=== PATIENT | female | born 1995 | race Caucasian/White ===

== ENCOUNTER → 2024-08-09 | Outpatient (CLI) | payer OTHER, SELFPAY ==
[2024-08-09 08:54] LABS: Absolute Lymphocyte Count 2.65 X10^3/uL (0.83-4.51); Basophil# 0.06 X10^3/uL; Basophil% 0.8 % (0-1); Eosinophil# 0.18 X10^3/uL; Eosinophils% 2.4 % (0-5); Hematocrit 43.4 % (37-47); Hemoglobin 13.9 g/dL (12.0-15.0); Lymphocyte # 2.65 X10^3/ul (0.83-4.51); Lymphocyte % 35.8 % (19-41); Mean Corpuscular Hgb 29.4 pg (27.0-32.0); Mean Corpuscular Volume 91.9 fL (81-99); Mean Platelet Vol. 9.9 fl (6.2-12.0); Monocyte# 0.47 X10^3/uL; Monocyte% 6.3 % (0-10); NRBC Flagged by Analyzer 0 % (0-5); Neutrophil # 4.01 X10^3/uL (2.7-7.7); Neutrophil % 54.2 % (47-70); Platelet Count 259 K/mm3 (150-450); RBC Distribution Width CV 13.4 % (11.6-14.6); RBC Distribution Width SD 45.4 fl (35.1-43.9); Red Blood Count 4.72 M/mm3 (4.2-5.4); White Blood Count 7.4 K/mm3 (4.4-11.0)
[2024-08-09 09:20] LABS: hCG Titer Quant., Serum 4 mIU/mL (1-3)
== END | disposition home or self-care (01) ==
PROVIDERS: PCP Nurse Practitioner Family; Referring Provider Obstetrics & Gynecology; Visit Provider Obstetrics & Gynecology
DX: O20.0 Threatened abortion (principal); Z3A.00 Weeks of gestation of pregnancy not specified
CPT/HCPCS: 36415; 84702; 85025; 86900; 86901

== ENCOUNTER → 2024-09-06 | Outpatient (CLI) | payer OTHER, SELFPAY ==
[2024-09-06 13:44] LABS: hCG Titer Quant., Serum 148 mIU/mL (<9 non-preg)
== END | disposition home or self-care (01) ==
PROVIDERS: Obstetrics & Gynecology; PCP Nurse Practitioner Family; Referring Provider Obstetrics & Gynecology; Visit Provider Obstetrics & Gynecology
DX: N91.2 Amenorrhea, unspecified (principal)
CPT/HCPCS: 36415; 84702

== ENCOUNTER → 2024-09-08 | Outpatient (CLI) | payer OTHER, SELFPAY ==
[2024-09-08 13:19] LABS: hCG Titer Quant., Serum 375 mIU/mL (<9 non-preg)
== END | disposition home or self-care (01) ==
LOC: LAB 12:01
PROVIDERS: PCP Nurse Practitioner Family; Referring Provider Obstetrics & Gynecology; Visit Provider Obstetrics & Gynecology
DX: N91.2 Amenorrhea, unspecified (principal)
CPT/HCPCS: 36415; 84702

== ENCOUNTER → 2024-10-11 | Outpatient (CLI) | payer OTHER, SELFPAY ==
[2024-10-14 21:07] LABS: Chlamydia By Nucleic Acid AMP Negative (Negative); Gonococcus By Nucleic Acid AMP Negative (Negative)
== END | disposition home or self-care (01) ==
LOC: LABSPEC 11:45
PROVIDERS: PCP Nurse Practitioner Family; Referring Provider Obstetrics & Gynecology; Visit Provider Obstetrics & Gynecology
DX: O09.91 Supervision of high risk pregnancy, unspecified, first trimester (principal); Z3A.00 Weeks of gestation of pregnancy not specified
CPT/HCPCS: 87086; 87491; 87591

== ENCOUNTER → 2024-10-17 | Outpatient (CLI) | payer OTHER, SELFPAY ==
[2024-10-17 09:16] LABS: Absolute Lymphocyte Count 2.41 X10^3/uL (0.83-4.51); Absolute Neutrophil Count 5.3 X10^3/uL (2.0-7.7); Basophil# 0.04 X10^3/uL; Basophil% 0.5 % (0-1); Eosinophil# 0.17 X10^3/uL; Eosinophils% 2.1 % (0-5); Hematocrit 39.1 % (37-47); Hemoglobin 13.3 g/dL (12.0-15.0); Lymphocyte # 2.41 X10^3/ul (0.83-4.51); Lymphocyte % 29.3 % (19-41); Mean Corpuscular Hgb 30.6 pg (27.0-32.0); Mean Corpuscular Volume 89.9 fL (81-99); Monocyte# 0.29 X10^3/uL; Monocyte% 3.5 % (0-10); NRBC Flagged by Analyzer 0 % (0-5); Neutrophil # 5.26 X10^3/uL (2.7-7.7); Platelet Count 254 K/mm3 (150-450); RBC Distribution Width CV 12.2 % (11.6-14.6); Red Blood Count 4.35 M/mm3 (4.2-5.4); White Blood Count 8.2 K/mm3 (4.4-11.0)
[2024-10-17 10:08] LABS: HIV Nonreactive (Nonreactive); Hepatitis B Surface Antigen Nonreactive (Nonreactive); Hepatitis C Antibody Nonreactive (Nonreactive); Rubella IgG REAC (Nonreactive); Syphilis Antibodies Nonreactive (Nonreactive)
== END | disposition home or self-care (01) ==
PROVIDERS: PCP Nurse Practitioner Family; Referring Provider Obstetrics & Gynecology; Visit Provider Obstetrics & Gynecology
DX: O09.91 Supervision of high risk pregnancy, unspecified, first trimester (principal); Z3A.00 Weeks of gestation of pregnancy not specified
CPT/HCPCS: 36415; 85025; 86703; 86762; 86780; 86803; 86850; 86900; 86901; 87340

== ENCOUNTER → 2025-02-19 | Outpatient (CLI) | payer OTHER, SELFPAY ==
[2025-02-19 12:20] LABS: Hematocrit 38.4 % (37-47); Hemoglobin 12.8 g/dL (12.0-15.0); Immature Granulocytes Count 0.140 X10^3/uL (0.0-0.0); Mean Corp Hgb Conc 33.3 g/dL (32-36); Mean Corpuscular Volume 91.6 fL (81-99); Mean Platelet Vol. 10.3 fl (6.2-12.0); NRBC Flagged by Analyzer 0 % (0-5); Platelet Count 245 K/mm3 (150-450); RBC Distribution Width CV 13.2 % (11.6-14.6); RBC Distribution Width SD 43.8 fl (35.1-43.9); Red Blood Count 4.19 M/mm3 (4.2-5.4); White Blood Count 8.8 K/mm3 (4.4-11.0)
[2025-02-19 13:57] LABS: Glucose Challenge Gest 1H 50g 96 mg/dL (70-140); HIV Nonreactive (Nonreactive); Syphilis Antibodies Nonreactive (Nonreactive)
== END | disposition home or self-care (01) ==
PROVIDERS: Advanced Practice Midwife; PCP Nurse Practitioner Family; Visit Provider Obstetrics & Gynecology
DX: O09.92 Supervision of high risk pregnancy, unspecified, second trimester (principal); Z3A.00 Weeks of gestation of pregnancy not specified; Z13.1 Encounter for screening for diabetes mellitus
CPT/HCPCS: 36415; 82950; 85025; 86703; 86780

== ENCOUNTER → 2025-03-03 | Outpatient (CLI) | payer OTHER, SELFPAY ==
[2025-03-03 12:22] LABS: Hematocrit 36.3 % (37-47); Hemoglobin 12.1 g/dL (12.0-15.0); Immature Granulocytes Count 0.200 X10^3/uL (0.0-0.0); Mean Corp Hgb Conc 33.3 g/dL (32-36); Mean Corpuscular Volume 90.1 fL (81-99); Mean Platelet Vol. 10.1 fl (6.2-12.0); NRBC Flagged by Analyzer 0 % (0-5); Platelet Count 239 K/mm3 (150-450); RBC Distribution Width CV 13.0 % (11.6-14.6); RBC Distribution Width SD 42.6 fl (35.1-43.9); Red Blood Count 4.03 M/mm3 (4.2-5.4); White Blood Count 8.9 K/mm3 (4.4-11.0)
[2025-03-03 13:06] LABS: AST(SGOT) 23 U/L (<=31); Alanine Aminotransfer ALT/SGPT 28 U/L (<=34); Albumin, Serum 3.7 g/dL (3.5-5.0); Alkaline Phosphatase 80 U/L (35-104); Anion Gap 13 (5-15); BUN 6 mg/dL (4-19); BUN/Creat Ratio 9.9 RATIO (10-20); Calcium,Total 9.3 mg/dL (7.6-11.0); Carbon Dioxide 18.1 mmol/L (21.0-32.0); Chloride 106 mmol/L (98-108); Globulin 2.8 g/dL (2.2-4.2); Glucose 95 mg/dL (70-99); Potassium 3.8 mmol/L (3.3-5.1)
== END | disposition home or self-care (01) ==
PROVIDERS: PCP Nurse Practitioner Family; Referring Provider Obstetrics & Gynecology; Visit Provider Obstetrics & Gynecology
DX: R10.11 Right upper quadrant pain (principal)
CPT/HCPCS: 36415; 80053; 85025

== ENCOUNTER → 2025-04-16 | Outpatient (CLI) | payer OTHER, SELFPAY ==
[2025-04-16 12:20] LABS: Hematocrit 39.4 % (37-47); Hemoglobin 13.1 g/dL (12.0-15.0); Immature Granulocytes Count 0.170 X10^3/uL (0.0-0.0); Mean Corp Hgb Conc 33.2 g/dL (32-36); Mean Corpuscular Volume 87.9 fL (81-99); Mean Platelet Vol. 10.5 fl (6.2-12.0); NRBC Flagged by Analyzer 0 % (0-5); Platelet Count 222 K/mm3 (150-450); RBC Distribution Width CV 13.5 % (11.6-14.6); RBC Distribution Width SD 43.1 fl (35.1-43.9); Red Blood Count 4.48 M/mm3 (4.2-5.4); White Blood Count 8.5 K/mm3 (4.4-11.0)
[2025-04-16 13:01] LABS: AST(SGOT) 20 U/L (<=31); Alanine Aminotransfer ALT/SGPT 14 U/L (<=34); Albumin, Serum 3.8 g/dL (3.5-5.0); Alkaline Phosphatase 128 U/L (35-104); Anion Gap 12 (5-15); BUN 6 mg/dL (4-19); BUN/Creat Ratio 10.4 RATIO (10-20); Calcium,Total 9.0 mg/dL (7.6-11.0); Carbon Dioxide 20.3 mmol/L (21.0-32.0); Chloride 104 mmol/L (98-108); Globulin 2.8 g/dL (2.2-4.2); Glucose 93 mg/dL (70-99); Potassium 4.0 mmol/L (3.3-5.1)
== END | disposition home or self-care (01) ==
PROVIDERS: PCP Nurse Practitioner Family; Visit Provider Nurse Practitioner Women's Health
DX: O99.713 Diseases of the skin and subcutaneous tissue complicating pregnancy, third trimester (principal); L29.9 Pruritus, unspecified; Z3A.00 Weeks of gestation of pregnancy not specified
CPT/HCPCS: 36415; 80053; 85025

== ENCOUNTER → 2025-04-24 | Outpatient (CLI) | payer OTHER, SELFPAY ==
[2025-04-24 12:29] LABS: Hematocrit 39.7 % (37-47); Hemoglobin 13.1 g/dL (12.0-15.0); Immature Granulocytes Count 0.150 X10^3/uL (0.0-0.0); Mean Corp Hgb Conc 33.0 g/dL (32-36); Mean Corpuscular Volume 87.6 fL (81-99); Mean Platelet Vol. 10.5 fl (6.2-12.0); NRBC Flagged by Analyzer 0 % (0-5); Platelet Count 248 K/mm3 (150-450); RBC Distribution Width CV 13.4 % (11.6-14.6); RBC Distribution Width SD 42.8 fl (35.1-43.9); Red Blood Count 4.53 M/mm3 (4.2-5.4); White Blood Count 8.6 K/mm3 (4.4-11.0)
[2025-04-24 12:55] LABS: AST(SGOT) 19 U/L (<=31); Alanine Aminotransfer ALT/SGPT 13 U/L (<=34); Albumin, Serum 3.8 g/dL (3.5-5.0); Alkaline Phosphatase 144 U/L (35-104); Anion Gap 11 (5-15); BUN 9 mg/dL (4-19); BUN/Creat Ratio 13.3 RATIO (10-20); Calcium,Total 9.3 mg/dL (7.6-11.0); Carbon Dioxide 20.9 mmol/L (21.0-32.0); Chloride 105 mmol/L (98-108); Globulin 3.1 g/dL (2.2-4.2); Glucose 93 mg/dL (70-99); Potassium 3.7 mmol/L (3.3-5.1)
== END | disposition home or self-care (01) ==
PROVIDERS: PCP Nurse Practitioner Family; Referring Provider Nurse Practitioner Women's Health; Visit Provider Nurse Practitioner Women's Health
DX: K59.09 Other constipation (principal)
CPT/HCPCS: 36415; 76819; 80053; 85025; 87081

== ENCOUNTER 2025-05-07 06:32 | Inpatient (IN) | payer OTHER, SELFPAY ==
[2025-05-07] VITALS (42 sets, daily range): BP systolic 101–150; BP diastolic 54–76; PULSE 55–96; RESP 14–16; TEMP 36.1–36.8; O2SAT 79–100; BMI 28.6
--- OUTSIDE RECORDS SUMMARY | 2025-05-07 05:39 | XMS RPT_ITS | CCD ---
Author Organization [facility] Clini[facility]ga Care Team Providers Care Mortgage Loan Closer Name Role Phone Unavailable Primary Care Provider UnavailBECKY Ferguson Attending Unavailable Aiken FREIGHT DELIVERY DRIVER-C, Norm Primary Care Provider Dr. Rhea Ayon DO Attending Provider Dr. Rhea Ayon DO Referring Provider Dr. Gloria Richard MD Referring Provider Echo Matias CNM Attending Provider [phone] Kamille Albarran MD Attending Provider Dr. Kamille Albarran MD Referring Provider Attila FREIGHT DELIVERY DRIVER-CNorm Referring Provider [phone] Tess Cunha Attending Provider FARA FUNK Attending Unavailable KAMILLE ALBARRAN Referring Unavailshelly HARDIN, [facility] [place] Primary Care Unavailable Aiken FREIGHT DELIVERY DRIVER-C, Norm Primary Care Provider Dr. Rhea Ayon DO Attending Provider Dr. Rhea Ayon DO Referring Provider Aiken FREIGHT DELIVERY DRIVER-C, Norm Primary Care Provider Aiken FREIGHT DELIVERY DRIVER-C, Norm Referring Provider [phone] Dr. Kamille Albarran MD Attending Provider Dr. Kamille Albarran MD Referring Provider [phone] Syed FREIGHT DELIVERY DRIVER-CTess Attending Provider Dr. Rhea Ayon DO Attending Provider Becky Caballero CNM Attending Provider Aiken FREIGHT DELIVERY DRIVER-C, Norm Primary Care Provider Aiken FREIGHT DELIVERY DRIVER-C, Norm Referring Provider Ricardo BE, Dr. Simental Attending Provider Dr. Kamille Albarran MD Referring Provider [phone] Aiken FREIGHT DELIVERY DRIVER-C, Norm Primary Care Provider Aiken FREIGHT DELIVERY DRIVER-C, Norm Referring Provider Ricardo BE, Dr. Simental Attending Provider Aiken FREIGHT DELIVERY DRIVER-C, Norm Primary Care Physician Butternut FREIGHT DELIVERY DRIVER-C, Tess Attending Physician [phone] Dr. Rhea Ayon DO Attending Physician Becky Caballero CNM Attending Physician [phone] Dr. Kamille Albarran MD Attending Physician Aiken FREIGHT DELIVERY DRIVER-C, Norm Primary Care Physician Aiken FREIGHT DELIVERY DRIVER-C, Norm Referring Provider Butternut FREIGHT DELIVERY DRIVER-C, Tess Attending Physician [phone] Aiken FREIGHT DELIVERY DRIVER-C, Norm Primary Care Physician Aiken FREIGHT DELIVERY DRIVER-C, Norm Referring Provider Dr. Rhea Ayon DO Attending Physician Becky Caballero CNM Attending Physician Syed FREIGHT DELIVERY DRIVER-C, Tess Attending Physician [phone] Dr. Kamille Albarran MD Attending Physician Dr. Kamille Albarran MD Referring Provider Butternut FREIGHT DELIVERY DRIVER-C, Tess Referring Provider Aiken, Norm Primary Care Unavailable Aiken, Norm Referring Unavailable Rhea Ayon Attending Unavailabl e Aiken, Norm Referring Unavailable ButternutTess Attending Unavailable Aiken, Norm Primary Care Unavailable Akien, Norm Referring Unavailable Aiken, Norm Primary Care Unavailable Kamille Albarran Attending Unavailable Aiken, Norm Primary Care Unavailable Aiken, Norm Referring Unavailable Marcanthony, Kamille Attending Unavailable Aiken, Norm Primary Care Unavailable Marcanthony, Kamille Attending Unavailable Aiken, Norm Primary Care Unavailable Marcanthony, Kamille Attending Unavailable Marcanthony, Kamille Referring Unavailable Aiken, Norm Primary Care Unavailable Marcanthony, Kamille Referring Unavailable Marcanthony, Kamille Attending Unavailable Aiken, Norm Primary Care Unavailable Syed, Tess Attending Unavailable Syed, Tess Referring Unavailable Aiken, Norm Primary Care Unavailable Syed, Tess Attending Unavailable Aiken, Norm Primary Care Unavailable Marcanthony, Kamille Attending Unavailable Marcanthony, Kamille Referring Unavailable Syed, Tess Attending Unavailable Aiken, Norm Primary Care Unavailable Aiken, Norm Referring Unavailable Vande Velde, Rhea Attending Unavailabl e Aiken, Norm Primary Care Unavailable Aiken, Norm Referring Unavailable Aiken, Norm Referring Unavailable Aiken, Norm Primary Care Unavailable Becky Caballero Attending Unavailable Aiken, Norm Primary Care Unavailable Aiken, Norm Referring Unavailable Becky Caballero Attending Unavailable Aiken, Norm Primary Care Unavailable Aiken, Norm Referring Unavailable Vande Velde, Rhea Attending Unavailabl e Aiken, Norm Primary Care Unavailable Aiken, Norm Referring Unavailable Syed, Tess Attending Unavailable Aiken, Norm Primary Care Unavailable Marcanthony, Kamille Attending Unavailable Aiken, Norm Referring Unavailable Echo Matias Attending Unavailable Aiken, Norm Primary Care Unavailable RichardGloria Referring Unavailable Aiken, Norm Primary Care Unavailable Aiken, Norm Referring Unavailable Marcanthony, Kamille Attending Unavailable Aiken, Norm Primary Care Unavailable Becky Caballero Attending Unavailable Aiken, Norm Referring Unavailable Aiken, Norm Primary Care Unavailable Vande Velde, Rhea Referring Unavailabl e Vande Velde, Rhea Attending Unavailabl e Vande Velde, Rhea Referring Unavailabl e Vande Velde, Rhea Attending Unavailabl e Aiken, Norm Primary Care Unavailable Aiken, Norm Primary Care Unavailable Marcanthony, Kamille Referring Unavailable Marcanthony, Kamille Attending Unavailable Syed, Tess Attending Unavailable Aiken, Norm Primary Care Unavailable Aiken, Norm Referring Unavailable Medications Current Medications Medication Drug Class(es) Dates Sig (Normalized) Sig (Original) L.Acid-B.Animalis,Bi fidum-Fos (Probiotic Complex) 25 billion cell -100 mg capsule (12 sources) Start: 09-24-2024 L.Acid-B.Animalis,B ifidum-Fos (Probiotic Complex) 25 billion cell -100 mg capsule Active NMA PO September 23, 2024 11:00pm Complies with drug therapy Start: 09-24-2024 Start: 09-24-2024 L.Acid-B.Anima lis,Bifidum-Fos (Probiotic Complex) 25 billion cell -100 mg capsule Active NMA PO September 24, 2024 12:00am Complies with drug therapy Start: 09-24-2024 L.Acid-B.Anima lis,Bifidum-Fos (Probiotic Complex) 25 billion cell -100 mg capsule Active NMA PO September 24, 2024 12:00am Multivit 15-Gyrm-Fgszcu 1-Dh a (Pnv-Dha) 27 mg iron-1 mg -300 mg capsule (12 sources) Start: 09-24-2024 Multivit 47-Ir on-Folate 1-Dha (Pnv-Dha) 27 mg iron-1 mg -300 mg capsule Active NMA PO September 23, 2024 11:00pm Complies with drug therapy Start: 09-24-2024 Start: 09-24-2024 Multivit 47-Ir on-Folate 1-Dha (Pnv-Dha) 27 mg iron-1 mg -300 mg capsule Active NMA PO September 24, 2024 12:00am Complies with drug therapy Start: 09-24-2024 Multivit 47-Ir on-Folate 1-Dha (Pnv-Dha) 27 mg iron-1 mg -300 mg capsule Active NMA PO September 24, 2024 12:00am [place] (Nk) (2 sources) Start: 08-23-2024 [place] (Nk) A ctive August 23, 2024 1:00am Completed/Discontinued Medications Medication Drug Class(es) Dates Sig (Normalized) Sig (Original) acetaminophen 325 mg / HYDROcodone bitartrate 5 mg oral tablet (14 sources) Opioid Agonist Start: 05-03-2013 End: 05-09-2013 Hydrocodone-Acetami nophen 1 TABLET tablet Discontinued 1 - 2 {tbl} PO EVERY 4 HOURS NEEDED as needed for Pain 20 0 May 03, 2013 2:51pm May 09, 2013 12:57pm naproxen 500 mg oral tablet (14 sources) Nonsteroidal Anti-inflammatory Drug Start: 05-09-2013 End: 08-23-2024 take 1 tablet by mouth twice daily as needed for pain Naproxen 500 MG tablet Discontinued 500 mg PO TWICE DAILY NEEDED as needed for Pain May 09, 2013 12:00am August 23, 2024 2:35pm spironolactone 25 mg oral tablet (14 sources) Aldosterone Antagonist Start: 05-03-2013 End: 08-23-2024 take 1 tablet by mouth once daily Spironolactone 25 MG tablet Discontinued 25 mg PO DAILY May 03, 2013 12:00am August 23, 2024 2:35pm Problems Active Problems Problem Classification Problem Date Documented Da te Episodic/Chronic Abdominal pain (15 sources) Right upper quadrant pain; Translations: [Right upper quadrant pain] Onset: 05-01-2025 03-03-2025 Episodic Comment on above: labs ordered labs ordered-nl. Res olved Immunizations and screening for infectious disease (2 sources) Patient encounter status; Translations: [Encounter for screening for human papillomavirus (HPV)] 06-11-2024 Episodic Menstrual disorders (13 sources) Amenorrhea; Translations: [Amenorrhea, unspecified] Onset: 09-30-2024 09-24-2024 Chronic Comment on above: Urine test Other complications of (20 sources) High risk ; Translations: [Supervision of high risk , unspecified, unspecified trimester] 09-24-2024 Episodic Comment on above: G2PO, SREEDHAR 05/15/25, Melvin PRR G2PO, SREEDHAR , girl Melvin PRR G2PO, SREEDHAR , girl Renee Melvin Other complications of (6 sources) Pruritus of ; Translations: [Diseases of the skin and subcutaneous tissue complicating , third trimester] 04-21-2025 Episodic Comment on above: CMP nl, bile acids u pper normal limits. Rpt 1 week is sx persist. BPP CMP nl, bile acids u pper normal limits. Rpt 1 week is sx persist. BPP normal. 2nd bile acids pending. Other complications of (1 source) Supervision of high risk , unspecified, second trimester; Translations: [Supervision of high risk , unspecified, second trimester] Onset: 05-01-2025 Episodic Other complications of (1 source) Diseases of the skin and subcutaneous tissue complicating , third trimester; Translations: [Diseases of the skin and subcutaneous tissue complicating , third trimester] Onset: 05-02-2025 Episodic Other female genital disorders (1 source) Vaginal odor; Translations: [Other specified noninflammatory disorders of vagina] 06-11-2024 Episodic Other gastrointestinal disorders (1 source) Other constipation; Translations: [Other constipation] Onset: 04-28-2025 Episodic Other inflammatory condition of skin (1 source) Pruritus, unspecified; Translations: [Pruritus, unspecified] Onset: 05-01-2025 Episodic Other screening for suspected conditions (not mental disorders or infectious disease) (1 source) Cancer cervix screening status; Translations: [Encounter for screening for malignant neoplasm of cervix] 06-11-2024 Episodic Residual codes; unclassified (20 sources) H/O: miscarriage; Translations: [Personal history of other complications of , childbirth and the puerperium] 09-24-2024 Episodic Residual codes; unclassified (1 source) 38 weeks gestation of ; Translations: [38 weeks gestation of ] Onset: 05-01-2025 Episodic Residual codes; unclassified (1 source) Personal history of other complications of , childbirth and the puerperium; Translations: [Personal history of other complications of , childbirth and the puerperium] Onset: 05-01-2025 Episodic Residual codes; unclassified (1 source) 37 weeks gestation of ; Translations: [37 weeks gestation of ] Onset: 04-24-2025 Episodic Residual codes; unclassified (1 source) 32 weeks gestation of ; Translations: [32 weeks gestation of ] Onset: 03-21-2025 Episodic Residual codes; unclassified (1 source) 29 weeks gestation of ; Translations: [29 weeks gestation of ] Onset: 03-03-2025 Episodic Past or Other Problems Problem Classification Problem Date Documented Da te Episodic/Chronic Hemorrhage during ; abruptio placenta; placenta previa (15 sources) Threatened miscarriage; Translations: [Threatened ] Onset: 09-30-2024 08-08-2024 Episodic Other complications of (1 source) Supervision of high risk , unspecified, first trimester; Translations: [Supervision of high risk , unspecified, first trimester] Onset: 11-11-2024 Episodic Other and delivery including normal (20 sources) ; Translations: [Encounter for supervision of normal , unspecified, unspecified trimester] Onset: 11-11-2024 10-11-2024 Episodic Comment on above: discussed NIPT & Car rier testing- planned low risk, gender fem evaristo declined carrier. low risk, gender fem evaristo declined carrier and AFP low risk, gender fem evaristo declined carrier and AFP, nml anatomy GBS neg, low risk, g venessa female declined carrier and AFP, nml anatomy Residual codes; unclassified (1 source) 21 weeks gestation of ; Translations: [21 weeks gestation of ] Onset: 01-02-2025 Episodic Residual codes; unclassified (1 source) 13 weeks gestation of ; Translations: [13 weeks gestation of ] Onset: 11-11-2024 Episodic Spontaneous (20 sources) Complete miscarriage; Translations: [Complete or unspecified spontaneous without complication] Onset: 09-13-2024 08-23-2024 Episodic Comment on above: fertility optimizati on reviewed. goal to ttc again in 3 months. on vitamin. Results Test Name Value Interpretation Reference Range Facility Laboratory - Chemistry and C hemistry - challengeOrdered By: Rhea Pak on 05-01-2025 Glucose Ql (U) Negative [facility] - UrinalysisOrder ed By: Rhea Pak on 05-01-2025 Protein Ql (U) Negative [facility] Office Visit Reporton 05-01-2025 [facility] Office Visit Report [facility] [address], [address] [place] [address] OFFICE VISIT Date of Service: 05/01/25 MR#: [id number] Acct: [id number] Name: SERA SANTIAGO Rep #: [id number] : 1995 Provider: Dr. Rhea Tiwari DO Age/Sex: 29/F Location: [facility] [place] Status: Signed Intake Vital Signs 03/21/25 09:17 04/16/25 08:51 04/24/25 10:18 05/01/25 09:41 Height 5 ft 5 in 5 ft 5 in 5 ft 5 in 5 ft 5 in Weight: 172 lb 6 oz BMI 28.6 BP 132/80 H Intake Visit Reasons: 38 wk ob Chief Complaint: 38wk OB Hand Turner Required: No Is patient in pain?: No Allergies No Known Allergies Allergy (Verified 05/01/25 09:39) Medications ???Medication ???Instructions ???Recorded ???Confirmed ???Type L.acidophilus-B.ani malis-B.bifidum cap PO 09/24/24 05/01/25 History 25 billion cell-FOS 100 mg capsule (Probiotic Complex) multivitamin no.47-iron fum 27 cap PO 09/24/24 05/01/25 History mg-folate no.1 1 mg-dha 300 mg capsule (PNV-DHA) Last Menstrual Period: 08/08/24 : No Have you fallen in the past year?: No PFSH PFSH Medical History Complete miscarriage Family History Mother Hypertension, Onset Age: 45 Grandfather No problems noted. Father MTHFR gene mutation Sister MTHFR gene mutation Social History adopted: No household members: spouse housing: house number of children: 0 current occupational status: employed current occupation: [employer] in [place] current occupational exposures/hazards: No pets and animals: Yes pets and animals: dog(s) history of recent travel: Yes ([place]) out of state: Yes out of country: No sexually active: Yes Smoking Status: Never smoker alcohol intake: current alcohol intake frequency: holidays/special occasions only details: Not while substance use type: does not use well-balanced diet: daily or most days caffeine: No eating out: 4 or more times/week during the past year weight has: remained stable what type of physical activity do you participate in: aerobics frequency: 3-4 times per week duration: 45-60 minutes/day dana/jewish: Jewish seatbelt use: always do you feel safe at home: Yes 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 Date Name GA/Weeks Outcome Route Bth Weight Infant Gen Labor Lgth Anesthesia Del Ed Provider FOB 08/08/24 4 spontaneous HPI 38 wk ob Details: ALBINO SANTIAGO is a 29 year old who presents for routine OB visit. OB Visit SREEDHAR Calculator Estimated Delivery Date Method Current WG Current Estimate 05/15/25 LMP (Certain) 38w 0d Other Estimates 05/16/25 Ultrasound #1 37w 6d Expected Delivery Route/Plan Labor Preferences- CB/BF classes: yes labor support person: Melvin labor intervention preferences: [] pain management options preferred: epidural cut cord/dad catch: yes : yes PP control planned: discussed discussed possible routes of delivery and associated risks: [] special requests: [] Specific Issue/Plans Covid status: [] Flu vaccine:declined Tdap vaccine: dec Rhogam: NA LARC form signed: yes movement and labor precautions reviewed. Problem list reviewed and updated with the most current plan of care details and appropriate orders placed. Relevant counseling for the gestational age provided. Continue routine care and follow up unless otherwise noted in visit notes/problem list details Initial Weight: Not Recorded Date -???-???-???-???-?? ?-???-???-???-???-? ??-???-???- EGA Weight BP Urine Prot -???-???-???-???-?? ?-???-???-???-???-? ??-???-???- Glucose FHR FuHt Pres Dilation -???-???-???-???-?? ?-???-???-???-???-? ??-???-???- Effaced St Visit Note 10/11/24 -???-???-???-???-?? ?-???-???-???-???-? ??-???-???- 9w 1d 153 lb 8 oz 135/68 -???-???-???-???-?? ?-???-???-???-???-? ??-???-???- 180 -???-???-???-???-?? ?-???-???-???-???-? ??-???-???- SM- CRL 2.24 cm cons with lMP 11/08/24 -???-???-???-???-?? ?-???-???-???-???-? ??-???-???- 13w 1d 151 lb 6 oz 125/73 Negative -???-???-???-???-?? ?-???-???-???-???-? ??-???-???- Negative 160 -???-???-???-???-?? ?-???-???-???-???-? ??-???-???- SM- no vb cr amping 12/02/24 -???-???-???-???-?? ?-???-???-???-???-? ??-???-???- 16w 4d 155 lb 119/71 Negative -???-???-???-???-?? ?-???-???-???-???-? ??-???-???- Negative 158 -???-???-???-???-? (more content not included)... Normal [facility] [id number] 04-27-2025 [facility] Misc. COMMENT Normal . [facility] Comment on above: Order Comment: Comme nts: Bile [id number] bile acids Result Comment: Test Ordered: [id number] Bile Acids, Fractionated LCMS Ursodeoxycholic Acids <0.10 umol/L ES Reference Range: . Reference Range: All Ages: <1.9 Cholic Acids 0.20 umol/L ES Reference Range: . Reference Range: All Ages: <2.2 Chenodeoxycholic Acids 0.60 umol/L ES Reference Range: . Reference Range: All Ages: <5.8 Deoxycholic Acids 0.10 umol/L ES Reference Range: . Reference Range: All Ages: <3.3 Total Bile Acids 0.90 umol/L ES Reference Range: . This test was developed and its performance characteristics determined by [facility]. It has not been cleared or approved by the Food and Drug Administration. Reference Range: All Ages: <9.2 Performed at: [facility] [address] [place] [id number] Motor Vehicle Clerk: Rebecca Snider MD, Phone: [phone] Performed at: [facility] [id number] Motor Vehicle Clerk: Andrew Kline PhD, Phone: [phone] Performed By: #### L 100.0100, L500.4050 #### [facility] [address] [place], [place], [id number] Rule out Beta Strep (Grp. B) on 04-26-2025 DARBY Group B Beta Streptococcus is not isolated. Normal [facility] Comment on above: Performed By: #### M 100.3400 #### [facility] [address] [place], [place], [id number] Screening beta-hemolytic Str eptococcus cultureOrdered By: Kamille Albarran on 04-25-2025 Beta-hemolytic Streptococcus culture Group B Beta Streptococcus is not isolated. [facility] Absolute lymphocyte countOrd ered By: Tess Lynch on 04-24-2025 Lymphocytes Auto (Unsp spec) [#/Vol] 2.15 10*3/uL 0.83-4.51 [facility] Absolute neutrophil countOrd ered By: Tess Lynch on 04-24-2025 Neutrophils (Bld) [#/Vol] 5.7 10*3/uL 2.0-7.7 [facility] Anion gap in Serum or Plasma Ordered By: Tess Lynch on 04-24-2025 Anion gap [Moles/Vol] 11 mmol/L - [facility] Automated lymphocyte count a s percentage of total leukocytesOrdered By: Tess Lynch on 04-24-2025 Lymphocytes/100 WBC Auto (Unsp spec) 25.0 % [facility] BUN/creatinine ratioOrdered By: Tess Lynch on 04-24-2025 Urea nitrogen/Creatinine [Mass ratio] 13.3 mg/mg - [facility] Basophil percentageOrdered B y: Tess Lynch on 04-24-2025 Basophils/100 WBC (Bld) 0.7 % 0-1 [facility] Bilirubin, totalOrdered By: Tessramu Lynch on 04-24-2025 Bilirubin [Mass/Vol] 0.22 mg/dL 0.00-1.30 [facility] CBC W/Diff, Automatedon 03-28 Absolute Lymph 2.15 X10 3/uL Normal 0.83-4.51 [facility] Comment on above: Performed By: #### M 100.3400 #### [facility] [address] [place], [address] Absolute Neut 5.7 X10 3/uL Normal 2.0-7.7 [facility] Comment on above: Performed By: #### M 100.3400 #### [facility] [address] [place], [address] Basophils/100 WBC (Bld) 0.7 % Normal 0-1 [facility] Comment on above: Performed By: #### M 100.3400 #### [facility] [address] [place], [address] Eosinophils/100 WBC (Bld) 0.8 % Normal 0-5 [facility] Comment on above: Performed By: #### M 100.3400 #### [facility] [address] [place], [address] Erythrocyte distribution width (RBC) [Ratio] 13.4 % Normal 11.6-14.6 [facility] Comment on above: Performed By: #### M 100.3400 #### [facility] [address] [place], [address] Hematocrit (Bld) [Volume fraction] 39.7 % Normal 37-47 [facility] Comment on above: Performed By: #### M 100.3400 #### [facility] [address] [place], [address] Hemoglobin (Bld) [Mass/Vol] 13.1 g/dL Normal 12.0-15.0 [facility] Comment on above: Performed By: #### M 100.3400 #### [facility] [address] [place], [address] IG% 1.700 High 0.0-0.9 [facility] Comment on above: Result Comment: IG% - Immature Granulocytes (promyelocytes, myelocytes and metamyelocytes) > 1% indicates that a LEFT SHIFT is Present. Performed By: #### M 100.3400 #### [facility] [address] [place], [address] Lymphocytes/100 WBC (Bld) 25.0 % Normal 19-41 [facility] Comment on above: Performed By: #### M 100.3400 #### [facility] [address] [place], [address] MCH (RBC) [Entitic mass] 28.9 pg Normal 27.0-32.0 [facility] Comment on above: Performed By: #### M 100.3400 #### [facility] [address] [place], [address] MCHC (RBC) [Mass/Vol] 33.0 g/dL Normal 32-36 [facility] Comment on above: Performed By: #### M 100.3400 #### [facility] [address] [place], [address] MCV (RBC) [Entitic vol] 87.6 fL Normal 81-99 [facility] Comment on above: Performed By: #### M 100.3400 #### [facility] [address] [place], [address] Monocytes/100 WBC (Bld) 5.2 % Normal 0-10 [facility] Comment on above: Performed By: #### M 100.3400 #### [facility] [address] [place], [address] Neutrophils/100 WBC (Bld) 66.6 % Normal 47-70 [facility] Comment on above: Performed By: #### M 100.3400 #### [facility] [address] [place], [address] Nucleated RBC (Bld) [#/Vol] 0 10*3/uL Normal 0-5 [facility] Comment on above: Performed By: #### M 100.3400 #### [facility] [address] [place], [address] Platelet mean volume (Bld) [Entitic vol] 10.5 fL Normal 6.2-12.0 [facility] Comment on above: Performed By: #### M 100.3400 #### [facility] [address] [place], [address] Platelets (Bld) [#/Vol] 248 10*3/uL Normal 150-450 [facility] Comment on above: Performed By: #### M 100.3400 #### [facility] [address] [place], [address] RBC (Bld) [#/Vol] 4.53 10*6/uL Normal 4.2-5.4 [facility] Comment on above: Performed By: #### M 100.3400 #### [facility] [address] [place], [address] RDW SD 42.8 fl Normal 35.1-43.9 [facility] Comment on above: Performed By: #### M 100.3400 #### [facility] [address] [place], [address] WBC (Bld) [#/Vol] 8.6 10*3/uL Normal 4.4-11.0 [facility] Comment on above: Performed By: #### M 100.3400 #### [facility] [address] [place], [address] Carbon dioxide, total [Moles /volume] in Central venous bloodOrdered By: Tess Lynch on 04-24-2025 CO2 [Moles/Vol] 20.9 mmol/L Low 21.0-32.0 [facility] Chloride assayOrdered By: Walter Lynch on 04-24-2025 Chloride [Moles/Vol] 105 mmol/L 98-108 [facility] Comprehensive Metabolic Prof ilon 04-24-2025 Albumin [Mass/Vol] 3.8 g/dL Normal 3.5-5.0 [facility] Comment on above: Order Comment: Bile acids Performed By: #### L 100.0100, L500.4050 #### [facility] [address] [place], [address] Albumin/Globulin [Mass ratio] 1.2 {ratio} Normal 0.9-2.4 [facility] Comment on above: Order Comment: Bile acids Performed By: #### L 100.0100, L500.4050 #### [facility] [address] [place], [address] ALK PHOS 144 U/L High 35-104 [facility] Comment on above: Order Comment: Bile acids Performed By: #### L 100.0100, L500.4050 #### [facility] [address] [place], [address] ALT [Catalytic activity/Vol] 13 U/L Normal <=34 [facility] Comment on above: Order Comment: Bile acids Performed By: #### L 100.0100, L500.4050 #### [facility] [address] [place], [address] AST [Catalytic activity/Vol] 19 U/L Normal <=31 [facility] Comment on above: Order Comment: Bile acids Performed By: #### L 100.0100, L500.4050 #### [facility] [address] [place], [address] Bilirubin [Mass/Vol] 0.22 mg/dL Normal 0.00-1.30 [facility] Comment on above: Order Comment: Bile acids Performed By: #### L 100.0100, L500.4050 #### [facility] [address] [place], [address] BUN/CRE 13.3 RATIO Normal 10-20 [facility] Comment on above: Order Comment: Bile acids Performed By: #### L 100.0100, L500.4050 #### [facility] [address] [place], [address] Calcium [Mass/Vol] 9.3 mg/dL Normal 7.6-11.0 [facility] Comment on above: Order Comment: Bile acids Performed By: #### L 100.0100, L500.4050 #### [facility] [address] [place], [address] Chloride [Moles/Vol] 105 mmol/L Normal 98-108 [facility] Comment on above: Order Comment: Bile acids Performed By: #### L 100.0100, L500.4050 #### [facility] [address] [place], [address] CO2 [Moles/Vol] 20.9 mmol/L Low 21.0-32.0 [facility] Comment on above: Order Comment: Bile acids Performed By: #### L 100.0100, L500.4050 #### [facility] [address] [place], [address] Creatinine [Mass/Vol] 0.69 mg/dL Low 0.70-1.20 [facility] Comment on above: Order Comment: Bile acids Performed By: #### L 100.0100, L500.4050 #### [facility] [address] [place], [address] GAP 11 Normal 5-15 [facility] Comment on above: Order Comment: Bile acids Performed By: #### L 100.0100, L500.4050 #### [facility] [address] [place], [address] GFR/1.73 sq M.predicted among non-blacks MDRD (S/P/Bld) [Vol rate/Area] 120 mL/min/{1.73_m2} Normal >60 [facility] Comment on above: Order Comment: Bile acids Result Comment: mL/m in/1.73m2 CKD-EPI Creatinine Equation (2020) Performed By: #### L 100.0100, L500.4050 #### [facility] [address] [place], [address] Globulin (S) [Mass/Vol] 3.1 g/dL Normal 2.2-4.2 [facility] Comment on above: Order Comment: Bile acids Performed By: #### L 100.0100, L500.4050 #### [facility] [address] [place], [address] Glucose [Mass/Vol] 93 mg/dL Normal 70-99 [facility] Comment on above: Order Comment: Bile acids Performed By: #### L 100.0100, L500.4050 #### [facility] [address] [place], [address] Potassium [Moles/Vol] 3.7 mmol/L Normal 3.3-5.1 [facility] Comment on above: Order Comment: Bile acids Performed By: #### L 100.0100, L500.4050 #### [facility] [address] [place], [address] Sodium [Moles/Vol] 137 mmol/L Normal 133-145 [facility] Comment on above: Order Comment: Bile acids Performed By: #### L 100.0100, L500.4050 #### [facility] [address] [place], [address] T PROT 6.9 g/dL Normal 5.9-8.4 [facility] Comment on above: Order Comment: Bile acids Performed By: #### L 100.0100, L500.4050 #### [facility] [address] [place], [address] Urea nitrogen [Mass/Vol] 9 mg/dL Normal 4-19 [facility] Comment on above: Order Comment: Bile acids Performed By: #### L 100.0100, L500.4050 #### [facility] [address] [place], [address] Eosinophil percentageOrdered By: Tess Lynch on 04-24-2025 Eosinophils/100 WBC (Bld) 0.8 % 0-5 [facility] Erythrocyte distribution wid th ratioOrdered By: Tess Lynch on 04-24-2025 Erythrocyte distribution width (RBC) [Ratio] 13.4 % 11.6-14.6 [facility] Erythrocyte distribution wid th standard deviationOrdered By: Tess Lynch on 04-24-2025 Erythrocyte distribution width (RBC) [Ratio] 42.8 fl 35.1-43.9 [facility] Glomerular filtration rate ( GFR) estimation/1.73 sq m using serum, plasma, or whole bOrdered By: Tess Lynch on 04-24-2025 GFR/1.73 sq M.predicted among non-blacks MDRD (S/P/Bld) [Vol rate/Area] 120 mL/min/{1.73_m2} >60 [facility] Comment on above: mL/min/1.73m2 CKD-EP I Creatinine Equation (2020) Hematocrit Auto (Bld) [Volum e fraction]Ordered By: Tess Lynch on 04-24-2025 Hematocrit (Bld) [Volume fraction] 39.7 % 37-47 [facility] Hemoglobin measurementOrdere d By: Tess Lynch on 04-24-2025 Hemoglobin (Bld) [Mass/Vol] 13.1 g/dL 12.0-15.0 [facility] Immature granulocytes/100 WB C Auto (Bld)Ordered By: Tess Lynch on 04-24-2025 Immature granulocytes/100 WBC (Bld) 1.700 % High 0.0-0.9 [facility] Comment on above: IG% - Immature Granu locytes (promyelocytes, myelocytes and metamyelocytes) > 1% indicates that a LEFT SHIFT is Present. Laboratory - Chemistry and C hemistry - challengeOrdered By: Tess Lynch on 04-24-2025 AST [Catalytic activity/Vol] 19 U/L <32 [facility] MCV (mean corpuscular volume ) determinationOrdered By: Tess Lynch on 04-24-2025 MCV (RBC) [Entitic vol] 87.6 fL 81-99 [facility] Mean corpuscular hemoglobin (MCH) determinationOrdered By: Tess Lynch on 04-24-2025 MCH (RBC) [Entitic mass] 28.9 pg 27.0-32.0 [facility] Mean corpuscular hemoglobin concentration (MCHC) determinationOrdered By: Tess Lynch on 04-24-2025 MCHC (RBC) [Mass/Vol] 33.0 g/dL 32-36 [facility] Mean platelet volume determi nationOrdered By: Tess Lynch on 04-24-2025 Platelet mean volume (Bld) [Entitic vol] 10.5 fL 6.2-12.0 [facility] Monocyte percentageOrdered B y: Tess Lynch on 04-24-2025 Monocytes/100 WBC (Bld) 5.2 % 0-10 [facility] Neutrophil percentageOrdered By: Tess Lynch on 04-24-2025 Neutrophils/100 WBC (Bld) 66.6 % 47-70 [facility] Nucleated red blood cell per centageOrdered By: Tess Lynch on 04-24-2025 Nucleated RBC/100 WBC (Bld) [Ratio] 0 % 0-5 [facility] OB Biophysical Prof W/O NSTo n 04-24-2025 OB Biophysical Prof W/O NST [facility] Imaging Services [address] [place] [address] OB Biophysical Prof W/O NST MR#: [id number] Acct: [id number] Name: SERA SANTIAGO Rep #: [id number] : 1995 F 29 From: Moo velasquez MD PCP: MOOSE Ridley Status: REG CLI Study: OB Biophysical Prof W/O NST Date of Exam: 03/28 Exam# [id number] Ordering Dr: Tess Lynch NP [employer] -Seth PROCEDURE: OB BIOPHYSICAL PROF W/O NST 04/24/2025 REASON FOR EXAM: PRURITUS TECHNIQUE: Procedure Code: USBIOWO Modality: US Procedure: OB BIOPHYSICAL PROF W/O NST COMPARISON: None FINDINGS Number: 1 Position: Vertex Placental Position: Left lateral and not low-lying Placental Abnormalities: No evidence of previa. ESTIMATED GESTATIONAL AGE: Baseline: 37 weeks and 0 days By Ultrasound: ESTIMATED DATE OF DELIVERY: Baseline: BIOPHYSICAL ASSESSMENT: Amniotic Fluid Volume: 5.9 cm 3.1 cm Amniotic Fluid Index: 18.6 cm (8-24 cm normal range) Cardiac Motion: 141 beats per minute (average) Trunk and Limb Motion: Present. MATERNAL ANATOMY: Adnexa: Neither maternal ovary is successfully identified. Nuchal cord is noted. Biophysical profile: Breathing movements: 2 Gross body movements: 2 tone: 2 Amniotic fluid volume: 2 Total score: 8/8 US/OB Biophysical Prof W/O NST IMPRESSION: Normal biophysical profile score. Nuchal cord is seen. Reading Location: [id number] CC: MOOSE Aiken; VIVIENNEC Tess Lynch Supervisor [employer]: Signed Normal [facility] Office Visit Reporton 04-24-2025 [facility] Office Visit Report [facility] [address], [address] [place] [address] OFFICE VISIT Date of Service: 04/24/25 MR#: [id number] Acct: [id number] Name: SERA SANTIAGO Rep #: [id number] : 1995 Provider: Dr. Kamille gamez MD Age/Sex: 29/F Location: [facility] [place] [facility] Status: Signed Intake Vital Signs 03/21/25 09:17 04/16/25 08:51 04/24/25 10:18 Height 5 ft 5 in 5 ft 5 in 5 ft 5 in Weight: 173 lb BMI 28.8 BP 133/77 H Intake Visit Reasons: 37 wk ob- rpt labs per Hand Turner Required: No Is patient in pain?: No Allergies No Known Allergies Allergy (Verified 04/24/25 10:19) Medications ???Medication ???Instructions ???Recorded ???Confirmed ???Type L.acidophilus-B.ani malis-B.bifidum cap PO 09/24/24 04/24/25 History 25 billion cell-FOS 100 mg capsule (Probiotic Complex) multivitamin no.47-iron fum 27 cap PO 09/24/24 04/24/25 History mg-folate no.1 1 mg-dha 300 mg capsule (PNV-DHA) Last Menstrual Period: 08/08/24 Zika: Zika virus screening: Negative : No PFSH PFSH Medical History Complete miscarriage Family History Mother Hypertension, Onset Age: 45 Grandfather No problems noted. Father MTHFR gene mutation Sister MTHFR gene mutation Social History adopted: No household members: spouse housing: house number of children: 0 current occupational status: employed current occupation: [employer] in [place] current occupational exposures/hazards: No pets and animals: Yes pets and animals: dog(s) history of recent travel: Yes ([place]) out of state: Yes out of country: No sexually active: Yes Smoking Status: Never smoker alcohol intake: current alcohol intake frequency: holidays/special occasions only details: Not while substance use type: does not use well-balanced diet: daily or most days caffeine: No eating out: 4 or more times/week during the past year weight has: remained stable what type of physical activity do you participate in: aerobics frequency: 3-4 times per week duration: 45-60 minutes/day dana/jewish: Jewish seatbelt use: always do you feel safe at home: Yes 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 Date Name GA/Weeks Outcome Route Bth Weight Gen Labor Lgth Anesthesia Del Locatn Provider FOB 08/08/24 4 spontaneous HPI 37 wk ob- rpt labs per Details: ALBINO SANTIAGO is a 29 year old who presents for routine OB visit. OB Visit [facility]RE[facility] Calculator Estimated Delivery Date Method Current WG Current Estimate 05/15/25 LMP (Certain) 37w 0d Other Estimates 05/16/25 Ultrasound #1 36w 6d Expected Delivery Route/Plan Labor Preferences- CB/BF classes: yes labor support person: Melvin labor intervention preferences: [] pain management options preferred: epidural cut cord/dad catch: yes : yes PP control planned: discussed discussed possible routes of delivery and associated risks: [] special requests: [] Specific Issue/Plans Covid status: [] Flu vaccine:declined Tdap vaccine: dec Rhogam: NA LARC form signed: yes movement and labor precautions reviewed. Problem list reviewed and updated with the most current plan of care details and appropriate orders placed. Relevant counseling for the gestational age provided. Continue routine care and follow up unless otherwise noted in visit notes/problem list details Initial Weight: Not Recorded Date -???-???-???-???-?? ?-???-???-???-???-? ??-???-???- EGA Weight BP Urine Prot -???-???-???-???-?? ?-???-???-???-???-? ??-???-???- Glucose FHR FuHt Pres Dilation -???-???-???-???-?? ?-???-???-???-???-? ??-???-???- Effaced St Visit Note 10/11/24 -???-???-???-???-?? ?-???-???-???-???-? ??-???-???- 9w 1d 153 lb 8 oz 135/68 -???-???-???-???-?? ?-???-???-???-???-? ??-???-???- 180 -???-???-???-???-?? ?-???-???-???-???-? ??-???-???- SM- CRL 2.24 cm cons with lMP 11/08/24 -???-???-???-???-?? ?-???-???-???-???-? ??-???-???- 13w 1d 151 lb 6 oz 125/73 Negative -???-???-???-???-?? ?-???-???-???-???-? ??-???-???- Negative 160 -???-???-???-???-?? ?-???-???-???-???-? ??-???-???- SM- no vb cr amping 12/02/24 -???-???-???-???-?? ?-???-???-???-???-? ??-???-???- 16w 4d 155 lb 119/71 Negative -???-???-???-???-?? ?-???-???-???-???-? ??-???-???- Negative 158 -???-???-???-???-?? ?-???-???-???-???- (more content not included)... Normal [facility] Platelet countOrdered By: Walter kiana Syed on 04-24-2025 Platelets (Bld) [#/Vol] 248 10*3/uL 150-450 [facility] Potassium measurement (mass/ volume)Ordered By: Tess Lynch on 04-24-2025 Potassium (Unsp spec) [Mass/Vol] 3.7 mmol/L 3.3-5.1 [facility] RBC Auto (Bld) [#/Vol]Ordere d By: Tess Lynch on 04-24-2025 RBC (Bld) [#/Vol] 4.53 10*6/uL 4.2-5.4 [facility] Serum creatinine measurement (mass/volume)Ordered By: Tess Lynch on 04-24-2025 Creatinine [Mass/Vol] 0.69 mg/dL Low 0.70-1.20 [facility] Serum globulin measurementOr dered By: Tess Lynch on 04-24-2025 Globulin (S) [Mass/Vol] 3.1 g/dL 2.2-4.2 [facility] Serum glucose measurement (m ass/volume)Ordered By: Tess Lynch on 04-24-2025 Glucose [Mass/Vol] 93 mg/dL 70-99 [facility] Serum or plasma alanine tanner otransferase (ALT) measurementOrdered By: Tess Lynch on 04-24-2025 ALT [Catalytic activity/Vol] 13 U/L <35 [facility] Serum or plasma albumin skyla urement (mass/volume)Ordered By: Tess Lynch on 04-24-2025 Albumin [Mass/Vol] 3.8 g/dL 3.5-5.0 [facility] Serum or plasma albumin/glob ulin mass ratioOrdered By: Tess yLnch on 04-24-2025 Albumin/Globulin [Mass ratio] 1.2 {ratio} 0.9-2.4 [facility] Serum or plasma alkaline francis sphatase measurementOrdered By: Tess Lynch on 04-24-2025 ALP [Catalytic activity/Vol] 144 U/L High 35-104 [facility] Serum or plasma calcium skyla urement (mass/volume)Ordered By: Tess Lynch on 04-24-2025 Calcium [Mass/Vol] 9.3 mg/dL 7.6-11.0 [facility] Serum or plasma urea nitroge n measurement (mass/volume)Ordered By: Tess Lynch on 04-24-2025 Urea nitrogen [Mass/Vol] 9 mg/dL 4-19 [facility] Sodium levelOrdered By: Marta Lynch on 04-24-2025 Sodium [Moles/Vol] 137 mmol/L 133-145 [facility] Total proteinOrdered By: Christina Lynch on 04-24-2025 Protein [Mass/Vol] 6.9 g/dL 5.9-8.4 [facility] White blood cell (WBC) count Ordered By: Tess Lynch on 04-24-2025 WBC (Bld) [#/Vol] 8.6 10*3/uL 4.4-11.0 [facility] [id number] 04-20-2025 [facility] Misc. COMMENT Normal . [facility] Comment on above: Order Comment: [id number] bile acids Result Comment: Test Ordered: [id number] Bile Acids, Fractionated LCMS Ursodeoxycholic Acids 0.10 umol/L ES Reference Range: . Reference Range: All Ages: <1.9 Cholic Acids 1.1 umol/L ES Reference Range: . Reference Range: All Ages: <2.2 Chenodeoxycholic Acids 1.9 umol/L ES Reference Range: . Reference Range: All Ages: <5.8 Deoxycholic Acids <0.10 umol/L ES Reference Range: . Reference Range: All Ages: <3.3 Total Bile Acids 3.1 umol/L ES Reference Range: . This test was developed and its performance characteristics determined by [facility]. It has not been cleared or approved by the Food and Drug Administration. Reference Range: All Ages: <9.2 Performed at: [facility] [address] [place] [id number] Motor Vehicle Clerk: Rebecca Snider MD, Phone: [phone] Performed at: - [facility] [place] [address] [place], [place] [id number] Motor Vehicle Clerk: Andrew Kline PhD, Phone: [phone] Performed By: #### M 100.3400 #### [facility] [address] [place], [place], [id number] Absolute lymphocyte countOrd ered By: Tess Lynch on 04-16-2025 Lymphocytes Auto (Unsp spec) [#/Vol] 2.37 10*3/uL 0.83-4.51 [facility] Absolute neutrophil countOrd ered By: Tess Lynch on 04-16-2025 Neutrophils (Bld) [#/Vol] 5.4 10*3/uL 2.0-7.7 [facility] Anion gap in Serum or Plasma Ordered By: Tess Lynch on 04-16-2025 Anion gap [Moles/Vol] 12 mmol/L 5-15 [facility] Automated lymphocyte count a s percentage of total leukocytesOrdered By: Tess Lynch on 04-16-2025 Lymphocytes/100 WBC Auto (Unsp spec) 27.8 % - [facility] BUN/creatinine ratioOrdered By: Tess Lynch on 04-16-2025 Urea nitrogen/Creatinine [Mass ratio] 10.4 mg/mg 10- [facility] Basophil percentageOrdered B y: Tess Lynch on 04-16-2025 Basophils/100 WBC (Bld) 0.6 % 0-1 [facility] Bilirubin, totalOrdered By: Tess Lynch on 04-16-2025 Bilirubin [Mass/Vol] 0.23 mg/dL 0.00-1.30 [facility] CBC W/Diff, Automatedon 03-27 Absolute Lymph 2.37 X10 3/uL Normal 0.83-4.51 [facility] Comment on above: Performed By: #### M 100.3400 #### [facility] [address] [place], [address] Absolute Neut 5.4 X10 3/uL Normal 2.0-7.7 [facility] Comment on above: Performed By: #### M 100.3400 #### [facility] [address] [place], [address] Basophils/100 WBC (Bld) 0.6 % Normal 0-1 [facility] Comment on above: Performed By: #### M 100.3400 #### [facility] [address] [place], [address] Eosinophils/100 WBC (Bld) 1.5 % Normal 0-5 [facility] Comment on above: Performed By: #### M 100.3400 #### [facility] [address] [place], [address] Erythrocyte distribution width (RBC) [Ratio] 13.5 % Normal 11.6-14.6 [facility] Comment on above: Performed By: #### M 100.3400 #### [facility] [address] [place], [address] Hematocrit (Bld) [Volume fraction] 39.4 % Normal 37-47 [facility] Comment on above: Performed By: #### M 100.3400 #### [facility] [address] [place], [address] Hemoglobin (Bld) [Mass/Vol] 13.1 g/dL Normal 12.0-15.0 [facility] Comment on above: Performed By: #### M 100.3400 #### [facility] [address] [place], [address] IG% 2.000 High 0.0-0.9 [facility] Comment on above: Result Comment: IG% - Immature Granulocytes (promyelocytes, myelocytes and metamyelocytes) > 1% indicates that a LEFT SHIFT is Present. Performed By: #### M 100.3400 #### [facility] [address] [place], [address] Lymphocytes/100 WBC (Bld) 27.8 % Normal 19-41 [facility] Comment on above: Performed By: #### M 100.3400 #### [facility] [address] [place], [address] MCH (RBC) [Entitic mass] 29.2 pg Normal 27.0-32.0 [facility] Comment on above: Performed By: #### M 100.3400 #### [facility] [address] [place], [address] MCHC (RBC) [Mass/Vol] 33.2 g/dL Normal 32-36 [facility] Comment on above: Performed By: #### M 100.3400 #### [facility] [address] [place], [address] MCV (RBC) [Entitic vol] 87.9 fL Normal 81-99 [facility] Comment on above: Performed By: #### M 100.3400 #### [facility] [address] [place], [address] Monocytes/100 WBC (Bld) 5.2 % Normal 0-10 [facility] Comment on above: Performed By: #### M 100.3400 #### [facility] [address] [place], [address] Neutrophils/100 WBC (Bld) 62.9 % Normal 47-70 [facility] Comment on above: Performed By: #### M 100.3400 #### [facility] [address] [place], [address] Nucleated RBC (Bld) [#/Vol] 0 10*3/uL Normal 0-5 [facility] Comment on above: Performed By: #### M 100.3400 #### [facility] [address] [place], [address] Platelet mean volume (Bld) [Entitic vol] 10.5 fL Normal 6.2-12.0 [facility] Comment on above: Performed By: #### M 100.3400 #### [facility] [address] [place], [address] Platelets (Bld) [#/Vol] 222 10*3/uL Normal 150-450 [facility] Comment on above: Performed By: #### M 100.3400 #### [facility] [address] [place], [address] RBC (Bld) [#/Vol] 4.48 10*6/uL Normal 4.2-5.4 [facility] Comment on above: Performed By: #### M 100.3400 #### [facility] [address] [place], [address] RDW SD 43.1 fl Normal 35.1-43.9 [facility] Comment on above: Performed By: #### M 100.3400 #### [facility] [address] [place], [address] WBC (Bld) [#/Vol] 8.5 10*3/uL Normal 4.4-11.0 [facility] Comment on above: Performed By: #### M 100.3400 #### [facility] [address] [place], [address] Carbon dioxide, total [Moles /volume] in Central venous bloodOrdered By: Tess Lynch on 04-16-2025 CO2 [Moles/Vol] 20.3 mmol/L Low 21.0-32.0 [facility] Chloride assayOrdered By: Walter Lynch on 04-16-2025 Chloride [Moles/Vol] 104 mmol/L 98-108 [facility] Comprehensive Metabolic Prof ilon 04-16-2025 Albumin [Mass/Vol] 3.8 g/dL Normal 3.5-5.0 [facility] Comment on above: Performed By: #### M 100.3400 #### [facility] [address] [place], [address] Albumin/Globulin [Mass ratio] 1.3 {ratio} Normal 0.9-2.4 [facility] Comment on above: Performed By: #### M 100.3400 #### [facility] [address] [place], [address] ALK PHOS 128 U/L High 35-104 [facility] Comment on above: Performed By: #### M 100.3400 #### [facility] [address] [place], [address] ALT [Catalytic activity/Vol] 14 U/L Normal <=34 [facility] Comment on above: Performed By: #### M 100.3400 #### [facility] [address] [place], [address] AST [Catalytic activity/Vol] 20 U/L Normal <=31 [facility] Comment on above: Performed By: #### M 100.3400 #### [facility] [address] [place], [address] Bilirubin [Mass/Vol] 0.23 mg/dL Normal 0.00-1.30 [facility] Comment on above: Performed By: #### M 100.3400 #### [facility] [address] [place], [address] BUN/CRE 10.4 RATIO Normal 10-20 [facility] Comment on above: Performed By: #### M 100.3400 #### [facility] [address] [place], [address] Calcium [Mass/Vol] 9.0 mg/dL Normal 7.6-11.0 [facility] Comment on above: Performed By: #### M 100.3400 #### [facility] [address] [place], [address] Chloride [Moles/Vol] 104 mmol/L Normal 98-108 [facility] Comment on above: Performed By: #### M 100.3400 #### [facility] [address] [place], [address] CO2 [Moles/Vol] 20.3 mmol/L Low 21.0-32.0 [facility] Comment on above: Performed By: #### M 100.3400 #### [facility] [address] [place], [address] Creatinine [Mass/Vol] 0.61 mg/dL Low 0.70-1.20 [facility] Comment on above: Performed By: #### M 100.3400 #### [facility] [address] [place], [address] GAP 12 Normal 5-15 [facility] Comment on above: Performed By: #### M 100.3400 #### [facility] [address] [place], [address] GFR/1.73 sq M.predicted among non-blacks MDRD (S/P/Bld) [Vol rate/Area] 124 mL/min/{1.73_m2} Normal >60 [facility] Comment on above: Result Comment: mL/m in/1.73m2 CKD-EPI Creatinine Equation (2020) Performed By: #### M 100.3400 #### [facility] [address] [place], [address] Globulin (S) [Mass/Vol] 2.8 g/dL Normal 2.2-4.2 [facility] Comment on above: Performed By: #### M 100.3400 #### [facility] [address] [place], [address] Glucose [Mass/Vol] 93 mg/dL Normal 70-99 [facility] Comment on above: Performed By: #### M 100.3400 #### [facility] [address] [place], [address] Potassium [Moles/Vol] 4.0 mmol/L Normal 3.3-5.1 [facility] Comment on above: Performed By: #### M 100.3400 #### [facility] [address] [place], [address] Sodium [Moles/Vol] 137 mmol/L Normal 133-145 [facility] Comment on above: Performed By: #### M 100.3400 #### [facility] [address] [place], [address] T PROT 6.6 g/dL Normal 5.9-8.4 [facility] Comment on above: Performed By: #### M 100.3400 #### [facility] [address] [place], [address] Urea nitrogen [Mass/Vol] 6 mg/dL Normal 4-19 [facility] Comment on above: Performed By: #### M 100.3400 #### [facility] [address] [place], [address] Eosinophil percentageOrdered By: Tess Lynch on 04-16-2025 Eosinophils/100 WBC (Bld) 1.5 % 0-5 [facility] Erythrocyte distribution wid th ratioOrdered By: Tess Lynch on 04-16-2025 Erythrocyte distribution width (RBC) [Ratio] 13.5 % 11.6-14.6 [facility] Erythrocyte distribution wid th standard deviationOrdered By: Tess Lynch on 04-16-2025 Erythrocyte distribution width (RBC) [Ratio] 43.1 fl 35.1-43.9 [facility] Glomerular filtration rate ( GFR) estimation/1.73 sq m using serum, plasma, or whole bOrdered By: Tess Lynch on 04-16-2025 GFR/1.73 sq M.predicted among non-blacks MDRD (S/P/Bld) [Vol rate/Area] 124 mL/min/{1.73_m2} >60 [facility] Comment on above: mL/min/1.73m2 CKD-EP I Creatinine Equation (2020) Hematocrit Auto (Bld) [Volum e fraction]Ordered By: Tess Lynch on 04-16-2025 Hematocrit (Bld) [Volume fraction] 39.4 % 37-47 [facility] Hemoglobin measurementOrdere d By: Tess Lynch on 04-16-2025 Hemoglobin (Bld) [Mass/Vol] 13.1 g/dL 12.0-15.0 [facility] Immature granulocytes/100 WB C Auto (Bld)Ordered By: Tess Lynch on 04-16-2025 Immature granulocytes/100 WBC (Bld) 2.000 % High 0.0-0.9 [facility] Comment on above: IG% - Immature Granu locytes (promyelocytes, myelocytes and metamyelocytes) > 1% indicates that a LEFT SHIFT is Present. Laboratory - Chemistry and C hemistry - challengeOrdered By: Tess Lynch on 04-16-2025 AST [Catalytic activity/Vol] 20 U/L <32 [facility] Glucose Ql (U) Negative [facility] - UrinalysisOrder ed By: Tess Lynch on 04-16-2025 Protein Ql (U) Negative [facility] MCV (mean corpuscular volume ) determinationOrdered By: Tess Lynch on 04-16-2025 MCV (RBC) [Entitic vol] 87.9 fL 81-99 [facility] Mean corpuscular hemoglobin (MCH) determinationOrdered By: Tess Lynch on 04-16-2025 MCH (RBC) [Entitic mass] 29.2 pg 27.0-32.0 [facility] Mean corpuscular hemoglobin concentration (MCHC) determinationOrdered By: Tess Lynch on 04-16-2025 MCHC (RBC) [Mass/Vol] 33.2 g/dL 32-36 [facility] Mean platelet volume determi nationOrdered By: Tess Lynch on 04-16-2025 Platelet mean volume (Bld) [Entitic vol] 10.5 fL 6.2-12.0 [facility] Monocyte percentageOrdered B y: Tess Lynch on 04-16-2025 Monocytes/100 WBC (Bld) 5.2 % 0-10 [facility] Neutrophil percentageOrdered By: Tess Lynch on 04-16-2025 Neutrophils/100 WBC (Bld) 62.9 % 47-70 [facility] Nucleated red blood cell per centageOrdered By: Tess Lynch on 04-16-2025 Nucleated RBC/100 WBC (Bld) [Ratio] 0 % 0-5 [facility] Visit Reporton 04-16-2025 [facility] Visit Report [facility] [address], [address] [place] [address] OFFICE VISIT Date of Service: 04/16/25 MR#: [id number] Acct: [id number] Name: SERA SANTIAGO Rep #: [id number] : 1995 Provider: MOOSE [place] Age/Sex: 29/F Location: [facility] [place] Status: Signed Intake Vital Signs 02/19/25 08:28 04/03/25 15:18 04/16/25 08:51 Height 5 ft 5 in 5 ft 5 in 5 ft 5 in Weight: 171 lb 4 oz BMI 28.5 BP 110/74 Intake Visit Reasons: 35w 6d ob Hand Turner Required: No Is patient in pain?: No Allergies No Known Allergies Allergy (Verified 04/16/25 08:54) Medications ???Medication ???Instructions ???Recorded ???Confirmed ???Type L.acidophilus-B.ani malis-B.bifidum cap PO 09/24/24 04/16/25 History 25 billion cell-FOS 100 mg capsule (Probiotic Complex) multivitamin no.47-iron fum 27 cap PO 09/24/24 04/16/25 History mg-folate no.1 1 mg-dha 300 mg capsule (PNV-DHA) Last Menstrual Period: 08/08/24 Zika: Zika virus screening: Negative : No PFSH PFSH Medical History Complete miscarriage Family History Mother Hypertension, Onset Age: 45 Grandfather No problems noted. Father MTHFR gene mutation Sister MTHFR gene mutation Social History adopted: No household members: spouse housing: house number of children: 0 current occupational status: employed current occupation: [employer] in [place] current occupational exposures/hazards: No pets and animals: Yes pets and animals: dog(s) history of recent travel: [place] ([place]) out of state: Yes out of country: No sexually active: Yes Smoking Status: Never smoker alcohol intake: current alcohol intake frequency: holidays/special occasions only details: Not while substance use type: does not use well-balanced diet: daily or most days caffeine: No eating out: 4 or more times/week during the past year weight has: remained stable what type of physical activity do you participate in: aerobics frequency: 3-4 times per week duration: 45-60 minutes/day dana/jewish: Jewish seatbelt use: always do you feel safe at home: Yes additional social history: Melvin- . OBI Fonseca History 2 Elective abortions Hx Para 0 Spontaneous abortions 1 Hx # Term Pregnancies Ectopic pregnancies Hx # Pregnancies Multiple births # of living children 0 Past Pregnancies Del. Date Name GA/Weeks Outcome Route Bth [facility] 4 spontaneous HPI 35w 6d ob Details: ALBINO SANTIAGO is a 29 year old who presents for routine OB visit. OB Visit SREEDH[facility] Calculator Estimated Delivery Date Method Current WG Current Estimate 05/15/25 LMP (Certain) 35w 6d Other Estimates 05/16/25 Ultrasound #1 35w 5d Expected Delivery Route/Plan Labor Preferences- CB/BF classes: yes labor support person: Melvin labor intervention preferences: [] pain management options preferred: epidural cut cord/dad catch: yes : yes PP control planned: discussed discussed possible routes of delivery and associated risks: [] special requests: [] Specific Issue/Plans Covid status: [] Flu vaccine: [] Tdap vaccine: considering Rhogam: NA LARC form signed: yes movement and labor precautions reviewed. Problem list reviewed and updated with the most current plan of care details and appropriate orders placed. Relevant counseling for the gestational age provided. Continue routine care and follow up unless otherwise noted in visit notes/problem list details Initial Weight: Not Recorded Date -???-???-???-???-?? ?-???-???-???-???-? ??-???-???- EGA Weight BP Urine Prot -???-???-???-???-?? ?-???-???-???-???-? ??-???-???- Glucose FHR FuHt Pres Dilation -???-???-???-???-?? ?-???-???-???-???-? ??-???-???- Effaced St Visit Note 10/11/24 -???-???-???-???-?? ?-???-???-???-???-? ??-???-???- 9w 1d 153 lb 8 oz 135/68 -???-???-???-???-?? ?-???-???-???-???-? ??-???-???- 180 -???-???-???-???-?? ?-???-???-???-???-? ??-???-???- SM- CRL 2.24 cm cons with lMP 11/08/24 -???-???-???-???-?? ?-???-???-???-???-? ??-???-???- 13w 1d 151 lb 6 oz 125/73 Negative -???-???-???-???-?? ?-???-???-???-???-? ??-???-???- Negative 160 -???-???-???-???-?? ?-???-???-???-???-? ??-???-???- SM- no vb cr amping 12/02/24 -???-???-???-???-?? ?-???-???-???-???-? ??-???-???- 16w 4d 155 lb 119/71 Negative -???-???-???-???-?? ?-???-???-???-???-? ??-???-???- Negative 158 -???-???-???-???-?? ?-???-???-???-???-? ??-???-???- MH-No VB. So (more content not included)... Normal [facility] Platelet countOrdered By: Walter Lynch on 04-16-2025 Platelets (Bld) [#/Vol] 222 10*3/uL 150-450 [facility] Potassium measurement (mass/ volume)Ordered By: Tess Lynch on 04-16-2025 Potassium (Unsp spec) [Mass/Vol] 4.0 mmol/L 3.3-5.1 [facility] RBC Auto (Bld) [#/Vol]Ordere d By: Tess Lynch on 04-16-2025 RBC (Bld) [#/Vol] 4.48 10*6/uL 4.2-5.4 [facility] Serum creatinine measurement (mass/volume)Ordered By: Tess Lynch on 04-16-2025 Creatinine [Mass/Vol] 0.61 mg/dL Low 0.70-1.20 [facility] Serum globulin measurementOr dered By: Tess Lynch on 04-16-2025 Globulin (S) [Mass/Vol] 2.8 g/dL 2.2-4.2 [facility] Serum glucose measurement (m ass/volume)Ordered By: Tess Lynch on 04-16-2025 Glucose [Mass/Vol] 93 mg/dL 70-99 [facility] Serum or plasma alanine tanner otransferase (ALT) measurementOrdered By: Tess Lynch on 04-16-2025 ALT [Catalytic activity/Vol] 14 U/L <35 [facility] Serum or plasma albumin skyla urement (mass/volume)Ordered By: Tess Lynch on 04-16-2025 Albumin [Mass/Vol] 3.8 g/dL 3.5-5.0 [facility] Serum or plasma albumin/glob ulin mass ratioOrdered By: Tess Lynch on 04-16-2025 Albumin/Globulin [Mass ratio] 1.3 {ratio} 0.9-2.4 [facility] Serum or plasma alkaline francis sphatase measurementOrdered By: Tess Lynch on 04-16-2025 ALP [Catalytic activity/Vol] 128 U/L High 35-104 [facility] Serum or plasma calcium skyla urement (mass/volume)Ordered By: Tess Lynch on 04-16-2025 Calcium [Mass/Vol] 9.0 mg/dL 7.6-11.0 [facility] Serum or plasma urea nitroge n measurement (mass/volume)Ordered By: Tess Lynch on 04-16-2025 Urea nitrogen [Mass/Vol] 6 mg/dL 4-19 [facility] Sodium levelOrdered By: Marta Lynch on 04-16-2025 Sodium [Moles/Vol] 137 mmol/L 133-145 [facility] Total proteinOrdered By: Christina Lynch on 04-16-2025 Protein [Mass/Vol] 6.6 g/dL 5.9-8.4 [facility] White blood cell (WBC) count Ordered By: Tess Lynch on 04-16-2025 WBC (Bld) [#/Vol] 8.5 10*3/uL 4.4-11.0 [facility] - Chemistry and C hemistry - challengeOrdered By: Rhea Pak on 04-03-2025 Glucose Ql (U) Negative [facility] - UrinalysisOrder ed By: Rhea Pak on 04-03-2025 Protein Ql (U) Negative [facility] Visit Reporton 04-03-2025 [facility] Visit Report [facility] [address], [address] [place] [address] OFFICE VISIT Date of Service: 04/03/25 MR#: [id number] Acct: [id number] Name: SERA SANTIAGO Rep #: [id number] : 1995 Provider: Dr. Rhea Tiwari DO Age/Sex: 29/F Location: [facility] [place] Status: Signed Intake Vital Signs 02/19/25 08:28 03/21/25 09:17 04/03/25 15:16 04/03/25 15:18 Height 5 ft 5 in 5 ft 5 in 5 ft 5 in 5 ft 5 in Weight: 168 lb 9 oz BMI 28.0 BP 116/69 Intake Visit Reasons: 34wk ob Hand Turner Required: No Is patient in pain?: No Allergies No Known Allergies Allergy (Verified 04/03/25 15:16) Medications ???Medication ???Instructions ???Recorded ???Confirmed ???Type L.acidophilus-B.ani malis-B.bifidum cap PO 09/24/24 04/03/25 History 25 billion cell-FOS 100 mg capsule (Probiotic Complex) multivitamin no.47-iron fum 27 cap PO 09/24/24 04/03/25 History mg-folate no.1 1 mg-dha 300 mg capsule (PNV-DHA) Last Menstrual Period: 08/08/24 Zika: Zika virus screening: Negative : No PFSH PFSH Medical History Complete miscarriage Family History Mother Hypertension, Onset Age: 45 Grandfather No problems noted. Father MTHFR gene mutation Sister MTHFR gene mutation Social History adopted: No household members: spouse housing: house number of children: 0 current occupational status: employed current occupation: [employer] current occupational exposures/hazards: No pets and animals: Yes pets and animals: dog(s) history of recent travel: Yes ([place]) out of state: Yes out of country: No sexually active: Yes Smoking Status: Never smoker alcohol intake: current alcohol intake frequency: holidays/special occasions only details: Not while substance use type: does not use well-balanced diet: daily or most days caffeine: No eating out: 4 or more times/week during the past year weight has: remained stable what type of physical activity do you participate in: aerobics frequency: 3-4 times per week duration: 45-60 minutes/day dana/jewish: Jewish seatbelt use: always do you feel safe at home: Yes 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 Date Name GA/Weeks Outcome Route Bth Weight Infant Gen Labor Lgth Anesthesia Del [facility] Provider FOB 08/08/24 4 spontaneous HPI 34wk ob Details: ALBINO SANTIAGO is a 29 year old who presents for routine OB visit. OB Visit [facility]RE[facility] Calculator Estimated Delivery Date Method Current WG Current Estimate 05/15/25 LMP (Certain) 34w 0d Other Estimates 05/16/25 Ultrasound #1 33w 6d Expected Delivery Route/Plan Labor Preferences- CB/BF classes: yes labor support person: Melvin labor intervention preferences: [] pain management options preferred: epidural cut cord/dad catch: yes : yes PP control planned: discussed discussed possible routes of delivery and associated risks: [] special requests: [] Specific Issue/Plans Covid status: [] Flu vaccine: [] Tdap vaccine: considering Rhogam: NA LARC form signed: yes movement and labor precautions reviewed. Problem list reviewed and updated with the most current plan of care details and appropriate orders placed. Relevant counseling for the gestational age provided. Continue routine care and follow up unless otherwise noted in visit notes/problem list details Initial Weight: Not Recorded Date -???-???-???-???-?? ?-???-???-???-???-? ??-???-???- EGA Weight BP Urine Prot -???-???-???-???-?? ?-???-???-???-???-? ??-???-???- Glucose FHR FuHt Pres Dilation -???-???-???-???-?? ?-???-???-???-???-? ??-???-???- Effaced St Visit Note 10/11/24 -???-???-???-???-?? ?-???-???-???-???-? ??-???-???- 9w 1d 153 lb 8 oz 135/68 -???-???-???-???-?? ?-???-???-???-???-? ??-???-???- 180 -???-???-???-???-?? ?-???-???-???-???-? ??-???-???- SM- CRL 2.24 cm cons with lMP 11/08/24 -???-???-???-???-?? ?-???-???-???-???-? ??-???-???- 13w 1d 151 lb 6 oz 125/73 Negative -???-???-???-???-?? ?-???-???-???-???-? ??-???-???- Negative 160 -???-???-???-???-?? ?-???-???-???-???-? ??-???-???- SM- no vb cr amping 12/02/24 -???-???-???-???-?? ?-???-???-???-???-? ??-???-???- 16w 4d 155 lb 119/71 Negative -???-???-???-???-?? ?-???-???-???-???-? ??-???-???- Negative 158 -???-???-???-???-?? ?-???-???-???-???-? (more content not included)... Normal [facility] - Chemistry and C hemistry - challengeOrdered By: Becky Caballero on 03-21-2025 Glucose Ql (U) Negative [facility] - UrinalysisOrder ed By: Becky Caballero on 03-21-2025 Protein Ql (U) Negative [facility] Visit Reporton 03-21-2025 [facility] Visit Report [facility] [address], [address] [place] [address] OFFICE VISIT Date of Service: 03/21/25 MR#: [id number] Acct: [id number] Name: SERA SANTIAGO Rep #: [id number] : 1995 Provider: FABIO Anderson ams Age/Sex: 29/F Location: [facility] [place] Status: Signed Intake Vital Signs 02/19/25 08:28 03/03/25 08:57 03/21/25 09:17 Height 5 ft 5 in 5 ft 5 in 5 ft 5 in Weight: 167 lb 8 oz BMI 27.8 BP 121/73 H Intake Visit Reasons: 32wk ob Chief Complaint: 32wk OB Hand Turner Required: No Is patient in pain?: No Allergies No Known Allergies Allergy (Verified 03/21/25 09:15) Medications ???Medication ???Instructions ???Recorded ???Confirmed ???Type L.acidophilus-B.ani malis-B.bifidum cap PO 09/24/24 03/21/25 History 25 billion cell-FOS 100 mg capsule (Probiotic Complex) multivitamin no.47-iron fum 27 cap PO 09/24/24 03/21/25 History mg-folate no.1 1 mg-dha 300 mg capsule (PNV-DHA) Last Menstrual Period: 08/08/24 : No Have you fallen in the past year?: No PFSH PFSH Medical History Complete miscarriage Family History Mother Hypertension, Onset Age: 45 Grandfather No problems noted. Father MTHFR gene mutation Sister MTHFR gene mutation Social History adopted: No household members: spouse housing: house number of children: 0 current occupational status: employed current occupation: [employer] in [place] current occupational exposures/hazards: No pets and animals: Yes pets and animals: dog(s) history of recent travel: Yes ([place]) out of state: Yes out of country: No sexually active: Yes Smoking Status: Never smoker alcohol intake: current alcohol intake frequency: holidays/special occasions only details: Not while substance use type: does not use well-balanced diet: daily or most days caffeine: No eating out: 4 or more times/week during the past year weight has: remained stable what type of physical activity do you participate in: aerobics frequency: 3-4 times per week duration: 45-60 minutes/day dana/jewish: Jewish seatbelt use: always do you feel safe at home: Yes additional social history: Melvin- . OBI Fonseca History 2 Elective abortions Hx Para 0 Spontaneous abortions 1 Hx # Term Pregnancies Ectopic pregnancies Hx # Pregnancies Multiple births # of living children 0 Past Pregnancies Del. Date Name GA/Weeks Outcome Route Bth Weight Gen Labor Lgth Anesthesia Del Locatn Provider FOB 08/08/24 4 spontaneous HPI 32wk ob Details: ALBINO SANTIAGO is a 29 year old who presents for routine OB visit. OB Visit SREEDH[facility] Calculator Estimated Delivery Date Method Current WG Current Estimate 05/15/25 LMP (Certain) 32w 1d Other Estimates 05/16/25 Ultrasound #1 32w 0d Expected Delivery Route/Plan Labor Preferences- CB/BF classes: yes labor support person: Melvin labor intervention preferences: [] pain management options preferred: epidural cut cord/dad catch: yes : yes PP control planned: discussed discussed possible routes of delivery and associated risks: [] special requests: [] Specific Issue/Plans Covid status: [] Flu vaccine: [] Tdap vaccine: considering Rhogam: NA LARC form signed: yes movement and labor precautions reviewed. Problem list reviewed and updated with the most current plan of care details and appropriate orders placed. Relevant counseling for the gestational age provided. Continue routine care and follow up unless otherwise noted in visit notes/problem list details Initial Weight: Not Recorded Date -???-???-???-???-?? ?-???-???-???-???-? ??-???-???- EGA Weight BP Urine Prot -???-???-???-???-?? ?-???-???-???-???-? ??-???-???- Glucose FHR FuHt Pres Dilation -???-???-???-???-?? ?-???-???-???-???-? ??-???-???- Effaced St Visit Note 10/11/24 -???-???-???-???-?? ?-???-???-???-???-? ??-???-???- 9w 1d 153 lb 8 oz 135/68 -???-???-???-???-?? ?-???-???-???-???-? ??-???-???- 180 -???-???-???-???-?? ?-???-???-???-???-? ??-???-???- SM- CRL 2.24 cm cons with lMP 11/08/24 -???-???-???-???-?? ?-???-???-???-???-? ??-???-???- 13w 1d 151 lb 6 oz 125/73 Negative -???-???-???-???-?? ?-???-???-???-???-? ??-???-???- Negative 160 -???-???-???-???-?? ?-???-???-???-???-? ??-???-???- SM- no vb cr amping 12/02/24 -???-???-???-???-?? ?-???-???-???-???-? ??-???-???- 16w 4d 155 lb 119/71 Negative -???-???-???-???-?? ?-???-???-???-???-? ??-???-???- Negative 158 -???-???-???-???-?? ?-???-???-???-???-? ??-???-???- MH-No VB (more content not included)... Normal [facility] Absolute lymphocyte countOrd ered By: Kamille Albarran on 03-03-2025 Lymphocytes Auto (Unsp spec) [#/Vol] 2.24 10*3/uL 0.83-4.51 [facility] Absolute neutrophil countOrd ered By: Kamille Albarran on 03-03-2025 Neutrophils (Bld) [#/Vol] 5.9 10*3/uL 2.0-7.7 [facility] Anion gap in Serum or Plasma Ordered By: Kamille Albarran on 03-03-2025 Anion gap [Moles/Vol] 13 mmol/L 5-15 [facility] Automated lymphocyte count a s percentage of total leukocytesOrdered By: Kamille Albarran on 03-03-2025 Lymphocytes/100 WBC Auto (Unsp spec) 25.3 % 19-41 [facility] BUN/creatinine ratioOrdered By: Kamille Albarran on 03-03-2025 Urea nitrogen/Creatinine [Mass ratio] 9.9 mg/mg Low 10-20 [facility] Basophil percentageOrdered B y: Kamille Albarran on 03-03-2025 Basophils/100 WBC (Bld) 0.9 % 0-1 [facility] Bilirubin, totalOrdered By: Kamille Albarran on 03-03-2025 Bilirubin [Mass/Vol] 0.17 mg/dL 0.00-1.30 [facility] CBC W/Diff, Automatedon Absolute Lymph 2.24 X10 3/uL Normal 0.83-4.51 [facility] Comment on above: Performed By: #### L 100.0100, L500.4050 #### [facility] [address] [place], [address] Absolute Neut 5.9 X10 3/uL Normal 2.0-7.7 [facility] Comment on above: Performed By: #### L 100.0100, L500.4050 #### [facility] [address] [place], [address] Basophils/100 WBC (Bld) 0.9 % Normal 0-1 [facility] Comment on above: Performed By: #### L 100.0100, L500.4050 #### [facility] [address] [place], [address] Eosinophils/100 WBC (Bld) 1.6 % Normal 0-5 [facility] Comment on above: Performed By: #### L 100.0100, L500.4050 #### [facility] [address] [place], [address] Erythrocyte distribution width (RBC) [Ratio] 13.0 % Normal 11.6-14.6 [facility] Comment on above: Performed By: #### L 100.0100, L500.4050 #### [facility] [address] [place], [address] Hematocrit (Bld) [Volume fraction] 36.3 % Low 37-47 [facility] Comment on above: Performed By: #### L 100.0100, [id number] #### [facility] [address] [place], [address] Hemoglobin (Bld) [Mass/Vol] 12.1 g/dL Normal 12.0-15.0 [facility] Comment on above: Performed By: #### L 100.0100, L500.4050 #### [facility] [address] [place], [address] IG% 2.300 High 0.0-0.9 [facility] Comment on above: Result Comment: IG% - Immature Granulocytes (promyelocytes, myelocytes and metamyelocytes) > 1% indicates that a LEFT SHIFT is Present. Performed By: #### L 100.0100, L500.4050 #### [facility] [address] [place], [address] Lymphocytes/100 WBC (Bld) 25.3 % Normal 19-41 [facility] Comment on above: Performed By: #### L 100.0100, [id number] #### [facility] [address] [place], [address] MCH (RBC) [Entitic mass] 30.0 pg Normal 27.0-32.0 [facility] Comment on above: Performed By: #### L 100.0100, [id number] #### [facility] [address] [place], [address] MCHC (RBC) [Mass/Vol] 33.3 g/dL Normal 32-36 [facility] Comment on above: Performed By: #### L 100.0100, [id number] #### [facility] [address] [place], [address] MCV (RBC) [Entitic vol] 90.1 fL Normal 81-99 [facility] Comment on above: Performed By: #### L 100.0100, [id number] #### [facility] [address] [place], [address] Monocytes/100 WBC (Bld) 3.7 % Normal 0-10 [facility] Comment on above: Performed By: #### L 100.0100, [id number] #### [facility] [address] [place], [address] Neutrophils/100 WBC (Bld) 66.2 % Normal 47-70 [facility] Comment on above: Performed By: #### L 100.0100, [id number] #### [facility] [address] [place], [address] Nucleated RBC (Bld) [#/Vol] 0 10*3/uL Normal 0-5 [facility] Comment on above: Performed By: #### L 100.0100, L500.4050 #### [facility] [address] [place], [address] Platelet mean volume (Bld) [Entitic vol] 10.1 fL Normal 6.2-12.0 [facility] Comment on above: Performed By: #### L 100.0100, L500.4050 #### [facility] [address] [place], [address] Platelets (Bld) [#/Vol] 239 10*3/uL Normal 150-450 [facility] Comment on above: Performed By: #### L 100.0100, L500.4050 #### [facility] [address] [place], [address] RBC (Bld) [#/Vol] 4.03 10*6/uL Low 4.2-5.4 [facility] Comment on above: Performed By: #### L 100.0100, L500.4050 #### [facility] [address] [place], [address] RDW SD 42.6 fl Normal 35.1-43.9 [facility] Comment on above: Performed By: #### L 100.0100, L500.4050 #### [facility] [address] [place], [address] WBC (Bld) [#/Vol] 8.9 10*3/uL Normal 4.4-11.0 [facility] Comment on above: Performed By: #### L 100.0100, L500.4050 #### [facility] [address] [place], [address] Carbon dioxide, total [Moles /volume] in Central venous bloodOrdered By: Kamille Albarran on 03-03-2025 CO2 [Moles/Vol] 18.1 mmol/L Low 21.0-32.0 [facility] Chloride assayOrdered By: Radha Albarran on 03-03-2025 Chloride [Moles/Vol] 106 mmol/L 98-108 [facility] Comprehensive Metabolic Prof ilon 03-03-2025 Albumin [Mass/Vol] 3.7 g/dL Normal 3.5-5.0 [facility] Comment on above: Performed By: #### L 100.0100, L500.4050 #### [facility] [address] [place], [address] Albumin/Globulin [Mass ratio] 1.3 {ratio} Normal 0.9-2.4 [facility] Comment on above: Performed By: #### L 100.0100, L500.4050 #### [facility] [address] [place], [address] ALK PHOS 80 U/L Normal 35-104 [facility] Comment on above: Performed By: #### L 100.0100, L500.4050 #### [facility] [address] [place], [address] ALT [Catalytic activity/Vol] 28 U/L Normal <=34 [facility] Comment on above: Performed By: #### L 100.0100, L500.4050 #### [facility] [address] [place], [address] AST [Catalytic activity/Vol] 23 U/L Normal <=31 [facility] Comment on above: Performed By: #### L 100.0100, L500.4050 #### [facility] [address] [place], [address] Bilirubin [Mass/Vol] 0.17 mg/dL Normal 0.00-1.30 [facility] Comment on above: Performed By: #### L 100.0100, L500.4050 #### [facility] [address] [place], [address] BUN/CRE 9.9 RATIO Low 10-20 [facility] Comment on above: Performed By: #### L 100.0100, L500.4050 #### [facility] [address] [place], [address] Calcium [Mass/Vol] 9.3 mg/dL Normal 7.6-11.0 [facility] Comment on above: Performed By: #### L 100.0100, L500.4050 #### [facility] [address] [place], [address] Chloride [Moles/Vol] 106 mmol/L Normal 98-108 [facility] Comment on above: Performed By: #### L 100.0100, L500.4050 #### [facility] [address] [place], [address] CO2 [Moles/Vol] 18.1 mmol/L Low 21.0-32.0 [facility] Comment on above: Performed By: #### L 100.0100, L500.4050 #### [facility] [address] [place], [address] Creatinine [Mass/Vol] 0.64 mg/dL Low 0.70-1.20 [facility] Comment on above: Performed By: #### L 100.0100, L500.4050 #### [facility] [address] [place], [address] GAP 13 Normal 5-15 [facility] Comment on above: Performed By: #### L 100.0100, L500.4050 #### [facility] [address] [place], [address] GFR/1.73 sq M.predicted among non-blacks MDRD (S/P/Bld) [Vol rate/Area] 123 mL/min/{1.73_m2} Normal >60 [facility] Comment on above: Result Comment: mL/m in/1.73m2 CKD-EPI Creatinine Equation (2020) Performed By: #### L 100.0100, L500.4050 #### [facility] [address] [place], [address] Globulin (S) [Mass/Vol] 2.8 g/dL Normal 2.2-4.2 [facility] Comment on above: Performed By: #### L 100.0100, L500.4050 #### [facility] [address] [place], [address] Glucose [Mass/Vol] 95 mg/dL Normal 70-99 [facility] Comment on above: Performed By: #### L 100.0100, L500.4050 #### [facility] [address] [place], [address] Potassium [Moles/Vol] 3.8 mmol/L Normal 3.3-5.1 [facility] Comment on above: Performed By: #### L 100.0100, L500.4050 #### [facility] [address] [place], [address] Sodium [Moles/Vol] 137 mmol/L Normal 133-145 [facility] Comment on above: Performed By: #### L 100.0100, L500.4050 #### [facility] [address] [place], [address] T PROT 6.5 g/dL Normal 5.9-8.4 [facility] Comment on above: Performed By: #### L 100.0100, L500.4050 #### [facility] [address] [place], [address] Urea nitrogen [Mass/Vol] 6 mg/dL Normal 4-19 [facility] Comment on above: Performed By: #### L 100.0100, L500.4050 #### [facility] [address] [place], [address] Eosinophil percentageOrdered By: Kamille Albarran on 03-03-2025 Eosinophils/100 WBC (Bld) 1.6 % 0-5 [facility] Erythrocyte distribution wid th ratioOrdered By: Kamille Albarran on 03-03-2025 Erythrocyte distribution width (RBC) [Ratio] 13.0 % 11.6-14.6 [facility] Erythrocyte distribution wid th standard deviationOrdered By: Kamille Albarran on 03-03-2025 Erythrocyte distribution width (RBC) [Ratio] 42.6 fl 35.1-43.9 [facility] Glomerular filtration rate ( GFR) estimation/1.73 sq m using serum, plasma, or whole bOrdered By: Kamille Albarran on 03-03-2025 GFR/1.73 sq M.predicted among non-blacks MDRD (S/P/Bld) [Vol rate/Area] 123 mL/min/{1.73_m2} >60 [facility] Comment on above: mL/min/1.73m2 CKD-EP I Creatinine Equation (2020) Hematocrit Auto (Bld) [Volum e fraction]Ordered By: Kamille Albarran on 03-03-2025 Hematocrit (Bld) [Volume fraction] 36.3 % Low 37-47 [facility] Hemoglobin measurementOrdere d By: Kamille Albarran on 03-03-2025 Hemoglobin (Bld) [Mass/Vol] 12.1 g/dL 12.0-15.0 [facility] Immature granulocytes/100 WB C Auto (Bld)Ordered By: Kamille Albarran on 03-03-2025 Immature granulocytes/100 WBC (Bld) 2.300 % High 0.0-0.9 [facility] Comment on above: IG% - Immature Granu locytes (promyelocytes, myelocytes and metamyelocytes) > 1% indicates that a LEFT SHIFT is Present. Laboratory - Chemistry and C hemistry - challengeOrdered By: Kamille Albarran on 03-03-2025 AST [Catalytic activity/Vol] 23 U/L <32 [facility] Glucose Ql (U) Negative [facility] - UrinalysisOrder ed By: Kamille Albarran on 03-03-2025 Protein Ql (U) Negative [facility] MCV (mean corpuscular volume ) determinationOrdered By: Kamille Albarran on 03-03-2025 MCV (RBC) [Entitic vol] 90.1 fL 81-99 [facility] Mean corpuscular hemoglobin (MCH) determinationOrdered By: Kamille Albarran on 03-03-2025 MCH (RBC) [Entitic mass] 30.0 pg 27.0-32.0 [facility] Mean corpuscular hemoglobin concentration (MCHC) determinationOrdered By: Kamille Albarran on 03-03-2025 MCHC (RBC) [Mass/Vol] 33.3 g/dL 32-36 [facility] Mean platelet volume determi nationOrdered By: Kamille Albarran on 03-03-2025 Platelet mean volume (Bld) [Entitic vol] 10.1 fL 6.2-12.0 [facility] Monocyte percentageOrdered B y: Kamille Albarran on 03-03-2025 Monocytes/100 WBC (Bld) 3.7 % 0-10 [facility] Neutrophil percentageOrdered By: Kamille Albarran on 03-03-2025 Neutrophils/100 WBC (Bld) 66.2 % 47-70 [facility] Nucleated red blood cell per centageOrdered By: Kamille Albarran on 03-03-2025 Nucleated RBC/100 WBC (Bld) [Ratio] 0 % 0-5 [facility] Visit Reporton 03-03-2025 [facility] Visit Report [facility] [address], [address] [place] [address] OFFICE VISIT Date of Service: 03/03/25 MR#: [id number] Acct: [id number] Name: SERA SANTIAGO Rep #: [id number] : 1995 Provider: Dr. Kamille gamez MD Age/Sex: 29/F Location: [facility] [place] Status: Signed Intake Vital Signs 01/02/25 10:41 02/19/25 08:28 03/03/25 08:57 03/03/25 09:15 Height 5 ft 5 in 5 ft 5 in 5 ft 5 in Weight: 168 lb BMI 27.9 BP 122/61 H Intake Visit Reasons: 30 wk ob Hand Turner Required: No Is patient in pain?: No Feel stressed/tense/nerv ous/anxious/difficu lty sleeping: not at all Allergies No Known Allergies Allergy (Verified 03/03/25 08:55) Medications ???Medication ???Instructions ???Recorded ???Confirmed ???Type L.acidophilus-B.ani malis-B.bifidum cap PO 09/24/24 03/03/25 History 25 billion cell-FOS 100 mg capsule (Probiotic Complex) multivitamin no.47-iron fum 27 cap PO 09/24/24 03/03/25 History mg-folate no.1 1 mg-dha 300 mg capsule (PNV-DHA) Last Menstrual Period: 08/08/24 Zika: Zika virus screening: Negative : No PFSH PFSH Medical History Complete miscarriage Family History Mother Hypertension, Onset Age: 45 Grandfather No problems noted. Father MTHFR gene mutation Sister MTHFR gene mutation Social History adopted: No household members: spouse housing: house number of children: 0 current occupational status: employed current occupation: [employer] in [place] current occupational exposures/hazards: No pets and animals: Yes pets and animals: dog(s) history of recent travel: Yes ([place]) out of state: Yes out of country: No sexually active: Yes Smoking Status: Never smoker alcohol intake: current alcohol intake frequency: holidays/special occasions only details: Not while substance use type: does not use well-balanced diet: daily or most days caffeine: No eating out: 4 or more times/week during the past year weight has: remained stable what type of physical activity do you participate in: aerobics frequency: 3-4 times per week duration: 45-60 minutes/day dana/jewish: Jewish seatbelt use: always do you feel safe at home: Yes 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 Date Name GA/Weeks Outcome Route Bth Weight Gen Labor Lgth Anesthesia Del Locatn Provider FOB 08/08/24 4 spontaneous HPI 30 wk ob Details: ALBINO SANTIAGO is a 29 year old who presents for routine OB visit. OB Visit [facility] Calculator Estimated Delivery Date Method Current WG Current Estimate 05/15/25 LMP (Certain) 29w 4d Other Estimates 05/16/25 Ultrasound #1 29w 3d Expected Delivery Route/Plan Labor Preferences- CB/BF classes: yes labor support person: Melvin labor intervention preferences: [] pain management options preferred: epidural cut cord/dad catch: yes : yes PP control planned: discussed discussed possible routes of delivery and associated risks: [] special requests: [] Specific Issue/Plans Covid status: [] Flu vaccine: [] Tdap vaccine: considering Rhogam: NA LARC form signed: yes movement and labor precautions reviewed. Problem list reviewed and updated with the most current plan of care details and appropriate orders placed. Relevant counseling for the gestational age provided. Continue routine care and follow up unless otherwise noted in visit notes/problem list details Initial Weight: Not Recorded Date -???-???-???-???-?? ?-???-???-???-???-? ??-???-???- EGA Weight BP Urine Prot -???-???-???-???-?? ?-???-???-???-???-? ??-???-???- Glucose FHR FuHt Pres Dilation -???-???-???-???-?? ?-???-???-???-???-? ??-???-???- Effaced St Visit Note 10/11/24 -???-???-???-???-?? ?-???-???-???-???-? ??-???-???- 9w 1d 153 lb 8 oz 135/68 -???-???-???-???-?? ?-???-???-???-???-? ??-???-???- 180 -???-???-???-???-?? ?-???-???-???-???-? ??-???-???- SM- CRL 2.24 cm cons with lMP 11/08/24 -???-???-???-???-?? ?-???-???-???-???-? ??-???-???- 13w 1d 151 lb 6 oz 125/73 Negative -???-???-???-???-?? ?-???-???-???-???-? ??-???-???- Negative 160 -???-???-???-???-?? ?-???-???-???-???-? ??-???-???- SM- no vb cr amping 12/02/24 -???-???-???-???-?? ?-???-???-???-???-? ??-???-???- 16w 4d 155 lb 119/71 Negative -???-???-???-???-?? ?-???-???-???-???-? ??-???-???- Ne (more content not included)... Normal [facility] Platelet countOrdered By: Radha Albarran on 03-03-2025 Platelets (Bld) [#/Vol] 239 10*3/uL 150-450 [facility] Potassium measurement (mass/ volume)Ordered By: Kamille Albarran on 03-03-2025 Potassium (Unsp spec) [Mass/Vol] 3.8 mmol/L 3.3-5.1 [facility] RBC Auto (Bld) [#/Vol]Ordere d By: Kamille Albarran on 03-03-2025 RBC (Bld) [#/Vol] 4.03 10*6/uL Low 4.2-5.4 [facility] Serum creatinine measurement (mass/volume)Ordered By: Kamille Albarran on 03-03-2025 Creatinine [Mass/Vol] 0.64 mg/dL Low 0.70-1.20 [facility] Serum globulin measurementOr dered By: Kamille Albarran on 03-03-2025 Globulin (S) [Mass/Vol] 2.8 g/dL 2.2-4.2 [facility] Serum glucose measurement (m ass/volume)Ordered By: Kamille Albarran on 03-03-2025 Glucose [Mass/Vol] 95 mg/dL 70-99 [facility] Serum or plasma alanine tanner otransferase (ALT) measurementOrdered By: Kamille Albarran on 03-03-2025 ALT [Catalytic activity/Vol] 28 U/L <35 [facility] Serum or plasma albumin skyla urement (mass/volume)Ordered By: Kamille Albarran on 03-03-2025 Albumin [Mass/Vol] 3.7 g/dL 3.5-5.0 [facility] Serum or plasma albumin/glob ulin mass ratioOrdered By: Kamille Albarran on 03-03-2025 Albumin/Globulin [Mass ratio] 1.3 {ratio} 0.9-2.4 [facility] Serum or plasma alkaline francis sphatase measurementOrdered By: Kamille Albarran on 03-03-2025 ALP [Catalytic activity/Vol] 80 U/L 35-104 [facility] Serum or plasma calcium skyla urement (mass/volume)Ordered By: Kamille Albarran on 03-03-2025 Calcium [Mass/Vol] 9.3 mg/dL 7.6-11.0 [facility] Serum or plasma urea nitroge n measurement (mass/volume)Ordered By: Kamille Albarran on 03-03-2025 Urea nitrogen [Mass/Vol] 6 mg/dL 4-19 [facility] Sodium levelOrdered By: Jay Albarran on 03-03-2025 Sodium [Moles/Vol] 137 mmol/L 133-145 [facility] Total proteinOrdered By: Kush Albarran on 03-03-2025 Protein [Mass/Vol] 6.5 g/dL 5.9-8.4 [facility] White blood cell (WBC) count Ordered By: Kamille Albarran on 03-03-2025 WBC (Bld) [#/Vol] 8.9 10*3/uL 4.4-11.0 [facility] Absolute lymphocyte countOrd ered By: Becky Caballero on 02-19-2025 Lymphocytes Auto (Unsp spec) [#/Vol] 2.31 10*3/uL 0.83-4.51 [facility] Absolute neutrophil countOrd ered By: Becky Caballero on 02-19-2025 Neutrophils (Bld) [#/Vol] 5.8 10*3/uL 2.0-7.7 [facility] Automated lymphocyte count a s percentage of total leukocytesOrdered By: Becky Caballero on 02-19-2025 Lymphocytes/100 WBC Auto (Unsp spec) 26.2 % 19-41 [facility] Basophil percentageOrdered B y: Becky Caballero on 02-19-2025 Basophils/100 WBC (Bld) 0.5 % 0-1 [facility] CBC W/Diff, Automatedon 01-25 Absolute Lymph 2.31 X10 3/uL Normal 0.83-4.51 [facility] Comment on above: Performed By: #### L 501.0250, L100.0100, L3890.6006, L509.8002 #### [facility] [address] [place], [address] Absolute Neut 5.8 X10 3/uL Normal 2.0-7.7 [facility] Comment on above: Performed By: #### L 501.0250, L100.0100, L3890.6006, L509.8002 #### [facility] [address] [place], [address] Basophils/100 WBC (Bld) 0.5 % Normal 0-1 [facility] Comment on above: Performed By: #### L 501.0250, L100.0100, L3890.6006, L509.8002 #### [facility] [address] [place], [address] Eosinophils/100 WBC (Bld) 1.5 % Normal 0-5 [facility] Comment on above: Performed By: #### L 501.0250, L100.0100, L3890.6006, L509.8002 #### [facility] [address] [place], [address] Erythrocyte distribution width (RBC) [Ratio] 13.2 % Normal 11.6-14.6 [facility] Comment on above: Performed By: #### L 501.0250, L100.0100, L3890.6006, L509.8002 #### [facility] [address] [place], [address] Hematocrit (Bld) [Volume fraction] 38.4 % Normal 37-47 [facility] Comment on above: Performed By: #### L 501.0250, L100.0100, L3890.6006, L509.8002 #### [facility] [address] [place], [address] Hemoglobin (Bld) [Mass/Vol] 12.8 g/dL Normal 12.0-15.0 [facility] Comment on above: Performed By: #### L 501.0250, L100.0100, L3890.6006, L509.8002 #### [facility] [address] [place], [address] IG% 1.600 High 0.0-0.9 [facility] Comment on above: Result Comment: IG% - Immature Granulocytes (promyelocytes, myelocytes and metamyelocytes) > 1% indicates that a LEFT SHIFT is Present. Performed By: #### L 501.0250, L100.0100, L3890.6006, L509.8002 #### [facility] [address] [place], [address] Lymphocytes/100 WBC (Bld) 26.2 % Normal 19-41 [facility] Comment on above: Performed By: #### L 501.0250, L100.0100, L3890.6006, L509.8002 #### [facility] [address] [place], [address] MCH (RBC) [Entitic mass] 30.5 pg Normal 27.0-32.0 [facility] Comment on above: Performed By: #### L 501.0250, L100.0100, L3890.6006, L509.8002 #### [facility] [address] [place], [address] MCHC (RBC) [Mass/Vol] 33.3 g/dL Normal 32-36 [facility] Comment on above: Performed By: #### L 501.0250, L100.0100, L3890.6006, L509.8002 #### [facility] [address] [place], [address] MCV (RBC) [Entitic vol] 91.6 fL Normal 81-99 [facility] Comment on above: Performed By: #### L 501.0250, L100.0100, L3890.6006, L509.8002 #### [facility] [address] [place], [address] Monocytes/100 WBC (Bld) 4.8 % Normal 0-10 [facility] Comment on above: Performed By: #### L 501.0250, L100.0100, L3890.6006, L509.8002 #### [facility] [address] [place], [address] Neutrophils/100 WBC (Bld) 65.4 % Normal 47-70 [facility] Comment on above: Performed By: #### L 501.0250, L100.0100, L3890.6006, L509.8002 #### [facility] [address] [place], [address] Nucleated RBC (Bld) [#/Vol] 0 10*3/uL Normal 0-5 [facility] Comment on above: Performed By: #### L 501.0250, L100.0100, L3890.6006, L509.8002 #### [facility] [address] [place], [address] Platelet mean volume (Bld) [Entitic vol] 10.3 fL Normal 6.2-12.0 [facility] Comment on above: Performed By: #### L 501.0250, L100.0100, L3890.6006, L509.8002 #### [facility] [address] [place], [address] Platelets (Bld) [#/Vol] 245 10*3/uL Normal 150-450 [facility] Comment on above: Performed By: #### L 501.0250, L100.0100, L3890.6006, L509.8002 #### [facility] [address] [place], [address] RBC (Bld) [#/Vol] 4.19 10*6/uL Low 4.2-5.4 [facility] Comment on above: Performed By: #### L 501.0250, L100.0100, L3890.6006, L509.8002 #### [facility] [address] [place], [address] RDW SD 43.8 fl Normal 35.1-43.9 [facility] Comment on above: Performed By: #### L 501.0250, L100.0100, L3890.6006, L509.8002 #### [facility] [address] [place], [address] WBC (Bld) [#/Vol] 8.8 10*3/uL Normal 4.4-11.0 [facility] Comment on above: Performed By: #### L 501.0250, L100.0100, L3890.6006, L509.8002 #### [facility] [address] [place], [address] Eosinophil percentageOrdered By: Becky Caballero on 02-19-2025 Eosinophils/100 WBC (Bld) 1.5 % 0-5 [facility] Erythrocyte distribution wid th ratioOrdered By: Becky Caballero on 02-19-2025 Erythrocyte distribution width (RBC) [Ratio] 13.2 % 11.6-14.6 [facility] Erythrocyte distribution wid th standard deviationOrdered By: Becky Caballero on 02-19-2025 Erythrocyte distribution width (RBC) [Ratio] 43.8 fl 35.1-43.9 [facility] Glucose Challenge Gest 1H 50 coty 02-19-2025 GLU GEST 50g 1H 96 mg/dL Normal 70-140 [facility] Comment on above: Performed By: #### L 501.0250, L100.0100, L3890.6006, L509.8002 #### [facility] [address] [place], [place], [address] Glucose measurement at 2 vane rs post-dose gestational glucose tolerance testOrdered By: Becky Caballero on 02-19-2025 Glucose [Mass/Vol] 96 mg/dL 70-140 [facility] HIVon 02-19-2025 HIV Non-Reactive Normal Nonreactive [facility] Comment on above: Result Comment: Non- Reactive Reactive Repeatedly reactive samples must be confirmed according to CDC recommended confirmatory algorithms. The subresults for either HIVAG or AHIV can be used as an aid in the selection of the confirmation algorithm for reactive samples. Send out specimens with Reactive results to [facility] for confirmation. Order the HIV antibody detection and differentiation: [id number] Performed By: #### L 501.0250, L100.0100, L3890.6006, L509.8002 #### [facility] [address] [place], [place], [id number] Hematocrit Auto (Bld) [Volum e fraction]Ordered By: Becky Caballero on 02-19-2025 Hematocrit (Bld) [Volume fraction] 38.4 % 37-47 [facility] Hemoglobin measurementOrdere d By: Becky Caballero on 02-19-2025 Hemoglobin (Bld) [Mass/Vol] 12.8 g/dL 12.0-15.0 [facility] Immature granulocytes/100 WB C Auto (Bld)Ordered By: Becky Caballero on 02-19-2025 Immature granulocytes/100 WBC (Bld) 1.600 % High 0.0-0.9 [facility] Comment on above: IG% - Immature Granu locytes (promyelocytes, myelocytes and metamyelocytes) > 1% indicates that a LEFT SHIFT is Present. Laboratory - Chemistry and C hemistry - challengeOrdered By: Tess Lynch on 02-19-2025 Glucose Ql (U) Negative [facility] - UrinalysisOrder ed By: Tess Lynch on 02-19-2025 Protein Ql (U) Negative [facility] MCV (mean corpuscular volume ) determinationOrdered By: Becky Caballero on 02-19-2025 MCV (RBC) [Entitic vol] 91.6 fL 81-99 [facility] Mean corpuscular hemoglobin (MCH) determinationOrdered By: Becky Caballero on 02-19-2025 MCH (RBC) [Entitic mass] 30.5 pg 27.0-32.0 [facility] Mean corpuscular hemoglobin concentration (MCHC) determinationOrdered By: Becky Caballero on 02-19-2025 MCHC (RBC) [Mass/Vol] 33.3 g/dL 32-36 [facility] Mean platelet volume determi nationOrdered By: Becky Caballero on 02-19-2025 Platelet mean volume (Bld) [Entitic vol] 10.3 fL 6.2-12.0 [facility] Monocyte percentageOrdered B y: Becky Caballero on 02-19-2025 Monocytes/100 WBC (Bld) 4.8 % 0-10 [facility] Neutrophil percentageOrdered By: Becky Caballero on 02-19-2025 Neutrophils/100 WBC (Bld) 65.4 % 47-70 [facility] No Panel InformationOrdered By: Becky Caballero on 02-19-2025 HIV (1&2) Antibody Non-Reactive Nonreactive [facility] Comment on above: Non-ReactiveReactive Repeatedly reactive samples must be confirmed according to CDC recommended confirmatory algorithms. The subresults for either HIVAG or AHIV can be used as an aid in the selection of the confirmation algorithm for reactive samples.Send out specimens with Reactive results to [facility] for confirmation.Order the HIV antibody detection and differentiation: #[id number] Nucleated red blood cell per centageOrdered By: Becky Caballero on 02-19-2025 Nucleated RBC/100 WBC (Bld) [Ratio] 0 % 0-5 [facility] Office Visit Reporton 02-19-2025 [facility] Office Visit Report [facility]'[address], [address] [place] [address] OFFICE VISIT Date of Service: 02/19/25 MR#: [id number] Acct: [id number] Name: JACKRAMAKRISHNAAlicia Michael BYNUMGERMAN Rep #: [id number] : 1995 Provider: MOOSE moreno Age/Sex: 29/F Location: [facility] [place] Status: Signed Intake Vital Signs 12/02/24 12:59 01/29/25 10:24 02/19/25 08:28 Height 5 ft 5 in 5 ft 5 in 5 ft 5 in Weight: 162 lb 168 lb BMI 26.9 27.9 BP 110/67 130/72 H Intake Visit Reasons: 28wk ob/glucose Chief Complaint: 28 Week OB/Glucose Hand Turner Required: No Is patient in pain?: No Allergies No Known Allergies Allergy (Verified 02/19/25 08:29) Medications ???Medication ???Instructions ???Recorded ???Confirmed ???Type L.acidophilus-B.ani malis-B.bifidum cap PO 09/24/24 02/19/25 History 25 billion cell-FOS 100 mg capsule (Probiotic Complex) multivitamin no.47-iron fum 27 cap PO 09/24/24 02/19/25 History mg-folate no.1 1 mg-dha 300 mg capsule (PNV-DHA) Last Menstrual Period: 08/08/24 Zika: Zika virus screening: Negative : Yes PFSH PFSH Medical History Complete miscarriage Family History Mother Hypertension, Onset Age: 45 Grandfather No problems noted. Father MTHFR gene mutation Sister MTHFR gene mutation Social History adopted: No household members: spouse housing: house number of children: 0 current occupational status: employed current occupation: [employer] in [place] current occupational exposures/hazards: No pets and animals: Yes pets and animals: dog(s) history of recent travel: [place] ([place]) out of state: Yes out of country: No sexually active: Yes Smoking Status: Never smoker alcohol intake: current alcohol intake frequency: holidays/special occasions only details: Not while substance use type: does not use well-balanced diet: daily or most days caffeine: No eating out: 4 or more times/week during the past year weight has: remained stable what type of physical activity do you participate in: aerobics frequency: 3-4 times per week duration: 45-60 minutes/day dana/jewish: Jewish seatbelt use: always do you feel safe at home: Yes additional social history: Melvin- . [employer] History 2 Elective abortions Hx Para 0 Spontaneous abortions 1 Hx # Term Pregnancies Ectopic pregnancies Hx # Pregnancies Multiple births # of living children 0 Past Pregnancies Del. Date Name GA/Weeks Outcome Route Bth Weight Infant Gen Labor Lgth Anesthesia Del [place] Provider FOB 08/08/24 4 spontaneous HPI 28wk ob/glucose Details: ALBINO SANTIAGO is a 29 year old who presents for routine OB visit. OB Visit SREEDHAR Calculator Estimated Delivery Date Method Current WG Current Estimate 05/15/25 LMP (Certain) 27w 6d Other Estimates 05/16/25 Ultrasound #1 27w 5d Expected Delivery Route/Plan Labor Preferences- CB/BF classes: yes labor support person: Melvin labor intervention preferences: [] pain management options preferred: epidural cut cord/dad catch: yes : yes PP control planned: discussed discussed possible routes of delivery and associated risks: [] special requests: [] Specific Issue/Plans Covid status: [] Flu vaccine: [] Tdap vaccine: [] Rhogam: NA LARC form signed: yes Problem list reviewed and updated with the most current plan of care details and appropriate orders placed. Relevant counseling for the gestational age provided. Continue routine care and follow up unless otherwise noted in visit notes/problem list details Initial Weight: Not Recorded Date -???-???-???-???-?? ?-???-???-???-???-? ??-???-???- EGA Weight BP Urine Prot -???-???-???-???-?? ?-???-???-???-???-? ??-???-???- Glucose FHR FuHt Pres Dilation -???-???-???-???-?? ?-???-???-???-???-? ??-???-???- Effaced St Visit Note 10/11/24 -???-???-???-???-?? ?-???-???-???-???-? ??-???-???- 9w 1d 153 lb 8 oz 135/68 -???-???-???-???-?? ?-???-???-???-???-? ??-???-???- 180 -???-???-???-???-?? ?-???-???-???-???-? ??-???-???- SM- CRL 2.24 cm cons with lMP 11/08/24 -???-???-???-???-?? ?-???-???-???-???-? ??-???-???- 13w 1d 151 lb 6 oz 125/73 Negative -???-???-???-???-?? ?-???-???-???-???-? ??-???-???- Negative 160 -???-???-???-???-?? ?-???-???-???-???-? ??-???-???- SM- no vb cr amping 12/02/24 -???-???-???-???-?? ?-???-???-???-???-? ??-???-???- 16w 4d 155 lb 119/71 Negative -???-???-???-???-?? ?-???-???-???-???-? ??-???-???- Negative 158 -???-???-???-???-?? ?-???-???-???-???-? ??-???-???- MH-No (more content not included)... Normal [facility] Platelet countOrdered By: Jamey Caballero on 02-19-2025 Platelets (Bld) [#/Vol] 245 10*3/uL 150-450 [facility] RBC Auto (Bld) [#/Vol]Ordere d By: Becky Caballero on 02-19-2025 RBC (Bld) [#/Vol] 4.19 10*6/uL Low 4.2-5.4 [facility] Syphilis Antibodieson 2024 Syphilis Abs Non-Reactive Normal Nonreactive [facility] Comment on above: Performed By: #### L 501.0250, L100.0100, L3890.6006, L509.8002 #### [facility] [address] [place], [place], [id number] White blood cell (WBC) count Ordered By: Becky Caballero on 02-19-2025 WBC (Bld) [#/Vol] 8.8 10*3/uL 4.4-11.0 [facility] - Chemistry and C hemistry - challengeOrdered By: Becky Caballero on 01-29-2025 Glucose Ql (U) Negative [facility] - UrinalysisOrder ed By: Becky Caballero on 01-29-2025 Protein Ql (U) Negative [facility] Office Visit Reporton 01-29-2025 [facility] Office Visit Report [facility]'[address], [address] [place] [address] OFFICE VISIT Date of Service: 01/29/25 MR#: [id number] Acct: [id number] Name: SERA SANTIAGO Rep #: [id number] : 1995 Provider: FABIO [facility] Age/Sex: 29/F Location: [facility] [place] Status: Signed Intake Vital Signs 12/02/24 12:59 01/02/25 10:41 01/29/25 10:24 Height 5 ft 5 in 5 ft 5 in 5 ft 5 in Weight: 162 lb BMI 26.9 BP 110/67 Intake Visit Reasons: 25wk ob Hand Turner Required: No Is patient in pain?: No Allergies No Known Allergies Allergy (Verified 01/29/25 10:22) Medications ???Medication ???Instructions ???Recorded ???Confirmed ???Type L.acidophilus-B.ani may-B.bifidum cap PO 09/24/24 01/29/25 History 25 billion cell-FOS 100 mg capsule (Probiotic Complex) multivitamin no.47-iron fum 27 cap PO 09/24/24 01/29/25 History mg-folate no.1 1 mg-dha 300 mg capsule (PNV-DHA) Last Menstrual Period: 08/08/24 Zika: Zika virus screening: Negative : No PFSH PFSH Medical History Complete miscarriage Family History Mother Hypertension, Onset Age: 45 Grandfather No problems noted. Father MTHFR gene mutation Sister MTHFR gene mutation Social History adopted: No household members: spouse housing: house number of children: 0 current occupational status: employed current occupation: [employer] in [place] current occupational exposures/hazards: No pets and animals: Yes pets and animals: dog(s) history of recent travel: [place] ([place]) out of state: Yes out of country: No sexually active: Yes Smoking Status: Never smoker alcohol intake: current alcohol intake frequency: holidays/special occasions only details: Not while substance use type: does not use well-balanced diet: daily or most days caffeine: No eating out: 4 or more times/week during the past year weight has: remained stable what type of physical activity do you participate in: aerobics frequency: 3-4 times per week duration: 45-60 minutes/day dana/jewish: Jewish seatbelt use: always do you feel safe at home: Yes additional social history: Melvin- Husband. [employer] History 2 Elective abortions Hx Para 0 Spontaneous abortions 1 Hx # Term Pregnancies Ectopic pregnancies Hx # Pregnancies Multiple births # of living children 0 Past Pregnancies Del. Date Name GA/Weeks Outcome Route Bth Weight Infant Gen Labor Lgth Anesthesia Del Locatn Provider FOB 08/08/24 4 spontaneous HPI 25wk ob Details: ALBINO SANTIAGO is a 29 year old who presents for routine OB visit. OB Visit SREEDHAR Calculator Estimated Delivery Date Method Current WG Current Estimate 05/15/25 LMP (Certain) 24w 6d Other Estimates 05/16/25 Ultrasound #1 24w 5d Expected Delivery Route/Plan Labor Preferences- CB/BF classes: [] labor support person: [] labor intervention preferences: [] pain management options preferred: [] cut cord/dad catch: [] : [] PP control planned: [] discussed possible routes of delivery and associated risks: [] special requests: [] Specific Issue/Plans Covid status: [] Flu vaccine: [] Tdap vaccine: [] Rhogam: [] LARC form signed: [] Problem list reviewed and updated with the most current plan of care details and appropriate orders placed. Relevant counseling for the gestational age provided. Continue routine care and follow up unless otherwise noted in visit notes/problem list details Initial Weight: Not Recorded Date -???-???-???-???-?? ?-???-???-???-???-? ??-???-???- EGA Weight BP Urine Prot -???-???-???-???-?? ?-???-???-???-???-? ??-???-???- Glucose FHR FuHt Pres Dilation -???-???-???-???-?? ?-???-???-???-???-? ??-???-???- Effaced St Visit Note 10/11/24 -???-???-???-???-?? ?-???-???-???-???-? ??-???-???- 9w 1d 153 lb 8 oz 135/68 -???-???-???-???-?? ?-???-???-???-???-? ??-???-???- 180 -???-???-???-???-?? ?-???-???-???-???-? ??-???-???- SM- CRL 2.24 cm cons with lMP 11/08/24 -???-???-???-???-?? ?-???-???-???-???-? ??-???-???- 13w 1d 151 lb 6 oz 125/73 Negative -???-???-???-???-?? ?-???-???-???-???-? ??-???-???- Negative 160 -???-???-???-???-?? ?-???-???-???-???-? ??-???-???- SM- no vb cr amping 12/02/24 -???-???-???-???-?? ?-???-???-???-???-? ??-???-???- 16w 4d 155 lb 119/71 Negative -???-???-???-???-?? ?-???-???-???-???-? ??-???-???- Negative 158 -???-???-???-???-?? ?-???-???-???-???-? ??-???-???- MH-No VB. So me heartburn-meds reviewed. 01/02/25 -???-???-???-???-?? ?-???-???-???-???-? ??-???-???- 21 (more content not included)... Normal [facility] - UrinalysisOrder ed By: Rhea Pak on 01-02-2025 Protein Ql (U) Negative [facility] Office Visit Reporton 01-02-2025 [facility] Office Visit Report [facility] [address], [address] [place] [address] OFFICE VISIT Date of Service: 01/02/25 MR#: [id number] Acct: [id number] Name: SERA SANTIAGO Rep #: [id number] : 1995 Provider: Dr. Rhea Tiwari DO Age/Sex: 29/F Location: [facility] [place] Status: Signed Intake Vital Signs 11/08/24 10:53 12/02/24 12:59 01/02/25 10:41 Height 5 ft 5 in 5 ft 5 in 5 ft 5 in Weight: 158 lb 2 oz BMI 26.3 BP 135/70 H Intake Visit Reasons: 21 wk ob Hand Turner Required: No Is patient in pain?: No Feel stressed/tense/nerv ous/anxious/difficu lty sleeping: not at all Allergies No Known Allergies Allergy (Verified 01/02/25 10:43) Medications ???Medication ???Instructions ???Recorded ???Confirmed ???Type L.acidophilus-B.ani malis-B.bifidum cap PO 09/24/24 01/02/25 History 25 billion cell-FOS 100 mg capsule (Probiotic Complex) multivitamin no.47-iron fum 27 cap PO 09/24/24 01/02/25 History mg-folate no.1 1 mg-dha 300 mg capsule (PNV-DHA) Last Menstrual Period: 08/08/24 Zika: Zika virus screening: Negative : No PFSH PFSH Medical History Complete miscarriage Family History Mother Hypertension, Onset Age: 45 Grandfather No problems noted. Father MTHFR gene mutation Sister MTHFR gene mutation Social History adopted: No household members: spouse housing: house number of children: 0 current occupational status: employed current occupation: [employer] in [place] current occupational exposures/hazards: No pets and animals: Yes pets and animals: dog(s) history of recent travel: [place] ([place]) out of state: Yes out of country: No sexually active: Yes Smoking Status: Never smoker alcohol intake: current alcohol intake frequency: holidays/special occasions only details: Not while substance use type: does not use well-balanced diet: daily or most days caffeine: No eating out: 4 or more times/week during the past year weight has: remained stable what type of physical activity do you participate in: aerobics frequency: 3-4 times per week duration: 45-60 minutes/day dana/jewish: Jewish seatbelt use: always do you feel safe at home: Yes 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 Date Name GA/Weeks Outcome Route Bth Weight Infant Gen Labor Lgth Anesthesia Del Locatn Provider FOB 08/08/24 4 spontaneous HPI 21 wk ob Details: ALBINO SANTIAGO is a 29 year old who presents for routine OB visit. OB Visit SREEDHAR Calculator Estimated Delivery Date Method Current WG Current Estimate 05/15/25 LMP (Certain) 21w 0d Other Estimates 05/16/25 Ultrasound #1 20w 6d Expected Delivery Route/Plan Labor Preferences- CB/BF classes: [] labor support person: [] labor intervention preferences: [] pain management options preferred: [] cut cord/dad catch: [] : [] PP control planned: [] discussed possible routes of delivery and associated risks: [] special requests: [] Specific Issue/Plans Covid status: [] Flu vaccine: [] Tdap vaccine: [] Rhogam: [] LARC form signed: [] Problem list reviewed and updated with the most current plan of care details and appropriate orders placed. Relevant counseling for the gestational age provided. Continue routine care and follow up unless otherwise noted in visit notes/problem list details Initial Weight: Not Recorded Date -???-???-???-???-?? ?-???-???-???-???-? ??-???-???- EGA Weight BP Urine Prot -???-???-???-???-?? ?-???-???-???-???-? ??-???-???- Glucose FHR FuHt Pres Dilation -???-???-???-???-?? ?-???-???-???-???-? ??-???-???- Effaced St Visit Note 10/11/24 -???-???-???-???-?? ?-???-???-???-???-? ??-???-???- 9w 1d 153 lb 8 oz 135/68 -???-???-???-???-?? ?-???-???-???-???-? ??-???-???- 180 -???-???-???-???-?? ?-???-???-???-???-? ??-???-???- SM- CRL 2.24 cm cons with lMP 11/08/24 -???-???-???-???-?? ?-???-???-???-???-? ??-???-???- 13w 1d 151 lb 6 oz 125/73 Negative -???-???-???-???-?? ?-???-???-???-???-? ??-???-???- Negative 160 -???-???-???-???-?? ?-???-???-???-???-? ??-???-???- SM- no vb cr amping 12/02/24 -???-???-???-???-?? ?-???-???-???-???-? ??-???-???- 16w 4d 155 lb 119/71 Negative -???-???-???-???-?? ?-???-???-???-???-? ??-???-???- Negative 158 -???-???-???-???-?? ?-???-???-???-???-? ??-???-???- MH-No VB. So me heart (more content not included)... Normal [facility] - Chemistry and C hemistry - challengeOrdered By: Tess Lynch on 12-02-2024 Glucose Ql (U) Negative [facility] - UrinalysisOrder ed By: Tess Lynch on 12-02-2024 Protein Ql (U) Negative [facility] Office Visit Reporton 12-02-2024 [facility] Office Visit Report [facility]'[address], [address] [place] [address] OFFICE VISIT Date of Service: 12/02/24 MR#: [id number] Acct: [id number] Name: JACKSERA GERMAN Rep #: [id number] : 1995 Provider: MOOSE moreno Age/Sex: 29/F Location: [facility] [place] Status: Signed Intake Vital Signs 10/11/24 10:31 11/08/24 10:53 12/02/24 12:59 Height 5 ft 5 in 5 ft 5 in 5 ft 5 in Weight: 155 lb BMI 25.7 BP 119/71 Intake Visit Reasons: 17 wk ob Chief Complaint: 17 Week OB Hand Turner Required: No Is patient in pain?: No Allergies No Known Allergies Allergy (Verified 12/02/24 13:00) Medications ???Medication ???Instructions ???Recorded ???Confirmed ???Type L.acidophilus-B.ani malis-B.bifidum cap PO 09/24/24 12/02/24 History 25 billion cell-FOS 100 mg capsule (Probiotic Complex) multivitamin no.47-iron fum 27 cap PO 09/24/24 12/02/24 History mg-folate no.1 1 mg-dha 300 mg capsule (PNV-DHA) Last Menstrual Period: 08/08/24 Zika: Zika virus screening: Negative : No PFSH PFSH Medical History Complete miscarriage Family History Mother Hypertension, Onset Age: 45 Grandfather No problems noted. Father MTHFR gene mutation Sister MTHFR gene mutation Social History adopted: No household members: spouse housing: house number of children: 0 current occupational status: employed current occupation: [employer] in [place] current occupational exposures/hazards: No pets and animals: Yes pets and animals: dog(s) history of recent travel: Yes ([place]) out of state: Yes out of country: No sexually active: Yes Smoking Status: Never smoker alcohol intake: current alcohol intake frequency: holidays/special occasions only details: Not while substance use type: does not use well-balanced diet: daily or most days caffeine: No eating out: 4 or more times/week during the past year weight has: remained stable what type of physical activity do you participate in: aerobics frequency: 3-4 times per week duration: 45-60 minutes/day dana/jewish: Jewish seatbelt use: always do you feel safe at home: Yes additional social history: Melvin- [employer] History 2 Elective abortions Hx Para 0 Spontaneous abortions 1 Hx # Term Pregnancies Ectopic pregnancies Hx # Pregnancies Multiple births # of living children 0 Past Pregnancies Del. Date Name GA/Weeks Outcome Route Bth Weight Gen Labor Lgth Anesthesia Del Locatn Provider FOB 08/08/24 4 spontaneous HPI 17 wk ob Details: ALBINO SANTIAGO is a 29 year old who presents for routine OB visit. OB Visit SREEDHAR Calculator Estimated Delivery Date Method Current WG Current Estimate 05/15/25 LMP (Certain) 16w 4d Other Estimates 05/16/25 Ultrasound #1 16w 3d Expected Delivery Route/Plan Labor Preferences- CB/BF classes: [] labor support person: [] labor intervention preferences: [] pain management options preferred: [] cut cord/dad catch: [] : [] PP control planned: [] discussed possible routes of delivery and associated risks: [] special requests: [] Specific Issue/Plans Covid status: [] Flu vaccine: [] Tdap vaccine: [] Rhogam: [] LARC form signed: [] Problem list reviewed and updated with the most current plan of care details and appropriate orders placed. Relevant counseling for the gestational age provided. Continue routine care and follow up unless otherwise noted in visit notes/problem list details Initial Weight: Not Recorded Date -???-???-???-???-?? ?-???-???-???-???-? ??-???-???- EGA Weight BP Urine Prot -???-???-???-???-?? ?-???-???-???-???-? ??-???-???- Glucose FHR FuHt Pres Dilation -???-???-???-???-?? ?-???-???-???-???-? ??-???-???- Effaced St Visit Note 10/11/24 -???-???-???-???-?? ?-???-???-???-???-? ??-???-???- 9w 1d 153 lb 8 oz 135/68 -???-???-???-???-?? ?-???-???-???-???-? ??-???-???- 180 -???-???-???-???-?? ?-???-???-???-???-? ??-???-???- SM- CRL 2.24 cm cons with lMP 11/08/24 -???-???-???-???-?? ?-???-???-???-???-? ??-???-???- 13w 1d 151 lb 6 oz 125/73 Negative -???-???-???-???-?? ?-???-???-???-???-? ??-???-???- Negative 160 -???-???-???-???-?? ?-???-???-???-???-? ??-???-???- SM- no vb cr amping 12/02/24 -???-???-???-???-?? ?-???-???-???-???-? ??-???-???- 16w 4d 155 lb 119/71 Negative -???-???-???-???-?? ?-???-???-???-???-? ??-???-???- Negative 158 -???-???-???-???-?? ?-???-???-???-???-? ??-???-???- MH-No VB. So me heartburn-meds reviewed. ACOG First Mery (more content not included)... Normal [facility] - Chemistry and C hemistry - challengeOrdered By: Kamille Albarran on 11-08-2024 Glucose Ql (U) Negative [facility] - UrinalysisOrder ed By: Kamille Albarran on 11-08-2024 Protein Ql (U) Negative [facility] Office Visit Reporton 11-08-2024 [facility] Office Visit Report [facility] [address], [address] [place] [address] OFFICE VISIT Date of Service: 11/08/24 MR#: [id number] Acct: [id number] Name: SERA SANTIAGO Rep #: [id number] : 1995 Provider: Dr. Kamille gamez MD Age/Sex: 28/F Location: [facility] [place] [facility] Status: Signed Intake Vital Signs 08/23/24 14:33 10/11/24 10:31 11/08/24 10:50 11/08/24 10:53 Height 5 ft 5 in 5 ft 5 in 5 ft 5 in 5 ft 5 in Weight: 151 lb 6 oz BMI 25.2 BP 125/73 H Intake Visit Reasons: 13wk OB Hand Turner Required: No Is patient in pain?: No Allergies No Known Allergies Allergy (Verified 11/08/24 10:51) Medications ???Medication ???Instructions ???Recorded ???Confirmed ???Type L.acidophilus-B.ani malis-B.bifidum cap PO 09/24/24 11/08/24 History 25 billion cell-FOS 100 mg capsule (Probiotic Complex) multivitamin no.47-iron fum 27 cap PO 09/24/24 11/08/24 History mg-folate no.1 1 mg-dha 300 mg capsule (PNV-DHA) Last Menstrual Period: 08/08/24 Zika: Zika virus screening: Negative : No PFSH PFSH Medical History Complete miscarriage Family History Mother Hypertension, Onset Age: 45 Grandfather No problems noted. Father MTHFR gene mutation Sister MTHFR gene mutation Social History adopted: No household members: spouse housing: house number of children: 0 current occupational status: employed current occupation: [employer] in [place] current occupational exposures/hazards: No pets and animals: Yes pets and animals: dog(s) history of recent travel: Yes ([place]) out of state: Yes out of country: No sexually active: Yes Smoking Status: Never smoker alcohol intake: current alcohol intake frequency: holidays/special occasions only details: Not while substance use type: does not use well-balanced diet: daily or most days caffeine: No eating out: 4 or more times/week during the past year weight has: remained stable what type of physical activity do you participate in: aerobics frequency: 3-4 times per week duration: 45-60 minutes/day dana/jewish: Jewish seatbelt use: always do you feel safe at home: Yes additional social history: Melvin- Husband. [employer] History 2 Elective abortions Hx Para 0 Spontaneous abortions 1 Hx # Term Pregnancies Ectopic pregnancies Hx # Pregnancies Multiple births # of living children 0 Past Pregnancies Del. Date Name GA/Weeks Outcome Route Bth Weight Infant Gen Labor Lgth Anesthesia Del Locatn Provider FOB 08/08/24 4 spontaneous HPI 13wk OB Details: ALBINO SANTIAGO is a 28 year old who presents for routine OB visit. OB Visit SREEDHAR Calculator Estimated Delivery Date Method Current WG Current Estimate 05/15/25 LMP (Certain) 13w 1d Other Estimates 05/16/25 Ultrasound #1 13w 0d Expected Delivery Route/Plan Labor Preferences- CB/BF classes: [] labor support person: [] labor intervention preferences: [] pain management options preferred: [] cut cord/dad catch: [] : [] PP control planned: [] discussed possible routes of delivery and associated risks: [] special requests: [] Specific Issue/Plans Covid status: [] Flu vaccine: [] Tdap vaccine: [] Rhogam: [] LARC form signed: [] Problem list reviewed and updated with the most current plan of care details and appropriate orders placed. Relevant counseling for the gestational age provided. Continue routine care and follow up unless otherwise noted in visit notes/problem list details Initial Weight: Not Recorded Date -???-???-???-???-?? ?-???-???-???-???-? ??-???-???- EGA Weight BP Urine Prot -???-???-???-???-?? ?-???-???-???-???-? ??-???-???- Glucose FHR FuHt Pres Dilation -???-???-???-???-?? ?-???-???-???-???-? ??-???-???- Effaced St Visit Note 10/11/24 -???-???-???-???-?? ?-???-???-???-???-? ??-???-???- 9w 1d 153 lb 8 oz 135/68 -???-???-???-???-?? ?-???-???-???-???-? ??-???-???- 180 -???-???-???-???-?? ?-???-???-???-???-? ??-???-???- SM- CRL 2.24 cm cons with lMP 11/08/24 -???-???-???-???-?? ?-???-???-???-???-? ??-???-???- 13w 1d 151 lb 6 oz 125/73 Negative -???-???-???-???-?? ?-???-???-???-???-? ??-???-???- Negative 160 -???-???-???-???-?? ?-???-???-???-???-? ??-???-???- SM- no vb cr amping ACOG First Trimester First Trimester: Desire for , Alcohol, Tobacco Cessation, Illicit/Recreationa l Drug/Substance Use, Intimate Partner Violence, Barriers to care, Unstable Housing, Communication Barriers, Environmental/Work Hazards, Anticipated Course of Prenat (more content not included)... Normal [facility] [facility] Absolute lymphocyte countOrd ered By: Kamille Albarran on 10-17-2024 Lymphocytes Auto (Unsp spec) [#/Vol] 2.41 10*3/uL 0.83-4.51 [facility] Absolute neutrophil countOrd ered By: Kamille Albarran on 10-17-2024 Neutrophils (Bld) [#/Vol] 5.3 10*3/uL 2.0-7.7 [facility] Automated lymphocyte count a s percentage of total leukocytesOrdered By: Kamille Albarran on 10-17-2024 Lymphocytes/100 WBC Auto (Unsp spec) 29.3 % 19-41 [facility] Basophil percentageOrdered B y: Kamille Albarran on 10-17-2024 Basophils/100 WBC (Bld) 0.5 % 0-1 [facility] CBC W/Diff, Automatedon 09-255 Absolute Lymph 2.41 X10 3/uL Normal 0.83-4.51 [facility] Comment on above: Performed By: #### L 509.8002, L3890.6006, L900.0098, BTS, L100.0100, L3890.6102, L509.4006, L3890.6301 ####[facility] [address] [place], [address] Absolute Neut 5.3 X10 3/uL Normal 2.0-7.7 [facility] Comment on above: Performed By: #### L 509.8002, L3890.6006, L900.0098, BTS, L100.0100, L3890.6102, L509.4006, L3890.6301 ####[facility] [address] [place], [address] Basophils/100 WBC (Bld) 0.5 % Normal 0-1 [facility] Comment on above: Performed By: #### L 509.8002, L3890.6006, L900.0098, BTS, L100.0100, L3890.6102, L509.4006, L3890.6301 ####[facility] [address] [place], [address] Eosinophils/100 WBC (Bld) 2.1 % Normal 0-5 [facility] Comment on above: Performed By: #### L 509.8002, L3890.6006, L900.0098, BTS, L100.0100, L3890.6102, L509.4006, L3890.6301 ####[facility] [address] [place], [address] Erythrocyte distribution width (RBC) [Ratio] 12.2 % Normal 11.6-14.6 [facility] Comment on above: Performed By: #### L 509.8002, L3890.6006, L900.0098, BTS, L100.0100, L3890.6102, L509.4006, L3890.6301 ####[facility] [address] [place], [address] Hematocrit (Bld) [Volume fraction] 39.1 % Normal 37-47 [facility] Comment on above: Performed By: #### L 509.8002, L3890.6006, L900.0098, BTS, L100.0100, L3890.6102, L509.4006, L3890.6301 ####[facility] [address] [place], [address] Hemoglobin (Bld) [Mass/Vol] 13.3 g/dL Normal 12.0-15.0 [facility] Comment on above: Performed By: #### L 509.8002, L3890.6006, L900.0098, BTS, L100.0100, L3890.6102, L509.4006, L3890.6301 ####[facility] [address] [place], [address] IG% 0.600 Normal 0.0-0.9 [facility] Comment on above: Result Comment: IG% - Immature Granulocytes (promyelocytes, myelocytes and metamyelocytes) > 1% indicates that a LEFT SHIFT is Present. Performed By: #### L 509.8002, L3890.6006, L900.0098, BTS, L100.0100, L3890.6102, L509.4006, L3890.6301 ####[facility] [address] [place], [address] Lymphocytes/100 WBC (Bld) 29.3 % Normal 19-41 [facility] Comment on above: Performed By: #### L 509.8002, L3890.6006, L900.0098, BTS, L100.0100, L3890.6102, L509.4006, L3890.6301 ####[facility] [address] [place], [address] MCH (RBC) [Entitic mass] 30.6 pg Normal 27.0-32.0 [facility] Comment on above: Performed By: #### L 509.8002, L3890.6006, L900.0098, BTS, L100.0100, L3890.6102, L509.4006, L3890.6301 ####[facility] [address] [place], [address] MCHC (RBC) [Mass/Vol] 34.0 g/dL Normal 32-36 [facility] Comment on above: Performed By: #### L 509.8002, L3890.6006, L900.0098, BTS, L100.0100, L3890.6102, L509.4006, L3890.6301 ####[facility] [address] [place], [address] MCV (RBC) [Entitic vol] 89.9 fL Normal 81-99 [facility] Comment on above: Performed By: #### L 509.8002, L3890.6006, L900.0098, BTS, L100.0100, L3890.6102, L509.4006, L3890.6301 ####[facility] [address] [place], [address] Monocytes/100 WBC (Bld) 3.5 % Normal 0-10 [facility] Comment on above: Performed By: #### L 509.8002, L3890.6006, L900.0098, BTS, L100.0100, L3890.6102, L509.4006, L3890.6301 ####[facility] [address] [place], [address] Neutrophils/100 WBC (Bld) 64.0 % Normal 47-70 [facility] Comment on above: Performed By: #### L 509.8002, L3890.6006, L900.0098, BTS, L100.0100, L3890.6102, L509.4006, L3890.6301 ####[facility] [address] [place], [address] Nucleated RBC (Bld) [#/Vol] 0 10*3/uL Normal 0-5 [facility] Comment on above: Performed By: #### L 509.8002, L3890.6006, L900.0098, BTS, L100.0100, L3890.6102, L509.4006, L3890.6301 ####[facility] [address] [place], [address] Platelet mean volume (Bld) [Entitic vol] 10.0 fL Normal 6.2-12.0 [facility] Comment on above: Performed By: #### L 509.8002, L3890.6006, L900.0098, BTS, L100.0100, L3890.6102, L509.4006, L3890.6301 ####[facility] [address] [place], [address] Platelets (Bld) [#/Vol] 254 10*3/uL Normal 150-450 [facility] Comment on above: Performed By: #### L 509.8002, L3890.6006, L900.0098, BTS, L100.0100, L3890.6102, L509.4006, L3890.6301 ####[facility] [address] [place], [address] RBC (Bld) [#/Vol] 4.35 10*6/uL Normal 4.2-5.4 [facility] Comment on above: Performed By: #### L 509.8002, L3890.6006, L900.0098, BTS, L100.0100, L3890.6102, L509.4006, L3890.6301 ####[facility] [address] [place], [address] RDW SD 40.0 fl Normal 35.1-43.9 [facility] Comment on above: Performed By: #### L 509.8002, L3890.6006, L900.0098, BTS, L100.0100, L3890.6102, L509.4006, L3890.6301 ####[facility] [address] [place], [address] WBC (Bld) [#/Vol] 8.2 10*3/uL Normal 4.4-11.0 [facility] Comment on above: Performed By: #### L 509.8002, L3890.6006, L900.0098, BTS, L100.0100, L3890.6102, L509.4006, L3890.6301 ####[facility] [address] [place], [place], [address] Eosinophil percentageOrdered By: Kamille Albarran on 10-17-2024 Eosinophils/100 WBC (Bld) 2.1 % 0-5 [facility] Erythrocyte distribution wid th (RBC) [Ratio]Ordered By: Kamille Albarran on 10-17-2024 Erythrocyte distribution width (RBC) [Entitic vol] 40.0 fL 35.1-43.9 [facility] Erythrocyte distribution wid th ratioOrdered By: Kamille Albarran on 10-17-2024 Erythrocyte distribution width (RBC) [Ratio] 12.2 % 11.6-14.6 [facility] Erythrocyte distribution wid th standard deviationOrdered By: Kamille Albarran on 10-17-2024 Erythrocyte distribution width (RBC) [Ratio] 40.0 fl 35.1-43.9 [facility] HBV surface Ag Ql (S)Ordered By: Kamille Albarran on 10-17-2024 Hepatitis B Surface Antigen Non-Reactive Nonreactive [facility] Comment on above: Reactive: Presumptiv e evidence of HBV. Repeatedly reactive samples must be confirmed using a neutralization test ([employer] HBsAg Confirmatory Test)Non-Reactive: HBsAg not detected; does not exclude the possibility of exposure to HBV HIVon 10-17-2024 HIV Non-Reactive Normal Nonreactive [facility] Comment on above: Result Comment: Non- Reactive Reactive Repeatedly reactive samples must be confirmed according to CDC recommended confirmatory algorithms. The subresults for either HIVAG or AHIV can be used as an aid in the selection of the confirmation algorithm for reactive samples. Send out specimens with Reactive results to [facility] for confirmation. Order the HIV antibody detection and differentiation: lc#[id number] Performed By: #### L 509.8002, L3890.6006, L900.0098, BTS, L100.0100, L3890.6102, L509.4006, L3890.6301 ####[facility] [address] [place], [place], [address] Hematocrit Auto (Bld) [Volum e fraction]Ordered By: Kamille Albarran on 10-17-2024 Hematocrit (Bld) [Volume fraction] 39.1 % 37-47 [facility] Hemoglobin measurementOrdere d By: Kamille Albarran on 10-17-2024 Hemoglobin (Bld) [Mass/Vol] 13.3 g/dL 12.0-15.0 [facility] Hepatitis C Antibodyon 10-17 Hepatitis C Ab Non-Reactive Normal Nonreactive [facility] Comment on above: Result Comment: Reac tive: Presumptive evidence of antibodies to HCV. Follow CDC recommendations for supplemental testing. Non-Reactive: Antibodies to HCV were not detected; does not exclude the possibility of exposure to HCV Reactive Results are presumptive evidence of antibodies to HCV. Follow CDC recommendations for supplemental testing. Order confirmation testing: HCV Quant by PCR testing - [facility]PCR #[id number] Non Reactive: < 0.8 Equivocal: >/= 0.8 to < 1.0 Reactive: >/= 1.0 The CDC requires that a reactive/equivocal HCV antibody result be sent out for confirmation. HCV Quant by PCR testing. Performed By: #### M 100.3400 #### [facility] [address] [place], [place], [address] Hepatitis C antibodyOrdered By: Kamille Albarran on 10-17-2024 Hepatitis C Antibody Non-Reactive Nonreactive [facility] Comment on above: Reactive: Presumptiv e evidence of antibodies to HCV. Follow CDC recommendations for supplemental testing.Non-Reactive: Antibodies to HCV were not detected; does not exclude the possibility of exposure to HCVReactive Results are presumptive evidence of antibodies to HCV. Follow CDC recommendations for supplemental testing.Order confirmation testing: HCV Quant by PCR testing - HCVPCR #[id number] Non Reactive: < 0.8 Equivocal: >/= 0.8 to < 1.0 Reactive: >/= 1.0The CDC requires that a reactive/equivocal HCV antibody result be sent out for confirmation. HCV Quant by PCR testing. Immature granulocytes/100 WB C Auto (Bld)Ordered By: Kamille Albarran on 10-17-2024 Immature granulocytes/100 WBC (Bld) 0.600 % 0.0-0.9 [facility] Comment on above: IG% - Immature Granu locytes (promyelocytes, myelocytes and metamyelocytes) > 1% indicates that a LEFT SHIFT is Present. L3890.6102on 10-17-2024 HEP B Surf Ag Non-Reactive Normal Nonreactive [facility] Comment on above: Result Comment: Reac tive: Presumptive evidence of HBV. Repeatedly reactive samples must be confirmed using a neutralization test ([employer] HBsAg Confirmatory Test) Non-Reactive: HBsAg not detected; does not exclude the possibility of exposure to HBV Performed By: #### M 100.3400 #### [facility] [address] [facility]. [place], [place], [address] L509.4006on 10-17-2024 Rubella IgG REAC Normal Nonreactive [facility] Comment on above: Result Comment: Anti body Result: Interpretation Non-Reactive: Non-Immune Reactive: Immune The following results were obtained with the [employer] Rubella IgG assay. Results from assays of other manufacturers cannot be used interchangeably. Performed By: #### L 509.8002, L3890.6006, L900.0098, BTS, L100.0100, L3890.6102, L509.4006, L3890.6301 ####[facility] [address] [place], [address] Laboratory - Microbiology an d Antimicrobial susceptibilityOrdered By: Kamille Albarran on 10-17-2024 HBV surface Ag Ql (S) Non-Reactive Nonreactive [facility] Comment on above: Reactive: Presumptiv e evidence of HBV. Repeatedly reactive samples must be confirmed using a neutralization test ([employer] HBsAg Confirmatory Test)Non-Reactive: HBsAg not detected; does not exclude the possibility of exposure to HBV Lymphocytes Auto (Unsp spec) [#/Vol]Ordered By: Kamille Albarran on 10-17-2024 Lymphocytes (Bld) [#/Vol] 2.41 10*3/uL 0.83-4.5 1 [facility] Lymphocytes/100 WBC Auto (Un sp spec)Ordered By: Kamille Albarran on 10-17-2024 Lymphocytes/100 WBC (Bld) 29.3 % 19-41 [facility] MCV (mean corpuscular volume ) determinationOrdered By: Kamille Albarran on 10-17-2024 MCV (RBC) [Entitic vol] 89.9 fL 81-99 [facility] Mean corpuscular hemoglobin (MCH) determinationOrdered By: Kamille Albarran on 10-17-2024 MCH (RBC) [Entitic mass] 30.6 pg 27.0-32.0 [facility] Mean corpuscular hemoglobin concentration (MCHC) determinationOrdered By: Kamille Albarran on 10-17-2024 MCHC (RBC) [Mass/Vol] 34.0 g/dL 32-36 [facility] Mean platelet volume determi nationOrdered By: Kamille Albarran on 10-17-2024 Platelet mean volume (Bld) [Entitic vol] 10.0 fL 6.2-12.0 [facility] Miscellaneous procedureOrder ed By: Kamille Albarran on 10-17-2024 Miscellaneous Test Comment SEE SCANNED REPORT [facility] Monocyte percentageOrdered B y: Kamille Albarran on 10-17-2024 Monocytes/100 WBC (Bld) 3.5 % 0-10 [facility] NATERAon 0424-2025 NATURA SEE SCANNED REPORT Normal [facility] Comment on above: Order Comment: Comme nts: NIPT/horizon Performed By: #### L 509.8002, L3890.6006, L900.0098, BTS, L100.0100, L3890.6102, L509.4006, L3890.6301 ####[facility] [address] [place], [address] Neutrophil percentageOrdered By: Kamille Albarran on 10-17-2024 Neutrophils/100 WBC (Bld) 64.0 % 47-70 [facility] No Panel InformationOrdered By: Kamille Albarran on 10-17-2024 HIV (1&2) Antibody Non-Reactive Nonreactive [facility] Comment on above: Non-ReactiveReactive Repeatedly reactive samples must be confirmed according to CDC recommended confirmatory algorithms. The subresults for either HIVAG or AHIV can be used as an aid in the selection of the confirmation algorithm for reactive samples.Send out specimens with Reactive results to [facility] for confirmation.Order the HIV antibody detection and differentiation: #[id number] Nucleated red blood cell per centageOrdered By: Kamille Albarran on 10-17-2024 Nucleated RBC/100 WBC (Bld) [Ratio] 0 % 0-5 [facility] Platelet countOrdered By: Radha Albarran on 10-17-2024 Platelets (Bld) [#/Vol] 254 10*3/uL 150-450 [facility] RBC Auto (Bld) [#/Vol]Ordere d By: Kamille Albarran on 10-17-2024 RBC (Bld) [#/Vol] 4.35 10*6/uL 4.2-5.4 [facility] Rubella immune status determ ination by IgG antibody assayOrdered By: Kamille Albarran on 10-17-2024 Rubella IgG Antibody REAC Nonreactive [facility] Comment on above: Antibody Result: Int erpretationNon-Reactive: Non-ImmuneReactive: ImmuneThe following results were obtained with the [employer] Rubella IgG assay. Results from assays of other manufacturers cannot be used interchangeably. Syphilis Antibodieson 2024 Syphilis Abs Non-Reactive Normal Nonreactive [facility] Comment on above: Performed By: #### L 509.8002, L3890.6006, L900.0098, BTS, L100.0100, L3890.6102, L509.4006, L3890.6301 ####[facility] [address] [place], [address] T. pallidum abOrdered By: Radha Albarran on 10-17-2024 Syphilis Total Antibody Non-Reactive Nonreactiv e [facility] Type AND Screenon 10-17-2024 Ab SCREEN GEL Negative Normal [facility] Comment on above: Order Comment: PN Performed By: #### L 509.8002, L3890.6006, L900.0098, BTS, L100.0100, L3890.6102, L509.4006, L3890.6301 ####[facility] [address] [place], [address] White blood cell (WBC) count Ordered By: Kamille Albarran on 10-17-2024 WBC (Bld) [#/Vol] 8.2 10*3/uL 4.4-11.0 [facility] Chlamydia/GC PAULO aptimaon CHLAMY,NUC ACID Negative Normal Negative [facility] Comment on above: Performed By: #### M 100.3400 #### [facility] [address] [place], [address] GC BY NUC ACID Negative Normal Negative [facility] Comment on above: Result Comment: Perf ormed at: =G - [facility] [id number] Motor Vehicle Clerk: Vidya Norwood MD, Phone: [phone] Performed By: #### M 100.3400 #### [facility] [address] [place], [address] Urine Cultureon 10-12-2024 URC Culture exhibits no growth. Normal [facility] Comment on above: Performed By: #### M 100.3367 #### [facility] [address] [place], [place], [id number] C. trachomatis rRNA PAULO+prob e Ql (Unsp spec)Ordered By: Kamille Albarran on 10-11-2024 Chlamydia DNA (PAULO) Negative Negative [facility] Chlamydia trachomatis rRNA d etection by probe and target amplification methodOrdered By: Kamille Albarran on 10-11-2024 C. trachomatis rRNA PAULO+probe Ql (Unsp spec) Negative Negative [facility] Neisseria gonorrhoeae nuclei c acid detection by amplified probe techniqueOrdered By: Kamille Albarran on 10-11-2024 N. gonorrhoeae DNA PAULO+probe Ql (Unsp spec) Negative Negative [facility] Comment on above: Performed at: [address] [id number] Director: Vidya Norwood MD, Phone: [phone] [facility] Office Visit Reporton 10-11-2024 [facility] Office Visit Report [facility] [address], [address] [place] [address] OFFICE VISIT Date of Service: 10/11/24 MR#: [id number] Acct: [id number] Name: SERA SANTIAGO Rep #: [id number] : 1995 Provider: Dr. Kamille gamez MD Age/Sex: 28/F Location: [facility] [place] Status: Signed Intake Vital Signs 08/23/24 14:33 09/24/24 12:20 10/11/24 10:26 10/11/24 10:31 Height 5 ft 5 in 5 ft 5 in 5 ft 5 in 5 ft 5 in Weight: 153 lb 8 oz BMI 25.5 BP 135/68 H Intake Visit Reasons: NOB LMP 08/08 Hand Turner Required: No Is patient in pain?: No Allergies No Known Allergies Allergy (Verified 10/11/24 10:26) Medications ???Medication ???Instructions ???Recorded ???Confirmed ???Type L.acidophilus-B.ani may-B.bifidum cap PO 09/24/24 10/11/24 History 25 billion cell-FOS 100 mg capsule (Probiotic Complex) multivitamin no.47-iron fum 27 cap PO 09/24/24 10/11/24 History mg-folate no.1 1 mg-dha 300 mg capsule (PNV-DHA) Last Menstrual Period: 08/08/24 : Yes PFSH PFSH Medical History Complete miscarriage Family History Mother Hypertension, Onset Age: 45 Grandfather No problems noted. Father MTHFR gene mutation Sister MTHFR gene mutation Social History adopted: No household members: spouse housing: house number of children: 0 current occupational status: employed current occupation: [employer] in [place] current occupational exposures/hazards: No pets and animals: Yes pets and animals: dog(s) history of recent travel: [place] ([place]) out of state: Yes out of country: No sexually active: Yes Smoking Status: Never smoker alcohol intake: current alcohol intake frequency: holidays/special occasions only details: Not while substance use type: does not use well-balanced diet: daily or most days caffeine: No eating out: 4 or more times/week during the past year weight has: remained stable what type of physical activity do you participate in: aerobics frequency: 3-4 times per week duration: 45-60 minutes/day dana/jewish: Jewish seatbelt use: always do you feel safe at home: Yes additional social history: [employer]- [employer] History 2 Elective abortions Hx Para 0 Spontaneous abortions 1 Hx # Term Pregnancies Ectopic pregnancies Hx # Pregnancies Multiple births # of living children 0 Past Pregnancies Del. Date Name GA/Weeks Outcome Route Bth Weight Gen Labor Lgth Anesthesia Del Locatn Provider FOB 08/08/24 4 spontaneous HPI NOB LMP 08/08 Details: ALBINO SANTIAGO is a 28 year old who presents for New OB visit. OB Visit [facility] Calculator Estimated Delivery Date Method Current WG Current Estimate 05/15/25 LMP (Certain) 9w 1d Other Estimates 05/16/25 Ultrasound #1 9w 0d Estimated Due Date: 05/15/25 Expected Delivery Route/Plan Labor Preferences- CB/BF classes: [] labor support person: [] labor intervention preferences: [] pain management options preferred: [] cut cord/dad catch: [] : [] PP control planned: [] discussed possible routes of delivery and associated risks: [] special requests: [] Specific Issue/Plans Covid status: [] Flu vaccine: [] Tdap vaccine: [] Rhogam: [] LARC form signed: [] Problem list reviewed and updated with the most current plan of care details and appropriate orders placed. Relevant counseling for the gestational age provided. Continue routine care and follow up unless otherwise noted in visit notes/problem list details Initial Weight: Not Recorded Date -???-???-???-???-?? ?-???-???-???-???-? ??-???-???- EGA Weight BP Urine Prot -???-???-???-???-?? ?-???-???-???-???-? ??-???-???- Glucose FHR FuHt Pres Dilation -???-???-???-???-?? ?-???-???-???-???-? ??-???-???- Effaced St Visit Note 10/11/24 -???-???-???-???-?? ?-???-???-???-???-? ??-???-???- 9w 1d 153 lb 8 oz 135/68 -???-???-???-???-?? ?-???-???-???-???-? ??-???-???- 180 -???-???-???-???-?? ?-???-???-???-???-? ??-???-???- SM- CRL 2.24 cm cons with lMP Menstrual History Last Menstrual Period: 08/08/24 Reported LMP: definite Normal amount/duration: Yes (miscarriage at 4 weeks) Frequency in days: 28 On hormonal BC at conception: No hCG+: 09/06/24 Antepartum Record Genetic Screening: Congenital Heart Defect: Other, Neural Tube Defect: Other, Hemoglobinopathy Or Carrier: Partner (Father and Sister MTHFR), Cystic Fibrosis: Other, Chromosome Abnormality: Other, Vin-Sachs: Other, Hemophilia: Other, Intellectual Disability/Autism: Other, Recurrent Los (more content not included)... Normal [facility] Urine cultureOrdered By: Kush Albarran on 10-11-2024 Bacteria identified Cx Nom (U) Culture exhibits no growth. [facility] - Chemistry and C hemistry - challengeOrdered By: Tess Lynch on 09-24-2024 HCG ( test) Ql (U) Positive [facility] Office Visit Reporton 2024 Office Visit Report [facility] [address] [place] [address] OFFICE VISIT Date of Service: 09/24/24 MR#: [id number] Acct: [id number] Patient: SERA SANTIAGO Rep #: [id number] : 1995 Provider: MOOSE moreno Age/Sex: 28/F Location: [facility] [place] Status: Signed Intake Vital Signs 08/23/24 14:33 09/24/24 12:20 Height 5 ft 5 in 5 ft 5 in Weight: 155 lb 157 lb 2 oz BMI 25.7 26.1 BP 115/74 110/56 L Blood Pressure Location Lt brachial Position Sitting Intake Visit Reasons: Nurse Visit, HCG, Vitals, Confirmation Chief Complaint: amenorrhea Hand Turner Required: No Is patient in pain?: No Allergies No Known Allergies Allergy (Verified 09/24/24 12:22) Medications ???Medication ???Instructions ???Recorded ???Confirmed ???Type L.acidophilus-B.ani malis-B.bifidum cap PO 09/24/24 09/24/24 History 25 billion cell-FOS 100 mg capsule (Probiotic Complex) multivitamin no.47-iron fum 27 cap PO 09/24/24 09/24/24 History mg-folate no.1 1 mg-dha 300 mg capsule (PNV-DHA) Is last menstrual period known: Yes Last menstrual period: 08/08/24 Post menopausal: No Patient : Yes Current gender identity: female Results POC Urine Office , Urine Positive Last Edit by Argentina Jackson on 09/24/24 12:19 Office , Urine Office , Urine Positive Last Edit by Argentina Jackson on 09/24/24 12:26 Assessment and Plan Assessment and Plan (1) Supervision of high-risk : Status: Acute Qualifiers: Trimester: first trimester Qualified Code(s): O09.91 - Supervision of high risk , unspecified, first trimester Comment: G2PO, SREED[facility]AR 05/15/25, Melvin (2) : Status: Acute Qualifiers: Weeks of gestation: less than 8 weeks Qualified Code(s): Z3A.01 - Less than 8 weeks gestation of Comment: discussed NIPT Carrier testing- undecided (3) Hx of one miscarriage: Status: Acute Orders: Orders POC Urine Today N91.2 - Amenorrhea, unspecified 09/24/24 1229 Date Tess Lynch NP [employer] Cosigner Signature: Date (if applicable) CC: Normal [facility] HCG ( test) QlOrder ed By: Kamille Albarran on 09-08-2024 Human Chorionic Gonadotropin, Quant 375 mIU/mL High <9 [facility] Comment on above: Gestational Age0.2-1 Week: 5-50 mIU/mL1-2 Weeks: 50-500 mIU/mL2-3 Weeks: 100-5000 mIU/mL3-4 Weeks: 500-10,000 mIU/mL4-5 Weeks:1000-50,000 mIU/mL5-6 Weeks: 10,000-100,000 mIU/mL6-8 Weeks: 15,000-200,000 mIU/mL2-3 Months:10,000-100,000 mIU/mL Serum human chorionic gonado tropin detection for pregnancyOrdered By: Kamille Albarran on 09-08-2024 HCG ( test) Ql 375 mIU/mL High <9 [facility] Comment on above: Gestational Age0.2-1 Week: 5-50 mIU/mL1-2 Weeks: 50-500 mIU/mL2-3 Weeks: 100-5000 mIU/mL3-4 Weeks: 500-10,000 mIU/mL4-5 Weeks:1000-50,000 mIU/mL5-6 Weeks: 10,000-100,000 mIU/mL6-8 Weeks: 15,000-200,000 mIU/mL2-3 Months:10,000-100,000 mIU/mL hCG Titer Quant., Serumon HCG QUANT. 375 mIU/mL High <9 non-preg [facility] Comment on above: Result Comment: Gest ational Age 0.2-1 Week: 5-50 mIU/mL 1-2 Weeks: 50-500 mIU/mL 2-3 Weeks: 100-5000 mIU/mL 3-4 Weeks: 500-10,000 mIU/mL 4-5 Weeks:1000-50,000 mIU/mL 5-6 Weeks: 10,000-100,000 mIU/mL 6-8 Weeks: 15,000-200,000 mIU/mL 2-3 Months:10,000-100,000 mIU/mL Performed By: #### L 700.8000 #### [facility] [address] [place] [address], [address] HCG ( test) QlOrder ed By: Kamille Albarran on 09-06-2024 Human Chorionic Gonadotropin, Quant 148 mIU/mL High <9 [facility] Comment on above: Gestational Age0.2-1 Week: 5-50 mIU/mL1-2 Weeks: 50-500 mIU/mL2-3 Weeks: 100-5000 mIU/mL3-4 Weeks: 500-10,000 mIU/mL4-5 Weeks:1000-50,000 mIU/mL5-6 Weeks: 10,000-100,000 mIU/mL6-8 Weeks: 15,000-200,000 mIU/mL2-3 Months:10,000-100,000 mIU/mL Serum human chorionic gonado tropin detection for pregnancyOrdered By: Kamille Albarran on 09-06-2024 HCG ( test) Ql 148 mIU/mL High <9 [facility] Comment on above: Gestational Age0.2-1 Week: 5-50 mIU/mL1-2 Weeks: 50-500 mIU/mL2-3 Weeks: 100-5000 mIU/mL3-4 Weeks: 500-10,000 mIU/mL4-5 Weeks:1000-50,000 mIU/mL5-6 Weeks: 10,000-100,000 mIU/mL6-8 Weeks: 15,000-200,000 mIU/mL2-3 Months:10,000-100,000 mIU/mL hCG Titer Quant., Serumon HCG QUANT. 148 mIU/mL High <9 non-preg [facility] Comment on above: Result Comment: Gest ational Age 0.2-1 Week: 5-50 mIU/mL 1-2 Weeks: 50-500 mIU/mL 2-3 Weeks: 100-5000 mIU/mL 3-4 Weeks: 500-10,000 mIU/mL 4-5 Weeks:1000-50,000 mIU/mL 5-6 Weeks: 10,000-100,000 mIU/mL 6-8 Weeks: 15,000-200,000 mIU/mL 2-3 Months:10,000-100,000 mIU/mL Performed By: #### L 700.8000 ####[facility] [address] [place], [place], [id number] [facility] Office Visit Reporton 08-23-2024 [facility] Office Visit Report [facility] [address], [address] [place] [address] OFFICE VISIT Date of Service: 08/23/24 MR#: [id number] Acct: [id number] Name: SERA SANTIAGO Rep #: [id number] : 1995 Provider: FABIO orozco Age/Sex: 28/F Location: [facility] Status: Signed Intake Vital Signs 05/09/13 12:55 08/23/24 14:33 Height 5 ft 5 in 5 ft 5 in Weight: 155 lb BMI 25.7 BP 115/74 Intake Visit Reasons: Miscarriage follow up Is patient in pain?: No Allergies No Known Allergies Allergy (Verified 08/23/24 14:34) Medications ???Medication ???Instructions ???Recorded ???Confirmed ???Type NK 08/23/24 08/23/24 History Control Method: none [facility] Social History (Updated 08/23/24 @ 14:37 by Rina Aj) number of children: 0 current occupational status: employed current occupation: [employer] [place] sexually active: Yes Smoking Status: Never smoker alcohol intake: current alcohol intake frequency: holidays/special occasions only substance use type: does not use what type of physical activity do you participate in: aerobics frequency: 5-6 times per week dana/jewish: Jewish seatbelt use: always do you feel safe at home: Yes additional social history: [employer]- . [employer] [facility] Miscarriage follow up Details: ALBINO SANTIAGO is a 28 year old who presents for miscarriage management. LMP 07/12/2024 with heavy bleeding on 08/09 with hcg quants falling to below 5. has not had return of menses at this time. denies fevers, further bleeding. denies contributing family history of blood clots, htn, multiple miscarriages/ defects. menses prior to miscarriage were regular and normal. History 1 Elective abortions Hx Para 0 Spontaneous abortions 1 Hx # Term Pregnancies Ectopic pregnancies Hx # Pregnancies Multiple births # of living children 0 Exam Const General: cooperative and healthy appearing Resp Effort Inspection: normal respiratory effort and able to speak in complete sentences Skin General: no rashes or lesions noted Neuro General: patient alert Extrem General: full ROM Psych Appearance: grossly normal Coding Level of Care Code Off vis,new,level 3 Diagnoses Complete miscarriage O03.9 Time Spent (min) 20 Assessment and Plan Assessment and Plan (1) Complete miscarriage: Status: Acute Comment: fertility optimization reviewed. goal to ttc again in 3 months. on vitamin. Medications: Discontinued naproxen Discontinued Reason: Pt no longer taking 500 mg PO BID PRN PRN 20 tabs Pain 08/23/24 1619 Date Echo Matias CNM Cosigner Signature: Date (if applicable) CC: Normal [facility] Absolute lymphocyte countOrd ered By: Rhea Pak on 08-09-2024 Lymphocytes Auto (Unsp spec) [#/Vol] 2.65 10*3/uL 0.83-4.51 [facility] Absolute neutrophil countOrd ered By: Rhea Pak on 08-09-2024 Neutrophils (Bld) [#/Vol] 4.0 10*3/uL 2.0-7.7 [facility] Automated lymphocyte count a s percentage of total leukocytesOrdered By: Rhea Pak on 08-09-2024 Lymphocytes/100 WBC Auto (Unsp spec) 35.8 % 19-41 [facility] [id number] 08-09-2024 ABO and Rh group Nom (Bld) Blood group A Rh(D) positive Normal [facility] Comment on above: Performed By: #### B 882-1, L700.8000, L100.0100 ####[facility] [address] [place], [address] Basophil percentageOrdered B y: Rhea Pak on 08-09-2024 Basophils/100 WBC (Bld) 0.8 % 0-1 [facility] CBC W/Diff, Automatedon 07-27 Absolute Lymph 2.65 X10 3/uL Normal 0.83-4.51 [facility] Comment on above: Performed By: #### B 882-1, L700.8000, L100.0100 ####[facility] [address] [place], [address] Absolute Neut 4.0 X10 3/uL Normal 2.0-7.7 [facility] Comment on above: Performed By: #### Hima 882-1, L700.8000, L100.0100 ####[facility] [address] [place], [address] Basophils/100 WBC (Bld) 0.8 % Normal 0-1 [facility] Comment on above: Performed By: #### Hima 882-1, L700.8000, L100.0100 ####[facility] [address] [place], [address] Eosinophils/100 WBC (Bld) 2.4 % Normal 0-5 [facility] Comment on above: Performed By: #### Hima 882-1, L700.8000, L100.0100 ####[facility] [address] [place], [address] Erythrocyte distribution width (RBC) [Ratio] 13.4 % Normal 11.6-14.6 [facility] Comment on above: Performed By: #### Hima 882-1, L700.8000, L100.0100 ####[facility] [address] [place], [address] Hematocrit (Bld) [Volume fraction] 43.4 % Normal 37-47 [facility] Comment on above: Performed By: #### Hima 882-1, L700.8000, L100.0100 ####[facility] [address] [place], [address] Hemoglobin (Bld) [Mass/Vol] 13.9 g/dL Normal 12.0-15.0 [facility] Comment on above: Performed By: #### Hima 882-1, L700.8000, L100.0100 ####[facility] [address] [place], [address] IG% 0.500 Normal 0.0-0.9 [facility] Comment on above: Result Comment: IG% - Immature Granulocytes (promyelocytes, myelocytes and metamyelocytes) > 1% indicates that a LEFT SHIFT is Present. Performed By: #### Hima 882-1, L700.8000, L100.0100 ####[facility] [address] [place], [address] Lymphocytes/100 WBC (Bld) 35.8 % Normal 19-41 [facility] Comment on above: Performed By: #### Hima 882-1, L700.8000, L100.0100 ####[facility] [address] [place], [address] MCH (RBC) [Entitic mass] 29.4 pg Normal 27.0-32.0 [facility] Comment on above: Performed By: ###Maurizio Rabago 882-1, L700.8000, L100.0100 ####[facility] [address] [place], [address] MCHC (RBC) [Mass/Vol] 32.0 g/dL Normal 32-36 [facility] Comment on above: Performed By: #### Hima 882-1, L700.8000, L100.0100 ####[facility] [address] [place], [address] MCV (RBC) [Entitic vol] 91.9 fL Normal 81-99 [facility] Comment on above: Performed By: #### Hima 882-1, L700.8000, L100.0100 ####[facility] [address] [place], [address] Monocytes/100 WBC (Bld) 6.3 % Normal 0-10 [facility] Comment on above: Performed By: #### Hima 882-1, L700.8000, L100.0100 ####[facility] [address] [place], [address] Neutrophils/100 WBC (Bld) 54.2 % Normal 47-70 [facility] Comment on above: Performed By: #### Hima 882-1, L700.8000, L100.0100 ####[facility] [address] [place], [address] Nucleated RBC (Bld) [#/Vol] 0 10*3/uL Normal 0-5 [facility] Comment on above: Performed By: #### Hima 882-1, L700.8000, L100.0100 ####[facility] [address] [place], [address] Platelet mean volume (Bld) [Entitic vol] 9.9 fL Normal 6.2-12.0 [facility] Comment on above: Performed By: ###Maurizio Rabago 882-1, L700.8000, L100.0100 ####[facility] [address] [place], [address] Platelets (Bld) [#/Vol] 259 10*3/uL Normal 150-450 [facility] Comment on above: Performed By: #### Hima 882-1, L700.8000, L100.0100 ####[facility] [address] [place], [address] RBC (Bld) [#/Vol] 4.72 10*6/uL Normal 4.2-5.4 [facility] Comment on above: Performed By: #### Hima 882-1, L700.8000, L100.0100 ####[facility] [address] [place], [address] RDW SD 45.4 fl High 35.1-43.9 [facility] Comment on above: Performed By: #### Hima 882-1, L700.8000, L100.0100 ####[facility] [address] [place], [place], [address] WBC (Bld) [#/Vol] 7.4 10*3/uL Normal 4.4-11.0 [facility] Comment on above: Performed By: #### B 882-1, L700.8000, L100.0100 ####[facility] [address] [place], [address] Eosinophil percentageOrdered By: Rhea Pak on 08-09-2024 Eosinophils/100 WBC (Bld) 2.4 % 0-5 [facility] Erythrocyte distribution wid th ratioOrdered By: Rhea Pak on 08-09-2024 Erythrocyte distribution width (RBC) [Ratio] 13.4 % 11.6-14.6 [facility] Erythrocyte distribution wid th standard deviationOrdered By: Rhea Pak on 08-09-2024 Erythrocyte distribution width (RBC) [Entitic vol] 45.4 fL High 35.1-43.9 [facility] Erythrocyte distribution width (RBC) [Ratio] 45.4 fl High 35.1-43.9 [facility] HCG ( test) QlOrder ed By: Rhea Pak on 08-09-2024 Human Chorionic Gonadotropin, Quant 4 mIU/mL <4 [facility] Comment on above: hCG levels with Gest ational AgeGestational Age hCG mIU/mL (IU/L)0.2 - 1 week 5 - 501-2 weeks 50 - 5002-3 weeks 100 - 22670-8 weeks 500 - 090563-0 weeks 1000 - 543869-8 weeks 83692 - 100,0006-8 weeks 94337 - 200,0002-3 months 45624 - 100,000 Hematocrit Auto (Bld) [Volum e fraction]Ordered By: Rhea Pak on 08-09-2024 Hematocrit (Bld) [Volume fraction] 43.4 % 37-47 [facility] Hemoglobin measurementOrdere d By: Rhea Pak on 08-09-2024 Hemoglobin (Bld) [Mass/Vol] 13.9 g/dL 12.0-15.0 [facility] Immature granulocytes/100 WB C Auto (Bld)Ordered By: Rhea Pak on 08-09-2024 Immature granulocytes/100 WBC (Bld) 0.500 % 0.0-0.9 [facility] Comment on above: IG% - Immature Granu locytes (promyelocytes, myelocytes and metamyelocytes) > 1% indicates that a LEFT SHIFT is Present. Lymphocytes Auto (Unsp spec) [#/Vol]Ordered By: Rhea Pak on 08-09-2024 Lymphocytes (Bld) [#/Vol] 2.65 10*3/uL 0.83-4.5 1 [facility] Lymphocytes/100 WBC Auto (Un sp spec)Ordered By: Rhea Pak on 08-09-2024 Lymphocytes/100 WBC (Bld) 35.8 % 19-41 [facility] MCV (mean corpuscular volume ) determinationOrdered By: Rhea Pak on 08-09-2024 MCV (RBC) [Entitic vol] 91.9 fL 81-99 [facility] Mean corpuscular hemoglobin (MCH) determinationOrdered By: Rhea Pak on 08-09-2024 MCH (RBC) [Entitic mass] 29.4 pg 27.0-32.0 [facility] Mean corpuscular hemoglobin concentration (MCHC) determinationOrdered By: Rhea Pak on 08-09-2024 MCHC (RBC) [Mass/Vol] 32.0 g/dL 32-36 [facility] Mean platelet volume determi nationOrdered By: Rhea Pak on 08-09-2024 Platelet mean volume (Bld) [Entitic vol] 9.9 fL 6.2-12.0 [facility] Monocyte percentageOrdered B y: Rhea Pak on 08-09-2024 Monocytes/100 WBC (Bld) 6.3 % 0-10 [facility] Neutrophil percentageOrdered By: Rhea Pak on 08-09-2024 Neutrophils/100 WBC (Bld) 54.2 % 47-70 [facility] Nucleated red blood cell per centageOrdered By: Rhea Pak on 08-09-2024 Nucleated RBC/100 WBC (Bld) [Ratio] 0 % 0-5 [facility] Platelet countOrdered By: Andres Pak on 08-09-2024 Platelets (Bld) [#/Vol] 259 10*3/uL 150-450 [facility] RBC Auto (Bld) [#/Vol]Ordere d By: Rhea Mellisa on 08-09-2024 RBC (Bld) [#/Vol] 4.72 10*6/uL 4.2-5.4 [facility] Serum human chorionic gonado tropin detection for pregnancyOrdered By: Rhea Pak on 08-09-2024 HCG ( test) Ql 4 mIU/mL <4 [facility] Comment on above: hCG levels with Gest ational AgeGestational Age hCG mIU/mL (IU/L)0.2 - 1 week 5 - 501-2 weeks 50 - 5002-3 weeks 100 - 13791-5 weeks 500 - 227690-3 weeks 1000 - 614314-2 weeks 86732 - 100,0006-8 weeks 54161 - 200,0002-3 months 65872 - 100,000 White blood cell (WBC) count Ordered By: Rhea Pak on 08-09-2024 WBC (Bld) [#/Vol] 7.4 10*3/uL 4.4-11.0 [facility] hCG Titer Quant., Serumon HCG QUANT. 4 mIU/mL Normal 1-3 [facility] Comment on above: Result Comment: hCG levels with Gestational Age Gestational Age hCG mIU/mL (IU/L) 0.2 - 1 week 5 - 50 1-2 weeks 50 - 500 2-3 weeks 100 - 5000 3-4 weeks 500 - 42184 4-5 weeks 1000 - 89940 5-6 weeks 18722 - 100,000 6-8 weeks 88576 - 200,000 2-3 months 67868 - 100,000 Performed By: #### B 882-1, L700.8000, L100.0100 ####[facility] [address] [place], [place], [id number] BACTERIAL VAGINOSIS NAATon 1 08-12-2023 Lactobacillus crispatus+gasseri+jenseni i + Gardnerella vaginalis + Atopobium vaginae rRNA PAULO+probe Ql (Vag fld) Not detected Normal Not detected [facility] Comment on above: Order Comment: Speci men Type: SWAB Ordering Facility: [facility] Address: [address] [place] [address] Performed By: #### B VAMP, CVTV #### [facility] CLIA [id number] [address] [place] [address] [place] MARCIE/TRICHOMONAS NAATon 1 08-12-2023 C. glabrata RNA PAULO+probe Ql (Vag fld) Not detected Normal Not detected [facility] Comment on above: Order Comment: Speci men Type: SWAB Ordering Facility: [facility] Address: [address] [place] [address] Performed By: #### B VAMP, CVTV #### [facility] CLIA [id number] [address] [place] [address] [place] Marcie sp DNA PAULO+probe Ql (Vag fld) Not detected Normal Not detected [facility] Comment on above: Order Comment: Speci men Type: SWAB Ordering Facility: [facility] Address: [address] [place] [address] Result Comment: The Marcie species group target includes C. albicans, C. tropicalis, C. parapsilosis, and C. dubliniensis. Performed By: #### B VAMP, CVTV #### [facility] CLIA [id number] [address] [place] [address] [place] T. vaginalis DNA PAULO+probe Ql (Unsp spec) Not detected Normal Not detected [facility] Comment on above: Order Comment: Speci men Type: SWAB Ordering Facility: [facility] Address: [address] [place] [address] Performed By: #### B VAMP, CVTV #### [facility] CLIA [id number] [address] [place] [address] [place] CNOVon 06-11-2024 CNOV Office Visit (OBGYWM) ---- SERA SANTIAGO ([id number]) 1995 F Date Time Provider Department 06/11/24 10:00 AM BECKY BLAKE OBCOLTWDavid During your visit today, we recorded the following information about you: Blood pressure Weight Height Last Period 114 70.3 kg 1.651 m 05/19/24 Becky Blake APRN.CNM 06/11/2024 10:42 AM Signed Hair is a 28 year old who presents for an annual gynecologic exam without complaints. Slight vaginal odor Menses: cycles every 28 days and 3-5 days of flow. Contraception: none, trying to conceive since April. HPV vaccine: Yes - per patient Last Pap: normal HPV: negative History of abnormal pap: No Last mammogram: never Sexually active: Yes Time with current partner: 7 years Pain with intercourse: No Postcoital bleeding: No Exercise: 5 times a week for 60 minutes. Type: crossfit Diet: Balanced Seatbelt use: Yes OB History T0 L0 SAB0 IAB0 Ectopic0 Multiple0 Live Births0 Sanforizer History LMP: 05/19/2024 (Exact Date), Having periods Age at Menarche: Age at First : Age at Menopause: Sanforizer History Comments: Sexual Activity: Yes; No partner data on record Contraception: No contraception data on record History reviewed. No pertinent past medical history.History reviewed. No pertinent surgical history.History reviewed. No pertinent family history.SOCIAL HISTORY Social History Tobacco Use Smoking status: Never Smokeless tobacco: Never Substance Use Topics Alcohol use: Not Currently Comment: occasionally Drug use: Never REVIEW OF SYSTEMS Abdomen: No abdominal pain, nausea, vomiting, diarrhea, or constipation. No bloating, early satiety, indigestion, or increased flatulence. Bladder: No dysuria, gross hematuria, urinary frequency, urinary urgency, or incontinence. Breast: No breast lumps, nipple d/c, overlying skin changes, redness or skin retraction. Allergies and current medication updated:Yes SENSITIVE EXAM: The sensitive examination was discussed with the Patient or Patient's Authorized Supervisor Plasma. As applicable, any other physician, advance practice provider, medical student, or other health professional student that will be observing or involved in the sensitive examination for educational or training purposes was discussed with the Patient or Authorized Supervisor Plasma. The Patient or Authorized Supervisor Plasma has agreed to proceed with the sensitive examination. (Sensitive examination includes inspection and/or palpation of the breasts, pelvis, prostate and anorectal regions). EXAM: BP 114/72 Ht 5' 5 (1.65m) Wt 155 lb (70.3kg) LMP 05/19/2024 BMI 25.79 kg/(m2). GENERAL: pleasant, female in no apparent distress HEENT: Normocephalic, atraumatic, mucus membranes moist, and no lesions NECK: Supple, full range of motion, no adenopathy, and thyroid normal DERMATOLOGY: Normal, without lesions, non-icteric, and non-hirsute BREAST: soft, non-tender, symmetric, no dominant mass, normal nipple-areolar complex, no lymphadenopathy, and no nipple discharge CHEST: Normal inspiratory effort ABDOMEN: soft, non-tender, and no masses PELVIC: external genitalia normal, normal Bartholin's glands, urethra, Cimarron's glands, no vulvar lesions, no cervical lesions, good vaginal support, physiologic discharge present, normal appearing perineal body and perianal region BIMANUAL: uterus normal size, shape and consistency, no adnexal masses, and non-tender RECTOVAGINAL: deferred. NEURO: alert and oriented x3,exam grossly non-focal EXTREMITIES: normal ASSESSMENT/PLAN: 1. Encounter for gynecological examination (general) (routine) with abnormal findings - ICD9: V72.31, ICD10: Z01.411 (primary diagnosis) - Completed pelvic and breast exam - Encouraged monthly BSE - Follow up for annual exam in one year. - PAP TEST - BACTERIAL VAGINOSIS NAAT - MARCIE/TRICHOMONAS NAAT 2. Screening for cervical cancer - ICD9: V76.2, ICD10: Z12.4 - Completed pelvic and breast exam - Encouraged monthly BSE - Follow up for annual exam in one year. - PAP TEST 3. Encounter for screening for human papillomavirus (HPV) - ICD9: V73.81, ICD10: Z11.51 - PAP TEST 4. Encounter for preconception consultation - ICD9: V26.49, ICD10: Z31.69 -Reviewed pre-conception guidelines including folic acid supplementation, optimal timing of intercourse, avoidance of smoking, alcohol, and exposure to environmental chemicals. Discussed rubella and varicella titers and immunization if needed. Offered carrier screening. Reviewed need for evaluation if not within 12 months. 5. Vaginal odor - ICD9: 625.8, ICD10: N89.8 -BV and yeast today 1) Health maintenance: Pap done with reflex HPV. Nutrition, exercise and routine health maintenance exams reviewed. Calcium/Vitamin D supplementation information provid (more content not included)... Normal [facility] PAP TESTon 06-11-2024 ADEQUACY Satisfactory for interpretation. Normal [facility] Comment on above: Order Comment: Speci men Type: FLUID SPECIMEN Ordering Facility: [facility] Address: [address] [place] [address] Performed By: #### L [id number] #### [facility] CLIA [id number] [address] [place] [address] [place] CASE REPORT Normal [facility] Comment on above: Order Comment: Speci men Type: FLUID SPECIMEN Ordering Facility: [facility] Address: [address] [place] [address] Result Comment: Gyne cologic Cytology Report Case: [id number] Authorizing Provider: Becky Blake APRN.CNM Collected: 06/11/2024 10:41 AM Ordering Location: OB/Gynecology Received: 06/11/2024 12:36 PM First Screen: Becky Black, OMAR, ASCP Specimen: Pap Test, ThinPrep, Cervix Performed By: #### L [id number] #### [facility] CLIA [id number] [address] [place] [address] [place] CLINICAL HISTORY, CYTOLOGY, REGISTERED MASSAGE THERAPIST Routine Exam Normal [facility] Comment on above: Order Comment: Speci men Type: FLUID SPECIMEN Ordering Facility: [facility] Address: [address] [place] [address] Performed By: #### L [id number] #### [facility] CLIA [id number] [address] [place] [address] [place] FINAL PERFORMING LAB Normal [facility] Comment on above: Order Comment: Speci men Type: FLUID SPECIMEN Ordering Facility: [facility] Address: [address] [place] [address] Result Comment: Tech nical component, packing room supervisor screening performed at [facility], [address] [place] [address] CLIA# [id number] Diagnostic interpretation performed at [facility], [address] [place] [address] CLIA# [id number] Airport Ramp Attendant: Nikolai Osullivan M.D. Performed By: #### L [id number] #### [facility] CLIA [id number] [address] [place] [address] [place] INTERPRETATION, CYTOLOGY, REGISTERED MASSAGE THERAPIST Normal [facility] Comment on above: Order Comment: Speci men Type: FLUID SPECIMEN Ordering Facility: [facility] Address: [address] [place] [address] Result Comment: Nega tive for intraepithelial lesion or malignancy. Performed By: #### L [id number] #### [facility] - [facility] CLIA [id number] [address] [place] [address] [place] L[place] 05/19/2024 Normal [facility] Comment on above: Order Comment: Speci men Type: FLUID SPECIMEN Ordering Facility: [facility] Address: [address] [place] [address] Performed By: #### L [id number] #### [facility] CLIA [id number] [address] [place] [address] [place] PAP DISCLAIMER COMMENT The Pap Smear is a screening test for cervical cancer. False negative results occur with all screening tests, emphasizing the need for rescreening at recommended intervals, and clinical correlation. Normal [facility] Comment on above: Order Comment: Speci men Type: FLUID SPECIMEN Ordering Facility: [facility] Address: [address] [place] [address] Performed By: #### L [id number] #### [facility] CLIA [id number] [address] [place] [address] [place] PAP CHIEF AIRLINE RADIO OPERATOR COMMENT This specimen has been analyzed by the ThinPrep Imaging System, an automated imaging and review system, which assists the laboratory in evaluating cells on ThinPrep Pap tests. Following automated imaging, selected combs from every slide are reviewed by a packing room supervisor. Normal [facility] Comment on above: Order Comment: Speci men Type: FLUID SPECIMEN Ordering Facility: [facility] Address: [address] [place] [address] Performed By: #### L [id number] #### [facility] CLIA [id number] [address] [place] [address] [place] Vital Signs Date Time Vital Sign Value Performing Clinician Az barker 05-01-2025 09:41-0500 Body height 165.1 cm Norm Geigerder [employer]C Work Phone: 6(427)668-832141 [place] [address] 05-01-2025 09:41-0500 Body mass index (BMI) [Ratio] 28.6 kg/m2 Norm Aiken [employer] DELIV[employer]IVER-C Work Phone: 0(126)288-612041 [place] [address] 05-01-2025 09:41-0500 Body weight 78.18 kg Norm Aiken [employer] DELIV[employer]IVER-C Work Phone: 0(379)173-425141 [place] [address] 05-01-2025 09:41-0500 Diastolic blood pressure 80 mm[Hg] Norm Aiken [employer] DELIVERY [employer]IVER-C Work Phone: [facility] 05-01-2025 09:41-0500 Systolic blood pressure 132 mm[Hg] Norm Aiken [employer] DELIVERY DRIVER-C Work Phone: [facility] 04-24-2025 10:18-0400 Body mass index (BMI) [Ratio] 28.8 kg/m2 Norm Aiken [employer] DELIV[employer]IVER-C Work Phone: [facility] 04-24-2025 10:18-0400 Body weight 78.47 kg Norm Aiken [employer] DELIVERY [employer]IVER-C Work Phone: 6(699)044-930897 [place] [address] 04-24-2025 10:18-0400 Diastolic blood pressure 77 mm[Hg] Norm Aiken [employer] DELIV[employer]-C Work Phone: 8(159)180-429997 [place] [address] 04-24-2025 10:18-0400 Systolic blood pressure 133 mm[Hg] Norm Aiken [employer] DELIV[employer]IVER-C Work Phone: 2(495)220-777897 [place] [address] 04-16-2025 08:51-0400 Body height 165.1 cm Norm Aiken [employer] DELIV[employer]IVER[employer]C Work Phone: 9(483)077-087197 [place] [address] 04-16-2025 08:51-0400 Body mass index (BMI) [Ratio] 28.5 kg/m2 Norm Aiken [employer] DELIV[employer]IVER[employer]C Work Phone: 5(578)340-204997 [place] [address] 04-16-2025 08:51-0400 Body weight 77.67 kg Norm Aiken [employer] DELIV[employer]IVER[employer]C Work Phone: 9(712)339-981697 [place] [address] 04-16-2025 08:51-0400 Diastolic blood pressure 74 mm[Hg] Norm Aiken [employer] DELIV[employer]IVER-C Work Phone: 8(879)106-770397 [place] [address] 04-16-2025 08:51-0400 Systolic blood pressure 110 mm[Hg] Norm Aiken [employer] DELIV[employer]IVER-C Work Phone: 1(944)499-862597 [place] [address] 04-03-2025 15:16-0400 Body mass index (BMI) [Ratio] 28 kg/m2 Norm Aiken [employer] DELIV[employer]C Work Phone: 9(409)247-119897 [place] [address] 04-03-2025 15:16-0400 Body weight 76.45 kg Norm Aiken [employer] DELIV[employer] Work Phone: 2(989)761-471897 [place] [address] 04-03-2025 15:16-0400 Diastolic blood pressure 69 mm[Hg] Norm Aiken [employer] DELIV[employer]IVER-C Work Phone: 8(002)326-753897 [place] [address] 04-03-2025 15:16-0400 Systolic blood pressure 116 mm[Hg] Norm Aiken [employer] DELIV[employer]IVER-C Work Phone: 8(987)231-943797 [place] [address] 03-21-2025 09:17-0400 Body height 165.1 cm Norm Aiken [employer] DELIV[employer]C Work Phone: 9(797)228-063897 [place] [address] 03-21-2025 09:17-0400 Body mass index (BMI) [Ratio] 27.8 kg/m2 Norm Aiken [employer] DELIV[employer]-C Work Phone: 0(155)481-642397 [place] [address] 03-21-2025 09:17-0400 Body weight 75.97 kg Norm Aiken [employer] DELIV[employer]IVER-C Work Phone: 4(064)190-975697 [place] [address] 03-21-2025 09:17-0400 Diastolic blood pressure 73 mm[Hg] Norm Aiken [employer] DELIVERY [employer]IVER-C Work Phone: 4(339)726-171197 [place] [address] 03-21-2025 09:17-0400 Systolic blood pressure 121 mm[Hg] Norm Aiken [employer] DELIVERY [employer]IVER-C Work Phone: 1(349)611-810697 [place] [address] 03-03-2025 09:15-0400 Diastolic blood pressure 61 mm[Hg] Norm Aiken [employer] DELIV[employer]IVER-C Work Phone: 3(453)183-802297 [place] [address] 03-03-2025 09:15-0400 Systolic blood pressure 122 mm[Hg] Norm Aiken [employer] DELIVERY [employer]IVER-C Work Phone: 5(357)952-155597 [place] [address] 03-03-2025 08:57-0400 Body height 165.1 cm Norm Aiken [employer] DELIVERY [employer]IVER-C Work Phone: 2(575)937-185397 [place] [address] 03-03-2025 08:57-0400 Body mass index (BMI) [Ratio] 27.9 kg/m2 Norm Aiken [employer] DELIV[employer]IVER-C Work Phone: 7(920)592-640097 [place] [address] 03-03-2025 08:57-0400 Body weight 76.2 kg Norm Aiken [employer] DELIV[employer]IVER-C Work Phone: 2(358)304-369797 [place] [address] 02-19-2025 08:28-0400 Body height 165.1 cm Norm Aiken [employer] DELIVERY [employer]IVER-C Work Phone: 4(259)349-358597 [place] [address] 02-19-2025 08:28-0400 Body mass index (BMI) [Ratio] 27.9 kg/m2 Norm Aiken [employer] DELIV[employer]IVER-C Work Phone: 7(934)798-424797 [place] [address] 02-19-2025 08:28-0400 Body weight 76.2 kg Norm Aiken [employer] DELIV[employer]IVER-C Work Phone: 5(183)767-774997 [place] [address] 02-19-2025 08:28-0400 Diastolic blood pressure 72 mm[Hg] Norm Aiken [employer] DELIV[employer]IVER-C Work Phone: 2(879)338-706841 [place] [address] 02-19-2025 08:28-0400 Systolic blood pressure 130 mm[Hg] Norm Aiken [employer] DELIVERY [employer]IVER-C Work Phone: 0(676)437-729097 [place] [address] 01-29-2025 10:24-0400 Body height 165.1 cm Norm Aiken [employer] DELIV[employer]IVER-C Work Phone: 1(211)499-476497 [place] [address] 01-29-2025 10:24-0400 Body mass index (BMI) [Ratio] 26.9 kg/m2 Norm Aiken [employer] DELIV[employer]IVER-C Work Phone: 5(659)947-303697 [place] [address] 01-29-2025 10:24-0400 Body weight 73.48 kg Norm Aiken [employer] DELIVERY [employer]IVER-C Work Phone: 4(405)819-109897 [place] [address] 01-29-2025 10:24-0400 Diastolic blood pressure 67 mm[Hg] Norm Aiken [employer] DELIV[employer]IVER-C Work Phone: 3(421)439-477697 [place] [address] 01-29-2025 10:24-0400 Systolic blood pressure 110 mm[Hg] Norm Aiken [employer] DELIV[employer]IVER-C Work Phone: 2(552)891-527397 [place] [address] 01-02-2025 10:41-0400 Body height 165.1 cm Norm Aiken [employer] DELIVERY [employer]IVER-C Work Phone: 5(427)406-740797 [place] [address] 01-02-2025 10:41-0400 Body mass index (BMI) [Ratio] 26.3 kg/m2 Norm Aiken [employer] DELIVERY [employer]IVER-C Work Phone: 0(566)143-117997 [place] [address] 01-02-2025 10:41-0400 Body weight 71.72 kg Norm Aiken [employer] DELIVERY [employer]IVER-C Work Phone: 6(251)603-175697 [place] [address] 01-02-2025 10:41-0400 Diastolic blood pressure 70 mm[Hg] Norm Aiken [employer] DELIVERY [employer]IVER-C Work Phone: 0(456)704-020797 [place] [address] 01-02-2025 10:41-0400 Systolic blood pressure 135 mm[Hg] Norm Aiken [employer] DELIVERY [employer]IVER-C Work Phone: 7(432)473-270797 [place] [address] 12-02-2024 12:59-0400 Body height 165.1 cm Norm Aiken [employer] DELIVERY [employer]IVER-C Work Phone: 1(070)435-098297 [place] [address] 12-02-2024 12:59-0400 Body mass index (BMI) [Ratio] 25.7 kg/m2 Norm Aiken [employer] DELIV[employer]IVER-C Work Phone: 3(036)885-458497 [place] [address] 12-02-2024 12:59-0400 Body weight 70.3 kg Norm Aiken [employer] DELIVERY [employer]IVER-C Work Phone: 7(137)384-191697 [place] [address] 12-02-2024 12:59-0400 Diastolic blood pressure 71 mm[Hg] Norm Aiken [employer] DELIV[employer]IVER-C Work Phone: 6(417)504-491697 [place] [address] 12-02-2024 12:59-0400 Systolic blood pressure 119 mm[Hg] Norm Aiekn [employer] DELIVERY DRIVER-C Work Phone: 1(804)644-022997 [place] [address] 11-08-2024 10:53-0400 Body height 165.1 cm Norm Aiken [employer] DELIVERY [employer]IVER-C Work Phone: 5(906)430-472197 [place] [address] 11-08-2024 10:50-0400 Body mass index (BMI) [Ratio] 25.2 kg/m2 Norm Aiken [employer] DELIVERY DRIVER-C Work Phone: 6(524)988-463797 [place] [address] 11-08-2024 10:50-0400 Body weight 68.66 kg Norm Aiken [employer] DELIV[employer]IVER-C Work Phone: 4(085)060-223897 [place] [address] 11-08-2024 10:50-0400 Diastolic blood pressure 73 mm[Hg] Norm Aiken [employer] DELIV[employer]IVER-C Work Phone: 0(416)667-773697 [place] [address] 11-08-2024 10:50-0400 Systolic blood pressure 125 mm[Hg] Norm Aiken [employer] DELIVERY DRIVER-C Work Phone: 2(091)297-625997 [place] [address] 10-11-2024 10:31-0400 Body height 165.1 cm Norm Aiken [employer] DELIVERY [employer]IVER-C Work Phone: 3(664)149-664697 [place] [address] 10-11-2024 10:26-0400 Body mass index (BMI) [Ratio] 25.5 kg/m2 Norm Aiken [employer] DELIV[employer]IVER-C Work Phone: 5(431)966-708197 [place] [address] 10-11-2024 10:26-0400 Body weight 69.62 kg Norm Aiken [employer] DELIVERY [employer]IVER-C Work Phone: 1(534)154-281341 [place] [address] 10-11-2024 10:26-0400 Diastolic blood pressure 68 mm[Hg] Norm Aiken [employer] DELIV[employer]IVER-C Work Phone: 0(140)626-984341 [place] [address] 10-11-2024 10:26-0400 Systolic blood pressure 135 mm[Hg] Norm Aiken [employer] DELIVERY DRIVER-C Work Phone: 2(215)627-137897 [place] [address] 09-24-2024 12:20-0400 Body mass index (BMI) [Ratio] 26.1 kg/m2 Norm Aiken [employer] DELIV[employer]IVER-C Work Phone: 4(889)938-330341 [place] [address] 09-24-2024 12:20-0400 Body weight 71.27 kg Norm Aiken [employer] DELIVERY [employer]IVER-C Work Phone: 3(141)586-906797 [place] [address] 09-24-2024 12:20-0400 Diastolic blood pressure 56 mm[Hg] Norm Aiken F[employer] DELIVERY DRIVER-C Work Phone: 7(667)669-593997 [place] [address] 09-24-2024 12:20-0400 Systolic blood pressure 110 mm[Hg] Norm Aiken [employer] DELIVERY DRIVER-C Work Phone: 6(946)151-231741 [place] [address] 08-23-2024 14:33-0500 Body height 165.1 cm Norm Aiken F[employer] DELIVERY DRIVER-C Work Phone: 0(065)738-231097 [place] [address] 08-23-2024 14:33-0500 Body mass index (BMI) [Ratio] 25.7 kg/m2 Norm Aiken [employer] DELIV[employer]IVER-C Work Phone: 9(645)348-584441 [place] [address] 08-23-2024 14:33-0500 Body weight 70.3 kg Norm Aiken [employer] DELIVERY DRIVER-C Work Phone: 1(689)395-689041 [place] [address] 08-23-2024 14:33-0500 Diastolic blood pressure 74 mm[Hg] Norm Aiken [employer] DELIVERY DRIVER-C Work Phone: 7(875)198-119113 [address] 08-23-2024 14:33-0500 Systolic blood pressure 115 mm[Hg] Norm Aiken F[employer] DELIVERY DRIVER-C Work Phone: 6(337)243-245513 [address] 06-11-2024 09:41-0500 Body height 165.1 cm Becky Blake APRN.CNM Work Phone: [facility] 06-11-2024 09:41-0500 Body mass index (BMI) [Ratio] 25.79 kg/m2 Becky Blake APRN.CNM Work Phone: [facility] 06-11-2024 09:41-0500 Body weight 70.31 kg Becky Blake APRN.CNDavid Work Phone: [facility] 06-11-2024 09:41-0500 Diastolic blood pressure 72 mm[Hg] Becky Blake APRN.CNM Work Phone: [facility] 06-11-2024 09:41-0500 Systolic blood pressure 114 mm[Hg] Becky Blake APRN.FABIO Work Phone: [facility] Encounters Encounter Date Encounter Type Care Provider Facility Start: 05-09-2025 ambulatory Norm Aiken Facility:[facility] Start: 05-01-2025 End: 05-01-2025 ambulatory Norm Aiken Facility:[facility] Start: 04-24-2025 End: 04-24-2025 ambulatory Norm Aiken Facility:[facility] Start: 04-24-2025 End: 04-24-2025 ambulatory Norm Aiken Facility:[facility] Start: 04-16-2025 End: 04-16-2025 Patient encounter procedure Tess Lynch FREIGHT DELIVERY DRIVER-C -[facility] Work Phone: Start: 04-16-2025 End: 04-16-2025 ambulatory Norm Aiken F[employer]IGHT DELIVERY DRIVER-C Work Phone: -[facility] Start: 04-16-2025 End: 04-16-2025 ambulatory Norm Aiken Facility:[facility] Start: 04-03-2025 End: 04-03-[address] Rhea Ayon DO -[facility] Work Phone: Start: 04-03-2025 End: 04-03-2025 ambulatory Nrom Aiken F[employer]IGHT DELIVERY DRIVER-C Work Phone: -[facility] Start: 03-21-2025 End: 03-21-2025 Patient encounter procedure Becky Caballero CNM -[facility] Work Phone: Start: 03-21-2025 End: 03-21-2025 ambulatory Norm Aiken FREIGHT DELIVERY DRIVER-C Work Phone: [facility] Start: 03-03-2025 End: 03-03-[address] Kamille Albarran MD -[facility] Work Phone: Start: 03-03-2025 End: 03-03-2025 ambulatory Norm Aiken FREIGHT DELIVERY DRIVER-C Work Phone: [facility] Start: 03-03-2025 End: 03-03-2025 ambulatory Norm Aiken Facility:[facility] Start: 02-19-2025 End: 02-19-2025 Patient encounter procedure Tess Lynch NP-C -[facility] Work Phone: Start: 02-19-2025 End: 02-19-2025 ambulatory Norm Aiken F[employer]IGHT DELIVERY DRIVER-C Work Phone: [facility] Start: 02-19-2025 End: 02-19-2025 ambulatory Norm Aiken Facility:[facility] Start: 01-29-2025 End: 01-29-2025 Patient encounter procedure Becky GILLIS -[facility] Work Phone: Start: 01-29-2025 End: 01-29-2025 ambulatory Norm Aiken F[employer]IGHT DELIVERY DRIVER-C Work Phone: [facility] Start: 01-02-2025 End: 01-02-[address] Rhea Ayon DO -[facility] Work Phone: Start: 01-02-2025 End: 01-02-2025 ambulatory Norm Aiken F[employer]IGHT DELIVERY DRIVER-C Work Phone: [facility] Start: 12-19-2024 End: 12-19-2024 ambulatory FARA L GOOD [facility] Start: 12-02-2024 End: 12-02-2024 Patient encounter procedure Tess Lynch FREIGHT DELIVERY DRIVER-C -[facility] Work Phone: Start: 12-02-2024 End: 12-02-2024 ambulatory Norm Aiken FREIGHT DELIVERY DRIVER-C Work Phone: [facility] Work Phone: Start: 11-08-2024 End: 11-08-[address] Kamille Albarran MD -[facility] Work Phone: Start: 11-08-2024 End: 11-08-2024 ambulatory Norm Aiken FREIGHT DELIVERY DRIVER-C Work Phone: [facility] Work Phone: Start: 10-17-2024 End: 10-17-2024 ambulatory Norm Aiken FREIGHT DELIVERY DRIVER-C Work Phone: [facility] Work Phone: Start: 10-17-2024 End: 10-17-[address] Kamille Albarran MD -Lab, [facility] Start: 10-17-2024 End: 10-17-2024 ambulatory Norm Aiken Facility:[facility] Start: 10-11-2024 End: 10-11-[address] Kamille Albarran MD -Laboratory, Specimen Work Phone: Start: 10-11-2024 End: 10-11-[address] Kamille Albarran MD -[facility] Work Phone: Start: 10-11-2024 End: 10-11-2024 ambulatory Norm Aiken Facility:[facility] Start: 10-11-2024 End: 10-11-2024 ambulatory Norm Aiken Facility:[facility] Start: 09-24-2024 End: 09-24-2024 Patient encounter procedure Tess PALAFOXC -[facility] Work Phone: Start: 09-24-2024 End: 09-24-2024 ambulatory Norm Aiken Facility:[facility] Start: 09-08-2024 End: 09-08-2024 ambulatory Norm Aiken FREIGHT DELIVERY DRIVER-C Work Phone: [facility] Work Phone: Start: 09-08-2024 End: 09-08-[address] Kamille Albarran MD -Laboratory Work Phone: Start: 09-08-2024 End: 09-08-2024 ambulatory Norm Aiken Facility:[facility] Start: 09-06-2024 End: 09-06-2024 ambulatory Norm Aiken F[employer]IGHT DELIVERY DRIVER-C Work Phone: [facility] Work Phone: Start: 09-06-2024 End: 09-06-[address] Rhea Ayon DO -Lab, [facility] Start: 09-06-2024 End: 09-06-2024 ambulatory Rhea Ayon Facility:[facility] Start: 08-23-2024 End: 08-23-2024 Patient encounter procedure Echo Matias CNM -[facility] Work Phone: Start: 08-23-2024 End: 08-23-2024 ambulatory Echo Matias Facility:[facility] Start: 08-09-2024 End: 08-09-[address] Rhea Ayon DO -Laboratory Work Phone: Start: 08-09-2024 End: 08-09-2024 ambulatory Norm Aiken Facility:[facility] Start: 06-11-2024 End: 06-11-2024 ambulatory BECKY BLAKE Facility:[facility] Start: 06-11-2024 End: 06-11-2024 Patient encounter procedure Becky Blake APRN.CNM Work Phone: OB/Gynecology Comment on above: Encounter for gyneco logical examination (general) (routine) with abnormal findings (Primary Dx); Screening for cervical cancer; Encounter for screening for human papillomavirus (HPV); Encounter for preconception consultation; Vaginal odor Start: 06-11-2024 End: 06-11-2024 Patient encounter status Becky Blake APRN.CNM Work Phone: [facility] Procedures Date Procedure Procedure Detail Performing Clinician Start: 04-24-2025 Procedure Norm Aiken F[employer] DELIVERY DRIVER-C Work Phone: Comment on above: Test Ordered: [id number] Bile Acids, Fractio nated LCMSUrsodeoxycholic Acids <0.10 umol/L ES Reference Range: .Reference Range:All Ages: <1.9Cholic Acids 0.20 umol/L ES Reference Range: .Reference Range:All Ages: <2.2Chenodeoxycholic Acids 0.60 umol/L ES Reference Range: .Reference Range:All Ages: <5.8Deoxycholic Acids 0.10 umol/L ES Reference Range: .Reference Range:All Ages: <3.3Total Bile Acids 0.90 umol/L ES Reference Range: .This test was developed and its performance characteristicsdetermined by [facility]. It has not been cleared or approvedby the Food and Drug Administration.Reference Range:All Ages: <9.2Performed at: [facility] - [facility] [id number] [place] [address] [id number] Director: Rebecca Snider MD, Phone: [phone] at: - [facility] [address] [id number] Director: Andrew Kline PhD, Phone: [phone] Start: 04-16-2025 Procedure Norm Aiken NP-C Work Phone: Comment on above: Test Ordered: [id number] Bile Acids, Fractio nated LCMSUrsodeoxycholic Acids 0.10 umol/L ES Reference Range: .Reference Range:All Ages: <1.9Cholic Acids 1.1 umol/L ES Reference Range: .Reference Range:All Ages: <2.2Chenodeoxycholic Acids 1.9 umol/L ES Reference Range: .Reference Range:All Ages: <5.8Deoxycholic Acids <0.10 umol/L ES Reference Range: .Reference Range:All Ages: <3.3Total Bile Acids 3.1 umol/L ES Reference Range: .This test was developed and its performance characteristicsdetermined by [facility]. It has not been cleared or approvedby the Food and Drug Administration.Reference Range:All Ages: <9.2Performed at: [facility] - [facility] [id number] [place], [place] [id number] Director: Rebecca Snider MD, Phone: [phone] at: [facility] [id number] [place], [place] [id number] Director: Andrew Kline PhD, Phone: [phone] Start: 02-19-2025 Serologic test for syphilis Norm Ibarra P-C Work Phone: Start: 10-17-2024 Hepatitis C antibody measurement Norm garcia F[employer]IGHT DELIVERY DRIVER-C Work Phone: Comment on above: Reactive: Presumptive evidence of antibo dies to HCV. Follow CDC recommendations for supplemental testing.Non-Reactive: Antibodies to HCV were not detected; does not exclude the possibility of exposure to HCVReactive Results are presumptive evidence of antibodies to HCV. Follow CDC recommendations for supplemental testing.Order confirmation testing: HCV Quant by PCR testing - HCVPCR #[id number] Non Reactive: < 0.8 Equivocal: >/= 0.8 to < 1.0 Reactive: >/= 1.0The CDC requires that a reactive/equivocal HCV antibody result be sent out for confirmation. HCV Quant by PCR testing. Start: 10-17-2024 Procedure Norm Aiken F[employer] DELIVERY DRIVER-C Work Phone: Start: 10-17-2024 Rubella IgG measurement Norm Aiken F[employer]IGHT DELIVERY DRIVER-C Work Phone: Comment on above: Antibody Result: InterpretationNon-React sundar: Non-ImmuneReactive: ImmuneThe following results were obtained with the [employer] Rubella IgG assay. Results from assays of other manufacturers cannot be used interchangeably. Start: 10-17-2024 Serologic test for syphilis Norm Ibarra P-C Work Phone: Start: 10-11-2024 Urine culture Norm Aiken FREIGHT DELIVERY DRIVER-C Work Phone: Plan of Treatment Date Care Activity Detail Author Start: 06-16-2025 End: 06-16-2025 Patient encounter procedure 06/16/2025 11:30 AM EST Office Visit OB/Gynecology [address] [place] [address] Becky Blake APRN.CN [address] [place] [address] Annual OB/Gynecology Comment on above: Annual Start: 05-01-2025 End: 05-01-2025 Patient encounter procedure Hx of one miscarriage -[facility] Work Phone: Start: 04-24-2025 Beta-hemolytic Streptococcus culture Group B Streptococcus Culture [facility] Start: 04-24-2025 [facility] Start: 04-24-2025 End: 04-24-2025 Patient encounter procedure Hx of one miscarriage -[facility] Work Phone: Start: 04-24-2025 Ultrasonography for biophysical profile without non-stress testing OB Biophysical Prof W/O NST [facility] Start: 04-24-2025 End: 04-24-2025 Patient encounter procedure Departed Clinical [facility] Work Phone: Start: 04-16-2025 End: 04-16-2025 Patient encounter procedure -[facility] Work Phone: Start: 03-03-2025 Comprehensive metabo lic 2000 panel - Serum or Plasma [facility] Start: 02-19-2025 CBC W Auto Different ial panel - Blood [facility] Start: 02-19-2025 Measurement of gluco se 2 hours after glucose challenge for glucose tolerance test [facility] Start: 02-19-2025 Serologic test for syphilis [facility] Start: 02-19-2025 [facility] Start: 02-25-2024 Covid-19 Vaccine ( season) Covid-19 Vaccine ( season) [facility] Start: 02-25-2024 Influenza vaccination Influenza Vacc ine (#1) [facility] Start: 11-12-2016 Screening for malign ant neoplasm of cervix Cervical Cancer Screening [facility] Start: 11-12-2014 Hepatitis B Vaccine (1 of 3 - 19+ 3-dose series) Hepatitis B Vaccine (1 of 3 - 19+ 3-dose series) [facility] Start: 11-12-2014 Urine microalbumin profile DTa P,Tdap,Td Vaccine (1 - Tdap) [facility] Start: 11-12-2013 Anxiety Screening Anxiety Screening [facility] Start: 11-12-2013 Depression Screening Depression Scre rivera [facility] Start: 11-12-2013 Hepatitis C screening Hepatitis C Sc birgit [facility] Start: 11-12-2013 HIV screening HIV Screening [facility] Alanine aminotransfe rase [Enzymatic activity/volume] in Serum or Plasma [facility] Albumin [Mass/volume ] in Serum or Plasma [facility] Alkaline phosphatase [Enzymatic activity/volume] in Serum or Plasma [facility] Anion gap in Serum o r Plasma [facility] BACTERIAL VAGINOSIS NAAT BACTERI AL VAGINOSIS NAAT Lab Routine Encounter for gynecological examination (general) (routine) with abnormal findings 06/11/2024 10:41 AM [facility] Bilirubin, total measurement [facility] BUN/Creatinine ratio [facility] Calcium [Mass/volume ] in Serum or Plasma [facility] MARCIE/TRICHOMONAS NAAT MARCIE /TRICHOMONAS NAAT Lab Routine Encounter for gynecological examination (general) (routine) with abnormal findings 06/11/2024 10:41 AM [facility] Carbon dioxide, tota l [Moles/volume] in Central venous blood [facility] CBC W Auto Different ial panel - Blood [facility] Creatinine [Mass/vol ume] in Serum or Plasma [facility] Erythrocyte mean corpuscular volume determination [facility] Biophysical pr ofile panel US [facility] Glucose [Mass/volume ] in Serum or Plasma [facility] Hematocrit [Volume Fraction] of Blood [facility] Hemoglobin [Mass/vol ume] in Blood [facility] Leukocytes [#/volume ] in Blood [facility] Mean corpuscular hemoglobin concentration determination [facility] Mean corpuscular hemoglobin determination [facility] Measurement of gluco se 2 hours after glucose challenge for glucose tolerance test [facility] Measurement of renal function [facility] Neutrophil count [facility] Neutrophil percent differential count [facility] PAP TEST PAP TEST Lab [facility] Encounter for gynecological examination (general) (routine) with abnormal findings Screening for cervical cancer Encounter for screening for human papillomavirus (HPV) 06/11/2024 10:41 AM EST [facility] Work Phone: Platelets [#/volume] in Blood [facility] Potassium measurement [facility] Red blood cell count [facility] Red cell distributio n width determination [facility] Serologic test for syphilis [facility] Serum chloride measurement [facility] Sodium measurement [facility] Total protein measurement [facility] Urea nitrogen [Mass/volume] in Serum or Plasma [facility] Payers Date Payer Category Payer Self-pay 2024 Unknown [employer] PPO [id number] 2024-Present [phone] [address] [place] [address] PPO [id number] 2024 Unknown [id number] 1995 Unknown [id number] 2.840.1.151502.3.579.2.479 Unknown [id number] Unknown [id number] 2.16.840.1.720714.3.579.2.462 Unknown [id number] 2.16.840.1.679793.3.579.2.462 Unknown [id number] 2.16.840.1.635845.3.579.2.462 Unknown [id number] 2.16.840.1.632749.3.579.2.462 Unknown [id number] 2.16.840.1.875647.3.579.2.462 Unknown [id number] 2.16.840.1.653487.3.579.2.462 Unknown [id number] 2.16.840.1.984993.3.579.2.462 Unknown [id number] 2.16.840.1.593615.3.579.2.462 Unknown [id number] 2.16.840.1.770233.3.579.2.462 Unknown [id number] 2.16.840.1.175077.3.579.2.462 Unknown [id number] 2.16.840.1.938137.3.579.2.462 Unknown [id number] 2.16.840.1.745105.3.579.2.462 Unknown [id number] 2.16.840.1.901710.3.579.2.462 Unknown [id number] 2.16.840.1.406659.3.579.2.462 Unknown [id number] 2.16.840.1.200301.3.579.2.462 Unknown [id number] 2.16.840.1.745272.3.579.2.462 Unknown [id number] 2.16.840.1.252963.3.579.2.462 Unknown [id number] 2.16.840.1.669698.3.579.2.462 Unknown [id number] 2.16.840.1.275164.3.579.2.462 Unknown [id number] 2.16.840.1.683350.3.579.2.462 Unknown [id number] 2.16.840.1.636423.3.579.2.462 Unknown [id number] 2.16.840.1.330343.3.579.2.462 Unknown [id number] 2.16840.1.338907.3.579.2.462 Unknown [id number] 2.16.840.1.105643.3.579.2.462 Social History Date Type Detail Facility Start: 06-11-2024 End: 09-24-2024 Tobacco smoking status DCIS Never smoked tobacco [facility] Start: 06-11-2024 Tobacco use and exposure Smokeless tobacco non-user [facility] Start: 06-11-2024 Alcoholic beverage intake Ex-drinker (finding) [facility] Start: 06-11-2024 History of Social function [facility] Start: 06-11-2024 Tobacco use panel [facility] National Score (1-10 0), lower number is lower risk 61 [facility] Start: 06-11-2024 Alcohol Comment occasionally [facility] Start: 1995 Sex assigned at Female [facility] Start: 06-04-2024 Sexual orientation Heterosexual (fin ding) [facility] Start: 09-14-2024 End: 10-22-2024 Sex Female (finding) [facility] Clinical Notes 06-11-2024 to 04-16-2025 Note Date & Type Note Facility 04-16-2025 Progress note [facility] 04-03-2025 Progress note [facility] 04-03-2025 Progress note Note Date/Time April 03, 2025 3:37pm [facility] [address], [address] [place] [address] OFFICE VISIT Date of Service: 04/03/25 MR#: [id number] Acct: [id number] Name: ALBINO SANTIAGO Reina p #: [phone] : 1995 Provider: Dr. Carie Ayon DO Age/Sex: 29/F Location: [facility] Status: Signed Intake Vital Signs 02/19/25 08:28 03/21/25 09:17 04/03/25 15:16 04/03/25 15:18 Height 5 ft 5 in 5 ft 5 in 5 ft 5 in 5 ft 5 in Weight: 168 lb 9 oz BMI 28.0 BP 116/69 Intake Visit Reasons: 34wk ob Hand Turner Required: No Is patient in pain?: No Allergies No Known Allergies Allergy (Verified 04/03/25 15:16) Medications ?Medication ?Instructions ?Recorded ?Confirmed ?Type L.acidophilus-B.animalis-B.bifidum cap PO 09/24/2403/20 History 25 billion cell-FOS 100 mg capsule (Probiotic Complex) multivitamin no.47-iron fum 27 cap PO 09/24/24 5 History mg-folate no.1 1 mg-dha 300 mg capsule (PNV-DHA) Last Menstrual Period: 08/08/24 Zika: Zika virus screening: Negative : No PFSH PFSH Medical History Complete miscarriage Family History Mother Hypertension, Onset Age: 45 Grandfather No problems noted. Father MTHFR gene mutation Sister MTHFR gene mutation Social History adopted: No household members: spouse housing: house number of children: 0 current occupational status: employed current occupation: [employer] in [place] current occupational exposures/hazards: No pets and animals: Yes pets and animals: dog(s) history of recent travel: [place] ([place]) out of state: Yes out of country: No sexually active: Yes Smoking Status: Never smoker alcohol intake: current alcohol intake frequency: holidays/special occasions only details: Not while substance use type: does not use well-balanced diet: daily or most days caffeine: No eating out: 4 or more times/week during the past year weight has: remained stable what type of physical activity do you participate in: aerobics frequency: 3-4 times per week duration: 45-60 minutes/day dana/jewish: Jewish seatbelt use: always do you feel safe at home: Yes additional social history: Melvin- [employer] History 2 Elective abortions Hx Para 0 Spontaneous abortions 1 Hx # Term Pregnancies Ectopic pregnancies Hx # Pregnancies Multiple births # of living children 0 Past Pregnancies Del. Date Name GA/Weeks Outcome Route Bth Weight Infant Gen Labor Lgth Anesthesia Del [facility] Provider FOB 08/08/24 4 spontaneous HPI 34wk ob Details: ALBINO SANTIAGO is a 29 year old who presents for routine OB visit. OB Visit SREEDHAR Calculator Estimated Delivery Date Method Current WG Current Estimate 05/15/25 LMP (Certain) 34w 0d Other Estimates 05/16/25 Ultrasound #1 33w 6d Expected Delivery Route/Plan Labor Preferences- CB/BF classes: yes labor support person: Melvin labor intervention preferences: [] pain management options preferred: epidural cut cord/dad catch: yes : yes PP control planned: discussed discussed possible routes of delivery and associated risks: [] special requests: [] Specific Issue/Plans Covid status: [] Flu vaccine: [] Tdap vaccine: considering Rhogam: NA LARC form signed: yes movement and labor precautions reviewed. Problem list reviewed and updated with the most current plan of care details and appropriate orders placed. Relevant counseling for the gestational age provided. Continue routine care and follow up unless otherwise noted in visit notes/problem list details Initial Weight: Not Recorded Date -?-?-?-?-?-?-?-?-?-?-?-?- EGA Weight BP Urine Prot -?-?-?-?-?-?-?-?-?-?-?-?- Glucose FHR FuHt Pres Dilation -?-?-?-?-?-?-?-?-?-?-?-?- Effaced St Visit Note 10/11/24 -?-?-?-?-?-?-?-?-?-?-?-?- 9w 1d 153 lb 8 oz 135/68 -?-?-?-?-?-?-?-?-?-?-?-?- 180 -?-?-?-?-?-?-?-?-?-?-?-?- SM- CRL 2.24cm c ons with lMP 11/08/24 -?-?-?-?-?-?-?-?-?-?-?-?- 13w 1d 151 lb 6 oz 125/73 Nega tive -?-?-?-?-?-?-?-?-?-?-?-?- Negative 160 -?-?-?-?-?-?-?-?-?-?-?-?- SM- no vb crampi ng 12/02/24 -?-?-?-?-?-?-?-?-?-?-?-?- 16w 4d 155 lb 119/71 Negative -?-?-?-?-?-?-?-?-?-?-?-?- Negative 158 -?-?-?-?-?-?-?-?-?-?-?-?- MH-No VB. Some h [place]-meds reviewed. 01/02/25 -?-?-?-?-?-?-?-?-?-?-?-?- 21w 0d 158 lb 2 oz 135/70 Nega tive -?-?-?-?-?-?-?-?-?-?-?-?- 147 -?-?-?-?-?-?-?-?-?-?--?-?- JV- having a gir l! normal anatomy. no complaints today. 01/29/25 -?-?-?-?-?-?-?-?-?-?-?-?- 24w 6d 162 lb 110/67 Negative -?-?-?-?-?-?-?-?-?-?-?-?- Negative 145 25 -?-?-?-?-?-?-?-?-?-?-?-?- KW- no vb/lof/ct x. good fm. having occasional burning in LUQ. Noticed after doing planks when working out. no blurred vision/headache. suspect muscle strain. 02/19/25 -?-?-?-?-?-?-?-?-?-?-?-?- 27w 6d 168 lb 130/72 Negative -?-?-?-?-?-?-?-?-?-?-?-?- Negative 143 28 -?-?-?-?-?-?-?-?-?-?-?-?- MH-No VB, lof. S ome dizziness/discussed freq meals, no quick position changes, increase fluids. 28 wk labs pending. [facility] 03/03/25 -?-?-?-?-?-?-?-?-?-?-?-?- 29w 4d 168 lb 122/61 Negative -?-?-?-?-?-?-?-?-?-?-?-?- Negative 140 30 -?-?-?-?-?-?-?-?-?-?-?-?- Sm- no vb lof go od fm no reuglar ctx co rib pain and right sided pain 03/21/25 -?-?-?-?-?-?-?-?-?-?-?-?- 32w 1d 167 lb 8 oz 121/73 Nega tive -?-?-?-?-?-?-?-?-?-?-?-?- Negative 130 32 -?-?-?-?-?-?-?-?-?-?-?-?- KW- no vb/lof/ct x. good fm. KW- no vb/lof/ctx. good fm. Flu shot . LARC done 04/03/25 -?-?-?-?-?-?-?-?-?-?-?-?- 34w 0d 168 lb 9 oz 116/69 Nega tive -?-?-?-?-?-?-?-?-?-?-?-?- Negative 130 33.5 -?-?-?-?-?-?-?-?-?-?-?-?- JV- no lof, vagi nal bleeding, or dec fm. no complaints. ACOG First Trimester First Trimester: Desire for , Alcohol, Tobacco Cessation, Illicit/Recreational Drug/Substance Use, Intimate Partner Violence, Barriers to care, Unstable Housing, Communication Barriers, Environmental/Work Hazards, Anticipated Course of Care, Toxoplasmosis Precations, Use of Any medications, Sexual activity, Exercise, Dental Care, Sauna/Hot tub use, Seat Belt use, Childbirth classes/Hospital facilities, Travel, Indications for Ultrasound and Screening for Aneuploidy; Discussed Second Trimester Second Trimester: Signs and Symptoms of Labor, Selecting a care provider, Depression/Anxiety and Intimate Partner Violence Third Trimester Third Trimester: Pain Management Plans, Labor support person(s), Immediate Larc, Signs and Symptoms of Preeclampsia, Feeding No and Family Medical Leave or Disability Forms Results POC Urinalysis 2 Dip (Clinic) Office Urine Glucose Negative Last Edit by Miguelina Sterling on 04/03/25 15: 23 Office Urine Protein Negative Last Edit by Miguelina Sterling on 04/03/25 15: 23 Coding Level of Care Code OB Routine Diagnoses Right upper quadrant pain R10.11 Supervision of high risk in second trimester O09.92 Trimester: second trimester 34 weeks gestation of Z3A.34 Weeks of gestation: 34 weeks Hx of one miscarriage Z87.59 Assessment and Plan Assessment and Plan (1) Right upper quadrant pain: Status: Acute Comment: labs ordered (2) Supervision of high-risk : Status: Acute Qualifiers: Trimester: second trimester Qualified Code(s): O09.92 - Supervision of high risk , unspecified, second trimester Comment: PRR G2PO, SREEDHAR 05/15/25, girl Renee Melvin (3) : Status: Acute Qualifiers: Weeks of gestation: 34 weeks Qualified Code(s): Z3A.34 - 34 weeks gestation of Comment: low risk, gender female declined carrier and AFP, nml anatomy (4) Hx of one miscarriage: Status: Acute Orders: Orders POC Urinalysis 2 Dip (Clinic) Today 04/03/25 1544 <Electronically signed by Rhea Foster DO> Date _ Rhea Ayon DO Cosign Signature: Date (if applicable) CC: ~ [facility] Work Phone: 1(130) 393-367809-26-2025 Progress [facility] [address] [place] [address], [address] [place] [address] OFFICE VISIT Date of Service: 03/21/25 MR#: [id number] Acct: [id number] Name: ALBINO SANTIAGO GERMAN Huang p #: [phone] : 1995 Provider: FABIO Caballero Age/Sex: 29/F Location: [facility] Status: Signed Intake Vital Signs 02/19/25 08:28 03/03/25 08:57 03/21/25 09:17 Height 5 ft 5 in 5 ft 5 in 5 ft 5 in Weight: 167 lb 8 oz BMI 27.8 BP 121/73 H Intake Visit Reasons: 32wk ob Chief Complaint: 32wk OB Hand Turner Required: No Is patient in pain?: No Allergies No Known Allergies Allergy (Verified 03/21/25 09:15) Medications ?Medication ?Instructions ?Recorded ?Confirmed ?Type L.acidophilus-B.animalis-B.bifidum cap PO 09/24/24 History 25 billion cell-FOS 100 mg capsule (Probiotic Complex) multivitamin no.47-iron fum 27 cap PO 09/24/24 5 History mg-folate no.1 1 mg-dha 300 mg capsule (PNV-DHA) Last Menstrual Period: 08/08/24 : No Have you fallen in the past year?: No PFSH PFSH Medical History Complete miscarriage Family History Mother Hypertension, Onset Age: 45 Grandfather No problems noted. Father MTHFR gene mutation Sister MTHFR gene mutation Social History adopted: No household members: spouse housing: house number of children: 0 current occupational status: employed current occupation: [employer] in [place] current occupational exposures/hazards: No pets and animals: Yes pets and animals: dog(s) history of recent travel: [place] ([place]) out of state: Yes out of country: No sexually active: Yes Smoking Status: Never smoker alcohol intake: current alcohol intake frequency: holidays/special occasions only details: Not while substance use type: does not use well-balanced diet: daily or most days caffeine: No eating out: 4 or more times/week during the past year weight has: remained stable what type of physical activity do you participate in: aerobics frequency: 3-4 times per week duration: 45-60 minutes/day dana/jewish: Jewish seatbelt use: always do you feel safe at home: Yes 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 Date Name GA/Weeks Outcome Route Bth Weight Infant Gen Labor Lgth Anesthesia Del Locatn Provider FOB 08/08/24 4 spontaneous HPI 32wk ob Details: ALBINO SANTIAGO is a 29 year old who presents for routine OB visit. OB Visit SREEDHAR Calculator Estimated Delivery Date Method Current WG Current Estimate 05/15/25 LMP (Certain) 32w 1d Other Estimates 05/16/25 Ultrasound #1 32w 0d Expected Delivery Route/Plan Labor Preferences- CB/BF classes: yes labor support person: Melvin labor intervention preferences: [] pain management options preferred: epidural cut cord/dad catch: yes : yes PP control planned: discussed discussed possible routes of delivery and associated risks: [] special requests: [] Specific Issue/Plans Covid status: [] Flu vaccine: [] Tdap vaccine: considering Rhogam: NA LARC form signed: yes movement and labor precautions reviewed. Problem list reviewed and updated with the most current plan of care details and appropriate ordersplaced. Relevant counseling for the gestational age provided. Continue routine care and follow up unless otherwise noted in visit notes/problem list details Initial Weight: Not Recorded Date -?-?-?-?-?-?-?-?-?-?-?-?- EGA Weight BP Urine Prot -?-?-?-?-?-?-?-?-?--?-?-?- Glucose FHR FuHt Pres Dilation -?-?-?-?-?-?-?-?-?-?-?-?- Effaced St Visit Note 10/11/24 -?-?-?-?-?-?-?-?-?-?-?-?- 9w 1d 153 lb 8 oz 135/68 -?-?-?-?-?-?-?-?-?-?-?-?- 180 -?-?-?-?-?-?-?-?-?-?-?-?- SM- CRL 2.24cm c ons with lMP 11/08/24 -?-?-?-?-?-?-?-?-?-?-?-?- 13w 1d 151 lb 6 oz 125/73 Nega tive -?-?-?-?-?-?-?-?-?-?-?-?- Negative 160 -?-?-?-?-?-?-?-?-?-?-?-?- SM- no vb crampi ng 12/02/24 -?-?-?-?-?-?-?-?-?-?-?-?- 16w 4d 155 lb 119/71 Negative -?-?-?-?-?-?-?-?-?-?-?-?- Negative 158 -?-?-?-?-?-?-?-?-?-?-?-?- -No VB. Some h e[place]-meds reviewed. 01/02/25 -?-?-?-?-?-?-?-?-?-?-?-?- 21w 0d 158 lb 2 oz 135/70 Nega tive -?-?-?-?-?-?-?-?-?-?-?-?- 147 -?-?-?-?-?-?-?-?-?-?-?-?- JV- having a gir l! normal anatomy. no complaints today. 01/29/25 -?-?-?-?-?-?-?-?-?-?-?-?- 24w 6d 162 lb 110/67 Negative -?-?-?-?-?-?-?-?-?-?-?-?- Negative 145 25 -?-?-?-?-?-?-?-?-?-?-?-?- KW- no vb/lof/ct x. good fm. having occasional burning in LUQ. Noticed after doing planks when working out. no blurred vision/headache. suspect muscle strain. 02/19/25 -?-?-?-?-?-?-?-?-?-?-?-?- 27w 6d 168 lb 130/72 Negative -?-?-?-?-?-?-?-?-?-?-?-?- Negative 143 28 -?-?-?-?-?-?-?-?-?-?-?-?- -No VB, lof. S ome dizziness/discussed freq meals, no quick position changes, increase fluids. 28 wk labs pending. [facility] 03/03/25 -?-?-?-?-?-?-?--?-?-?-?-?- 29w 4d 168 lb 122/61 Negative -?-?-?-?-?-?-?-?-?-?-?-?- Negative 140 30 -?-?-?-?-?-?-?-?-?-?-?-?- Sm- no vb lof go od fm no reuglar ctx co rib pain and right sided pain 03/21/25 -?-?-?-?-?-?-?-?-?-?-?-?- 32w 1d 167 lb 8 oz 121/73 Nega tive -?-?-?-?-?-?-?-?-?-?-?-?- Negative 130 32 -?-?-?-?-?-?-?-?-?-?-?-?- KW- no vb/lof/ct x. good fm. KW- no vb/lof/ctx. good fm. Flu shot . LARC done [facility] First Trimester First Trimester: Desire for , Alcohol, Tobacco Cessation, Illicit/Recreational Drug/Substance Use, Intimate Partner Violence, Barriers to care, Unstable Housing, Communication Barriers, Environmental/Work Hazards, Anticipated Course of Care, Toxoplasmosis Precations, Use of Any med ications, Sexual activity, Exercise, Dental Care, Sauna/Hot tub use, Seat Belt use, Childbirth classes/Hospital facilities, Travel, Indications for Ultrasound and Screening for Aneuploidy; Discussed Second Trimester Second Trimester: Signs and Symptoms of Labor, Selecting a care provider, Depression/Anxiety and Intimate Partner Violence Third Trimester Third Trimester: Pain Management Plans, Labor support person(s), Immediate Larc, Signs and Symptoms of Preeclampsia, Feeding No and Family Medical Leave or Disability Forms ROS Const Reports system reviewed and no additional complaints, except as documented Eyes Reports system reviewed and no additional complaints, except as documented ENT Reports system reviewed and no additional complaints, except as documented Card Reports system reviewed and no additional complaints, except as documented Resp Reports system reviewed and no additional complaints, except as documented GI Reports system reviewed and no additional complaints, except as documented, Denies nausea and Denies vomiting Reports system reviewed and no additional complaints, except as documented Musc Reports system reviewed and no additional complaints, except as documented Skin/Breast Reports system reviewed and no additional complaints, except as documented Neuro Yes system reviewed and no additional complaints, except as documented Psych Reports system reviewed and no additional complaints, except as documented Endo Reports system reviewed and no additional complaints, except as documented Rebel/Lymph Reports system reviewed and no additional complaints, except as documented Aller/Immun Reports system reviewed and no additional complaints, except as documented Exam Const General: cooperative, healthy appearing and no acute distress Orientation: alert, awake and oriented x3 Neck Neck: normal visual inspection and full ROM Resp Effort & Inspection: normal respiratory effort, able to speak in complete sentences and symmetric chest movement GI Inspection: normal to inspection Palpation: soft and other Other: gravid Skin General: no rashes or lesions noted Neuro General: patient alert, patient awake and patient oriented x3 Cognition: normal cognition Speech: speech normal Gait: normal gait Motor: muscle tone normal throughout Extrem General: normal to inspection and full ROM Psych Appearance: grossly normal Mental Status: mental status grossly normal Mood: congruent mood Affect: normal affect Speech and Movement: speech and movement normal Attitude: cooperative Thought Process: normal Thought Content: normal Judgment: judgment good Results POC Urinalysis 2 Dip (Clinic) Office Urine Glucose Negative Last Edit by Maria L Miguel on 03/21/25 09:32 Office Urine Protein Negative Last Edit by Maria L Miguel on 03/21/25 09:32 Coding Level of Care Code OB Routine Diagnoses Right upper quadrant pain R10.11 Supervision of high risk in second trimester O09.92 Trimester: second trimester 32 weeks gestation of Z3A.32 Weeks of gestation: 32 weeks Hx of one miscarriage Z87.59 Assessment and Plan Assessment and Plan (1) Right upper quadrant pain: Status: Acute Comment: labs ordered (2) Supervision of high-risk : Status: Acute Qualifiers: Trimester: second trimester Qualified Code(s): O09.92 - Supervision of high risk , unspecified, second trimester Comment: PRR G2PO, SREEDHAR 05/15/25, girl Renee Melvin (3) : Status: Acute Qualifiers: Weeks of gestation: 32 weeks Qualified Code(s): Z3A.32 - 32 weeks gestation of Comment: low risk, gender female declined carrier and AFP, nml anatomy (4) Hx of one miscarriage: Status: Acute Orders: Orders POC Urinalysis 2 Dip (Clinic) Today Plan Details Additional Comments: ACOG trimester education reviewed and updated. see problem list details for updated plan management information and see below for orders placed atthis visit. GA appropriate handout given. Clinical Quality Measures Falls Risk Screening/Assistive Devices Have you fallen in the past year?: No 03/21/25 0942 s CNM> Date _ Becky Caballero CNM Cosigner Signature: Date (if applicable) CC: ~ [facility] [id number] [facility] [address], [address] [place] [address] OFFICE VISIT Date of Service: 03/03/25 MR#: [id number] Acct: [id number] Name: ALBINO SANTIAGO Reina p #: [phone] : 1995 Provider: Dr. Jay Albarran MD Age/Sex: 29/F Location: [facility] [place] [facility] Status: Signed Intake Vital Signs 01/02/25 10:41 02/19/25 08:28 03/03/25 08:57 03/03/25 09:15 Height 5 ft 5 in 5 ft 5 in 5 ft 5 in Weight: 168 lb BMI 27.9 BP 122/61 H Intake Visit Reasons: 30 wk ob Hand Turner Required: No Is patient in pain?: No Feel stressed/tense/nervous/anxious/difficulty sleeping: not at all Allergies No Known Allergies Allergy (Verified 03/03/25 08:55) Medications ?Medication ?Instructions ?Recorded ?Confirmed ?Type L.acidophilus-B.animalis-B.bifidum cap PO 09/24/2402/17 History 25 billion cell-FOS 100 mg capsule (Probiotic Complex) multivitamin no.47-iron fum 27 cap PO 09/24/24 5 History mg-folate no.1 1 mg-dha 300 mg capsule (PNV-DHA) Last Menstrual Period: 08/08/24 Zika: Zika virus screening: Negative : No PFSH PFSH Medical History Complete miscarriage Family History Mother Hypertension, Onset Age: 45 Grandfather No problems noted. Father MTHFR gene mutation Sister MTHFR gene mutation Social History adopted: No household members: spouse housing: house number of children: 0 current occupational status: employed current occupation: [employer] in [place] current occupational exposures/hazards: No pets and animals: Yes pets and animals: dog(s) history of recent travel: [place] ([place]) out of state: Yes out of country: No sexually active: Yes Smoking Status: Never smoker alcohol intake: current alcohol intake frequency: holidays/special occasions only details: Not while substance use type: does not use well-balanced diet: daily or most days caffeine: No eating out: 4 or more times/week during the past year weight has: remained stable what type of physical activity do you participate in: aerobics frequency: 3-4 times per week duration: 45-60 minutes/day dana/jewish: Jewish seatbelt use: always do you feel safe at home: Yes additional social history: Melvin- . OBI Fonseca History 2 Elective abortions Hx Para 0 Spontaneous abortions 1 Hx # Term Pregnancies Ectopic pregnancies Hx # Pregnancies Multiple births # of living children 0 Past Pregnancies Del. Date Name GA/Weeks Outcome Route Bth Weight Gen Labor Lgth Anesthesia Del Locatn Provider FOB 08/08/24 4 spontaneous HPI 30 wk ob Details: ALBINO SANTIAGO is a 29 year old who presents for routine OB visit. OB Visit SREEDHAR Calculator Estimated Delivery Date Method Current WG Current Estimate 05/15/25 LMP (Certain) 29w 4d Other Estimates 05/16/25 Ultrasound #1 29w 3d Expected Delivery Route/Plan Labor Preferences- CB/BF classes: yes labor support person: Melvin labor intervention preferences: [] pain management options preferred: epidural cut cord/dad catch: yes : yes PP control planned: discussed discussed possible routes of delivery and associated risks: [] special requests: [] Specific Issue/Plans Covid status: [] Flu vaccine: [] Tdap vaccine: considering Rhogam: NA LARC form signed: yes movement and labor precautions reviewed. Problem list reviewed and updated with the most current plan of care details and appropriate ordersplaced. Relevant counseling for the gestational age provided. Continue routine care and follow up unless otherwise noted in visit notes/problem list details Initial Weight: Not Recorded Date -?-?-?-?-?-?-?-?-?-?-?-?- EGA Weight BP Urine Prot -?-?-?-?-?-?-?-?-?-?-?-?- Glucose FHR FuHt Pres Dilation -?-?-?-?-?-?-?-?-?-?-?-?- Effaced St Visit Note 10/11/24 -?-?-?-?-?-?-?-?-?-?-?-?- 9w 1d 153 lb 8 oz 135/68 -?-?-?-?-?-?-?-?-?-?-?-?- 180 -?-?-?-?-?-?-?-?-?-?-?-?- SM- CRL 2.24cm c ons with lMP 11/08/24 -?-?-?-?-?-?-?-?-?-?-?-?- 13w 1d 151 lb 6 oz 125/73 Nega tive -?-?-?-?-?-?-?-?-?-?-?-?- Negative 160 -?-?-?--?-?-?-?-?-?-?-?-?- SM- no vb crampi ng 12/02/24 -?-?-?-?-?-?-?-?-?-?-?-?- 16w 4d 155 lb 119/71 Negative -?-?-?-?-?-?-?-?-?-?-?-?- Negative 158 -?-?-?-?-?-?-?-?-?-?-?-?- MH-No VB. Some h [place]-meds reviewed. 01/02/25 -?-?-?-?-?-?-?-?-?-?-?-?- 21w 0d 158 lb 2 oz 135/70 Nega tive -?-?-?-?-?-?-?-?-?-?-?-?- 147 -?-?-?-?-?-?-?-?-?-?-?-?- JV- having a gir l! normal anatomy. no complaints today. 01/29/25 -?-?-?-?-?-?-?-?-?-?-?-?- 24w 6d 162 lb 110/67 Negative -?-?-?-?-?-?-?-?-?-?-?-?- Negative 145 25 -?-?-?-?-?-?-?-?-?-?-?-?- KW- no vb/lof/ct x. good fm. having occasional burning in LUQ. Noticed after doing planks when working out. no blurred vision/headache. suspect muscle strain. 02/19/25 -?-?-?-?-?-?-?-?-?-?-?-?- 27w 6d 168 lb 130/72 Negative -?-?-?-?-?-?-?-?-?-?-?-?- Negative 143 28 -?-?-?-?-?-?-?-?-?-?-?-?- MH-No VB, lof. S ome dizziness/discussed freq meals, no quick position changes, increase fluids. 28 wk labs pending. [facility] 03/03/25 -?-?-?-?-?-?-?-?-?-?-?-?- 29w 4d 168 lb 122/61 Negative -?-?-?-?-?-?-?-?-?-?-?-?- Negative 140 30 -?-?-?-?-?-?-?-?-?-?-?-?- Sm- no vb lof go od fm no reuglar ctx co rib pain and right sided pain ACOG First Trimester First Trimester: Desire for , Alcohol, Tobacco Cessation, Illicit/Recreational Drug/Substance Use, Intimate Partner Violence, Barriers to care, Unstable Housing, Communication Barriers, Environmental/Work Hazards, Anticipated Course of Care, Toxoplasmosis Precations, Use of Any med ications, Sexual activity, Exercise, Dental Care, Sauna/Hot tub use, Seat Belt use, Childbirth classes/Hospital facilities, Travel, Indications for Ultrasound and Screening for Aneuploidy; Discussed Second Trimester Second Trimester: Signs and Symptoms of Labor, Selecting a care provider, Depression/Anxiety and Intimate Partner Violence Third Trimester Third Trimester: Pain Management Plans, Labor support person(s), Immediate Larc, Signs and Symptoms of Preeclampsia, Feeding No and Family Medical Leave or Disability Forms Results POC Urinalysis 2 Dip (Clinic) Office Urine Glucose Negative Last Edit by Tess Carrington on 03/03/25 09:00 Office Urine Protein Negative Last Edit by Tess Carrington on 03/03/25 09:00 Coding Level of Care Code OB Routine Diagnoses Supervision of high risk in second trimester O09.92 Trimester: second trimester 29 weeks gestation of Z3A.29 Weeks of gestation: 29 weeks Hx of one miscarriage Z87.59 Assessment and Plan Assessment and Plan (1) Supervision of high-risk : Status: Acute Qualifiers: Trimester: second trimester Qualified Code(s): O09.92 - Supervision of high risk , unspecified, second trimester Comment: PRR G2PO, SREEDHAR 05/15/25, girl Melvin (2) : Status: Acute Qualifiers: Weeks of gestation: 29 weeks Qualified Code(s): Z3A.29 - 29 weeks gestation of Comment: low risk, gender female declined carrier and AFP, nml anatomy (3) Hx of one miscarriage: Status: Acute Orders: Orders POC Urinalysis 2 Dip (Clinic) Today 03/03/25 0921 idania BE> Date _ Kamille Albarran [facility] Signature: Date (if applicable) CC: ~ [facility]08-06-2025 [facility] [address] [place] [address], [address] [place] [address] OFFICE VISIT Date of Service: 01/29/25 MR#: [id number] Acct: [id number] Name: ALBINO SANTIAGO p #: [id number] : 1995 Provider: FABIO Caballero Age/Sex: 29/F Location: [facility] [place] Status: Signed Intake Vital Signs 12/02/24 12:59 01/02/25 10:41 01/29/25 10:24 Height 5 ft 5 in 5 ft 5 in 5 ft 5 in Weight: 162 lb BMI 26.9 BP 110/67 Intake Visit Reasons: 25wk ob Hand Turner Required: No Is patient in pain?: No Allergies No Known Allergies Allergy (Verified 01/29/25 10:22) Medications ?Medication ?Instructions ?Recorded ?Confirmed ?Type L.acidophilus-B.animalis-B.bifidum cap PO 09/24/2412/18 History 25 billion cell-FOS 100 mg capsule (Probiotic Complex) multivitamin no.47-iron fum 27 cap PO 09/24/24 5 History mg-folate no.1 1 mg-dha 300 mg capsule (PNV-DHA) Last Menstrual Period: 08/08/24 Zika: Zika virus screening: Negative : No PFSH PFSH Medical History Complete miscarriage Family History Mother Hypertension, Onset Age: 45 Grandfather No problems noted. Father MTHFR gene mutation Sister MTHFR gene mutation Social History adopted: No household members: spouse housing: house number of children: 0 current occupational status: employed current occupation: [employer] [place] current occupational exposures/hazards: No pets and animals: Yes pets and animals: dog(s) history of recent travel: [place] ([place]) out of state: Yes out of country: No sexually active: Yes Smoking Status: Never smoker alcohol intake: current alcohol intake frequency: holidays/special occasions only details: Not while substance use type: does not use well-balanced diet: daily or most days caffeine: No eating out: 4 or more times/week during the past year weight has: remained stable what type of physical activity do you participate in: aerobics frequency: 3-4 times per week duration: 45-60 minutes/day dana/jewish: Jewish seatbelt use: always do you feel safe at home: Yes 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 Date Name GA/Weeks Outcome Route Bth Weight Infant Gen Labor Lgth Anesthesia Del Locatn Provider FOB 08/08/24 4 spontaneous HPI 25wk ob Details: ALBINO SANTIAGO is a 29 year old who presents for routine OB visit. OB Visit SREEDHAR Calculator Estimated Delivery Date Method Current WG Current Estimate 05/15/25 LMP (Certain) 24w 6d Other Estimates 05/16/25 Ultrasound #1 24w 5d Expected Delivery Route/Plan Labor Preferences- CB/BF classes: [] labor support person: [] labor intervention preferences: [] pain management options preferred: [] cut cord/dad catch: [] : [] PP control planned: [] discussed possible routes of delivery and associated risks: [] special requests: [] Specific Issue/Plans Covid status: [] Flu vaccine: [] Tdap vaccine: [] Rhogam: [] LARC form signed: [] Problem list reviewed and updated with the most current plan of care details and appropriate ordersplaced. Relevant counseling for the gestational age provided. Continue routine care and follow up unless otherwise noted in visit notes/problem list details Initial Weight: Not Recorded Date -?-?-?-?-?-?-?-?-?-?-?-?- EGA Weight BP Urine Prot -?-?-?-?-?-?-?-?-?-?-?-?- Glucose FHR FuHt Pres Dilation -?-?-?-?-?-?-?-?-?-?-?-?- Effaced St Visit Note 10/11/24 -?-?-?-?-?-?-?-?-?-?-?-?- 9w 1d 153 lb 8 oz 135/68 -?-?-?-?-?-?-?-?-?-?-?-?- 180 -?-?-?-?-?-?-?-?-?-?-?-?- SM- CRL 2.24cm c ons with lMP 11/08/24 -?-?-?-?-?-?-?-?-?-?-?-?- 13w 1d 151 lb 6 oz 125/73 Nega tive -?-?-?-?-?-?-?-?-?-?-?-?- Negative 160 -?-?-?-?-?-?-?-?-?-?-?-?- SM- no vb crampi ng 12/02/24 -?-?-?-?-?-?-?-?-?-?-?-?- 16w 4d 155 lb 119/71 Negative -?-?-?-?-?-?-?-?-?-?-?-?- Negative 158 -?-?-?-?-?-?-?-?-?-?-?-?- MH-No VB. Some h [place]-meds reviewed. 01/02/25 -?-?-?-?-?-?-?-?-?-?-?-?- 21w 0d 158 lb 2 oz 135/70 Nega tive -?-?-?-?-?-?-?--?-?-?-?-?- 147 -?-?-?-?-?-?-?-?-?-?-?-?- JV- having a gir l! normal anatomy. no complaints today. 01/29/25 -?-?-?-?-?-?-?-?-?-?-?-?- 24w 6d 162 lb 110/67 Negative -?-?-?-?-?-?-?-?-?-?-?-?- Negative 145 25 -?-?-?-?-?-?-?-?-?-?-?-?- KW- no vb/lof/ct x. good fm. having occasional burning in LUQ. Noticed after doing planks when working out. no blurred vision/headache. suspect muscle strain. ACOG First Trimester First Trimester: Desire for , Alcohol, Tobacco Cessation, Illicit/Recreational Drug/Substance Use, Intimate Partner Violence, Barriers to care, Unstable Housing, Communication Barriers, Environmental/Work Hazards, Anticipated Course of Care, Toxoplasmosis Precations, Use of Any med ications, Sexual activity, Exercise, Dental Care, Sauna/Hot tub use, Seat Belt use, Childbirth classes/Hospital facilities, Travel, Indications for Ultrasound and Screening for Aneuploidy; Discussed ROS Const Reports system reviewed and no additional complaints, except as documented Eyes Reports system reviewed and no additional complaints, except as documented ENT Reports system reviewed and no additional complaints, except as documented Card Reports system reviewed and no additional complaints, except as documented Resp Reports system reviewed and no additional complaints, except as documented GI Reports system reviewed and no additional complaints, except as documented, Denies nausea and Denies vomiting Reports system reviewed and no additional complaints, except as documented Musc Reports system reviewed and no additional complaints, except as documented Skin/Breast Reports system reviewed and no additional complaints, except as documented Neuro Yes system reviewed and no additional complaints, except as documented Psych Reports system reviewed and no additional complaints, except as documented Endo Reports system reviewed and no additional complaints, except as documented Rebel/Lymph Reports system reviewed and no additional complaints, except as documented Aller/Immun Reports system reviewed and no additional complaints, except as documented Exam Const General: cooperative, healthy appearing and no acute distress Orientation: alert, awake and oriented x3 Neck Neck: normal visual inspection and full ROM Resp Effort & Inspection: normal respiratory effort, able to speak in complete sentences and symmetric chest movement GI Inspection: normal to inspection Palpation: soft and other Other: gravid Skin General: no rashes or lesions noted Neuro General: patient alert, patient awake and patient oriented x3 Cognition: normal cognition Speech: speech normal Gait: normal gait Motor: muscle tone normal throughout Extrem General: normal to inspection and full ROM Psych Appearance: grossly normal Mental Status: mental status grossly normal Mood: congruent mood Affect: normal affect Speech and Movement: speech and movement normal Attitude: cooperative Thought Process: normal Thought Content: normal Judgment: judgment good Results POC Urinalysis 2 Dip (Clinic) Office Urine Glucose Negative Last Edit by Tess Carrington on 01/29/25 10:29 Office Urine Protein Negative Last Edit by Tess Carrington on 01/29/25 10:29 Coding Level of Care Code OB Routine Diagnoses Supervision of high risk in second trimester O09.92 Trimester: second trimester 24 weeks gestation of Z3A.24 Weeks of gestation: 24 weeks Hx of one miscarriage Z87.59 Assessment and Plan Assessment and Plan (1) Supervision of high-risk : Status: Acute Qualifiers: Trimester: second trimester Qualified Code(s): O09.92 - Supervision of high risk , unspecified, second trimester Comment: PRR G2PO, SREEDHAR 05/15/25, girl Melvin (2) : Status: Acute Qualifiers: Weeks of gestation: 24 weeks Qualified Code(s): Z3A.24 - 24 weeks gestation of Comment: low risk, gender female declined carrier and AFP, nml anatomy (3) Hx of one miscarriage: Status: Acute Orders: Orders POC Urinalysis 2 Dip (Clinic) Today CBC W/Diff, Automated Today O09.92 - Supervision of high risk , unspecified, second trimester Glucose Challenge Gest 1H 50g Today O09.92 - Supervision of high risk , unspecified, second trimester, Z13.1 - Encounter for screening for diabetes mellitus HIV Today O09.92 - Supervision of high risk , unspecified, second trimester Syphilis Antibodies Today O09.92 - Supervision of high risk , unspecified, second trimester Plan Details Additional Comments: ACOG trimester education reviewed and updated. see problem list details for updated plan management information and see below for orders placed atthis visit. GA appropriate handout given. 01/29/25 1039 s FABIO> Date _ Becky Caballero CNM Cosigner Signature: Date (if applicable) CC: ~ [facility]07-10-2025 Evaluation note* Diagnosis Onset Date Resolution Status Admit Date Hx of one miscarriage acute Dec 10:39am acute January 02 10:39am Supervision of high-risk acute January 02, 2025 10:39am Hx of one miscarriage acute Jan 10:18am acute January 29 10:18am Supervision of high-risk acute January 29, 2025 10:18am Hx of one miscarriage acute Jan 8:25am acute February 19 8:25am Supervision of high-risk acute February 19 8:25am Hx of one miscarriage acute Feb 8:53am acute March 03, 2025 8:53am Supervision of high-risk acute March 03 8:53am Hx of one miscarriage acute Feb 9:09am acute February 9:09am Right upper quadrant pain acute March 21, 2025 9:09am Supervision of high-risk acute March 21, 2025 9:09am Hx of one miscarriage acute Mar 3:07pm acute April 03 3:07pm Right upper quadrant pain acute April 03, 2025 3:07pm Supervision of high-risk acute April 03 3:07pm Hx of one miscarriage acute Mar 8:42am acute April 16, 2025 8:42am Pruritus of in third trimester acute April 16 8:42am Right upper quadrant pain acute April 16, 2025 8:42am Supervision of high-risk acute April 16 8:42am [facility] Work Phone: 1(531) 319-283307-10-2025 Evaluation note* Diagnosis Onset Date Resolution Status Admit Date Hx of one miscarriage acute Dec 10:39am acute January 02 10:39am Supervision of high-risk acute January 02, 2025 10:39am Hx of one miscarriage acute Jan 10:18am acute January 29 10:18am Supervision of high-risk acute January 29, 2025 10:18am Hx of one miscarriage acute Jan 8:25am acute February 19 8:25am Supervision of high-risk acute February 19 8:25am Hx of one miscarriage acute Feb 8:53am acute March 03, 2025 8:53am Supervision of high-risk acute March 03 025 8:53am Hx of one miscarriage acute Feb 9:09am acute February 9:09am Right upper quadrant pain acute March 21, 2025 9:09am Supervision of high-risk acute March 21, 2025 9:09am Hx of one miscarriage acute Mar 3:07pm acute April 03 3:07pm Right upper quadrant pain acute April 03, 2025 3:07pm Supervision of high-risk acute April 03 3:07pm Hx of one miscarriage acute Mar 8:42am acute April 16, 2025 8:42am Pruritus of in third trimester acute April 16 8:42am Right upper quadrant pain acute April 16, 2025 8:42am Supervision of high-risk acute April 16 8:42am Hx of one miscarriage acute Mar 10:10am acute April 24, 2025 10:10am Pruritus of in third trimester acute April 24 10:10am Right upper quadrant pain acute April 24, 2025 10:10am Supervision of high-risk acute April 24 10:10am Hx of one miscarriage acute Apr 9:38am acute May 01, 2025 9:38am Pruritus of in third trimester acute May 01 9:38am Right upper quadrant pain acute May 01, 2025 9:38am Supervision of high-risk acute May 01 9:38am [facility] Work Phone: 1(922) 503-381107-10-2025 [facility] [address] [place] [address], [address] [place] [address] OFFICE VISIT Date of Service: 01/02/25 MR#: [id number] Acct: [id number] Name: ALBINO SANTIAGO Reina p #: [id number] : 1995 Provider: Dr. Carie Ayon DO Age/Sex: 29/F Location: [facility] Status: Signed Intake Vital Signs 11/08/24 10:53 12/02/24 12:59 01/02/25 10:41 Height 5 ft 5 in 5 ft 5 in 5 ft 5 in Weight: 158 lb 2 oz BMI 26.3 BP 135/70 H Intake Visit Reasons: 21 wk ob Hand Turner Required: No Is patient in pain?: No Feel stressed/tense/nervous/anxious/difficulty sleeping: not at all Allergies No Known Allergies Allergy (Verified 01/02/25 10:43) Medications ?Medication ?Instructions ?Recorded ?Confirmed ?Type L.acidophilus-B.animalis-B.bifidum cap PO 09/24/2404/19 History 25 billion cell-FOS 100 mg capsule (Probiotic Complex) multivitamin no.47-iron fum 27 cap PO 09/24/24 5 History mg-folate no.1 1 mg-dha 300 mg capsule (PNV-DHA) Last Menstrual Period: 08/08/24 Zika: Zika virus screening: Negative : No PFSH PFSH Medical History Complete miscarriage Family History Mother Hypertension, Onset Age: 45 Grandfather No problems noted. Father MTHFR gene mutation Sister MTHFR gene mutation Social History adopted: No household members: spouse housing: house number of children: 0 current occupational status: employed current occupation: [employer] [place] current occupational exposures/hazards: No pets and animals: Yes pets and animals: dog(s) history of recent travel: [place] ([place]) out of state: Yes out of country: No sexually active: Yes Smoking Status: Never smoker alcohol intake: current alcohol intake frequency: holidays/special occasions only details: Not while substance use type: does not use well-balanced diet: daily or most days caffeine: No eating out: 4 or more times/week during the past year weight has: remained stable what type of physical activity do you participate in: aerobics frequency: 3-4 times per week duration: 45-60 minutes/day dana/jewish: Jewish seatbelt use: always do you feel safe at home: Yes 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 Date Name GA/Weeks Outcome Route Bth Weight [facility] 4 spontaneous HPI 21 wk ob Details: ALBINO SANTIAGO is a 29 year old who presents for routine OB visit. OB Visit SREEDHAR Calculator Estimated Delivery Date Method Current WG Current Estimate 05/15/25 LMP (Certain) 21w 0d Other Estimates 05/16/25 Ultrasound #1 20w 6d Expected Delivery Route/Plan Labor Preferences- CB/BF classes: [] labor support person: [] labor intervention preferences: [] pain management options preferred: [] cut cord/dad catch: [] : [] PP control planned: [] discussed possible routes of delivery and associated risks: [] special requests: [] Specific Issue/Plans Covid status: [] Flu vaccine: [] Tdap vaccine: [] Rhogam: [] LARC form signed: [] Problem list reviewed and updated with the most current plan of care details and appropriate ordersplaced. Relevant counseling for the gestational age provided. Continue routine care and follow up unless otherwise noted in visit notes/problem list details Initial Weight: Not Recorded Date -?-?-?-?-?-?-?-?-?-?-?-?- EGA Weight BP Urine Prot -?-?-?-?-?-?-?-?-?-?-?-?- Glucose FHR FuHt Pres Dilation -?-?-?-?-?-?-?-?-?-?-?-?- Effaced St Visit Note 10/11/24 -?-?-?-?-?-?-?-?-?-?-?-?- 9w 1d 153 lb 8 oz 135/68 -?-?--?-?-?-?-?-?-?-?-?-?- 180 -?-?-?-?-?-?-?-?-?-?-?-?- SM- CRL 2.24cm c ons with lMP 11/08/24 -?-?-?-?-?-?-?-?-?-?-?-?- 13w 1d 151 lb 6 oz 125/73 Nega tive -?-?-?-?-?-?-?-?-?-?-?-?- Negative 160 -?-?-?-?-?-?-?-?-?-?-?-?- SM- no vb crampi ng 12/02/24 -?-?-?-?-?-?-?-?-?-?-?-?- 16w 4d 155 lb 119/71 Negative -?-?-?-?-?-?-?-?-?-?-?-?- Negative 158 -?-?-?-?-?-?-?-?-?-?-?-?- MH-No VB. Some h [place]-meds reviewed. 01/02/25 -?-?-?-?-?-?-?-?-?-?-?-?- 21w 0d 158 lb 2 oz 135/70 Nega tive -?-?-?-?-?-?-?-?-?-?-?-?- 147 -?-?-?-?-?-?-?-?-?-?-?-?- JV- having a gir l! normal anatomy. no complaints today. ACOG First Trimester First Trimester: Desire for , Alcohol, Tobacco Cessation, Illicit/Recreational Drug/Substance Use, Intimate Partner Violence, Barriers to care, Unstable Housing, Communication Barriers, Environmental/Work Hazards, Anticipated Course of Care, Toxoplasmosis Precations, Use of Any med ications, Sexual activity, Exercise, Dental Care, Sauna/Hot tub use, Seat Belt use, Childbirth classes/Hospital facilities, Travel, Indications for Ultrasound and Screening for Aneuploidy; Discussed Results POC Urinalysis 2 Dip (Clinic) Office Urine Glucose Last Edit by Tess Carrington on 01/02/25 10:51 Office Urine Protein Negative Last Edit by Tess Carrington on 01/02/25 10:51 Coding Level of Care Code OB Routine Diagnoses Supervision of high risk in second trimester O09.92 Trimester: second trimester 21 weeks gestation of Z3A.21 Weeks of gestation: 21 weeks Hx of one miscarriage Z87.59 Assessment and Plan Assessment and Plan (1) Supervision of high-risk : Status: Acute Qualifiers: Trimester: second trimester Qualified Code(s): O09.92 - Supervision of high risk , unspecified, second trimester Comment: PRR G2PO, SREEDHAR 05/15/25, girl Melvin (2) : Status: Acute Qualifiers: Weeks of gestation: 21 weeks Qualified Code(s): Z3A.21 - 21 weeks gestation of Comment: low risk, gender female declined carrier and AFP, nml anatomy (3) Hx of one miscarriage: Status: Acute Orders: Orders POC Urinalysis 2 Dip (Clinic) Today 01/02/25 1108 e Velde DO> Date _ Rhea Ayon DO Cosigner Signature: Date (if applicable) CC: ~ [facility]06-09-2025 Evaluation note* Diagnosis Onset Date Resolution Status Admit Date Hx of one miscarriage acute Nov 12:54pm acute December 02, 2024 12:54pm Supervision of high-risk acute December 02, 2024 1 2:54pm Hx of one miscarriage acute Dec 10:39am acute January 02 10:39am Supervision of high-risk acute January 02, 2025 10:39am Hx of one miscarriage acute Jan 10:18am acute January 29 10:18am Supervision of high-risk acute January 29, 2025 10:18am Hx of one miscarriage acute Jan 8:25am acute February 19, 025 8:25am Supervision of high-risk acute February 19 8:25am Hx of one miscarriage acute Feb 8:53am acute March 03, 2025 8:53am Supervision of high-risk acute March 03 025 8:53am [facility] Work Phone: [phone] Evaluation note* Diagnosis Onset Date Resolution Status Admit Date Hx of one miscarriage acute Nov 12:54pm acute December 02, 2024 12:54pm Supervision of high-risk acute December 02, 2024 1 2:54pm Hx of one miscarriage acute Dec 10:39am acute January 02 10:39am Supervision of high-risk acute January 02, 2025 10:39am Hx of one miscarriage acute Jan 10:18am acute January 29 10:18am Supervision of high-risk acute January 29, 2025 10:18am Hx of one miscarriage acute Jan 8:25am acute February 19, 8:25am Supervision of high-risk acute February 19 8:25am Hx of one miscarriage acute Feb 8:53am acute March 03, 2025 8:53am Supervision of high-risk acute March 03 025 8:53am Hx of one miscarriage acute Feb 9:09am acute February 9:09am Right upper quadrant pain acute March 21, 2025 9:09am Supervision of high-risk acute March 21, 2025 9:09am [facility] Work Phone: [phone] Evaluation note* Diagnosis Onset Date Resolution Status Admit Date Hx of one miscarriage acute November 08, 2024 10:47am acute November 08, 2024 10:47am Supervision of high-risk acute November 08, 2024 1 0:47am Hx of one miscarriage acute Nov 12:54pm acute December 02, 2024 12:54pm Supervision of high-risk acute December 02, 2024 1 2:54pm Hx of one miscarriage acute Dec 10:39am acute January 02 10:39am Supervision of high-risk acute January 02, 2025 10:39am Hx of one miscarriage acute Jan 10:18am acute January 29 10:18am Supervision of high-risk acute January 29, 2025 10:18am Hx of one miscarriage acute Jan 8:25am acute February 19 025 8:25am Supervision of high-risk acute February 19 8:25am [facility] Work Phone: 1(126) 238-105205-16-2025 Evaluation note* Diagnosis Onset Date Resolution Status Admit Date Hx of one miscarriage acute November 08, 2024 10:47am acute November 08, 2024 10:47am Supervision of high-risk acute November 08, 2024 1 0:47am Hx of one miscarriage acute Nov 12:54pm acute December 02, 2024 12:54pm Supervision of high-risk acute December 02, 2024 1 2:54pm Hx of one miscarriage acute Dec 10:39am acute January 02 10:39am Supervision of high-risk acute January 02, 2025 10:39am Hx of one miscarriage acute Jan 10:18am acute January 29 10:18am Supervision of high-risk acute January 29, 2025 10:18am Hx of one miscarriage acute Jan 8:25am acute February 19, 025 8:25am Supervision of high-risk acute February 19 8:25am Hx of one miscarriage acute Feb 8:53am acute March 03, 2025 8:53am Supervision of high-risk acute March 03 025 8:53am [facility] Work Phone: 1(986) 358-390905-16-2025 [facility] [address] [place] [address], [address] [place] [address] OFFICE VISIT Date of Service: 11/08/24 MR#: [id number] Acct: [id number] Name: ALBINO SANTIAGO Reina p #: [id number] : 1995 Provider: Dr. Jay Albarran MD Age/Sex: 28/F Location: [facility] [place] Status: Signed Intake Vital Signs 08/23/24 14:33 10/11/24 10:31 11/08/24 10:50 11/08/24 10:53 Height 5 ft 5 in 5 ft 5 in 5 ft 5 in 5 ft 5 in Weight: 151 lb 6 oz BMI 25.2 BP 125/73 H Intake Visit Reasons: 13wk OB Hand Turner Required: No Is patient in pain?: No Allergies No Known Allergies Allergy (Verified 11/08/24 10:51) Medications ?Medication ?Instructions ?Recorded ?Confirmed ?Type L.acidophilus-B.animalis-B.bifidum cap PO 09/24/24 History 25 billion cell-FOS 100 mg capsule (Probiotic Complex) multivitamin no.47-iron fum 27 cap PO 09/24/24 5 History mg-folate no.1 1 mg-dha 300 mg capsule (PNV-DHA) Last Menstrual Period: 08/08/24 Zika: Zika virus screening: Negative : No PFSH PFSH Medical History Complete miscarriage Family History Mother Hypertension, Onset Age: 45 Grandfather No problems noted. Father MTHFR gene mutation Sister MTHFR gene mutation Social History adopted: No household members: spouse housing: house number of children: 0 current occupational status: employed current occupation: [employer] in [place] current occupational exposures/hazards: No pets and animals: Yes pets and animals: dog(s) history of recent travel: [place] ([place]) out of state: Yes out of country: No sexually active: Yes Smoking Status: Never smoker alcohol intake: current alcohol intake frequency: holidays/special occasions only details: Not while substance use type: does not use well-balanced diet: daily or most days caffeine: No eating out: 4 or more times/week during the past year weight has: remained stable what type of physical activity do you participate in: aerobics frequency: 3-4 times per week duration: 45-60 minutes/day dana/jewish: Jewish seatbelt use: always do you feel safe at home: Yes 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 Date Name GA/Weeks Outcome Route Bth Weight Gen Labor Lgth Anesthesia Del Locatn Provider FOB 08/08/24 4 spontaneous HPI 13wk OB Details: ALBINO SANTIAGO is a 28 year old who presents for routine OB visit. OB Visit SREEDHAR Calculator Estimated Delivery Date Method Current WG Current Estimate 05/15/25 LMP (Certain) 13w 1d Other Estimates 05/16/25 Ultrasound #1 13w 0d Expected Delivery Route/Plan Labor Preferences- CB/BF classes: [] labor support person: [] labor intervention preferences: [] pain management options preferred: [] cut cord/dad catch: [] : [] PP control planned: [] discussed possible routes of delivery and associated risks: [] special requests: [] Specific Issue/Plans Covid status: [] Flu vaccine: [] Tdap vaccine: [] Rhogam: [] LARC form signed: [] Problem list reviewed and updated with the most current plan of care details and appropriate ordersplaced. Relevant counseling for the gestational age provided. Continue routine care and follow up unless otherwise noted in visit notes/problem list details Initial Weight: Not Recorded Date -?-?-?-?-?-?-?-?-?-?-?-?- EGA Weight BP Urine Prot -?-?-?-?-?-?-?-?-?-?-?-?- Glucose FHR FuHt Pres Dilation -?-?-?-?-?-?-?-?-?-?-?-?- Effaced St Visit Note 10/11/24 -?-?-?-?-?-?-?-?-?-?-?-?- 9w 1d 153 lb 8 oz 135/68 -?-?-?-?-?-?-?-?-?-?-?-?- 180 -?-?-?-?-?-?-?-?-?-?-?-?- SM- CRL 2.24cm c ons with lMP 11/08/24 -?-?-?-?-?-?-?-?-?-?-?-?- 13w 1d 151 lb 6 oz 125/73 Nega tive -?-?-?-?-?-?-?-?-?-?-?-?- Negative 160 -?-?-?-?-?-?-?-?-?-?-?-?- SM- no vb crampi ng ACOG First Trimester First Trimester: Desire for , Alcohol, Tobacco Cessation, Illicit/Recreational Drug/Substance Use, Intimate Partner Violence, Barriers to care, Unstable Housing, Communication Barriers, Environmental/Work Hazards, Anticipated Course of Care, Toxoplasmosis Precations, Use of Any med ications, Sexual activity, Exercise, Dental Care, Sauna/Hot tub use, Seat Belt use, Childbirth classes/Hospital facilities, Travel, Indications for Ultrasound and Screening for Aneuploidy; Discussed Results POC Urinalysis 2 Dip (Clinic) Office Urine Glucose Negative Last Edit by Tess Carrington on 11/08/24 10:57 Office Urine Protein Negative Last Edit by Tess Carrington on 11/08/24 10:57 Coding Level of Care Code OB Routine Diagnoses Supervision of high risk in first trimester O09.91 Trimester: first trimester 13 weeks gestation of Z3A.13 Weeks of gestation: 13 weeks Hx of one miscarriage Z87.59 Assessment and Plan Assessment and Plan (1) Supervision of high-risk : Status: Acute Qualifiers: Trimester: first trimester Qualified Code(s): O09.91 - Supervision of high risk , unspecified, first trimester Comment: PRR G2PO, SREEDHAR 05/15/25, girl Melvin (2) : Status: Acute Qualifiers: Weeks of gestation: 13 weeks Qualified Code(s): Z3A.13 - 13 weeks gestation of Comment: low risk, gender female declined carrier. (3) Hx of one miscarriage: Status: Acute Orders: Orders POC Urinalysis 2 Dip (Clinic) Today 11/08/24 Brandon emerson MD> Date _ Kamille Albarran MD Cosigner Signature: Date (if applicable) CC: ~ [facility]04-18-2025 Evaluation note* Diagnosis Onset Date Resolution Status Admit Date Hx of one miscarriage acute Apr 2024 10:19am acute October 11 10:19am Supervision of high-risk acute October 11, 2024 10:19am Hx of one miscarriage acute November 08, 2024 10:47am acute November 08, 2024 10:47am Supervision of high-risk acute November 08, 2024 1 0:47am Hx of one miscarriage acute Nov 12:54pm acute December 02, 2024 12:54pm Supervision of high-risk acute December 02, 2024 1 2:54pm Hx of one miscarriage acute Dec 10:39am acute January 02 10:39am Supervision of high-risk acute January 02, 2025 10:39am Hx of one miscarriage acute Jan 10:18am acute January 29 10:18am Supervision of high-risk acute January 29, 2025 10:18am [facility] Work Phone: 1(756) 918-413304-01-2025 Evaluation note* Diagnosis Onset Date Resolution Status Admit Date Hx of one miscarriage acute Sep 11:06am acute September 24 11:06am Supervision of high-risk acute September 24, 2024 11:06am Hx of one miscarriage acute Sep 10:19am acute October 11 10:19am Supervision of high-risk acute October 11, 2024 10:19am Hx of one miscarriage acute November 08, 2024 10:47am acute November 08, 2024 10:47am Supervision of high-risk acute November 08, 2024 1 0:47am Hx of one miscarriage acute Nov 12:54pm acute December 02, 2024 12:54pm Supervision of high-risk acute December 02, 2024 1 2:54pm Hx of one miscarriage acute Dec 10:39am acute January 02 10:39am Supervision of high-risk acute January 02, 2025 10:39am [facility] Work Phone: 1(298) 484-599802-28-2025 Evaluation note* Diagnosis Onset Date Resolution Status Admit Date Complete miscarriage acute Febr uary 2024 2:30pm [facility] Work Phone: 1(884) 244-370302-28-2025 Evaluation note* Diagnosis Onset Date Resolution Status Admit Date Complete miscarriage inactive Febr uary 2024 2:30pm Hx of one miscarriage acute Apr 2024 11:06am acute September 24 11:06am Supervision of high-risk acute September 24, 2024 11:06am Hx of one miscarriage acute Apr 2024 10:19am acute October 11 10:19am Supervision of high-risk acute October 11, 2024 10:19am [facility] Work Phone: 1(549) 672-986402-28-2025 Evaluation note* Diagnosis Onset Date Resolution Status Admit Date Complete miscarriage inactive Febr uary 2024 2:30pm Hx of one miscarriage acute Sep 11:06am acute September 24 11:06am Supervision of high-risk acute September 24, 2024 11:06am Hx of one miscarriage acute Apr 2024 10:19am acute October 11 10:19am Supervision of high-risk acute October 11, 2024 10:19am Hx of one miscarriage acute November 08, 2024 10:47am acute November 08, 2024 10:47am Supervision of high-risk acute November 08, 2024 1 0:47am [facility] Work Phone: 1(363) 679-645002-28-2025 Evaluation note* Diagnosis Onset Date Resolution Status Admit Date Complete miscarriage inactive Febr uary 2024 2:30pm Hx of one miscarriage acute Apr 2024 11:06am acute September 24 11:06am Supervision of high-risk acute September 24, 2024 11:06am Hx of one miscarriage acute Apr 2024 10:19am acute October 11 10:19am Supervision of high-risk acute October 11, 2024 10:19am Hx of one miscarriage acute November 08, 2024 10:47am acute November 08, 2024 10:47am Supervision of high-risk acute November 08, 2024 1 0:47am Hx of one miscarriage acute Nov 12:54pm acute December 02, 2024 12:54pm Supervision of high-risk acute December 02, 2024 1 2:54pm [facility] Work Phone: 1(135) 661-511012-17-2024 Instructions* Patient Instructions* Becky Blake APRN.CNM - 06/11/2024 10:15 AM EST [employer] [place] [facility] Prysms or Mama Bear [facility] NoteHNO ID: [id number] Author: BECKY BLAKE APRN.CNM Service: ? Author Type: Coverage Specialist Rn Type: Progress Notes Filed: 06/11/2024 10:42 Note Text: Hair is a 28 year old who presents for an annual gynecologic exam without complaints. Slight vaginal odor Menses: cycles every 28 days and 3-5 days of flow. Contraception: none, trying to conceive since April. HPV vaccine: Yes - per patient Last Pap: normal HPV: negative History of abnormal pap: No Last mammogram: never Sexually active: Yes Time with current partner: 7 years Pain with intercourse: No Postcoital bleeding: No Exercise: 5 times a week for 60 minutes. Type: crossfit Diet: Balanced Seatbelt use: Yes OB History T0 L0 SAB0 IAB0 Ectopic0 Multiple0 Live Births0 Sanforizer History LMP: 05/19/2024 (Exact Date), Having periods Age at Menarche: Age at First : Age at Menopause: Sanforizer History Comments: Sexual Activity: Yes; No partner data on record Contraception: No contraception data on record History reviewed. No pertinent past medical history.History reviewed. No pertinent surgical history.History reviewed. No pertinent family history.SOCIAL HISTORY Social History Tobacco Use Smoking status: Never Smokeless tobacco: Never Substance Use Topics Alcohol use: Not Currently Comment: occasionally Drug use: Never REVIEW OF SYSTEMS Abdomen: No abdominal pain, nausea, vomiting, diarrhea, or constipation. No bloating, early satiety, indigestion, or increased flatulence. Bladder: No dysuria, gross hematuria, urinary frequency, urinary urgency, or incontinence. Breast: No breast lumps, nipple d/c, overlying skin changes, redness or skin retraction. Allergies and current medication updated:Yes SENSITIVE EXAM: The sensitive examination was discussed with the Patient or Patient's Authorized Supervisor Plasma. As applicable, any other physician, advance practice provider, medical student, or other health professional student that will be observing or involved in the sensitive examination for educational or training purposes was discussed with the Patient or Authorized Supervisor Plasma. The Patient or Authorized Supervisor Plasma has agreed to proceed with the sensitive examination. (Sensitive examination includes inspection and/or palpation of the breasts, pelvis, prostate and anorectal regions). EXAM: BP 114/72 Ht 5' 5 (1.65m) Wt 155 lb (70.3kg) LMP 05/19/2024 BMI 25.79 kg/(m2). GENERAL: pleasant, female in no apparent distress HEENT: Normocephalic, atraumatic, mucus membranes moist, and no lesions NECK: Supple, full range of motion, no adenopathy, and thyroid normal DERMATOLOGY: Normal, without lesions, non-icteric, and non-hirsute BREAST: soft, non-tender, symmetric, no dominant mass, normal nipple-areolar complex, no lymphadenopathy, and no nipple discharge CHEST: Normal inspiratory effort ABDOMEN: soft, non-tender, and no masses PELVIC: external genitalia normal, normal Bartholin's glands, urethra, Cimarron's glands, no vulvar lesions, no cervical lesions, good vaginal support, physiologic discharge present, normal appearing perineal body and perianal region BIMANUAL: uterus normal size, shape and consistency, no adnexal masses, and non-tender RECTOVAGINAL: deferred. NEURO: alert and oriented x3,exam grossly non-focal EXTREMITIES: normal ASSESSMENT/PLAN: 1. Encounter for gynecological examination (general) (routine) with abnormal findings - ICD9: V72.31, ICD10: Z01.411 (primary diagnosis) - Completed pelvic and breast exam - Encouraged monthly BSE - Follow up for annual exam in one year. - PAP TEST - BACTERIAL VAGINOSIS NAAT - MARCIE/TRICHOMONAS NAAT 2. Screening for cervical cancer - ICD9: V76.2, ICD10: Z12.4 - Completed pelvic and breast exam - Encouraged monthly BSE - Follow up for annual exam in one year. - PAP TEST 3. Encounter for screening for human papillomavirus (HPV) - ICD9: V73.81, ICD10: Z11.51 - PAP TEST 4. Encounter for preconception consultation - ICD9: V26.49, ICD10: Z31.69 -Reviewed pre-conception guidelines including folic acid supplementation, optimal timing of intercourse, avoidance of smoking, alcohol, and exposure to environmental chemicals. Discussed rubella and varicella titers and immunization if needed. Offered carrier screening. Reviewed need for evaluation if not within 12 months. 5. Vaginal odor - ICD9: 625.8, ICD10: N89.8 -BV and yeast today 1) Health maintenance: Pap done with reflex HPV. Nutrition, exercise and routine health maintenance exams reviewed. Calcium/Vitamin D supplementation information provided. Lipids/glucose: followed by PCP Vitamin D: followed by PCP HPV vaccine: completed series, will send dates. 2) Contraception: none. Contraceptive options reviewed and information provided. 3) STD screening: Declined STD check. 4) Follow up one year or sooner as n (more content not included)...[facility]12-17-2024 History of Present illness Narrative* Becky Blake APRN.ELIS - 06/11/2024 9:37 AM EST Hair is a 28 year old who presents for an annual gynecologic exam without complaints. Slight vaginal odor Menses: cycles every 28 days and 3-5 days of flow. Contraception: none, trying to conceive since April. HPV vaccine: Yes - per patient Last Pap: normal HPV: negative History of abnormal pap: No Last mammogram: never Sexually active: Yes Time with current partner: 7 years Pain with intercourse: No Postcoital bleeding: No Exercise: 5 times a week for 60 minutes. Type: crossfit Diet: Balanced Seatbelt use: Yes OB History T0 L0 SAB0 IAB0 Ectopic0 Multiple0 Live Births0 Sanforizer History LMP: 05/19/2024 (Exact Date), Having periods Age at Menarche: Age at First : Age at Menopause: Sanforizer History Comments: Sexual Activity: Yes; No partner data on record Contraception: No contraception data on record History reviewed. No pertinent past medical history.History reviewed. No pertinent surgical history.History reviewed. No pertinent family history.SOCIAL HISTORY Social History Tobacco Use Smoking status: Never Smokeless tobacco: Never Substance Use Topics Alcohol use: Not Currently Comment: occasionally Drug use: Never REVIEW OF SYSTEMS Abdomen: No abdominal pain, nausea, vomiting, diarrhea, or constipation. No bloating, early satiety, indigestion, or increased flatulence. Bladder: No dysuria, gross hematuria, urinary frequency, urinary urgency, or incontinence. Breast: No breast lumps, nipple d/c, overlying skin changes, redness or skin retraction. Allergies and current medication updated:Yes SENSITIVE EXAM: The sensitive examination was discussed with the Patient or Patient's Authorized Supervisor Plasma. As applicable, any other physician, advance practice provider, medical student, or other health professional student that will be observing or involved in the sensitive examination for educational or training purposes was discussed with the Patient or Authorized Supervisor Plasma. The Patient or Authorized Supervisor Plasma has agreed to proceed with the sensitive examination. (Sensitive examination includes inspection and/or palpation of the breasts, pelvis, prostate and anorectal regions). EXAM: BP 114/72 Ht 5' 5 (1.65m) Wt 155 lb (70.3kg) LMP 05/19/2024 BMI 25.79 kg/(m^2). GENERAL: pleasant, female in no apparent distress HEENT: Normocephalic, atraumatic, mucus membranes moist, and no lesions NECK: Supple, full range of motion, no adenopathy, and thyroid normal DERMATOLOGY: Normal, without lesions, non-icteric, and non-hirsute BREAST: soft, non-tender, symmetric, no dominant mass, normal nipple-areolar complex, no lymphadenopathy, and no nipple discharge CHEST: Normal inspiratory effort ABDOMEN: soft, non-tender, and no masses PELVIC: external genitalia normal, normal Bartholin's glands, urethra, Cimarron's glands, no vulvar lesions, no cervical lesions, good vaginal support, physiologic discharge present, normal appearing perineal body and perianal region BIMANUAL: uterus normal size, shape and consistency, no adnexal masses, and non-tender RECTOVAGINAL: deferred. NEURO: alert and oriented x3,exam grossly non-focal EXTREMITIES: normal ASSESSMENT/PLAN: 1. Encounter for gynecological examination (general) (routine) with abnormal findings - ICD9: V72.31, ICD10: Z01.411 (primary diagnosis) - Completed pelvic and breast exam - Encouraged monthly BSE - Follow up for annual exam in one year. - PAP TEST - BACTERIAL VAGINOSIS NAAT - MARCIE/TRICHOMONAS NAAT 2. Screening for cervical cancer - ICD9: V76.2, ICD10: Z12.4 - Completed pelvic and breast exam - Encouraged monthly BSE - Follow up for annual exam in one year. - PAP TEST 3. Encounter for screening for human papillomavirus (HPV) - ICD9: V73.81, ICD10: Z11.51 - PAP TEST 4. Encounter for preconception consultation - ICD9: V26.49, ICD10: Z31.69 -Reviewed pre-conception guidelines including folic acid supplementation, optimal timing of intercourse, avoidance of smoking, alcohol, and exposure to environmental chemicals. Discussed rubella and varicella titers and immunization if needed. Offered carrier screening. Reviewed need for evaluationif not within 12 months. 5. Vaginal odor - ICD9: 625.8, ICD10: N89.8 -BV and yeast today 1) Health maintenance: Pap done with reflex HPV. Nutrition, exercise and routine health maintenance exams reviewed. Calcium/Vitamin D supplementation information provided. Lipids/glucose: followed by PCP Vitamin D: followed by PCP HPV vaccine: completed series, will send dates. 2) Contraception: none. Contraceptive options reviewed and information provided. 3) STD screening: Declined STD check. 4) Follow up one year or sooner as needed Becky Blake APRN.CNM documented in this encounterCorey HospitalEvaluation note* Diagnosis Encounter for gynecological examination (general) (routine) with abnormal findings- Primary Screening for cervical cancer Screening for malignant neoplasm of the cervix Encounter for screening for human papillomavirus (HPV) Special screening examination for human papillomavirus (HPV) Encounter for preconception consultation Other procreative management counseling and advice Vaginal odor Unspecified symptom associated with female genital organs documented in this encounter [facility] Hospital[facility] note Author Kamille Albarran [facility] Note Date/Time November 08, 2024 11:12 am [facility] [address], [address] [place] [address] OFFICE VISIT Date of Service: 11/08/24 MR#: [id number] Acct: [id number] Name: ALBINO SANTIAGO p #: [phone] : 1995 Provider: Dr. Jay Albarran MD Age/Sex: 28/F Location: [facility] [place] Status: Signed Intake Vital Signs 08/23/24 14:33 10/11/24 10:31 11/08/24 10:50 11/08/24 10:53 Height 5 ft 5 in 5 ft 5 in 5 ft 5 in 5 ft 5 in Weight: 151 lb 6 oz BMI 25.2 BP 125/73 H Intake Visit Reasons: 13wk OB Hand Turner Required: No Is patient in pain?: No Allergies No Known Allergies Allergy (Verified 11/08/24 10:51) Medications ?Medication ?Instructions ?Recorded ?Confirmed ?Type L.acidophilus-B.animalis-B.bifidum cap PO 09/24/24 History 25 billion cell-FOS 100 mg capsule (Probiotic Complex) multivitamin no.47-iron fum 27 cap PO 09/24/24 5 History mg-folate no.1 1 mg-dha 300 mg capsule (PNV-DHA) Last Menstrual Period: 08/08/24 Zika: Zika virus screening: Negative : No PFSH PFSH Medical History Complete miscarriage Family History Mother Hypertension, Onset Age: 45 Grandfather No problems noted. Father MTHFR gene mutation Sister MTHFR gene mutation Social History adopted: No household members: spouse housing: house number of children: 0 current occupational status: employed current occupation: [employer] in [place] current occupational exposures/hazards: No pets and animals: Yes pets and animals: dog(s) history of recent travel: [place] ([place]) out of state: Yes out of country: No sexually active: Yes Smoking Status: Never smoker alcohol intake: current alcohol intake frequency: holidays/special occasions only details: Not while substance use type: does not use well-balanced diet: daily or most days caffeine: No eating out: 4 or more times/week during the past year weight has: remained stable what type of physical activity do you participate in: aerobics frequency: 3-4 times per week duration: 45-60 minutes/day dana/jewish: Jewish seatbelt use: always do you feel safe at home: Yes 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 Date Name GA/Weeks Outcome Route Bth Weight Gen Labor Lgth Anesthesia Del Locatn Provider FOB 08/08/24 4 spontaneous HPI 13wk OB Details: ALBINO SANTIAGO is a 28 year old who presents for routine OB visit. OB Visit SREEDHAR Calculator Estimated Delivery Date Method Current WG Current Estimate 05/15/25 LMP (Certain) 13w 1d Other Estimates 05/16/25 Ultrasound #1 13w 0d Expected Delivery Route/Plan Labor Preferences- CB/BF classes: [] labor support person: [] labor intervention preferences: [] pain management options preferred: [] cut cord/dad catch: [] : [] PP control planned: [] discussed possible routes of delivery and associated risks: [] special requests: [] Specific Issue/Plans Covid status: [] Flu vaccine: [] Tdap vaccine: [] Rhogam: [] LARC form signed: [] Problem list reviewed and updated with the most current plan of care details and appropriate orders placed. Relevant counseling for the gestational age provided. Continue routine care and follow up unless otherwise noted in visit notes/problem list details Initial Weight: Not Recorded Date -?-?-?-?-?-?-?-?-?-?-?-?- EGA Weight BP Urine Prot -?-?-?-?-?-?-?-?-?-?-?-?- Glucose FHR FuHt Pres Dilation -?-?-?-?-?-?-?-?-?-?-?-?- Effaced St Visit Note 10/11/24 -?-?-?-?-?-?-?-?-?-?-?-?- 9w 1d 153 lb 8 oz 135/68 -?-?-?-?-?-?-?-?-?-?-?-?- 180 -?-?-?-?-?-?-?-?-?-?-?-?- SM- CRL 2.24cm c ons with lMP 11/08/24 -?-?-?-?-?-?-?-?-?-?-?-?- 13w 1d 151 lb 6 oz 125/73 Nega tive -?-?-?-?-?-?-?-?-?-?-?-?- Negative 160 -?-?-?-?-?-?-?-?-?-?-?-?- SM- no vb crampi ng ACOG First Trimester First Trimester: Desire for , Alcohol, Tobacco Cessation, Illicit/Recreational Drug/Substance Use, Intimate Partner Violence, Barriers to care, Unstable Housing, Communication Barriers, Environmental/Work Hazards, Anticipated Course of Care, Toxoplasmosis Precations, Use of Any medications, Sexual activity, Exercise, Dental Care, Sauna/Hot tub use, Seat Belt use, Childbirth classes/Hospital facilities, Travel, Indications for Ultrasound and Screening for Aneuploidy; Discussed Results POC Urinalysis 2 Dip (Clinic) Office Urine Glucose Negative Last Edit by Tess Carrington on 11/08/24 10:57 Office Urine Protein Negative Last Edit by Tess Carrington on 11/08/24 10:57 Coding Level of Care Code OB Routine Diagnoses Supervision of high risk in first trimester O09.91 Trimester: first trimester 13 weeks gestation of Z3A.13 Weeks of gestation: 13 weeks Hx of one miscarriage Z87.59 Assessment and Plan Assessment and Plan (1) Supervision of high-risk : Status: Acute Qualifiers: Trimester: first trimester Qualified Code(s): O09.91 - Supervision of high risk , unspecified, first trimester Comment: PRR G2PO, SREEDHAR 05/15/25, girl Melvin (2) : Status: Acute Qualifiers: Weeks of gestation: 13 weeks Qualified Code(s): Z3A.13 - 13 weeks gestation of Comment: low risk, gender female declined carrier. (3) Hx of one miscarriage: Status: Acute Orders: Orders POC Urinalysis 2 Dip (Clinic) Today 11/08/24 1112 <Electronically signed by Kamille emerson MD> Date _ Kamille Albarran MD Cosigner Signature: Date (if applicable) CC: ~ [facility] Work Phone: Progress note Author Rhea Pak [facility] Note Date/Time January 02, 2025 11:0 8am [facility] [address], [address] [place] [address] OFFICE VISIT Date of Service: 01/02/25 MR#: [id number] Acct: [id number] Name: JACKALBINO p #: [phone] : 1995 Provider: Dr. Carie Ayon DO Age/Sex: 29/F Location: [facility] [place] Status: Signed Intake Vital Signs 11/08/24 10:53 12/02/24 12:59 01/02/25 10:41 Height 5 ft 5 in 5 ft 5 in 5 ft 5 in Weight: 158 lb 2 oz BMI 26.3 BP 135/70 H Intake Visit Reasons: 21 wk ob Hand Turner Required: No Is patient in pain?: No Feel stressed/tense/nervous/anxious/difficulty sleeping: not at all Allergies No Known Allergies Allergy (Verified 01/02/25 10:43) Medications ?Medication ?Instructions ?Recorded ?Confirmed ?Type L.acidophilus-B.animalis-B.bifidum cap PO 09/24/2404/19 History 25 billion cell-FOS 100 mg capsule (Probiotic Complex) multivitamin no.47-iron fum 27 cap PO 09/24/24 5 History mg-folate no.1 1 mg-dha 300 mg capsule (PNV-DHA) Last Menstrual Period: 08/08/24 Zika: Zika virus screening: Negative : No PFSH PFSH Medical History Complete miscarriage Family History Mother Hypertension, Onset Age: 45 Grandfather No problems noted. Father MTHFR gene mutation Sister MTHFR gene mutation Social History adopted: No household members: spouse housing: house number of children: 0 current occupational status: employed current occupation: [employer] in [place] current occupational exposures/hazards: No pets and animals: Yes pets and animals: dog(s) history of recent travel: [place] ([place]) out of state: Yes out of country: No sexually active: Yes Smoking Status: Never smoker alcohol intake: current alcohol intake frequency: holidays/special occasions only details: Not while substance use type: does not use well-balanced diet: daily or most days caffeine: No eating out: 4 or more times/week during the past year weight has: remained stable what type of physical activity do you participate in: aerobics frequency: 3-4 times per week duration: 45-60 minutes/day dana/jewish: Jewish seatbelt use: always do you feel safe at home: Yes additional social history: Melvin- . O[employer] History 2 Elective abortions Hx Para 0 Spontaneous abortions 1 Hx # Term Pregnancies Ectopic pregnancies Hx # Pregnancies Multiple births # of living children 0 Past Pregnancies Del. Date Name GA/Weeks Outcome Route Bth Weight Gen Labor Lgth Anesthesia Del Locatn Provider FOB 08/08/24 4 spontaneous HPI 21 wk ob Details: ALBINO SANTIAGO is a 29 year old who presents for routine OB visit. OB Visit SREEDHAR Calculator Estimated Delivery Date Method Current WG Current Estimate 05/15/25 LMP (Certain) 21w 0d Other Estimates 05/16/25 Ultrasound #1 20w 6d Expected Delivery Route/Plan Labor Preferences- CB/BF classes: [] labor support person: [] labor intervention preferences: [] pain management options preferred: [] cut cord/dad catch: [] : [] PP control planned: [] discussed possible routes of delivery and associated risks: [] special requests: [] Specific Issue/Plans Covid status: [] Flu vaccine: [] Tdap vaccine: [] Rhogam: [] LARC form signed: [] Problem list reviewed and updated with the most current plan of care details and appropriate orders placed. Relevant counseling for the gestational age provided. Continue routine care and follow up unless otherwise noted in visit notes/problem list details Initial Weight: Not Recorded Date -?-?-?-?-?-?-?-?-?-?-?-?- EGA Weight BP Urine Prot -?-?-?-?-?-?-?-?-?-?-?-?- Glucose FHR FuHt Pres Dilation -?-?-?-?-?-?-?-?-?-?-?-?- Effaced St Visit Note 10/11/24 -?-?-?-?-?-?-?-?-?-?-?-?- 9w 1d 153 lb 8 oz 135/68 -?-?--?-?-?-?-?-?-?-?-?-?- 180 -?-?-?-?-?-?-?-?-?-?-?-?- SM- CRL 2.24cm c ons with lMP 11/08/24 -?-?-?-?-?-?-?-?-?-?-?-?- 13w 1d 151 lb 6 oz 125/73 Nega tive -?-?-?-?-?-?-?-?-?-?-?-?- Negative 160 -?-?-?-?-?-?-?-?-?-?-?-?- SM- no vb crampi ng 12/02/24 -?-?-?-?-?-?-?-?-?-?-?-?- 16w 4d 155 lb 119/71 Negative -?-?-?-?-?-?-?-?-?-?-?-?- Negative 158 -?-?-?-?-?-?-?-?-?-?-?-?- MH-No VB. Some h [place]-meds reviewed. 01/02/25 -?-?-?-?-?-?-?-?-?-?-?-?- 21w 0d 158 lb 2 oz 135/70 Nega tive -?-?-?-?-?-?-?-?-?-?-?-?- 147 -?-?-?-?-?-?-?-?-?-?-?-?- JV- having a gir l! normal anatomy. no complaints today. ACOG First Trimester First Trimester: Desire for , Alcohol, Tobacco Cessation, Illicit/Recreational Drug/Substance Use, Intimate Partner Violence, Barriers to care, Unstable Housing, Communication Barriers, Environmental/Work Hazards, Anticipated Course of Care, Toxoplasmosis Precations, Use of Any medications, Sexual activity, Exercise, Dental Care, Sauna/Hot tub use, Seat Belt use, Childbirth classes/Hospital facilities, Travel, Indications for Ultrasound and Screening for Aneuploidy; Discussed Results POC Urinalysis 2 Dip (Clinic) Office Urine Glucose Last Edit by Tess Carrington on 01/02/25 10:51 Office Urine Protein Negative Last Edit by Tess Carrington on 01/02/25 10:51 Coding Level of Care Code OB Routine Diagnoses Supervision of high risk in second trimester O09.92 Trimester: second trimester 21 weeks gestation of Z3A.21 Weeks of gestation: 21 weeks Hx of one miscarriage Z87.59 Assessment and Plan Assessment and Plan (1) Supervision of high-risk : Status: Acute Qualifiers: Trimester: second trimester Qualified Code(s): O09.92 - Supervision of high risk , unspecified, second trimester Comment: PRR G2PO, SREEDHAR 05/15/25, girl Melvin (2) : Status: Acute Qualifiers: Weeks of gestation: 21 weeks Qualified Code(s): Z3A.21 - 21 weeks gestation of Comment: low risk, gender female declined carrier and AFP, nml anatomy (3) Hx of one miscarriage: Status: Acute Orders: Orders POC Urinalysis 2 Dip (Clinic) Today 01/02/25 1108 <Electronically signed by Rhea Foster DO> Date _ Rhealakshmi Barker Mellisa Zambrano Signature: Date (if applicable) CC: ~ [facility] Work Phone: Progress note Author Becky Caballero [facility] Note Date/Time January 29, 2025 10: 39am [facility] [address] [place] [address], [address] [place] [address] OFFICE VISIT Date of Service: 01/29/25 MR#: [id number] Acct: [id number] Name: ALBINO SANTIAGO p #: [phone] : 1995 Provider: FABIO Caballero Age/Sex: 29/F Location: [facility] [place] Status: Signed Intake Vital Signs 12/02/24 12:59 01/02/25 10:41 01/29/25 10:24 Height 5 ft 5 in 5 ft 5 in 5 ft 5 in Weight: 162 lb BMI 26.9 BP 110/67 Intake Visit Reasons: 25wk ob Hand Turner Required: No Is patient in pain?: No Allergies No Known Allergies Allergy (Verified 01/29/25 10:22) Medications ?Medication ?Instructions ?Recorded ?Confirmed ?Type L.acidophilus-B.animalis-B.bifidum cap PO 09/24/2412/18 History 25 billion cell-FOS 100 mg capsule (Probiotic Complex) multivitamin no.47-iron fum 27 cap PO 09/24/24 5 History mg-folate no.1 1 mg-dha 300 mg capsule (PNV-DHA) Last Menstrual Period: 08/08/24 Zika: Zika virus screening: Negative : No PFSH PFSH Medical History Complete miscarriage Family History Mother Hypertension, Onset Age: 45 Grandfather No problems noted. Father MTHFR gene mutation Sister MTHFR gene mutation Social History adopted: No household members: spouse housing: house number of children: 0 current occupational status: employed current occupation: [employer] in [place] current occupational exposures/hazards: No pets and animals: Yes pets and animals: dog(s) history of recent travel: [place] ([place]) out of state: Yes out of country: No sexually active: Yes Smoking Status: Never smoker alcohol intake: current alcohol intake frequency: holidays/special occasions only details: Not while substance use type: does not use well-balanced diet: daily or most days caffeine: No eating out: 4 or more times/week during the past year weight has: remained stable what type of physical activity do you participate in: aerobics frequency: 3-4 times per week duration: 45-60 minutes/day dana/jewish: Jewish seatbelt use: always do you feel safe at home: Yes 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 Date Name GA/Weeks Outcome Route Bth Weight Gen Labor Lgth Anesthesia Del Locatn Provider FOB 08/08/24 4 spontaneous HPI 25wk ob Details: ALBINO SANTIAGO is a 29 year old who presents for routine OB visit. OB Visit SREEDHAR Calculator Estimated Delivery Date Method Current WG Current Estimate 05/15/25 LMP (Certain) 24w 6d Other Estimates 05/16/25 Ultrasound #1 24w 5d Expected Delivery Route/Plan Labor Preferences- CB/BF classes: [] labor support person: [] labor intervention preferences: [] pain management options preferred: [] cut cord/dad catch: [] : [] PP control planned: [] discussed possible routes of delivery and associated risks: [] special requests: [] Specific Issue/Plans Covid status: [] Flu vaccine: [] Tdap vaccine: [] Rhogam: [] LARC form signed: [] Problem list reviewed and updated with the most current plan of care details and appropriate orders placed. Relevant counseling for the gestational age provided. Continue routine care and follow up unless otherwise noted in visit notes/problem list details Initial Weight: Not Recorded Date -?-?-?-?-?-?-?-?-?-?-?-?- EGA Weight BP Urine Prot -?-?-?-?-?-?-?-?-?-?-?-?- Glucose FHR FuHt Pres Dilation -?-?-?-?-?-?-?-?-?-?-?-?- Effaced St Visit Note 10/11/24 -?-?-?-?-?-?-?-?-?-?-?-?- 9w 1d 153 lb 8 oz 135/68 -?-?-?-?-?-?-?-?-?-?-?-?- 180 -?-?-?-?-?-?-?-?-?-?-?-?- SM- CRL 2.24cm c ons with lMP 11/08/24 -?-?-?-?-?-?-?-?-?-?-?-?- 13w 1d 151 lb 6 oz 125/73 Nega tive -?-?-?-?-?-?-?-?-?-?-?-?- Negative 160 -?-?-?-?-?-?-?-?-?-?-?-?- SM- no vb crampi ng 12/02/24 -?-?-?-?-?-?-?-?-?-?-?-?- 16w 4d 155 lb 119/71 Negative -?-?-?-?-?-?-?-?-?-?-?-?- Negative 158 -?-?-?-?-?-?-?-?-?-?-?-?- MH-No VB. Some h [facility]-meds reviewed. 01/02/25 -?-?-?-?-?-?-?-?-?-?-?-?- 21w 0d 158 lb 2 oz 135/70 Nega tive -?-?-?-?-?-?-?--?-?-?-?-?- 147 -?-?-?-?-?-?-?-?-?-?-?-?- JV- having a gir l! normal anatomy. no complaints today. 01/29/25 -?-?-?-?-?-?-?-?-?-?-?-?- 24w 6d 162 lb 110/67 Negative -?-?-?-?-?-?-?-?-?-?-?-?- Negative 145 25 -?-?-?-?-?-?-?-?-?-?-?-?- KW- no vb/lof/ct x. good fm. having occasional burning in LUQ. Noticed after doing planks when working out. no blurred vision/headache. suspect muscle strain. ACOG First Trimester First Trimester: Desire for , Alcohol, Tobacco Cessation, Illicit/Recreational Drug/Substance Use, Intimate Partner Violence, Barriers to care, Unstable Housing, Communication Barriers, Environmental/Work Hazards, Anticipated Course of Care, Toxoplasmosis Precations, Use of Any medications, Sexual activity, Exercise, Dental Care, Sauna/Hot tub use, Seat Belt use, Childbirth classes/Hospital facilities, Travel, Indications for Ultrasound and Screening for Aneuploidy; Discussed ROS Const Reports system reviewed and no additional complaints, except as documented Eyes Reports system reviewed and no additional complaints, except as documented ENT Reports system reviewed and no additional complaints, except as documented Card Reports system reviewed and no additional complaints, except as documented Resp Reports system reviewed and no additional complaints, except as documented GI Reports system reviewed and no additional complaints, except as documented, Denies nausea and Denies vomiting Reports system reviewed and no additional complaints, except as documented Musc Reports system reviewed and no additional complaints, except as documented Skin/Breast Reports system reviewed and no additional complaints, except as documented Neuro Yes system reviewed and no additional complaints, except as documented Psych Reports system reviewed and no additional complaints, except as documented Endo Reports system reviewed and no additional complaints, except as documented Rebel/Lymph Reports system reviewed and no additional complaints, except as documented Aller/Immun Reports system reviewed and no additional complaints, except as documented Exam Const General: cooperative, healthy appearing and no acute distress Orientation: alert, awake and oriented x3 Neck Neck: normal visual inspection and full ROM Resp Effort & Inspection: normal respiratory effort, able to speak in complete sentences and symmetric chest movement GI Inspection: normal to inspection Palpation: soft and other Other: gravid Skin General: no rashes or lesions noted Neuro General: patient alert, patient awake and patient oriented x3 Cognition: normal cognition Speech: speech normal Gait: normal gait Motor: muscle tone normal throughout Extrem General: normal to inspection and full ROM Psych Appearance: grossly normal Mental Status: mental status grossly normal Mood: congruent mood Affect: normal affect Speech and Movement: speech and movement normal Attitude: cooperative Thought Process: normal Thought Content: normal Judgment: judgment good Results POC Urinalysis 2 Dip (Clinic) Office Urine Glucose Negative Last Edit by Tess Carrington on 01/29/25 10:29 Office Urine Protein Negative Last Edit by Tess Carrington on 01/29/25 10:29 Coding Level of Care Code OB Routine Diagnoses Supervision of high risk in second trimester O09.92 Trimester: second trimester 24 weeks gestation of Z3A.24 Weeks of gestation: 24 weeks Hx of one miscarriage Z87.59 Assessment and Plan Assessment and Plan (1) Supervision of high-risk : Status: Acute Qualifiers: Trimester: second trimester Qualified Code(s): O09.92 - Supervision of high risk , unspecified, second trimester Comment: PRR G2PO, SREEDHAR 05/15/25, girl Melvin (2) : Status: Acute Qualifiers: Weeks of gestation: 24 weeks Qualified Code(s): Z3A.24 - 24 weeks gestation of Comment: low risk, gender female declined carrier and AFP, nml anatomy (3) Hx of one miscarriage: Status: Acute Orders: Orders POC Urinalysis 2 Dip (Clinic) Today CBC W/Diff, Automated Today O09.92 - Supervision of high risk , unspecified, second trimester Glucose Challenge Gest 1H 50g Today O09.92 - Supervision of high risk , unspecified, second trimester, Z13.1 - Encounter for screening for diabetes mellitus HIV Today O09.92 - Supervision of high risk , unspecified, second trimester Syphilis Antibodies Today O09.92 - Supervision of high risk , unspecified, second trimester Plan Details Additional Comments: ACOG trimester education reviewed and updated. see problem list details for updated plan management information and see below for orders placed at this visit. GA appropriate handout given. 01/29/25 1039 <Electronically signed by Becky quevedo CNM> Date _ Becky Federico MCCARTHY Cosigner Signature: Date (if applicable) CC: ~ [facility] Work Phone: Progress note Author Kamille Albarran [facility] Note Date/Time March 03, 2025 9:21am [facility] [address] [place] [address], [address] [place] [address] OFFICE VISIT Date of Service: 03/03/25 MR#: [id number] Acct: [id number] Name: ALBINO SANTIAGO p #: [id number] : 1995 Provider: Dr. Jay Albarran MD Age/Sex: 29/F Location: [facility] [place] Status: Signed Intake Vital Signs 01/02/25 10:41 02/19/25 08:28 03/03/25 08:57 03/03/25 09:15 Height 5 ft 5 in 5 ft 5 in 5 ft 5 in Weight: 168 lb BMI 27.9 BP 122/61 H Intake Visit Reasons: 30 wk ob Hand Turner Required: No Is patient in pain?: No Feel stressed/tense/nervous/anxious/difficulty sleeping: not at all Allergies No Known Allergies Allergy (Verified 03/03/25 08:55) Medications ?Medication ?Instructions ?Recorded ?Confirmed ?Type L.acidophilus-B.animalis-B.bifidum cap PO 09/24/2402/17 History 25 billion cell-FOS 100 mg capsule (Probiotic Complex) multivitamin no.47-iron fum 27 cap PO 09/24/24 5 History mg-folate no.1 1 mg-dha 300 mg capsule (PNV-DHA) Last Menstrual Period: 08/08/24 Zika: Zika virus screening: Negative : No PFSH PFSH Medical History Complete miscarriage Family History Mother Hypertension, Onset Age: 45 Grandfather No problems noted. Father MTHFR gene mutation Sister MTHFR gene mutation Social History adopted: No household members: spouse housing: house number of children: 0 current occupational status: employed current occupation: [employer] in [place] current occupational exposures/hazards: No pets and animals: Yes pets and animals: dog(s) history of recent travel: [place] ([place]) out of state: Yes out of country: No sexually active: Yes Smoking Status: Never smoker alcohol intake: current alcohol intake frequency: holidays/special occasions only details: Not while substance use type: does not use well-balanced diet: daily or most days caffeine: No eating out: 4 or more times/week during the past year weight has: remained stable what type of physical activity do you participate in: aerobics frequency: 3-4 times per week duration: 45-60 minutes/day dana/jewish: Jewish seatbelt use: always do you feel safe at home: Yes 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 Date Name GA/Weeks Outcome Route Bth Weight Gen Labor Lgth Anesthesia Del Locatn Provider FOB 08/08/24 4 spontaneous HPI 30 wk ob Details: ALBINO SANTIAGO is a 29 year old who presents for routine OB visit. OB Visit SREEDHAR Calculator Estimated Delivery Date Method Current WG Current Estimate 05/15/25 LMP (Certain) 29w 4d Other Estimates 05/16/25 Ultrasound #1 29w 3d Expected Delivery Route/Plan Labor Preferences- CB/BF classes: yes labor support person: Melvin labor intervention preferences: [] pain management options preferred: epidural cut cord/dad catch: yes : yes PP control planned: discussed discussed possible routes of delivery and associated risks: [] special requests: [] Specific Issue/Plans Covid status: [] Flu vaccine: [] Tdap vaccine: considering Rhogam: NA LARC form signed: yes movement and labor precautions reviewed. Problem list reviewed and updated with the most current plan of care details and appropriate orders placed. Relevant counseling for the gestational age provided. Continue routine care and follow up unless otherwise noted in visit notes/problem list details Initial Weight: Not Recorded Date -?-?-?-?-?-?-?-?-?-?-?-?- EGA Weight BP Urine Prot -?-?-?-?-?-?-?-?-?-?-?-?- Glucose FHR FuHt Pres Dilation -?-?-?-?-?-?-?-?-?-?-?-?- Effaced St Visit Note 10/11/24 -?-?-?-?-?-?-?-?-?-?-?-?- 9w 1d 153 lb 8 oz 135/68 -?-?-?-?-?-?-?-?-?-?-?-?- 180 -?-?-?-?-?-?-?-?-?-?-?-?- SM- CRL 2.24cm c ons with lMP 11/08/24 -?-?-?-?-?-?-?-?-?-?-?-?- 13w 1d 151 lb 6 oz 125/73 Nega tive -?-?-?-?-?-?-?-?-?-?-?-?- Negative 160 -?-?-?--?-?-?-?-?-?-?-?-?- SM- no vb crampi ng 12/02/24 -?-?-?-?-?-?-?-?-?-?-?-?- 16w 4d 155 lb 119/71 Negative -?-?-?-?-?-?-?-?-?-?-?-?- Negative 158 -?-?-?-?-?-?-?-?-?-?-?-?- MH-No VB. Some h [facility]-meds reviewed. 01/02/25 -?-?-?-?-?-?-?-?-?-?-?-?- 21w 0d 158 lb 2 oz 135/70 Nega tive -?-?-?-?-?-?-?-?-?-?-?-?- 147 -?-?-?-?-?-?-?-?-?-?-?-?- JV- having a gir l! normal anatomy. no complaints today. 01/29/25 -?-?-?-?-?-?-?-?-?-?-?-?- 24w 6d 162 lb 110/67 Negative -?-?-?-?-?-?-?-?-?-?-?-?- Negative 145 25 -?-?-?-?-?-?-?-?-?-?-?-?- KW- no vb/lof/ct x. good fm. having occasional burning in LUQ. Noticed after doing planks when working out. no blurred vision/headache. suspect muscle strain. 02/19/25 -?-?-?-?-?-?-?-?-?-?-?-?- 27w 6d 168 lb 130/72 Negative -?-?-?-?-?-?-?-?-?-?-?-?- Negative 143 28 -?-?-?-?-?-?-?-?-?-?-?-?- MH-No VB, lof. S ome dizziness/discussed freq meals, no quick position changes, increase fluids. 28 wk labs pending. [facility] 03/03/25 -?-?-?-?-?-?-?-?-?-?-?-?- 29w 4d 168 lb 122/61 Negative -?-?-?-?-?-?-?-?-?-?-?-?- Negative 140 30 -?-?-?-?-?-?-?-?-?-?-?-?- Sm- no vb lof go od fm no reuglar ctx co rib pain and right sided pain ACOG First Trimester First Trimester: Desire for , Alcohol, Tobacco Cessation, Illicit/Recreational Drug/Substance Use, Intimate Partner Violence, Barriers to care, Unstable Housing, Communication Barriers, Environmental/Work Hazards, Anticipated Course of Care, Toxoplasmosis Precations, Use of Any medications, Sexual activity, Exercise, Dental Care, Sauna/Hot tub use, Seat Belt use, Childbirth classes/Hospital facilities, Travel, Indications for Ultrasound and Screening for Aneuploidy; Discussed Second Trimester Second Trimester: Signs and Symptoms of Labor, Selecting a care provider, Depression/Anxiety and Intimate Partner Violence Third Trimester Third Trimester: Pain Management Plans, Labor support person(s), Immediate Larc, Signs and Symptoms of Preeclampsia, Feeding No and Family Medical Leave or Disability Forms Results POC Urinalysis 2 Dip (Clinic) Office Urine Glucose Negative Last Edit by Tess Carrington on 03/03/25 09:00 Office Urine Protein Negative Last Edit by Tess Carrington on 03/03/25 09:00 Coding Level of Care Code OB Routine Diagnoses Supervision of high risk in second trimester O09.92 Trimester: second trimester 29 weeks gestation of Z3A.29 Weeks of gestation: 29 weeks Hx of one miscarriage Z87.59 Assessment and Plan Assessment and Plan (1) Supervision of high-risk : Status: Acute Qualifiers: Trimester: second trimester Qualified Code(s): O09.92 - Supervision of high risk , unspecified, second trimester Comment: PRR G2PO, SREEDHAR 05/15/25, girl Melvin (2) : Status: Acute Qualifiers: Weeks of gestation: 29 weeks Qualified Code(s): Z3A.29 - 29 weeks gestation of Comment: low risk, gender female declined carrier and AFP, nml anatomy (3) Hx of one miscarriage: Status: Acute Orders: Orders POC Urinalysis 2 Dip (Clinic) Today 03/03/25920 <Electronically signed by Kamille emerson MD> Date _ Kamille Albarran MD Cosigner Signature: Date (if applicable) CC: ~ [facility] Work Phone: Progress note Author Becky Caballero [facility] Note Date/Time March 21, 2025 9:42am [facility] [address], [address] [place] [address] OFFICE VISIT Date of Service: 03/21/25 MR#: [id number] Acct: [id number] Name: ALBINO SANTIAGO p #: [id number] : 1995 Provider: FABIO Caballero Age/Sex: 29/F Location: [facility] [place] Status: Signed Intake Vital Signs 02/19/25 08:28 03/03/25 08:57 03/21/25 09:17 Height 5 ft 5 in 5 ft 5 in 5 ft 5 in Weight: 167 lb 8 oz BMI 27.8 BP 121/73 H Intake Visit Reasons: 32wk ob Chief Complaint: 32wk OB Hand Turner Required: No Is patient in pain?: No Allergies No Known Allergies Allergy (Verified 03/21/25 09:15) Medications ?Medication ?Instructions ?Recorded ?Confirmed ?Type L.acidophilus-B.animalis-B.bifidum cap PO 09/24/24 History 25 billion cell-FOS 100 mg capsule (Probiotic Complex) multivitamin no.47-iron fum 27 cap PO 09/24/24 5 History mg-folate no.1 1 mg-dha 300 mg capsule (PNV-DHA) Last Menstrual Period: 08/08/24 : No Have you fallen in the past year?: No PFSH PFSH Medical History Complete miscarriage Family History Mother Hypertension, Onset Age: 45 Grandfather No problems noted. Father MTHFR gene mutation Sister MTHFR gene mutation Social History adopted: No household members: spouse housing: house number of children: 0 current occupational status: employed current occupation: [employer] in [place] current occupational exposures/hazards: No pets and animals: Yes pets and animals: dog(s) history of recent travel: [place] ([place]) out of state: Yes out of country: No sexually active: Yes Smoking Status: Never smoker alcohol intake: current alcohol intake frequency: holidays/special occasions only details: Not while substance use type: does not use well-balanced diet: daily or most days caffeine: No eating out: 4 or more times/week during the past year weight has: remained stable what type of physical activity do you participate in: aerobics frequency: 3-4 times per week duration: 45-60 minutes/day dana/jewish: Jewish seatbelt use: always do you feel safe at home: Yes 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 Date Name GA/Weeks Outcome Route Bth Weight Infant Gen Labor Lgth Anesthesia Del Locatn Provider FOB 08/08/24 4 spontaneous HPI 32wk ob Details: ALBINO SANTIAGO is a 29 year old who presents for routine OB visit. OB Visit SREEDHAR Calculator Estimated Delivery Date Method Current WG Current Estimate 05/15/25 LMP (Certain) 32w 1d Other Estimates 05/16/25 Ultrasound #1 32w 0d Expected Delivery Route/Plan Labor Preferences- CB/BF classes: yes labor support person: Melvin labor intervention preferences: [] pain management options preferred: epidural cut cord/dad catch: yes : yes PP control planned: discussed discussed possible routes of delivery and associated risks: [] special requests: [] Specific Issue/Plans Covid status: [] Flu vaccine: [] Tdap vaccine: considering Rhogam: NA LARC form signed: yes movement and labor precautions reviewed. Problem list reviewed and updated with the most current plan of care details and appropriate orders placed. Relevant counseling for the gestational age provided. Continue routine care and follow up unless otherwise noted in visit notes/problem list details Initial Weight: Not Recorded Date -?-?-?-?-?-?-?-?-?-?-?-?- EGA Weight BP Urine Prot -?-?-?-?-?-?-?-?-?--?-?-?- Glucose FHR FuHt Pres Dilation -?-?-?-?-?-?-?-?-?-?-?-?- Effaced St Visit Note 10/11/24 -?-?-?-?-?-?-?-?-?-?-?-?- 9w 1d 153 lb 8 oz 135/68 -?-?-?-?-?-?-?-?-?-?-?-?- 180 -?-?-?-?-?-?-?-?-?-?-?-?- SM- CRL 2.24cm c ons with lMP 11/08/24 -?-?-?-?-?-?-?-?-?-?-?-?- 13w 1d 151 lb 6 oz 125/73 Nega tive -?-?-?-?-?-?-?-?-?-?-?-?- Negative 160 -?-?-?-?-?-?-?-?-?-?-?-?- SM- no vb crampi ng 12/02/24 -?-?-?-?-?-?-?-?-?-?-?-?- 16w 4d 155 lb 119/71 Negative -?-?-?-?-?-?-?-?-?-?-?-?- Negative 158 -?-?-?-?-?-?-?-?-?-?-?-?- MH-No VB. Some h [place]-meds reviewed. 01/02/25 -?-?-?-?-?-?-?-?-?-?-?-?- 21w 0d 158 lb 2 oz 135/70 Nega tive -?-?-?-?-?-?-?-?-?-?-?-?- 147 -?-?-?-?-?-?-?-?-?-?-?-?- JV- having a gir l! normal anatomy. no complaints today. 01/29/25 -?-?-?-?-?-?-?-?-?-?-?-?- 24w 6d 162 lb 110/67 Negative -?-?-?-?-?-?-?-?-?-?-?-?- Negative 145 25 -?-?-?-?-?-?-?-?-?-?-?-?- KW- no vb/lof/ct x. good fm. having occasional burning in LUQ. Noticed after doing planks when working out. no blurred vision/headache. suspect muscle strain. 02/19/25 -?-?-?-?-?-?-?-?-?-?-?-?- 27w 6d 168 lb 130/72 Negative -?-?-?-?-?-?-?-?-?-?-?-?- Negative 143 28 -?-?-?-?-?-?-?-?-?-?-?-?- MH-No VB, lof. S ome dizziness/discussed freq meals, no quick position changes, increase fluids. 28 wk labs pending. Larc 03/03/25 -?-?-?-?-?-?-?--?-?-?-?-?- 29w 4d 168 lb 122/61 Negative -?-?-?-?-?-?-?-?-?-?-?-?- Negative 140 30 -?-?-?-?-?-?-?-?-?-?-?-?- Sm- no vb lof go od fm no reuglar ctx co rib pain and right sided pain 03/21/25 -?-?-?-?-?-?-?-?-?-?-?-?- 32w 1d 167 lb 8 oz 121/73 Nega tive -?-?-?-?-?-?-?-?-?-?-?-?- Negative 130 32 -?-?-?-?-?-?-?-?-?-?-?-?- KW- no vb/lof/ct x. good fm. KW- no vb/lof/ctx. good fm. Flu shot . LARC done ACOG First Trimester First Trimester: Desire for , Alcohol, Tobacco Cessation, Illicit/Recreational Drug/Substance Use, Intimate Partner Violence, Barriers to care, Unstable Housing, Communication Barriers, Environmental/Work Hazards, Anticipated Course of Care, Toxoplasmosis Precations, Use of Any medications, Sexual activity, Exercise, Dental Care, Sauna/Hot tub use, Seat Belt use, Childbirth classes/Hospital facilities, Travel, Indications for Ultrasound and Screening for Aneuploidy; Discussed Second Trimester Second Trimester: Signs and Symptoms of Labor, Selecting a care provider, Depression/Anxiety and Intimate Partner Violence Third Trimester Third Trimester: Pain Management Plans, Labor support person(s), Immediate Larc, Signs and Symptoms of Preeclampsia, Feeding No and Family Medical Leave or Disability Forms ROS Const Reports system reviewed and no additional complaints, except as documented Eyes Reports system reviewed and no additional complaints, except as documented ENT Reports system reviewed and no additional complaints, except as documented Card Reports system reviewed and no additional complaints, except as documented Resp Reports system reviewed and no additional complaints, except as documented GI Reports system reviewed and no additional complaints, except as documented, Denies nausea and Denies vomiting Reports system reviewed and no additional complaints, except as documented Musc Reports system reviewed and no additional complaints, except as documented Skin/Breast Reports system reviewed and no additional complaints, except as documented Neuro Yes system reviewed and no additional complaints, except as documented Psych Reports system reviewed and no additional complaints, except as documented Endo Reports system reviewed and no additional complaints, except as documented Rebel/Lymph Reports system reviewed and no additional complaints, except as documented Aller/Immun Reports system reviewed and no additional complaints, except as documented Exam Const General: cooperative, healthy appearing and no acute distress Orientation: alert, awake and oriented x3 Neck Neck: normal visual inspection and full ROM Resp Effort & Inspection: normal respiratory effort, able to speak in complete sentences and symmetric chest movement GI Inspection: normal to inspection Palpation: soft and other Other: gravid Skin General: no rashes or lesions noted Neuro General: patient alert, patient awake and patient oriented x3 Cognition: normal cognition Speech: speech normal Gait: normal gait Motor: muscle tone normal throughout Extrem General: normal to inspection and full ROM Psych Appearance: grossly normal Mental Status: mental status grossly normal Mood: congruent mood Affect: normal affect Speech and Movement: speech and movement normal Attitude: cooperative Thought Process: normal Thought Content: normal Judgment: judgment good Results POC Urinalysis 2 Dip (Clinic) Office Urine Glucose Negative Last Edit by Maria L Miguel on 03/21/25 09:32 Office Urine Protein Negative Last Edit by Maria L Miguel on 03/21/25 09:32 Coding Level of Care Code OB Routine Diagnoses Right upper quadrant pain R10.11 Supervision of high risk in second trimester O09.92 Trimester: second trimester 32 weeks gestation of Z3A.32 Weeks of gestation: 32 weeks Hx of one miscarriage Z87.59 Assessment and Plan Assessment and Plan (1) Right upper quadrant pain: Status: Acute Comment: labs ordered (2) Supervision of high-risk : Status: Acute Qualifiers: Trimester: second trimester Qualified Code(s): O09.92 - Supervision of high risk , unspecified, second trimester Comment: PRR G2PO, RSEEDHAR 05/15/25, girl Renee Melvin (3) : Status: Acute Qualifiers: Weeks of gestation: 32 weeks Qualified Code(s): Z3A.32 - 32 weeks gestation of Comment: low risk, gender female declined carrier and AFP, nml anatomy (4) Hx of one miscarriage: Status: Acute Orders: Orders POC Urinalysis 2 Dip (Clinic) Today Plan Details Additional Comments: ACOG trimester education reviewed and updated. see problem list details for updated plan management information and see below for orders placed at this visit. GA appropriate handout given. Clinical Quality Measures Falls Risk Screening/Assistive Devices Have you fallen in the past year?: No 03/21/25 0942 <Electronically signed by Becky quevedo CNM> Date _ Becky Caballero CNM Cosigner Signature: Date (if applicable) CC: ~ [facility] Work Phone: Progress note Author Tess Lynch [facility] Note Date/Time April 16, 2025 1 0:29am [facility] [address] [place] [address], [address] [place] [address] OFFICE VISIT Date of Service: 04/16/25 MR#: [id number] Acct: [id number] Name: ALBINO SANTIAGOJOSE Huang p #: [id number] : 1995 Provider: MOOSE Lynch Age/Sex: 29/F Location: [facility] [place] Status: Signed Intake Vital Signs 02/19/25 08:28 04/03/25 15:18 04/16/25 08:51 Height 5 ft 5 in 5 ft 5 in 5 ft 5 in Weight: 171 lb 4 oz BMI 28.5 BP 110/74 Intake Visit Reasons: 35w 6d ob Hand Turner Required: No Is patient in pain?: No Allergies No Known Allergies Allergy (Verified 04/16/25 08:54) Medications ?Medication ?Instructions ?Recorded ?Confirmed ?Type L.acidophilus-B.animalis-B.bifidum cap PO 09/24/24 History 25 billion cell-FOS 100 mg capsule (Probiotic Complex) multivitamin no.47-iron fum 27 cap PO 09/24/24 5 History mg-folate no.1 1 mg-dha 300 mg capsule (PNV-DHA) Last Menstrual Period: 08/08/24 Zika: Zika virus screening: Negative : No PFSH PFSH Medical History Complete miscarriage Family History Mother Hypertension, Onset Age: 45 Grandfather No problems noted. Father MTHFR gene mutation Sister MTHFR gene mutation Social History adopted: No household members: spouse housing: house number of children: 0 current occupational status: employed current occupation: [employer] in [place] current occupational exposures/hazards: No pets and animals: Yes pets and animals: dog(s) history of recent travel: [place] ([place]) out of state: Yes out of country: No sexually active: Yes Smoking Status: Never smoker alcohol intake: current alcohol intake frequency: holidays/special occasions only details: Not while substance use type: does not use well-balanced diet: daily or most days caffeine: No eating out: 4 or more times/week during the past year weight has: remained stable what type of physical activity do you participate in: aerobics frequency: 3-4 times per week duration: 45-60 minutes/day dana/jewish: Jewish seatbelt use: always do you feel safe at home: Yes 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 Date Name GA/Weeks Outcome Route Bth Weight Gen Labor Lgth Anesthesia Del Chonn Provider FOB 08/08/24 4 spontaneous HPI 35w 6d ob Details: ALBINO SANTIAGO is a 29 year old who presents for routine OB visit. OB Visit SREEDHAR Calculator Estimated Delivery Date Method Current WG Current Estimate 05/15/25 LMP (Certain) 35w 6d Other Estimates 05/16/25 Ultrasound #1 35w 5d Expected Delivery Route/Plan Labor Preferences- CB/BF classes: yes labor support person: Melvin labor intervention preferences: [] pain management options preferred: epidural cut cord/dad catch: yes : yes PP control planned: discussed discussed possible routes of delivery and associated risks: [] special requests: [] Specific Issue/Plans Covid status: [] Flu vaccine: [] Tdap vaccine: considering Rhogam: NA LARC form signed: yes movement and labor precautions reviewed. Problem list reviewed and updated with the most current plan of care details and appropriate orders placed. Relevant counseling for the gestational age provided. Continue routine care and follow up unless otherwise noted in visit notes/problem list details Initial Weight: Not Recorded Date -?--?-?-?-?-?-?-?-?-?-?-?- EGA Weight BP Urine Prot -?-?-?-?-?-?-?-?-?-?-?-?- Glucose FHR FuHt Pres Dilation -?-?-?-?-?-?-?-?-?-?-?-?- Effaced St Visit Note 10/11/24 -?-?-?-?-?-?-?-?-?-?-?-?- 9w 1d 153 lb 8 oz 135/68 -?-?-?-?-?-?-?-?-?-?-?-?- 180 -?-?-?-?-?-?-?-?-?-?-?-?- SM- CRL 2.24cm c ons with lMP 11/08/24 -?-?-?-?-?-?-?-?-?-?-?-?- 13w 1d 151 lb 6 oz 125/73 Nega tive -?-?-?-?-?-?-?-?-?-?-?-?- Negative 160 -?-?-?-?-?-?-?-?-?-?-?-?- SM- no vb crampi ng 12/02/24 -?-?-?-?-?-?-?-?-?-?-?-?- 16w 4d 155 lb 119/71 Negative -?-?-?-?-?-?-?-?-?-?-?-?- Negative 158 -?-?-?-?-?-?-?-?-?-?-?-?- -No VB. Some h [place]-meds reviewed. 01/02/25 -?-?-?-?-?-?-?-?-?-?-?-?- 21w 0d 158 lb 2 oz 135/70 Nega tive -?-?-?-?-?-?-?-?-?-?-?-?- 147 -?-?-?-?-?-?-?-?-?-?-?-?- JV- having a gir l! normal anatomy. no complaints today. 01/29/25 -?-?-?-?-?-?-?-?-?-?-?-?- 24w 6d 162 lb 110/67 Negative -?-?-?-?-?-?-?-?-?-?-?-?- Negative 145 25 -?-?-?-?-?-?-?-?-?-?-?-?- KW- no vb/lof/ct x. good fm. having occasional burning in LUQ. Noticed after doing planks when working out. no blurred vision/headache. suspect muscle strain. 02/19/25 -?-?-?-?-?-?-?-?-?-?-?-?- 27w 6d 168 lb 130/72 Negative -?-?-?-?-?-?-?-?-?-?-?-?- Negative 143 28 -?-?-?-?-?-?-?-?-?-?-?-?- MH-No VB, lof. S ome dizziness/discussed freq meals, no quick position changes, increase fluids. 28 wk labs pending. Larc 03/03/25 -?-?-?-?-?-?-?-?-?-?-?-?- 29w 4d 168 lb 122/61 Negative -?-?-?-?-?-?-?-?-?-?-?-?- Negative 140 30 -?-?-?-?-?-?-?-?-?-?-?-?- Sm- no vb lof go od fm no reuglar ctx co rib pain and right sided pain 03/21/25 -?-?-?-?-?-?-?-?-?-?-?-?- 32w 1d 167 lb 8 oz 121/73 Nega tive -?-?-?-?-?-?-?-?-?-?-?-?- Negative 130 32 -?-?-?-?-?-?--?-?-?-?-?-?- KW- no vb/lof/ct x. good fm. KW- no vb/lof/ctx. good fm. Flu shot . LARC done 04/03/25 -?-?-?-?-?-?-?-?-?-?-?-?- 34w 0d 168 lb 9 oz 116/69 Nega tive -?-?-?-?-?-?-?-?-?-?-?-?- Negative 130 33.5 -?-?-?-?-?-?-?-?-?-?-?-?- JV- no lof, vagi nal bleeding, or dec fm. no complaints. 04/16/25 -?-?-?-?-?-?-?-?-?-?-?-?- 35w 6d 171 lb 4 oz 110/74 Nega tive -?-?-?-?-?-?-?-?-?-?-?-?- Negative 143 35 -?-?-?-?-?-?-?-?-?-?-?-?- MH-No VB, LOF. G ood FM. Noting X 1 week itching of hands/feet. No rash. Denies MICHAEL, vision changes. Labs and BPP ordered. ACOG First Trimester First Trimester: Desire for , Alcohol, Tobacco Cessation, Illicit/Recreational Drug/Substance Use, Intimate Partner Violence, Barriers to care, Unstable Housing, Communication Barriers, Environmental/Work Hazards, Anticipated Course of Care, Toxoplasmosis Precations, Use of Any medications, Sexual activity, Exercise, Dental Care, Sauna/Hot tub use, Seat Belt use, Childbirth classes/Hospital facilities, Travel, Indications for Ultrasound and Screening for Aneuploidy; Discussed Second Trimester Second Trimester: Signs and Symptoms of Labor, Selecting a care provider, Depression/Anxiety and Intimate Partner Violence Third Trimester Third Trimester: Pain Management Plans, Labor support person(s), Immediate Larc, Signs and Symptoms of Preeclampsia, Feeding No and Family Medical Leave or Disability Forms ROS Const Reports system reviewed and no additional complaints, except as documented GI Denies abdominal pain, Denies nausea and Denies vomiting Exam Const General: cooperative Nutritional Appearance: well nourished GI Palpation: soft, nontender and other (gravid) Results POC Urinalysis 2 Dip (Clinic) Office Urine Glucose Negative Last Edit by Yvette Richard on 04/16/25 08 :56 Office Urine Protein Negative Last Edit by Yvette Richard on 04/16/25 08 :56 Coding Level of Care Code OB Routine Diagnoses Supervision of high risk in second trimester O09.92 Trimester: second trimester Pruritus of in third trimester O99.713; L29.9 35 weeks gestation of Z3A.35 Weeks of gestation: 35 weeks Right upper quadrant pain R10.11 Hx of one miscarriage Z87.59 Assessment and Plan Assessment and Plan (1) Supervision of high-risk : Status: Acute Qualifiers: Trimester: second trimester Qualified Code(s): O09.92 - Supervision of high risk , unspecified, second trimester Comment: PRR G2PO, SREEDHAR 05/15/25, girl Renee Melvin (2) Pruritus of in third trimester: Status: Acute Comment: labs, BPP (3) : Status: Acute Qualifiers: Weeks of gestation: 35 weeks Qualified Code(s): Z3A.35 - 35 weeks gestation of Comment: low risk, gender female declined carrier and AFP, nml anatomy (4) Right upper quadrant pain: Status: Acute Comment: labs ordered-nl. Resolved (5) Hx of one miscarriage: Status: Acute Orders: Orders POC Urinalysis 2 Dip (Clinic) Today CBC W/Diff, Automated Today L29.9 - Pruritus, unspecified, O99.713 - Diseases of the skin and subcutaneous tissue complicating , third trimester Comprehensive Metabolic Profil Today L29.9 - Pruritus, unspecified, O99.713 - Diseases of the skin and subcutaneous tissue complicating , third trimester [facility] Misc. Today L29.9 - Pruritus, unspecified, O99.713 - Diseases of the skin and subcutaneous tissue complicating , third trimester OB Biophysical Prof W/O NST Today L29.9 - Pruritus, unspecified, O99.713 - Diseases of the skin and subcutaneous tissue complicating , third trimester Plan problem list reviewed and updated for most current plan of care and appropriate orders placed. Relevant counseling for the gestational age appropriate provided and ACOG education checklist updated. Continue routine care and follow up. 04/16/25 0952 <Electronically signed by Tess quevedo NP [employer]-C> Date _ Tess PALAFOXC Cosigner Signature: Date (if applicable) CC: ~ [facility] Work Phone: Reason for referral (narrative)No reason for referral information availableWGood [facility]ar[facility] Work Phone: Summary Purpose Family History No Family History Records Found Relationship Condition Age at Onset Recorded Date/T vicky mother Hypertension 45 father Methylenetetrahydrof olate reductase (MTHFR) gene mutation Unknown sister Methylenetetrahydrof olate reductase (MTHFR) gene mutation Unknown Advance Directives No Advanced Directives Records FoundNo Advanced Directives Records FoundNo Advanced Directives Records Found Chief Complaint and Reason for Visit Chief Complaint Admit Date INT LABS August 09, 2024 8:03am Miscarriage follow up August 23 2:30pm E ORDER September 08, 2024 11: 56am Reason for Visit Admit Date Complete miscarriage August 23, 2024 2:30pm Chief Complaint Admit Date INT LABS August 09, 2024 8:03am Miscarriage follow up August 23 2:30pm E ORDER September 08, 2024 11: 56am Nurse Visit, HCG, Vitals September 24, 2024 11:06am NOB LMP 08/08October 11, 2024 10: 19am Reason for Visit Admit Date Complete miscarriage August 23, 2024 2:30pm Hx of one miscarriage September 24, 2024 11 :06am September 24, 2024 11:0 6am Supervision of high-risk September 24, 2024 11:06am Hx of one miscarriage October 11, 2024 1 0:19am October 11, 2024 10: 19am Supervision of high-risk October 11, 2024 10:19am Chief Complaint Admit Date INT LABS August 09, 2024 8:03am Miscarriage follow up August 23 2:30pm E ORDER September 08, 2024 11: 56am Nurse Visit, HCG, Vitals September 24, 2024 11:06am NOB LMP 08/08October 11, 2024 10: 19am 13wk OB November 08, 2024 10:47 am Reason for Visit Admit Date Complete miscarriage August 23, 2024 2:30pm Hx of one miscarriage September 24, 2024 11 :06am September 24, 2024 11:0 6am Supervision of high-risk September 24, 2024 11:06am Hx of one miscarriage October 11, 2024 1 0:19am October 11, 2024 10: 19am Supervision of high-risk October 11, 2024 10:19am Hx of one miscarriage November 08, 2024 10: 47am November 08, 2024 10:47 am Supervision of high-risk October 242024 10:47am Chief Complaint Admit Date INT LABS August 09, 2024 8:03am Miscarriage follow up August 23 2:30pm E ORDER September 08, 2024 11: 56am Nurse Visit, HCG, Vitals September 24, 2024 11:06am NOB LMP 08/08October 11, 2024 10: 19am 13wk OB November 08, 2024 10:47 am 17 wk ob December 02, 2024 12:54 pm Reason for Visit Admit Date Complete miscarriage August 23, 2024 2:30pm Hx of one miscarriage September 24, 2024 11 :06am September 24, 2024 11:0 6am Supervision of high-risk September 24, 2024 11:06am Hx of one miscarriage October 11, 2024 1 0:19am October 11, 2024 10: 19am Supervision of high-risk October 11, 2024 10:19am Hx of one miscarriage November 08, 2024 10: 47am November 08, 2024 10:47 am Supervision of high-risk October 242024 10:47am Hx of one miscarriage December 02, 2024 12: 54pm December 02, 2024 12:54 pm Supervision of high-risk December 02, 2024 12:54pm Chief Complaint Admit Date E ORDER September 08, 2024 11: 56am Nurse Visit, HCG, Vitals September 24, 2024 11:06am NOB LMP 08/08October 11, 2024 10: 19am 13wk OB November 08, 2024 10:47 am 17 wk ob December 02, 2024 12:54 pm 21 wk ob January 02, 2025 10:3 9am Reason for Visit Admit Date Hx of one miscarriage September 24, 2024 11 :06am September 24, 2024 11:0 6am Supervision of high-risk September 24, 2024 11:06am Hx of one miscarriage October 11, 2024 1 0:19am October 11, 2024 10: 19am Supervision of high-risk October 11, 2024 10:19am Hx of one miscarriage November 08, 2024 10: 47am November 08, 2024 10:47 am Supervision of high-risk October 242024 10:47am Hx of one miscarriage December 02, 2024 12: 54pm December 02, 2024 12:54 pm Supervision of high-risk December 02, 2024 12:54pm Hx of one miscarriage January 02, 2025 10 :39am January 02, 2025 10:3 9am Supervision of high-risk January 02, 2025 10:39am Chief Complaint Admit Date NOB LMP /October 11, 2024 10: 19am 13wk OB November 08, 2024 10:47 am 17 wk ob December 02, 2024 12:54 pm 21 wk ob January 02, 2025 10:3 9am 25wk ob January 29, 2025 10: 18am Reason for Visit Admit Date Hx of one miscarriage October 11, 2024 1 0:19am October 11, 2024 10: 19am Supervision of high-risk October 11, 2024 10:19am Hx of one miscarriage November 08, 2024 10: 47am November 08, 2024 10:47 am Supervision of high-risk October 242024 10:47am Hx of one miscarriage December 02, 2024 12: 54pm December 02, 2024 12:54 pm Supervision of high-risk December 02, 2024 12:54pm Hx of one miscarriage January 02, 2025 10 :39am January 02, 2025 10:3 9am Supervision of high-risk January 02, 2025 10:39am Hx of one miscarriage January 29, 2025 1 0:18am January 29, 2025 10: 18am Supervision of high-risk Augus t 2024 10:18am Chief Complaint Admit Date 13wk OB November 08, 2024 10:47 am 17 wk ob December 02, 2024 12:54 pm 21 wk ob January 02, 2025 10:3 9am 25wk ob January 29, 2025 10: 18am 28wk ob/glucose February 19, 2025 8: 25am Reason for Visit Admit Date Hx of one miscarriage November 08, 2024 10: 47am November 08, 2024 10:47 am Supervision of high-risk October 242024 10:47am Hx of one miscarriage December 02, 2024 12: 54pm December 02, 2024 12:54 pm Supervision of high-risk December 02, 2024 12:54pm Hx of one miscarriage January 02, 2025 10 :39am January 02, 2025 10:3 9am Supervision of high-risk January 02, 2025 10:39am Hx of one miscarriage January 29, 2025 1 0:18am January 29, 2025 10: 18am Supervision of high-risk Augus t 2024 10:18am Hx of one miscarriage February 19, 2025 8:25am February 19, 2025 8: 25am Supervision of high-risk Augus t 2024 8:25am Chief Complaint Admit Date 13wk OB November 08, 2024 10:47 am 17 wk ob December 02, 2024 12:54 pm 21 wk ob January 02, 2025 10:3 9am 25wk ob January 29, 2025 10: 18am 28wk ob/glucose February 19, 2025 8: 25am 30 wk ob March 03, 2025 8:53am Reason for Visit Admit Date Hx of one miscarriage November 08, 2024 10: 47am November 08, 2024 10:47 am Supervision of high-risk October 242024 10:47am Hx of one miscarriage December 02, 2024 12: 54pm December 02, 2024 12:54 pm Supervision of high-risk December 02, 2024 12:54pm Hx of one miscarriage January 02, 2025 10 :39am January 02, 2025 10:3 9am Supervision of high-risk January 02, 2025 10:39am Hx of one miscarriage January 29, 2025 1 0:18am January 29, 2025 10: 18am Supervision of high-risk Augus t 2024 10:18am Hx of one miscarriage February 19, 2025 8:25am February 19, 2025 8: 25am Supervision of high-risk Augus t 2024 8:25am Hx of one miscarriage March 03 8:53am March 03, 2025 8:53am Supervision of high-risk Septe mber 2024 8:53am Chief Complaint Admit Date 17 wk ob December 02, 2024 12:54 pm 21 wk ob January 02, 2025 10:3 9am 25wk ob January 29, 2025 10: 18am 28wk ob/glucose February 19, 2025 8: 25am 30 wk ob March 03, 2025 8:53am Reason for Visit Admit Date Hx of one miscarriage December 02, 2024 12: 54pm December 02, 2024 12:54 pm Supervision of high-risk December 02, 2024 12:54pm Hx of one miscarriage January 02, 2025 10 :39am January 02, 2025 10:3 9am Supervision of high-risk January 02, 2025 10:39am Hx of one miscarriage January 29, 2025 1 0:18am January 29, 2025 10: 18am Supervision of high-risk Augus t 2024 10:18am Hx of one miscarriage February 19, 2025 8:25am February 19, 2025 8: 25am Supervision of high-risk Augus t 2024 8:25am Hx of one miscarriage March 03 8:53am March 03, 2025 8:53am Supervision of high-risk [facility] 2024 8:53am Chief Complaint Admit Date 17 wk ob December 02, 2024 12:54 pm 21 wk ob January 02, 2025 10:3 9am 25wk ob January 29, 2025 10: 18am 28wk ob/glucose February 19, 2025 8: 25am 30 wk ob March 03, 2025 8:53am 32wk ob March 21, 2025 9:09am Reason for Visit Admit Date Hx of one miscarriage December 02, 2024 12: 54pm December 02, 2024 12:54 pm Supervision of high-risk December 02, 2024 12:54pm Hx of one miscarriage January 02, 2025 10 :39am January 02, 2025 10:3 9am Supervision of high-risk January 02, 2025 10:39am Hx of one miscarriage January 29, 2025 1 0:18am January 29, 2025 10: 18am Supervision of high-risk Augus t 2024 10:18am Hx of one miscarriage February 19, 2025 8:25am February 19, 2025 8: 25am Supervision of high-risk Augus t 2024 8:25am Hx of one miscarriage March 03 8:53am March 03, 2025 8:53am Supervision of high-risk [facility] 2024 8:53am Hx of one miscarriage March 21 9:09am March 21, 2025 9:09am Right upper quadrant pain February 9:09am Supervision of high-risk [facility] 2024 9:09am Chief Complaint Admit Date 21 wk ob January 02, 2025 10:3 9am 25wk ob January 29, 2025 10: 18am 28wk ob/glucose February 19, 2025 8: 25am 30 wk ob March 03, 2025 8:53am 32wk ob March 21, 2025 9:09am 34wk ob April 03, 2025 3: 07pm 35w 6d ob April 16, 2025 8 :42am Reason for Visit Admit Date Hx of one miscarriage January 02, 2025 10 :39am January 02, 2025 10:3 9am Supervision of high-risk January 02, 2025 10:39am Hx of one miscarriage January 29, 2025 1 0:18am January 29, 2025 10: 18am Supervision of high-risk Augus t 2024 10:18am Hx of one miscarriage February 19, 2025 8:25am February 19, 2025 8: 25am Supervision of high-risk Augus t 2024 8:25am Hx of one miscarriage March 03 8:53am March 03, 2025 8:53am Supervision of high-risk [facility] 2024 8:53am Hx of one miscarriage March 21 9:09am March 21, 2025 9:09am Right upper quadrant pain February 9:09am Supervision of high-risk [facility] 2024 9:09am Hx of one miscarriage April 03, 2025 3:07pm April 03, 2025 3: 07pm Right upper quadrant pain April 03, 025 3:07pm Supervision of high-risk Octob 2024 3:07pm Hx of one miscarriage April 16, 2025 8:42am April 16, 2025 8 :42am Pruritus of in third trimester April 16, 2025 8:42am Right upper quadrant pain April 16, 2025 8:42am Supervision of high-risk Octob er 2024 8:42am Chief Complaint Admit Date 21 wk ob January 02, 2025 10:3 9am 25wk ob January 29, 2025 10: 18am 28wk ob/glucose February 19, 2025 8: 25am 30 wk ob March 03, 2025 8:53am 32wk ob March 21, 2025 9:09am 34wk ob April 03, 2025 3: 07pm 35w 6d ob April 16, 2025 8 :42am PRURITUS OF & BLOOD WORK Octob er 2024 8:20am 37 wk ob- rpt labs per MH April 24, 2025 10:10am 38 wk ob May 01, 2025 9 :38am Reason for Visit Admit Date Hx of one miscarriage January 02, 2025 10 :39am January 02, 2025 10:3 9am Supervision of high-risk January 02, 2025 10:39am Hx of one miscarriage January 29, 2025 1 0:18am January 29, 2025 10: 18am Supervision of high-risk Augus t 2024 10:18am Hx of one miscarriage February 19, 2025 8:25am February 19, 2025 8: 25am Supervision of high-risk Augus t 2024 8:25am Hx of one miscarriage March 03 8:53am March 03, 2025 8:53am Supervision of high-risk Septe mber 2024 8:53am Hx of one miscarriage March 21 9:09am March 21, 2025 9:09am Right upper quadrant pain February 9:09am Supervision of high-risk Septe mber 2024 9:09am Hx of one miscarriage April 03, 2025 3:07pm April 03, 2025 3: 07pm Right upper quadrant pain April 03, 2 025 3:07pm Supervision of high-risk Octob er 2024 3:07pm Hx of one miscarriage April 16, 2025 8:42am April 16, 2025 8 :42am Pruritus of in third trimester April 16, 2025 8:42am Right upper quadrant pain April 16, 2025 8:42am Supervision of high-risk Octob er 2024 8:42am Hx of one miscarriage April 24, 2025 10:10am April 24, 2025 1 0:10am Pruritus of in third trimester April 24, 2025 10:10am Right upper quadrant pain April 24, 2025 10:10am Supervision of high-risk Octob er 2024 10:10am Hx of one miscarriage May 01, 2025 9:38am May 01, 2025 9 :38am Pruritus of in third trimester May 01, 2025 9:38am Right upper quadrant pain May 01, 2025 9:38am Supervision of high-risk Novem 2024 9:38am Additional Source Comments Source Comments (unrecognize d section and content) In the event this informatio n is protected by the Federal Confidentiality of Alcohol and Drug Abuse Patient Records regulations: The Federal rules restrict any use of the information to criminally investigate or prosecute any alcohol or drug abuse patient.[facility] Reason for Visit (unrecogniz ed section and content) Reason Comments [facility] INFORMATION SOURCE (unrecogn ized section and content) DATE CREATED AUTHOR 06/19/2024 [facility] DATE CREATED AUTHOR AUTHOR'S ORGANIZ ATION 12/20/2024 [facility] DATE CREATED AUTHOR AUTHOR'S ORGANIZ ATION 05/05/2025 [facility] Care Teams (unrecognized sec tion and content) Team Status: Active Member Role Status Dates Norm JONES, [employer]C Primary Care Provider Active Team Status: Inactive Member Role Status Dates Norm JONES, [employer]IV[employer]-C Primary Care Provider Active Start: August 09, 2024 End: August 09, 2024 Dr. Rhea Ayon , DO Attending Provider Activ e Start: August 09, 2024 End: August 09, 2024 Dr. Rhea Ayon DO Referring Provider Activ e Start: August 09, 2024 End: August 09, 2024 Team Status: Inactive Member Role Status Dates Dr. Gloria Richard MD Referring Provider Active Start: August 23, 2024 End: August 23, 2024 Echo Matias CNM Attending Provider Active Start: August 23, 2024 End: August 23, 2024 Norm Aiken VSC, [employer]-C Primary Care Provider Active Start: August 23, 2024 End: August 23, 2024 Team Status: Active Member Role Status Dates Norm Aiken VSC, [employer] DELIV[employer] DRIVER-C Primary Care Provider Active Start: September 06, 2024 Dr. Rhea Ayon DO Attending Provider Activ e Start: September 06, 2024 Dr. Rhea Ayon DO Referring Provider Activ e Start: September 06, 2024 Team Status: Inactive Member Role Status Dates Norm Aiken VSC, [employer]IV[employer]-C Primary Care Provider Active Start: September 08, 2024 End: September 08, 2024 Dr. Kamille Albarran MD Attending Provider Active Start: September 08, 2024 End: September 08, 2024 Dr. Kamille Albarran MD Referring Provider Active Start: September 08, 2024 End: September 08, 2024 Team Status: Inactive Member Role Status Dates Norm Aiken VSC, [employer]IV[employer]-C Primary Care Provider Active Start: September 06, 2024 End: September 06, 2024 Dr. Rhea Ayon DO Attending Provider Activ e Start: September 06, 2024 End: September 06, 2024 Dr. Rhea Ayon DO Referring Provider Activ e Start: September 06, 2024 End: September 06, 2024 Team Status: Inactive Member Role Status Dates Norm Aiken VSC, [employer]IV[employer]-C Primary Care Provider Active Start: September 24, 2024 End: September 24, 2024 Norm Aiken VSC, [employer] DELIV[employer] DRIVER-C Referring Provider Active S tart: September 24, 2024 End: September 24, 2024 Tess Lynch NP, [employer] DELIV[employer] DRIVER-C Attending Provider Active Start: September 24, 2024 End: September 24, 2024 Team Status: Inactive Member Role Status Dates Norm Aiken VSC, [employer]IV[employer] DRIVER-C Primary Care Provider Active Start: October 11, 2024 End: October 11, 2024 Norm Aiken VSC, [employer] DELIVERY DRIVER-C Referring Provider Active S tart: October 11, 2024 End: October 11, 2024 Dr. Kamille Albarran MD Attending Provider Active Start: October 11, 2024 End: October 11, 2024 Team Status: Inactive Member Role Status Dates Norm NICOLEC, [employer] DELIV[employer] DRIVER-C Primary Care Provider Active Start: October 11, 2024 End: October 11, 2024 Dr. Kamille Albarran MD Attending Provider Active Start: October 11, 2024 End: October 11, 2024 Dr. Kamille Albarran MD Referring Provider Active Start: October 11, 2024 End: October 11, 2024 Team Status: Inactive Member Role Status Dates Norm NICOLEC, [employer] DELIV[employer] DRIVER-C Primary Care Provider Active Start: October 17, 2024 End: October 17, 2024 Dr. Kamille Albarran MD Attending Provider Active Start: October 17, 2024 End: October 17, 2024 Dr. Kamille Albarran MD Referring Provider Active Start: October 17, 2024 End: October 17, 2024 Team Status: Inactive Member Role Status Dates Norm Aiken VSC, [employer] DELIV[employer]IVER-C Primary Care Provider Active Start: November 08, 2024 End: November 08, 2024 Norm Aiken VSC, [employer] DELIVERY DRIVER-C Referring Provider Active S tart: November 08, 2024 End: November 08, 2024 Dr. Kamille Albarran MD Attending Provider Active Start: November 08, 2024 End: November 08, 2024 Team Status: Inactive Member Role Status Dates Norm Aiken VSC, [employer] DELIV[employer] DRIVER-C Primary Care Provider Active Start: December 02, 2024 End: December 02, 2024 Norm Aiken VSC, [employer] DELIVERY DRIVER-C Referring Provider Active S tart: December 02, 2024 End: December 02, 2024 Tess Lynch NP, [employer] DELIVERY DRIVER-C Attending Provider Active Start: December 02, 2024 End: December 02, 2024 Team Status: Active Member Role/Relationship Status Dates Norm Aiken VSC, [employer] DELIV[employer] DRIVER-C Primary Care Provider Active Team Status: Inactive Member Role/Relationship Status Dates Norm Aiken VSC, [employer] DELIVERY DRIVER-C Primary Care Provider Active Start: September 06, 2024 End: September 06, 2024 Dr. Rhea Ayon DO Attending Provider Activ e Start: September 06, 2024 End: September 06, 2024 Dr. Rhea Ayon DO Referring Provider Activ e Start: September 06, 2024 End: September 06, 2024 Team Status: Inactive Member Role/Relationship Status Dates Norm Attila VSC, [employer] DELIV[employer] DRIVER-C Primary Care Provider Active Start: September 08, 2024 End: September 08, 2024 Dr. Kamille Albarran MD Attending Provider Active Start: September 08, 2024 End: September 08, 2024 Dr. Kamille Albarran MD Referring Provider Active Start: September 08, 2024 End: September 08, 2024 Team Status: Inactive Member Role/Relationship Status Dates Norm Attila VSC, [employer] DELIV[employer] DRIVER-C Primary Care Provider Active Start: September 24, 2024 End: September 24, 2024 Norm Aiken VSC, [employer] DELIVERY DRIVER-C Referring Provider Active S tart: September 24, 2024 End: September 24, 2024 Tess Lynch FREIGHT DELIVERY DRIVER, [employer] DELIVERY DRIVER-C Attending Provider Active Start: September 24, 2024 End: September 24, 2024 Team Status: Inactive Member Role/Relationship Status Dates Norm Attila VSC, [employer] DELIVERY DRIVER-C Primary Care Provider Active Start: October 11, 2024 End: October 11, 2024 Norm Attila VSC, [employer] DELIVERY DRIVER-C Referring Provider Active S tart: October 11, 2024 End: October 11, 2024 Dr. Kamille Albarran MD Attending Provider Active Start: October 11, 2024 End: October 11, 2024 Team Status: Inactive Member Role/Relationship Status Dates Norm Attila VSC, [employer] DELIV[employer] DRIVER-C Primary Care Provider Active Start: October 11, 2024 End: October 11, 2024 Dr. Kamille Albarran MD Attending Provider Active Start: October 11, 2024 End: October 11, 2024 Dr. Kamille Albarran MD Referring Provider Active Start: October 11, 2024 End: October 11, 2024 Team Status: Inactive Member Role/Relationship Status Dates Norm Aiken VSC, [employer] DELIV[employer] DRIVER-C Primary Care Provider Active Start: October 17, 2024 End: October 17, 2024 Dr. Kamille Albarran MD Attending Provider Active Start: October 17, 2024 End: October 17, 2024 Dr. Kamille Albarran MD Referring Provider Active Start: October 17, 2024 End: October 17, 2024 Team Status: Inactive Member Role/Relationship Status Dates Norm Geigerder VSC, [employer] DELIV[employer] DRIVER-C Primary Care Provider Active Start: November 08, 2024 End: November 08, 2024 Norm Attila VSC, [employer] DELIVERY DRIVER-C Referring Provider Active S tart: November 08, 2024 End: November 08, 2024 Dr. Kamille Albarran MD Attending Provider Active Start: November 08, 2024 End: November 08, 2024 Team Status: Inactive Member Role/Relationship Status Dates Norm Aiken VSC, [employer] DELIV[employer] DRIVER-C Primary Care Provider Active Start: December 02, 2024 End: December 02, 2024 Norm Aiken VSC, [employer] DELIVERY DRIVER-C Referring Provider Active S tart: December 02, 2024 End: December 02, 2024 Tess Lynch NP, F[employer] DELIVERY DRIVER-C Attending Provider Active Start: December 02, 2024 End: December 02, 2024 Team Status: Inactive Member Role/Relationship Status Dates Norm Aiken VSC, [employer] DELIVERY DRIVER-C Primary Care Provider Active Start: January 02, 2025 End: January 02, 2025 Norm Aiken VSC, [employer] DELIVERY DRIVER-C Referring Provider Active S tart: January 02, 2025 End: January 02, 2025 Dr. Rhea Ayon DO Attending Provider Activ e Start: January 02, 2025 End: January 02, 2025 Team Status: Inactive Member Role/Relationship Status Dates Norm Aiken VSC, [employer] DELIV[employer] DRIVER-C Primary Care Provider Active Start: October 11, 2024 End: October 11, 2024 Norm Geigerder VSC, [employer] DELIVERY DRIVER-C Referring Provider Active S tart: October 11, 2024 End: October 11, 2024 Dr. Kamille Albarran MD Attending Provider Active Start: October 11, 2024 End: October 11, 2024 Team Status: Inactive Member Role/Relationship Status Dates Norm Aiken VSC, [employer] DELIV[employer] DRIVER-C Primary Care Provider Active Start: October 11, 2024 End: October 11, 2024 Dr. Kamille Albarran MD Attending Provider Active Start: October 11, 2024 End: October 11, 2024 Dr. Kamille Albarran MD Referring Provider Active Start: October 11, 2024 End: October 11, 2024 Team Status: Inactive Member Role/Relationship Status Dates Norm Aiken VSC, [employer] DELIVERY DRIVER-C Primary Care Provider Active Start: October 17, 2024 End: October 17, 2024 Dr. Kamille Albarran MD Attending Provider Active Start: October 17, 2024 End: October 17, 2024 Dr. Kamille Albarran MD Referring Provider Active Start: October 17, 2024 End: October 17, 2024 Team Status: Inactive Member Role/Relationship Status Dates Norm Aiken VSC, [employer] DELIV[employer] DRIVER-C Primary Care Provider Active Start: November 08, 2024 End: November 08, 2024 Norm Geigerder VSC, F[employer] DELIVERY DRIVER-C Referring Provider Active S tart: November 08, 2024 End: November 08, 2024 Dr. Kamille Albarran MD Attending Provider Active Start: November 08, 2024 End: November 08, 2024 Team Status: Inactive Member Role/Relationship Status Dates Norm Aiken VSC, [employer] DELIV[employer] DRIVER-C Primary Care Provider Active Start: December 02, 2024 End: December 02, 2024 Norm Aiken VSC, F[employer] DELIVERY DRIVER-C Referring Provider Active S tart: December 02, 2024 End: December 02, 2024 Tess Lynch NP, F[employer] DELIVERY DRIVER-C Attending Provider Active Start: December 02, 2024 End: December 02, 2024 Team Status: Inactive Member Role/Relationship Status Dates Norm Aiken VSC, [employer] DELIVERY DRIVER-C Primary Care Provider Active Start: January 02, 2025 End: January 02, 2025 Norm Aiken VSC, FRE[employer] DELIVERY DRIVER-C Referring Provider Active S tart: January 02, 2025 End: January 02, 2025 Dr. Rhea Ayon DO Attending Provider Activ e Start: January 02, 2025 End: January 02, 2025 Team Status: Inactive Member Role/Relationship Status Dates Norm Aiken VSC, [employer] DELIV[employer] DRIVER-C Primary Care Provider Active Start: January 29, 2025 End: January 29, 2025 Norm Aiken VSC, F[employer] DELIVERY DRIVER-C Referring Provider Active S tart: January 29, 2025 End: January 29, 2025 Becky Caballero CNM Attending Provider Active S tart: January 29, 2025 End: January 29, 2025 Team Status: Inactive Member Role/Relationship Status Dates Norm Geigerder VSC, [employer] DELIV[employer] DRIVER-C Primary Care Provider Active Start: November 08, 2024 End: November 08, 2024 Norm Geigerder VSC, F[employer] DELIVERY DRIVER-C Referring Provider Active S tart: November 08, 2024 End: November 08, 2024 Dr. Kamille Albarran MD Attending Provider Active Start: November 08, 2024 End: November 08, 2024 Team Status: Inactive Member Role/Relationship Status Dates Norm Geigerder VSC, [employer] DELIV[employer] DRIVER-C Primary Care Provider Active Start: December 02, 2024 End: December 02, 2024 Norm Aiken VSC, F[employer] DELIVERY DRIVER-C Referring Provider Active S tart: December 02, 2024 End: December 02, 2024 Tess Lynch FREIGHT DELIVERY DRIVER, [employer] DELIVERY DRIVER-C Attending Provider Active Start: December 02, 2024 End: December 02, 2024 Team Status: Inactive Member Role/Relationship Status Dates Norm Aiken VSC, F[employer] DELIVERY DRIVER-C Primary Care Provider Active Start: January 02, 2025 End: January 02, 2025 Norm Geigerder VSC, F[employer] DELIVERY DRIVER-C Referring Provider Active S tart: January 02, 2025 End: January 02, 2025 Dr. Rhea Ayon DO Attending Provider Activ e Start: January 02, 2025 End: January 02, 2025 Team Status: Inactive Member Role/Relationship Status Dates Norm Aiken VSC, [employer] DELIV[employer] DRIVER-C Primary Care Provider Active Start: January 29, 2025 End: January 29, 2025 Norm Aiken VSC, F[employer] DELIVERY DRIVER-C Referring Provider Active S tart: January 29, 2025 End: January 29, 2025 Becky Caballero CNM Attending Provider Active S tart: January 29, 2025 End: January 29, 2025 Team Status: Inactive Member Role/Relationship Status Dates Norm Aiken VSC, [employer] DELIV[employer] DRIVER-C Primary Care Provider Active Start: February 19, 2025 End: February 19, 2025 Norm Aiken VSC, F[employer] DELIVERY DRIVER-C Referring Provider Active S tart: February 19, 2025 End: February 19, 2025 Tess Lynch NP, F[employer]IGHT DELIVERY DRIVER-C Attending Provider Active Start: February 19, 2025 End: February 19, 2025 Team Status: Active Member Role/Relationship Status Dates Norm Aiken VSC, F[employer] DELIVERY DRIVER-C Primary Care Provider Active Start: February 19, 2025 Dr. Kamille Albarran MD Attending Provider Active Start: February 19, 2025 Team Status: Inactive Member Role/Relationship Status Dates Norm Geigerder VSC, [employer] DELIVERY DRIVER-C Primary Care Provider Active Start: March 03, 2025 End: March 03, 2025 Norm Geigreder VSC, [employer] DELIVERY DRIVER-C Referring Provider Active S tart: March 03, 2025 End: March 03, 2025 Dr. Kamille Albarran MD Attending Provider Active Start: March 03, 2025 End: March 03, 2025 Team Status: Inactive Member Role/Relationship Status Dates Norm Aiken VSC, [employer] DELIV[employer] DRIVER-C Primary Care Provider Active Start: February 19, 2025 End: February 19, 2025 Dr. Kamille Albarran MD Attending Provider Active Start: February 19, 2025 End: February 19, 2025 Team Status: Active Member Role/Relationship Status Dates Norm Aiken VSC, [employer] DELIV[employer] DRIVER-C Primary Care Provider Active Start: March 03, 2025 Dr. Kamille Albarran MD Attending Provider Active Start: March 03, 2025 Dr. Kamille Albarran MD Referring Provider Active Start: March 03, 2025 Team Status: Inactive Member Role/Relationship Status Dates Norm Geigerder VSC, [employer] DELIV[employer] DRIVER-C Primary Care Provider Active Start: December 02, 2024 End: December 02, 2024 Norm Geigerder VSC, F[employer] DELIVERY DRIVER-C Referring Provider Active S tart: December 02, 2024 End: December 02, 2024 Tess Lynch NP, [employer] DELIVERY DRIVER-C Attending Provider Active Start: December 02, 2024 End: December 02, 2024 Team Status: Inactive Member Role/Relationship Status Dates Norm Geigerder VSC, F[employer] DELIVERY DRIVER-C Primary Care Provider Active Start: January 02, 2025 End: January 02, 2025 Norm Aiken VSC, F[employer] DELIVERY DRIVER-C Referring Provider Active S tart: January 02, 2025 End: January 02, 2025 Dr. Rhea Ayon DO Attending Provider Activ e Start: January 02, 2025 End: January 02, 2025 Team Status: Inactive Member Role/Relationship Status Dates Norm Aiken VSC, [employer] DELIV[employer] DRIVER-C Primary Care Provider Active Start: January 29, 2025 End: January 29, 2025 Norm Aiken VSC, F[employer] DELIVERY DRIVER-C Referring Provider Active S tart: January 29, 2025 End: January 29, 2025 Becky Caballero CNM Attending Provider Active S tart: January 29, 2025 End: January 29, 2025 Team Status: Inactive Member Role/Relationship Status Dates Norm Geigerder VSC, [employer] DELIV[employer] DRIVER-C Primary Care Provider Active Start: February 19, 2025 End: February 19, 2025 Norm Geigerder VSC, F[employer] DELIVERY DRIVER-C Referring Provider Active S tart: February 19, 2025 End: February 19, 2025 Tess Lynch FREIGHT DELIVERY DRIVER, [employer] DELIVERY DRIVER-C Attending Provider Active Start: February 19, 2025 End: February 19, 2025 Team Status: Inactive Member Role/Relationship Status Dates Norm Aiken VSC, [employer] DELIV[employer] DRIVER-C Primary Care Provider Active Start: February 19, 2025 End: February 19, 2025 Dr. Kamille Albarran MD Attending Provider Active Start: February 19, 2025 End: February 19, 2025 Team Status: Inactive Member Role/Relationship Status Dates Norm Aiken VSC, [employer] DELIV[employer] DRIVER-C Primary Care Provider Active Start: March 03, 2025 End: March 03, 2025 Norm Aiken VSC, F[employer] DELIVERY DRIVER-C Referring Provider Active S tart: March 03, 2025 End: March 03, 2025 Dr. Kamille Albarran MD Attending Provider Active Start: March 03, 2025 End: March 03, 2025 Team Status: Inactive Member Role/Relationship Status Dates Norm Geigerder VSC, [employer] DELIV[employer] DRIVER-C Primary Care Provider Active Start: March 03, 2025 End: March 03, 2025 Dr. Kamille Albarran MD Attending Provider Active Start: March 03, 2025 End: March 03, 2025 Dr. Kamille Albarran MD Referring Provider Active Start: March 03, 2025 End: March 03, 2025 Team Status: Active Member Role/Relationship Status Dates Norm Aiken VSC, [employer] DELIV[employer] DRIVER-C Primary care physician Active Team Status: Inactive Member Role/Relationship Status Dates Norm Aiken VSC, [employer] Primary care physician Active Start: December 02, 2024 End: December 02, 2024 Norm Attila VSC, [employer]-C Referring Provider Active S tart: December 02, 2024 End: December 02, 2024 Tess Lynch [employer] DELIV[employer]IVER, [employer] Attending physician Active Start: December 02, 2024 End: December 02, 2024 Team Status: Inactive Member Role/Relationship Status Dates Norm Aiken VSC, [employer]C Primary care physician Active Start: January 02, 2025 End: January 02, 2025 Norm Aiken VSC, [employer]IV[employer]-C Referring Provider Active S tart: January 02, 2025 End: January 02, 2025 Dr. Rhea Ayon DO Attending physician Acti ve Start: January 02, 2025 End: January 02, 2025 Team Status: Inactive Member Role/Relationship Status Dates Norm Geigerder VSC, [employer]-C Primary care physician Active Start: January 29, 2025 End: January 29, 2025 Norm Aiken VSC, [employer]-C Referring Provider Active S tart: January 29, 2025 End: January 29, 2025 Becky Caballero CNM Attending physician Active Start: January 29, 2025 End: January 29, 2025 Team Status: Inactive Member Role/Relationship Status Dates Norm Aiken VSC, [employer] Primary care physician Active Start: February 19, 2025 End: February 19, 2025 Norm Aiken VSC, [employer]-C Referring Provider Active S tart: February 19, 2025 End: February 19, 2025 Tess Lynch NP, [employer] Attending physician Active Start: February 19, 2025 End: February 19, 2025 Team Status: Inactive Member Role/Relationship Status Dates Norm Geigerder VSC, [employer]-C Primary care physician Active Start: February 19, 2025 End: February 19, 2025 Dr. Kamille Albarran MD Attending physician Active Start: February 19, 2025 End: February 19, 2025 Team Status: Inactive Member Role/Relationship Status Dates Norm Geigerder VSC, [employer] Primary care physician Active Start: March 03, 2025 End: March 03, 2025 Norm Aiken VSC, [employer]-C Referring Provider Active S tart: March 03, 2025 End: March 03, 2025 Dr. Kamille Albarran MD Attending physician Active Start: March 03, 2025 End: March 03, 2025 Team Status: Inactive Member Role/Relationship Status Dates Norm Aiken VSC, [employer] Primary care physician Active Start: March 03, 2025 End: March 03, 2025 Dr. Kamille Albarran MD Attending physician Active Start: March 03, 2025 End: March 03, 2025 Dr. Kamille Albarran MD Referring Provider Active Start: March 03, 2025 End: March 03, 2025 Team Status: Inactive Member Role/Relationship Status Dates Norm Aiken VSC, [employer] Primary care physician Active Start: March 21, 2025 End: March 21, 2025 Norm JONES, [employer]-C Referring Provider Active S tart: March 21, 2025 End: March 21, 2025 Becky Caballero CNM Attending physician Active Start: March 21, 2025 End: March 21, 2025 Team Status: Inactive Member Role/Relationship Status Dates Norm Aiken VSC, [employer] Primary care physician Active Start: January 02, 2025 End: January 02, 2025 Norm Aiken VSC, [employer]-C Referring Provider Active S tart: January 02, 2025 End: January 02, 2025 Dr. Rhea Ayon DO Attending physician Acti ve Start: January 02, 2025 End: January 02, 2025 Team Status: Inactive Member Role/Relationship Status Dates Norm Aiken VSC, [employer] Primary care physician Active Start: January 29, 2025 End: January 29, 2025 Norm Aiken VSC, [employer]IV[employer]-C Referring Provider Active S tart: January 29, 2025 End: January 29, 2025 Becky Caballero CNM Attending physician Active Start: January 29, 2025 End: January 29, 2025 Team Status: Inactive Member Role/Relationship Status Dates Norm Aiken VSC, [employer] Primary care physician Active Start: February 19, 2025 End: February 19, 2025 Norm Aiken VSC, [employer]-C Referring Provider Active S tart: February 19, 2025 End: February 19, 2025 Tess Lynch NP, [employer] Attending physician Active Start: February 19, 2025 End: February 19, 2025 Team Status: Inactive Member Role/Relationship Status Dates Norm Aiken VSC, [employer]-C Primary care physician Active Start: February 19, 2025 End: February 19, 2025 Dr. Kamille Albarran MD Attending physician Active Start: February 19, 2025 End: February 19, 2025 Team Status: Inactive Member Role/Relationship Status Dates Norm Aiken VSC, [employer] Primary care physician Active Start: March 03, 2025 End: March 03, 2025 Norm Aiken VSC, [employer]-C Referring Provider Active S tart: March 03, 2025 End: March 03, 2025 Dr. Kamille Albarran MD Attending physician Active Start: March 03, 2025 End: March 03, 2025 Team Status: Inactive Member Role/Relationship Status Dates Norm NICOELC, [employer] Primary care physician Active Start: March 03, 2025 End: March 03, 2025 Dr. Kamille Albarran MD Attending physician Active Start: March 03, 2025 End: March 03, 2025 Dr. Kamille Albarran MD Referring Provider Active Start: March 03, 2025 End: March 03, 2025 Team Status: Inactive Member Role/Relationship Status Dates Norm NICOLEC, [employer]-C Primary care physician Active Start: March 21, 2025 End: March 21, 2025 Norm Aiken VSC, [employer]IV[employer]-C Referring Provider Active S tart: March 21, 2025 End: March 21, 2025 Becky Caballero CNM Attending physician Active Start: March 21, 2025 End: March 21, 2025 Team Status: Inactive Member Role/Relationship Status Dates Norm Aiken VSC, [employer] Primary care physician Active Start: April 03, 2025 End: April 03, 2025 Norm Aiken VSC, [employer]IV[employer]-C Referring Provider Active S tart: April 03, 2025 End: April 03, 2025 Dr. Rhea Ayon DO Attending physician Acti ve Start: April 03, 2025 End: April 03, 2025 Team Status: Inactive Member Role/Relationship Status Dates Norm Aiken VSC, [employer] Primary care physician Active Start: April 16, 2025 End: April 16, 2025 Norm Aiken VSC, [employer]IV[employer]-C Referring Provider Active S tart: April 16, 2025 End: April 16, 2025 Tess Lynch NP, [employer]-C Attending physician Active Start: April 16, 2025 End: April 16, 2025 Team Status: Active Member Role/Relationship Status Dates Norm Aiken VSC, [employer] Primary care physician Active Start: April 16, 2025 Tess Lynch NP, [employer]-C Attending physician Active Start: April 16, 2025 Team Status: Inactive Member Role/Relationship Status Dates Norm JONES, [employer]C Primary care physician Active Start: April 16, 2025 End: April 16, 2025 Tess Lynch F[employer]IGHT DELIVERY DRIVER, [employer] Attending physician Active Start: April 16, 2025 End: April 16, 2025 Team Status: Inactive Member Role/Relationship Status Dates Norm JONES, [employer]-C Primary care physician Active Start: April 24, 2025 End: April 24, 2025 Tess Lynch FREIGHT DELIVERY DRIVER, [employer]C Attending physician Active Start: April 24, 2025 End: April 24, 2025 Tess Lynch FREIGHT DELIVERY DRIVER, [employer]-C Referring Provider Active Start: April 24, 2025 End: April 24, 2025 Team Status: Inactive Member Role/Relationship Status Dates Norm JONES, [employer]C Primary care physician Active Start: April 24, 2025 End: April 24, 2025 Norm JONES, [employer] DELIV[employer]IVER-C Referring Provider Active S tart: April 24, 2025 End: April 24, 2025 Dr. Kamille Albarran MD Attending physician Active Start: April 24, 2025 End: April 24, 2025 Team Status: Inactive Member Role/Relationship Status Dates Norm JONES, [employer] Primary care physician Active Start: May 01, 2025 End: May 01, 2025 Norm JONES, [employer] DELIV[employer]-C Referring Provider Active S tart: May 01, 2025 End: May 01, 2025 Dr. Rhea Ayon DO Attending physician Acti ve Start: May 01, 2025 End: May 01, 2025 Goals (unrecognized section and content) Type Care Experience Labor Preferences-CB /BF classes: yeslabor support person: Aaronlabor intervention preferences: []pain management options preferred: epiduralcut cord/dad catch: yesbreastfeeding: yesPP control planned: discusseddiscussed possible routes of delivery and associated risks: []special requests: [] Type Detail Care Experience svdLabor Preferences -CB/BF classes: yeslabor support person: Aaronlabor intervention preferences: []pain management options preferred: epiduralcut cord/dad catch: yesbreastfeeding: yesPP control planned: discusseddiscussed possible routes of delivery and associated risks: []special requests: [] FOR RECORDS PERTAINING TO PATIENTS WHO ARE OR HAVE BEEN ENROLLED IN A CHEMICAL DEPENDENCY/SUBSTANCEABUSE PROGRAM, SOME INFORMATION MAY BE OMITTED. This clinical summary was aggregated from multiple sources. Caution should be exercised in using it in the provision of clinical care. This summary normalizes information from multiple sources, and as a consequence, information in this document may materially change the coding, format and clinical context of patient data. In addition, data may be omitted in some cases. CLINICAL DECISIONS SHOULD BE BASED ON THE PRIMARY CLINICAL RECORDS. [facility] provides no warranty or guarantee of the accuracy or completeness of information in this document.
[2025-05-07 06:31] LABS: ROM Internal Control Test YES-OK TO RESULT pt. (Internal QC)
[2025-05-07 06:32] LABS: ROM Patient Test POSITIVE (Negative); Record Kit Lot#, ROM+ K3607
--- OUTSIDE RECORDS SUMMARY | 2025-05-07 06:51 | XMS RPT_ITS | CCD ---
Author Organization [facility] Care Team Providers Care Agricultural Technical Officer Name Role Phone Unavailable Primary Care Provider UnavailBECKY Ferguson Attending Unavailable Aiken VENEER STOCK GRADER-C, Norm Primary Care Provider Dr. Rhea Ayon DO Attending Provider Dr. Rhea Ayon DO Referring Provider Dr. Gloria Richard MD Referring Provider Echo Matias CNM Attending Provider [phone] Kamille Albarran MD Attending Provider Dr. Kamille Albarran MD Referring Provider [phone] Attila VENEER STOCK GRADER-CNorm Referring Provider [phone] Tess Cunha Attending Provider FARA FUNK Attending Unavailable KAMILLE ALBARRAN Referring Unavailshelly HARDIN, [facility] [place] Primary Care Unavailable Aiken VENEER STOCK GRADER-C, Norm Primary Care Provider Dr. Rhea Ayon DO Attending Provider Dr. Rhea Ayon DO Referring Provider Aiken VENEER STOCK GRADER-C, Norm Primary Care Provider Aiken VENEER STOCK GRADER-C, Norm Referring Provider [phone] Dr. Kamille Albarran MD Attending Provider [phone] Dr. Kamille Albarran MD Referring Provider Syed VENEER STOCK GRADER-CTess Attending Provider Dr. Rhea Ayon DO Attending Provider Becky Caballero CNM Attending Provider Aiken VENEER STOCK GRADER-C, Norm Primary Care Provider Aiken VENEER STOCK GRADER-C, Norm Referring Provider Ricardo BE, Dr. Simental Attending Provider Dr. Kamille Albarran MD Referring Provider [phone] Aiken VENEER STOCK GRADER-C, Norm Primary Care Provider Aiken VENEER STOCK GRADER-C, Norm Referring Provider Ricardo BE, Dr. Simental Attending Provider Aiken VENEER STOCK GRADER-C, Norm Primary Care Physician Volin VENEER STOCK GRADER-C, Tess Attending Physician [phone] Dr. Rhea Ayon DO Attending Physician Becky Caballero CNM Attending Physician [phone] Dr. Kamille Albarran MD Attending Physician Aiken VENEER STOCK GRADER-C, Norm Primary Care Physician Aiken VENEER STOCK GRADER-C, Norm Referring Provider Volin VENEER STOCK GRADER-C, Tess Attending Physician [phone] Aiken VENEER STOCK GRADER-C, Norm Primary Care Physician Aiken VENEER STOCK GRADER-C, Norm Referring Provider Dr. Rhea Ayon DO Attending Physician Becky Caballero CNM Attending Physician Syed VENEER STOCK GRADER-C, Tess Attending Physician [phone] [address]. Kamille Albarran MD Attending Physician Dr. Kamille Albarran MD Referring Provider [phone] Volin VENEER STOCK GRADER-C, Tess Referring Provider Aiken, Norm Primary Care Unavailable Aiken, Norm Referring Unavailable Rhea Ayon Attending Unavailabl e Aiken, Norm Referring Unavailable VolinTess Attending Unavailable Aiken, Norm Primary Care Unavailable [...] NMA PO September 24, 2024 12:00am Multivit 61-Mbaa-Hizskb 1-Dh a (Pnv-Dha) 27 mg iron-1 mg [...] Active NMA PO September 24, 2024 12:00am [place] (Nk) (2 sources) Start: 08-23-2024 [place] (Nk) A ctive August 23, 2024 1:00am [...] Pak on 05-01-2025 Glucose Ql (U) Negative [facility] - UrinalysisOrder ed By: Rhea Pak on 05-01-2025 Protein Ql (U) Negative [facility] Tank House Operator Office Visit Reporton 05-01-2025 Tank House Operator Office Visit Report [facility] [address], [address] [place] [address] OFFICE VISIT Date of Service: 05/01/25 MR#: [id number] Acct: [id number] Name: SERA SANTIAGO Rep #: [id number] : 1995 Provider: Dr. 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 (more content not included)... Normal [facility] [id number] 04-27-2025 [facility] Misc. COMMENT Normal . [facility] Comment on above: Order Comment: Comme nts: Bile [id number] [id number] bile acids Result Comment: Test Ordered: [id number] Bile Acids, Fractionated LCMS Ursodeoxycholic Acids <0.10 [...] developed and its performance characteristics determined by [employer]. It has not been cleared or approved by the Food and Drug Administration. Reference Range: All Ages: <9.2 Performed at: [email or web address] [address] [place] [id number] [employer]ba Player: Rebecca Snider MD, Phone: [phone] Performed at: [facility] [id number] [employer] Player: Andrew Kline PhD, Phone: [phone] Performed By: #### L 100.0100, L500.4050 #### [facility] [address] [place], [place], [id number] Rule out Beta Strep (Grp. B) on 04-26-2025 DARBY Group B Beta Streptococcus is not isolated. Normal [facility] Comment on above: Performed By: #### M 100.3400 #### [facility] [address] [place], [place], [id number] Screening beta-hemolytic Str eptococcus cultureOrdered By: Kamille Albarran on 04-25-2025 Beta-hemolytic Streptococcus culture Group B Beta Streptococcus is not isolated. [facility] Absolute lymphocyte countOrd ered By: Tess Lynch on 04-24-2025 Lymphocytes Auto (Unsp spec) [#/Vol] 2.15 10*3/uL 0.83-4.51 [facility] Absolute neutrophil countOrd ered By: Tess Lynch on 04-24-2025 Neutrophils (Bld) [#/Vol] 5.7 10*3/uL 2.0-7.7 [facility] Anion gap in Serum or Plasma Ordered By: Tess Lynch on 04-24-2025 Anion gap [Moles/Vol] 11 mmol/L - [facility] Automated lymphocyte count a s percentage of total leukocytesOrdered By: Tess Lynch on 04-24-2025 Lymphocytes/100 WBC Auto (Unsp spec) 25.0 % [facility] BUN/creatinine ratioOrdered By: Tess Lynch on 04-24-2025 Urea nitrogen/Creatinine [Mass ratio] 13.3 mg/mg - [facility] Basophil percentageOrdered B y: Tess Lynch on 04-24-2025 Basophils/100 WBC (Bld) 0.7 % 0-1 [facility] Bilirubin, totalOrdered By: Tessramu Lynch on 04-24-2025 Bilirubin [Mass/Vol] 0.22 mg/dL 0.00-1.30 [facility] CBC W/Diff, Automatedon 03-28 Absolute Lymph 2.15 X10 3/uL Normal 0.83-4.51 [facility] Comment on above: Performed By: #### M 100.3400 #### [facility] [address] [place], [address] Absolute Neut 5.7 X10 3/uL Normal 2.0-7.7 [facility] Comment on above: Performed By: #### M 100.3400 #### [facility] [address] [place], [address] Basophils/100 WBC (Bld) 0.7 % Normal 0-1 [facility] Comment on above: Performed By: #### M 100.3400 #### [facility] [address] [place], [address] Eosinophils/100 WBC (Bld) 0.8 % Normal 0-5 [facility] Comment on above: Performed By: #### M 100.3400 #### [facility] [address] [place], [address] Erythrocyte distribution width (RBC) [Ratio] 13.4 % Normal 11.6-14.6 [facility] Comment on above: Performed By: #### M 100.3400 #### [facility] [address] [place], [address] Hematocrit (Bld) [Volume fraction] 39.7 % Normal 37-47 [facility] Comment on above: Performed By: #### M 100.3400 #### [facility] [address] [place], [address] Hemoglobin (Bld) [Mass/Vol] 13.1 g/dL Normal 12.0-15.0 [facility] Comment on above: Performed By: #### M 100.3400 #### [facility] [address] [place], [address] IG% 1.700 High 0.0-0.9 [facility] Comment on above: Result Comment: IG% - Immature Granulocytes (promyelocytes, myelocytes and metamyelocytes) > 1% indicates that a LEFT SHIFT is Present. Performed By: #### M 100.3400 #### [facility] [address] [place], [address] Lymphocytes/100 WBC (Bld) 25.0 % Normal 19-41 [facility] Comment on above: Performed By: #### M 100.3400 #### [facility] [address] [place], [address] MCH (RBC) [Entitic mass] 28.9 pg Normal 27.0-32.0 [facility] Comment on above: Performed By: #### M 100.3400 #### [facility] [address] [place], [address] MCHC (RBC) [Mass/Vol] 33.0 g/dL Normal 32-36 [facility] Comment on above: Performed By: #### M 100.3400 #### [facility] [address] [place], [address] MCV (RBC) [Entitic vol] 87.6 fL Normal 81-99 [facility] Comment on above: Performed By: #### M 100.3400 #### [facility] [address] [place], [address] Monocytes/100 WBC (Bld) 5.2 % Normal 0-10 [facility] Comment on above: Performed By: #### M 100.3400 #### [facility] [address] [place], [address] Neutrophils/100 WBC (Bld) 66.6 % Normal 47-70 [facility] Comment on above: Performed By: #### M 100.3400 #### [facility] [address] [place], [address] Nucleated RBC (Bld) [#/Vol] 0 10*3/uL Normal 0-5 [facility] Comment on above: Performed By: #### M 100.3400 #### [facility] [address] [place], [address] Platelet mean volume (Bld) [Entitic vol] 10.5 fL Normal 6.2-12.0 [facility] Comment on above: Performed By: #### M 100.3400 #### [facility] [address] [place], [address] Platelets (Bld) [#/Vol] 248 10*3/uL Normal 150-450 [facility] Comment on above: Performed By: #### M 100.3400 #### [facility] [address] [place], [address] RBC (Bld) [#/Vol] 4.53 10*6/uL Normal 4.2-5.4 [facility] Comment on above: Performed By: #### M 100.3400 #### [facility] [address] [place], [address] RDW SD 42.8 fl Normal 35.1-43.9 [facility] Comment on above: Performed By: #### M 100.3400 #### [facility] [address] [place], [address] WBC (Bld) [#/Vol] 8.6 10*3/uL Normal 4.4-11.0 [facility] Comment on above: Performed By: #### M 100.3400 #### [facility] [address] [place], [address] Carbon dioxide, total [Moles /volume] in Central venous bloodOrdered By: Tess Lynch on 04-24-2025 CO2 [Moles/Vol] 20.9 mmol/L Low 21.0-32.0 [facility] Chloride assayOrdered By: Walter Lynch on 04-24-2025 Chloride [Moles/Vol] 105 mmol/L 98-108 [facility] Comprehensive Metabolic Prof ilon 04-24-2025 Albumin [Mass/Vol] 3.8 g/dL Normal 3.5-5.0 [facility] Comment on above: Order Comment: Bile acids Performed By: #### L 100.0100, L500.4050 #### [facility] [address] [place], [address] Albumin/Globulin [Mass ratio] 1.2 {ratio} Normal 0.9-2.4 [facility] Comment on above: Order Comment: Bile acids Performed By: #### L 100.0100, L500.4050 #### [facility] [address] [place], [address] ALK PHOS 144 U/L High 35-104 [facility] Comment on above: Order Comment: Bile acids Performed By: #### L 100.0100, L500.4050 #### [facility] [address] [place], [address] ALT [Catalytic activity/Vol] 13 U/L Normal <=34 [facility] Comment on above: Order Comment: Bile acids Performed By: #### L 100.0100, L500.4050 #### [facility] [address] [place], [address] AST [Catalytic activity/Vol] 19 U/L Normal <=31 [facility] Comment on above: Order Comment: Bile acids Performed By: #### L 100.0100, L500.4050 #### [facility] [address] [place], [address] Bilirubin [Mass/Vol] 0.22 mg/dL Normal 0.00-1.30 [facility] Comment on above: Order Comment: Bile acids Performed By: #### L 100.0100, L500.4050 #### [facility] [address] [place], [address] BUN/CRE 13.3 RATIO Normal 10-20 [facility] Comment on above: Order Comment: Bile acids Performed By: #### L 100.0100, L500.4050 #### [facility] [address] [place], [address] Calcium [Mass/Vol] 9.3 mg/dL Normal 7.6-11.0 [facility] Comment on above: Order Comment: Bile acids Performed By: #### L 100.0100, L500.4050 #### [facility] [address] [place], [address] Chloride [Moles/Vol] 105 mmol/L Normal 98-108 [facility] Comment on above: Order Comment: Bile acids Performed By: #### L 100.0100, L500.4050 #### [facility] [address] [place], [address] CO2 [Moles/Vol] 20.9 mmol/L Low 21.0-32.0 [facility] Comment on above: Order Comment: Bile acids Performed By: #### L 100.0100, L500.4050 #### [facility] [address] [place], [address] Creatinine [Mass/Vol] 0.69 mg/dL Low 0.70-1.20 [facility] Comment on above: Order Comment: Bile acids Performed By: #### L 100.0100, L500.4050 #### [facility] [address] [place], [address] GAP 11 Normal 5-15 [facility] Comment on above: Order Comment: Bile acids Performed By: #### L 100.0100, L500.4050 #### [facility] [address] [place], [address] GFR/1.73 sq M.predicted among non-blacks MDRD (S/P/Bld) [Vol rate/Area] 120 mL/min/{1.73_m2} Normal >60 [facility] Comment on above: Order Comment: Bile acids Result Comment: mL/m in/1.73m2 CKD-EPI Creatinine Equation (2020) Performed By: #### L 100.0100, L500.4050 #### [facility] [address] [place], [address] Globulin (S) [Mass/Vol] 3.1 g/dL Normal 2.2-4.2 [facility] Comment on above: Order Comment: Bile acids Performed By: #### L 100.0100, L500.4050 #### [facility] [address] [place], [address] Glucose [Mass/Vol] 93 mg/dL Normal 70-99 [facility] Comment on above: Order Comment: Bile acids Performed By: #### L 100.0100, L500.4050 #### [facility] [address] [place], [address] Potassium [Moles/Vol] 3.7 mmol/L Normal 3.3-5.1 [facility] Comment on above: Order Comment: Bile acids Performed By: #### L 100.0100, L500.4050 #### [facility] [address] [place], [address] Sodium [Moles/Vol] 137 mmol/L Normal 133-145 [facility] Comment on above: Order Comment: Bile acids Performed By: #### L 100.0100, L500.4050 #### [facility] [address] [place], [address] T PROT 6.9 g/dL Normal 5.9-8.4 [facility] Comment on above: Order Comment: Bile acids Performed By: #### L 100.0100, L500.4050 #### [facility] [address] [place], [address] Urea nitrogen [Mass/Vol] 9 mg/dL Normal 4-19 [facility] Comment on above: Order Comment: Bile acids Performed By: #### L 100.0100, L500.4050 #### [facility] [address] [place], [address] Eosinophil percentageOrdered By: Tess Lynch on 04-24-2025 Eosinophils/100 WBC (Bld) 0.8 % 0-5 [facility] Erythrocyte distribution wid th ratioOrdered By: Tess Lynch on 04-24-2025 Erythrocyte distribution width (RBC) [Ratio] 13.4 % 11.6-14.6 [facility] Erythrocyte distribution wid th standard deviationOrdered By: Tess Lynch on 04-24-2025 Erythrocyte distribution width (RBC) [Ratio] 42.8 fl 35.1-43.9 [facility] Glomerular filtration rate ( GFR) estimation/1.73 sq m using serum, plasma, or whole bOrdered By: Tess Lynch on 04-24-2025 GFR/1.73 sq M.predicted among non-blacks MDRD (S/P/Bld) [Vol rate/Area] 120 mL/min/{1.73_m2} >60 [facility] Comment on above: mL/min/1.73m2 CKD-EP I Creatinine Equation (2020) Hematocrit Auto (Bld) [Volum e fraction]Ordered By: Tess Lynch on 04-24-2025 Hematocrit (Bld) [Volume fraction] 39.7 % 37-47 [facility] Hemoglobin measurementOrdere d By: Tess Lynch on 04-24-2025 Hemoglobin (Bld) [Mass/Vol] 13.1 g/dL 12.0-15.0 [facility] Immature granulocytes/100 WB C Auto (Bld)Ordered By: Tess Lynch on 04-24-2025 Immature granulocytes/100 WBC (Bld) 1.700 % High 0.0-0.9 [facility] Comment on above: IG% - Immature Granu locytes (promyelocytes, myelocytes and metamyelocytes) > 1% indicates that a LEFT SHIFT is Present. Laboratory - Chemistry and C hemistry - challengeOrdered By: Tess Lynch on 04-24-2025 AST [Catalytic activity/Vol] 19 U/L <32 [facility] MCV (mean corpuscular volume ) determinationOrdered By: Tess Lynch on 04-24-2025 MCV (RBC) [Entitic vol] 87.6 fL 81-99 [facility] Mean corpuscular hemoglobin (MCH) determinationOrdered By: Tess Lynch on 04-24-2025 MCH (RBC) [Entitic mass] 28.9 pg 27.0-32.0 [facility] Mean corpuscular hemoglobin concentration (MCHC) determinationOrdered By: Tess Lynch on 04-24-2025 MCHC (RBC) [Mass/Vol] 33.0 g/dL 32-36 [facility] Mean platelet volume determi nationOrdered By: Tess Lynch on 04-24-2025 Platelet mean volume (Bld) [Entitic vol] 10.5 fL 6.2-12.0 [facility] Monocyte percentageOrdered B y: Tess Lynch on 04-24-2025 Monocytes/100 WBC (Bld) 5.2 % 0-10 [facility] Neutrophil percentageOrdered By: Tess Lynch on 04-24-2025 Neutrophils/100 WBC (Bld) 66.6 % 47-70 [facility] Nucleated red blood cell per centageOrdered By: Tess Lynch on 04-24-2025 Nucleated RBC/100 WBC (Bld) [Ratio] 0 % 0-5 [facility] OB Biophysical Prof W/O NSTo n 04-24-2025 OB Biophysical Prof W/O NST [facility] [address] [place] [address] OB Biophysical Prof W/O NST MR#: [id number] Acct: [id number] Name: SERA SANTIAGO Rep #: [id number] : 1995 F 29 From: Moo velasquez MD PCP: MOOSE Rdiley Status: REG CLI Study: OB Biophysical Prof W/O NST Date of Exam: 03/28 Exam# [id number] Ordering Dr: Tess Lynch NP VENEER STOCK GRADER -Seth PROCEDURE: OB BIOPHYSICAL PROF W/O NST [...] score. Nuchal cord is seen. Reading Location: [id number] CC: MOOSE Aiken; VIVIENNEC Tess Lynch [employer] Clerk: Signed Normal [facility] Tank House Operator Office Visit Reporton 04-24-2025 Tank House Operator Office Visit Report [facility] [address], [address] [place] [address] OFFICE VISIT Date of Service: 04/24/25 MR#: [id number] Acct: [id number] Name: SERA SANTIAGO Rep #: [id number] : 1995 Provider: Dr. Kamille gamez MD Age/Sex: 29/F [place] [facility] [place]: Signed Intake Vital Signs 03/21/25 09:17 04/16/25 08:51 04/24/25 10:18 Height 5 ft 5 in 5 ft 5 in 5 ft 5 in Weight: 173 lb BMI 28.8 BP 133/77 H Intake Visit Reasons: 37 wk ob- rpt labs per 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 Is patient in pain?: No [...] 0 current occupational status: employed current occupation: [employer] in [place] current occupational exposures/hazards: No pets and animals: [...] 3-4 times per week duration: 45-60 minutes/day dana/presybeterian: Temple seatbelt use: always do you feel safe [...] -???-???-???-???-?? ?-???-???-???-???- (more content not included)... Normal [facility] Platelet countOrdered By: Walter kiana Syed on 04-24-2025 Platelets (Bld) [#/Vol] 248 10*3/uL 150-450 [facility] Potassium measurement (mass/ volume)Ordered By: Tess Lynch on 04-24-2025 Potassium (Unsp spec) [Mass/Vol] 3.7 mmol/L 3.3-5.1 [facility] RBC Auto (Bld) [#/Vol]Ordere d By: eTss Lynch on 04-24-2025 RBC (Bld) [#/Vol] 4.53 10*6/uL 4.2-5.4 [facility] Serum creatinine measurement (mass/volume)Ordered By: Tess Lynch on 04-24-2025 Creatinine [Mass/Vol] 0.69 mg/dL Low 0.70-1.20 [facility] Serum globulin measurementOr dered By: Tess Lynch on 04-24-2025 Globulin (S) [Mass/Vol] 3.1 g/dL 2.2-4.2 [facility] Serum glucose measurement (m ass/volume)Ordered By: Tess Lynch on 04-24-2025 Glucose [Mass/Vol] 93 mg/dL 70-99 [facility] Serum or plasma alanine tanner otransferase (ALT) measurementOrdered By: Tess Lynch on 04-24-2025 ALT [Catalytic activity/Vol] 13 U/L <35 [facility] Serum or plasma albumin skyla urement (mass/volume)Ordered By: Tess Lynch on 04-24-2025 Albumin [Mass/Vol] 3.8 g/dL 3.5-5.0 [facility] Serum or plasma albumin/glob ulin mass ratioOrdered By: Tess Lynch on 04-24-2025 Albumin/Globulin [Mass ratio] 1.2 {ratio} 0.9-2.4 [facility] Serum or plasma alkaline francis sphatase measurementOrdered By: Tess Lynch on 04-24-2025 ALP [Catalytic activity/Vol] 144 U/L High 35-104 [facility] Serum or plasma calcium skyla urement (mass/volume)Ordered By: Tess Lynch on 04-24-2025 Calcium [Mass/Vol] 9.3 mg/dL 7.6-11.0 [facility] Serum or plasma urea nitroge n measurement (mass/volume)Ordered By: Tess Lynch on 04-24-2025 Urea nitrogen [Mass/Vol] 9 mg/dL 4-19 [facility] Sodium levelOrdered By: Marta Lynch on 04-24-2025 Sodium [Moles/Vol] 137 mmol/L 133-145 [facility] Total proteinOrdered By: Christina Lynch on 04-24-2025 Protein [Mass/Vol] 6.9 g/dL 5.9-8.4 [facility] White blood cell (WBC) count Ordered By: Tess Lycnh on 04-24-2025 WBC (Bld) [#/Vol] 8.6 10*3/uL 4.4-11.0 [facility] [id number] 04-20-2025 [facility] Misc. COMMENT Normal . [facility] Comment on above: Order Comment: [id number] bile acids Result Comment: Test Ordered: [id number] Bile Acids, Fractionated LCMS Ursodeoxycholic Acids 0.10 [...] Reference Range: All Ages: <9.2 Performed at: [facility] [address] [place] [id number] [employer] Player: Rebecca Snider MD, Phone: [phone] Performed at: - [facility] [address] [place], [place] [id number] [employer] Player: Andrew Kline PhD, Phone: [phone] Performed By: #### M 100.3400 #### [facility] [address] [place], [place], [id number] Absolute lymphocyte countOrd ered By: Tess Lynch on 04-16-2025 Lymphocytes Auto (Unsp spec) [#/Vol] 2.37 10*3/uL 0.83-4.51 [facility] Absolute neutrophil countOrd ered By: Tess Lynch on 04-16-2025 Neutrophils (Bld) [#/Vol] 5.4 10*3/uL 2.0-7.7 [facility] Anion gap in Serum or Plasma Ordered By: Tess Lynch on 04-16-2025 Anion gap [Moles/Vol] 12 mmol/L 5-15 [facility] Automated lymphocyte count a s percentage of total leukocytesOrdered By: Tess Lynch on 04-16-2025 Lymphocytes/100 WBC Auto (Unsp spec) 27.8 % - [facility] BUN/creatinine ratioOrdered By: Tess Lynch on 04-16-2025 Urea nitrogen/Creatinine [Mass ratio] 10.4 mg/mg 10- [facility] Basophil percentageOrdered B y: Tess Lynch on 04-16-2025 Basophils/100 WBC (Bld) 0.6 % 0-1 [facility] Bilirubin, totalOrdered By: Tess Lynch on 04-16-2025 Bilirubin [Mass/Vol] 0.23 mg/dL 0.00-1.30 [facility] CBC W/Diff, Automatedon 03-27 Absolute Lymph 2.37 X10 3/uL Normal 0.83-4.51 [facility] Comment on above: Performed By: #### M 100.3400 #### [facility] [address] [place], [address] Absolute Neut 5.4 X10 3/uL Normal 2.0-7.7 [facility] Comment on above: Performed By: #### M 100.3400 #### [facility] [address] [place], [address] Basophils/100 WBC (Bld) 0.6 % Normal 0-1 [facility] Comment on above: Performed By: #### M 100.3400 #### [facility] [address] [place], [address] Eosinophils/100 WBC (Bld) 1.5 % Normal 0-5 [facility] Comment on above: Performed By: #### M 100.3400 #### [facility] [address] [place], [address] Erythrocyte distribution width (RBC) [Ratio] 13.5 % Normal 11.6-14.6 [facility] Comment on above: Performed By: #### M 100.3400 #### [facility] [address] [place], [address] Hematocrit (Bld) [Volume fraction] 39.4 % Normal 37-47 [facility] Comment on above: Performed By: #### M 100.3400 #### [facility] [address] [place], [address] Hemoglobin (Bld) [Mass/Vol] 13.1 g/dL Normal 12.0-15.0 [facility] Comment on above: Performed By: #### M 100.3400 #### [facility] [address] [place], [address] IG% 2.000 High 0.0-0.9 [facility] Comment on above: Result Comment: IG% - Immature Granulocytes (promyelocytes, myelocytes and metamyelocytes) > 1% indicates that a LEFT SHIFT is Present. Performed By: #### M 100.3400 #### [facility] [address] [place], [address] Lymphocytes/100 WBC (Bld) 27.8 % Normal 19-41 [facility] Comment on above: Performed By: #### M 100.3400 #### [facility] [address] [place], [address] MCH (RBC) [Entitic mass] 29.2 pg Normal 27.0-32.0 [facility] Comment on above: Performed By: #### M 100.3400 #### [facility] [address] [place], [address] MCHC (RBC) [Mass/Vol] 33.2 g/dL Normal 32-36 [facility] Comment on above: Performed By: #### M 100.3400 #### [facility] [address] [place], [address] MCV (RBC) [Entitic vol] 87.9 fL Normal 81-99 [facility] Comment on above: Performed By: #### M 100.3400 #### [facility] [address] [place], [address] Monocytes/100 WBC (Bld) 5.2 % Normal 0-10 [facility] Comment on above: Performed By: #### M 100.3400 #### [facility] [address] [place], [address] Neutrophils/100 WBC (Bld) 62.9 % Normal 47-70 [facility] Comment on above: Performed By: #### M 100.3400 #### [facility] [address] [place], [address] Nucleated RBC (Bld) [#/Vol] 0 10*3/uL Normal 0-5 [facility] Comment on above: Performed By: #### M 100.3400 #### [facility] [address] [place], [address] Platelet mean volume (Bld) [Entitic vol] 10.5 fL Normal 6.2-12.0 [facility] Comment on above: Performed By: #### M 100.3400 #### [facility] [address] [place], [address] Platelets (Bld) [#/Vol] 222 10*3/uL Normal 150-450 [facility] Comment on above: Performed By: #### M 100.3400 #### [facility] [address] [place], [address] RBC (Bld) [#/Vol] 4.48 10*6/uL Normal 4.2-5.4 [facility] Comment on above: Performed By: #### M 100.3400 #### [facility] [address] [place], [address] RDW SD 43.1 fl Normal 35.1-43.9 [facility] Comment on above: Performed By: #### M 100.3400 #### [facility] [address] [place], [address] WBC (Bld) [#/Vol] 8.5 10*3/uL Normal 4.4-11.0 [facility] Comment on above: Performed By: #### M 100.3400 #### [facility] [address] [place], [address] Carbon dioxide, total [Moles /volume] in Central venous bloodOrdered By: Tess Lynch on 04-16-2025 CO2 [Moles/Vol] 20.3 mmol/L Low 21.0-32.0 [facility] Chloride assayOrdered By: Walter Lynch on 04-16-2025 Chloride [Moles/Vol] 104 mmol/L 98-108 [facility] Comprehensive Metabolic Prof ilon 04-16-2025 Albumin [Mass/Vol] 3.8 g/dL Normal 3.5-5.0 [facility] Comment on above: Performed By: #### M 100.3400 #### [facility] [address] [place], [address] Albumin/Globulin [Mass ratio] 1.3 {ratio} Normal 0.9-2.4 [facility] Comment on above: Performed By: #### M 100.3400 #### [facility] [address] [place], [address] ALK PHOS 128 U/L High 35-104 [facility] Comment on above: Performed By: #### M 100.3400 #### [facility] [address] [place], [address] ALT [Catalytic activity/Vol] 14 U/L Normal <=34 [facility] Comment on above: Performed By: #### M 100.3400 #### [facility] [address] [place], [address] AST [Catalytic activity/Vol] 20 U/L Normal <=31 [facility] Comment on above: Performed By: #### M 100.3400 #### [facility] [address] [place], [address] Bilirubin [Mass/Vol] 0.23 mg/dL Normal 0.00-1.30 [facility] Comment on above: Performed By: #### M 100.3400 #### [facility] [address] [place], [address] BUN/CRE 10.4 RATIO Normal 10-20 [facility] Comment on above: Performed By: #### M 100.3400 #### [facility] [address] [place], [address] Calcium [Mass/Vol] 9.0 mg/dL Normal 7.6-11.0 [facility] Comment on above: Performed By: #### M 100.3400 #### [facility] [address] [place], [address] Chloride [Moles/Vol] 104 mmol/L Normal 98-108 [facility] Comment on above: Performed By: #### M 100.3400 #### [facility] [address] [place], [address] CO2 [Moles/Vol] 20.3 mmol/L Low 21.0-32.0 [facility] Comment on above: Performed By: #### M 100.3400 #### [facility] [address] [place], [address] Creatinine [Mass/Vol] 0.61 mg/dL Low 0.70-1.20 [facility] Comment on above: Performed By: #### M 100.3400 #### [facility] [address] [place], [address] GAP 12 Normal 5-15 [facility] Comment on above: Performed By: #### M 100.3400 #### [facility] [address] [place], [address] GFR/1.73 sq M.predicted among non-blacks MDRD (S/P/Bld) [Vol rate/Area] 124 mL/min/{1.73_m2} Normal >60 [facility] Comment on above: Result Comment: mL/m in/1.73m2 CKD-EPI Creatinine Equation (2020) Performed By: #### M 100.3400 #### [facility] [address] [place], [address] Globulin (S) [Mass/Vol] 2.8 g/dL Normal 2.2-4.2 [facility] Comment on above: Performed By: #### M 100.3400 #### [facility] [address] [place], [address] Glucose [Mass/Vol] 93 mg/dL Normal 70-99 [facility] Comment on above: Performed By: #### M 100.3400 #### [facility] [address] [place], [address] Potassium [Moles/Vol] 4.0 mmol/L Normal 3.3-5.1 [facility] Comment on above: Performed By: #### M 100.3400 #### [facility] [address] [place], [address] Sodium [Moles/Vol] 137 mmol/L Normal 133-145 [facility] Comment on above: Performed By: #### M 100.3400 #### [facility] [address] [place], [address] T PROT 6.6 g/dL Normal 5.9-8.4 [facility] Comment on above: Performed By: #### M 100.3400 #### [facility] [address] [place], [address] Urea nitrogen [Mass/Vol] 6 mg/dL Normal 4-19 [facility] Comment on above: Performed By: #### M 100.3400 #### [facility] [address] [place], [address] Eosinophil percentageOrdered By: Tess Lynch on 04-16-2025 Eosinophils/100 WBC (Bld) 1.5 % 0-5 [facility] Erythrocyte distribution wid th ratioOrdered By: Tess Lynch on 04-16-2025 Erythrocyte distribution width (RBC) [Ratio] 13.5 % 11.6-14.6 [facility] Erythrocyte distribution wid th standard deviationOrdered By: Tess Lynch on 04-16-2025 Erythrocyte distribution width (RBC) [Ratio] 43.1 fl 35.1-43.9 [facility] Glomerular filtration rate ( GFR) estimation/1.73 sq m using serum, plasma, or whole bOrdered By: Tess Lynch on 04-16-2025 GFR/1.73 sq M.predicted among non-blacks MDRD (S/P/Bld) [Vol rate/Area] 124 mL/min/{1.73_m2} >60 [facility] Comment on above: mL/min/1.73m2 CKD-EP I Creatinine Equation (2020) Hematocrit Auto (Bld) [Volum e fraction]Ordered By: Tess Lynch on 04-16-2025 Hematocrit (Bld) [Volume fraction] 39.4 % 37-47 [facility] Hemoglobin measurementOrdere d By: Tess Lynch on 04-16-2025 Hemoglobin (Bld) [Mass/Vol] 13.1 g/dL 12.0-15.0 [facility] Immature granulocytes/100 WB C Auto (Bld)Ordered By: Tess Lynch on 04-16-2025 Immature granulocytes/100 WBC (Bld) 2.000 % High 0.0-0.9 [facility] Comment on above: IG% - Immature Granu locytes (promyelocytes, myelocytes and metamyelocytes) > 1% indicates that a LEFT SHIFT is Present. Laboratory - Chemistry and C hemistry - challengeOrdered By: Tess Lynch on 04-16-2025 AST [Catalytic activity/Vol] 20 U/L <32 [facility] Glucose Ql (U) Negative [facility] - UrinalysisOrder ed By: Tess Lynch on 04-16-2025 Protein Ql (U) Negative [facility] MCV (mean corpuscular volume ) determinationOrdered By: Tess Lynch on 04-16-2025 MCV (RBC) [Entitic vol] 87.9 fL 81-99 [facility] Mean corpuscular hemoglobin (MCH) determinationOrdered By: Tess Lynch on 04-16-2025 MCH (RBC) [Entitic mass] 29.2 pg 27.0-32.0 [facility] Mean corpuscular hemoglobin concentration (MCHC) determinationOrdered By: Tess Lynch on 04-16-2025 MCHC (RBC) [Mass/Vol] 33.2 g/dL 32-36 [facility] Mean platelet volume determi nationOrdered By: Tess Lynch on 04-16-2025 Platelet mean volume (Bld) [Entitic vol] 10.5 fL 6.2-12.0 [facility] Monocyte percentageOrdered B y: Tess Lynch on 04-16-2025 Monocytes/100 WBC (Bld) 5.2 % 0-10 [facility] Neutrophil percentageOrdered By: Tess Lynch on 04-16-2025 Neutrophils/100 WBC (Bld) 62.9 % 47-70 [facility] Nucleated red blood cell per centageOrdered By: Tess Lynch on 04-16-2025 Nucleated RBC/100 WBC (Bld) [Ratio] 0 % 0-5 [facility] [employer] Office Visit Reporton 04-16-2025 [employer] Operator Office Visit Report [facility] [address], [address] [place] [address] OFFICE VISIT Date of Service: 04/16/25 MR#: [id number] Acct: [id number] Name: SERA SANTIAGO Rep #: [id number] : 1995 Provider: MOOSE moreno Age/Sex: 29/F [place] [facility] [place]: Signed Intake Vital Signs 02/19/25 08:28 04/03/25 15:18 04/16/25 08:51 Height 5 ft 5 in 5 ft 5 in 5 ft 5 in Weight: 171 lb 4 oz BMI 28.5 BP 110/74 Intake Visit Reasons: 35w 6d ob 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 Is patient in pain?: No [...] 0 current occupational status: employed current occupation: [employer] in [place] current occupational exposures/hazards: No pets and animals: [...] 3-4 times per week duration: 45-60 minutes/day dana/presybeterian: Temple seatbelt use: always do you feel safe at home: Yes additional social history: Melvin- . OBI Fonseca History 2 Elective abortions Hx Para 0 Spontaneous abortions 1 Hx # Term Pregnancies Ectopic pregnancies Hx # Pregnancies Multiple births # of living children 0 Past Pregnancies Del. Date Name GA/Weeks Outcome Route Bth [facility] 4 spontaneous [...] VB. So (more content not included)... Normal [facility] Platelet countOrdered By: Walter Lynch on 04-16-2025 Platelets (Bld) [#/Vol] 222 10*3/uL 150-450 [facility] Potassium measurement (mass/ volume)Ordered By: Tess Lynch on 04-16-2025 Potassium (Unsp spec) [Mass/Vol] 4.0 mmol/L 3.3-5.1 [facility] RBC Auto (Bld) [#/Vol]Ordere d By: Tess Lynch on 04-16-2025 RBC (Bld) [#/Vol] 4.48 10*6/uL 4.2-5.4 [facility] Serum creatinine measurement (mass/volume)Ordered By: Tess Lynch on 04-16-2025 Creatinine [Mass/Vol] 0.61 mg/dL Low 0.70-1.20 [facility] Serum globulin measurementOr dered By: Tess Lynch on 04-16-2025 Globulin (S) [Mass/Vol] 2.8 g/dL 2.2-4.2 [facility] Serum glucose measurement (m ass/volume)Ordered By: Tess Lynch on 04-16-2025 Glucose [Mass/Vol] 93 mg/dL 70-99 [facility] Serum or plasma alanine tanner otransferase (ALT) measurementOrdered By: Tess Lynch on 04-16-2025 ALT [Catalytic activity/Vol] 14 U/L <35 [facility] Serum or plasma albumin skyla urement (mass/volume)Ordered By: Tess Lynch on 04-16-2025 Albumin [Mass/Vol] 3.8 g/dL 3.5-5.0 [facility] Serum or plasma albumin/glob ulin mass ratioOrdered By: Tess Lynch on 04-16-2025 Albumin/Globulin [Mass ratio] 1.3 {ratio} 0.9-2.4 [facility] Serum or plasma alkaline francis sphatase measurementOrdered By: Tess Lynch on 04-16-2025 ALP [Catalytic activity/Vol] 128 U/L High 35-104 [facility] Serum or plasma calcium skyla urement (mass/volume)Ordered By: Tess Lynch on 04-16-2025 Calcium [Mass/Vol] 9.0 mg/dL 7.6-11.0 [facility] Serum or plasma urea nitroge n measurement (mass/volume)Ordered By: Tess Lynch on 04-16-2025 Urea nitrogen [Mass/Vol] 6 mg/dL 4-19 [facility] Sodium levelOrdered By: Marta Lynch on 04-16-2025 Sodium [Moles/Vol] 137 mmol/L 133-145 [facility] Total proteinOrdered By: Christina Lynch on 04-16-2025 Protein [Mass/Vol] 6.6 g/dL 5.9-8.4 [facility] White blood cell (WBC) count Ordered By: Tess Lynch on 04-16-2025 WBC (Bld) [#/Vol] 8.5 10*3/uL 4.4-11.0 [facility] Laboratory - Chemistry and C hemistry - challengeOrdered By: Rhea Pak on 04-03-2025 Glucose Ql (U) Negative [facility] - UrinalysisOrder ed By: Rhea Pak on 04-03-2025 Protein Ql (U) Negative 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 Rhea Tiwari DO Age/Sex: 29/F [place] [facility] [place]: Signed Intake Vital Signs 02/19/25 08:28 03/21/25 09:17 04/03/25 15:16 04/03/25 15:18 Height 5 ft 5 in 5 ft 5 in 5 ft 5 in 5 ft 5 in Weight: 168 lb 9 oz BMI 28.0 BP 116/69 Intake Visit Reasons: 34wk ob 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 Is patient in pain?: No [...] 0 current occupational status: employed current occupation: [employer] current occupational exposures/hazards: No pets and animals: [...] 3-4 times per week duration: 45-60 minutes/day dana/presybeterian: Temple seatbelt use: always do you feel safe [...] -???-???-???-???-?? ?-???-???-???-???-? (more content not included)... Normal [facility] - Chemistry and C hemistry - challengeOrdered By: Becky Caballero on 03-21-2025 Glucose Ql (U) Negative [facility] - UrinalysisOrder ed By: Becky Caballero on 03-21-2025 Protein Ql (U) Negative 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 [facility] [address], [address] [place] [address] OFFICE VISIT Date of Service: 03/21/25 MR#: [id number] Acct: [id number] Name: SERA SANTIAGO Rep #: [id number] : 1995 Provider: FABIO Anderson ams Age/Sex: 29/F [place] [facility] [place] Status: Signed Intake Vital Signs 02/19/25 08:28 03/03/25 08:57 03/21/25 09:17 Height 5 ft 5 in 5 ft 5 in 5 ft 5 in Weight: 167 lb 8 oz BMI 27.8 BP 121/73 H Intake Visit Reasons: 32wk ob 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 Is patient in pain?: No [...] 0 current occupational status: employed current occupation: [employer] in [place] current occupational exposures/hazards: No pets and animals: [...] 3-4 times per week duration: 45-60 minutes/day dana/presybeterian: Temple seatbelt use: always do you feel safe [...] MH-No VB (more content not included)... Normal [facility] Absolute lymphocyte countOrd ered By: Kamille Albarran on 03-03-2025 Lymphocytes Auto (Unsp spec) [#/Vol] 2.24 10*3/uL 0.83-4.51 [facility] Absolute neutrophil countOrd ered By: Kamille Albarran on 03-03-2025 Neutrophils (Bld) [#/Vol] 5.9 10*3/uL 2.0-7.7 [facility] Anion gap in Serum or Plasma Ordered By: Kamille Albarran on 03-03-2025 Anion gap [Moles/Vol] 13 mmol/L 5-15 [facility] Automated lymphocyte count a s percentage of total leukocytesOrdered By: Kamille Albarran on 03-03-2025 Lymphocytes/100 WBC Auto (Unsp spec) 25.3 % 19-41 [facility] BUN/creatinine ratioOrdered By: Kamille Albarran on 03-03-2025 Urea nitrogen/Creatinine [Mass ratio] 9.9 mg/mg Low 10-20 [facility] Basophil percentageOrdered B y: Kamille Albarran on 03-03-2025 Basophils/100 WBC (Bld) 0.9 % 0-1 [facility] Bilirubin, totalOrdered By: Kamille Albarran on 03-03-2025 Bilirubin [Mass/Vol] 0.17 mg/dL 0.00-1.30 [facility] CBC W/Diff, Automatedon Absolute Lymph 2.24 X10 3/uL Normal 0.83-4.51 [facility] Comment on above: Performed By: #### L 100.0100, L500.4050 #### [facility] [address] [place], [address] Absolute Neut 5.9 X10 3/uL Normal 2.0-7.7 [facility] Comment on above: Performed By: #### L 100.0100, L500.4050 #### [facility] [address] [place], [address] Basophils/100 WBC (Bld) 0.9 % Normal 0-1 [facility] Comment on above: Performed By: #### L 100.0100, L500.4050 #### [facility] [address] [place], [address] Eosinophils/100 WBC (Bld) 1.6 % Normal 0-5 [facility] Comment on above: Performed By: #### L 100.0100, L500.4050 #### [facility] [address] [place], [address] Erythrocyte distribution width (RBC) [Ratio] 13.0 % Normal 11.6-14.6 [facility] Comment on above: Performed By: #### L 100.0100, L500.4050 #### [facility] [address] [place], [address] Hematocrit (Bld) [Volume fraction] 36.3 % Low 37-47 [facility] Comment on above: Performed By: #### L 100.0100, L500.4050 #### [facility] [address] [place], [address] Hemoglobin (Bld) [Mass/Vol] 12.1 g/dL Normal 12.0-15.0 [facility] Comment on above: Performed By: #### L 100.0100, L500.4050 #### [facility] [address] [place], [address] IG% 2.300 High 0.0-0.9 [facility] Comment on above: Result Comment: IG% - Immature Granulocytes (promyelocytes, myelocytes and metamyelocytes) > 1% indicates that a LEFT SHIFT is Present. Performed By: #### L 100.0100, L500.4050 #### [facility] [address] [place], [address] Lymphocytes/100 WBC (Bld) 25.3 % Normal 19-41 [facility] Comment on above: Performed By: #### L 100.0100, L500.4050 #### [facility] [address] [place] [place], [address] MCH (RBC) [Entitic mass] 30.0 pg Normal 27.0-32.0 [facility] Comment on above: Performed By: #### L 100.0100, L500.4050 #### [facility] [address] [place], [address] MCHC (RBC) [Mass/Vol] 33.3 g/dL Normal 32-36 [facility] Comment on above: Performed By: #### L 100.0100, L500.4050 #### [facility] [address] [place], [address] MCV (RBC) [Entitic vol] 90.1 fL Normal 81-99 [facility] Comment on above: Performed By: #### L 100.0100, L500.4050 #### [facility] [address] [place], [address] Monocytes/100 WBC (Bld) 3.7 % Normal 0-10 [facility] Comment on above: Performed By: #### L 100.0100, L500.4050 #### [facility] [address] [place], [address] Neutrophils/100 WBC (Bld) 66.2 % Normal 47-70 [facility] Comment on above: Performed By: #### L 100.0100, L500.4050 #### [facility] [address] [place], [address] Nucleated RBC (Bld) [#/Vol] 0 10*3/uL Normal 0-5 [facility] Comment on above: Performed By: #### L 100.0100, L500.4050 #### [facility] [address] [place], [address] Platelet mean volume (Bld) [Entitic vol] 10.1 fL Normal 6.2-12.0 [facility] Comment on above: Performed By: #### L 100.0100, L500.4050 #### [facility] [address] [place], [address] Platelets (Bld) [#/Vol] 239 10*3/uL Normal 150-450 [facility] Comment on above: Performed By: #### L 100.0100, L500.4050 #### [facility] [address] [place], [address] RBC (Bld) [#/Vol] 4.03 10*6/uL Low 4.2-5.4 [facility] Comment on above: Performed By: #### L 100.0100, L500.4050 #### [facility] [address] [place], [address] RDW SD 42.6 fl Normal 35.1-43.9 [facility] Comment on above: Performed By: #### L 100.0100, L500.4050 #### [facility] [address] [place], [address] WBC (Bld) [#/Vol] 8.9 10*3/uL Normal 4.4-11.0 [facility] Comment on above: Performed By: #### L 100.0100, L500.4050 #### [facility] [address] [place], [address] Carbon dioxide, total [Moles /volume] in Central venous bloodOrdered By: Kamille Albarran on 03-03-2025 CO2 [Moles/Vol] 18.1 mmol/L Low 21.0-32.0 [facility] Chloride assayOrdered By: Radha Albarran on 03-03-2025 Chloride [Moles/Vol] 106 mmol/L 98-108 [facility] Comprehensive Metabolic Prof ilon 03-03-2025 Albumin [Mass/Vol] 3.7 g/dL Normal 3.5-5.0 [facility] Comment on above: Performed By: #### L 100.0100, L500.4050 #### [facility] [address] [place], [address] Albumin/Globulin [Mass ratio] 1.3 {ratio} Normal 0.9-2.4 [facility] Comment on above: Performed By: #### L 100.0100, L500.4050 #### [facility] [address] [place], [address] ALK PHOS 80 U/L Normal 35-104 [facility] Comment on above: Performed By: #### L 100.0100, L500.4050 #### [facility] [address] [place], [address] ALT [Catalytic activity/Vol] 28 U/L Normal <=34 [facility] Comment on above: Performed By: #### L 100.0100, L500.4050 #### [facility] [address] [place], [address] AST [Catalytic activity/Vol] 23 U/L Normal <=31 [facility] Comment on above: Performed By: #### L 100.0100, L500.4050 #### [facility] [address] [place], [address] Bilirubin [Mass/Vol] 0.17 mg/dL Normal 0.00-1.30 [facility] Comment on above: Performed By: #### L 100.0100, L500.4050 #### [facility] [address] [place], [address] BUN/CRE 9.9 RATIO Low 10-20 [facility] Comment on above: Performed By: #### L 100.0100, L500.4050 #### [facility] [address] [place], [address] Calcium [Mass/Vol] 9.3 mg/dL Normal 7.6-11.0 [facility] Comment on above: Performed By: #### L 100.0100, L500.4050 #### [facility] [address] [place], [address] Chloride [Moles/Vol] 106 mmol/L Normal 98-108 [facility] Comment on above: Performed By: #### L 100.0100, L500.4050 #### [facility] [address] [place], [address] CO2 [Moles/Vol] 18.1 mmol/L Low 21.0-32.0 [facility] Comment on above: Performed By: #### L 100.0100, L500.4050 #### [facility] [address] [place], [address] Creatinine [Mass/Vol] 0.64 mg/dL Low 0.70-1.20 [facility] Comment on above: Performed By: #### L 100.0100, L500.4050 #### [facility] [address] [place], [address] GAP 13 Normal 5-15 [facility] Comment on above: Performed By: #### L 100.0100, L500.4050 #### [facility] [address] [place], [address] GFR/1.73 sq M.predicted among non-blacks MDRD (S/P/Bld) [Vol rate/Area] 123 mL/min/{1.73_m2} Normal >60 [facility] Comment on above: Result Comment: mL/m in/1.73m2 CKD-EPI Creatinine Equation (2020) Performed By: #### L 100.0100, L500.4050 #### [facility] [address] [place], [address] Globulin (S) [Mass/Vol] 2.8 g/dL Normal 2.2-4.2 [facility] Comment on above: Performed By: #### L 100.0100, L500.4050 #### [facility] [address] [place], [address] Glucose [Mass/Vol] 95 mg/dL Normal 70-99 [facility] Comment on above: Performed By: #### L 100.0100, L500.4050 #### [facility] [address] [place], [address] Potassium [Moles/Vol] 3.8 mmol/L Normal 3.3-5.1 [facility] Comment on above: Performed By: #### L 100.0100, L500.4050 #### [facility] [address] [place], [address] Sodium [Moles/Vol] 137 mmol/L Normal 133-145 [facility] Comment on above: Performed By: #### L 100.0100, L500.4050 #### [facility] [address] [place], [address] T PROT 6.5 g/dL Normal 5.9-8.4 [facility] Comment on above: Performed By: #### L 100.0100, L500.4050 #### [facility] [address] [place], [address] Urea nitrogen [Mass/Vol] 6 mg/dL Normal 4-19 [facility] Comment on above: Performed By: #### L 100.0100, L500.4050 #### [facility] [address] [place], [address] Eosinophil percentageOrdered By: Kamille Albarran on 03-03-2025 Eosinophils/100 WBC (Bld) 1.6 % 0-5 [facility] Erythrocyte distribution wid th ratioOrdered By: Kamille Albarran on 03-03-2025 Erythrocyte distribution width (RBC) [Ratio] 13.0 % 11.6-14.6 [facility] Erythrocyte distribution wid th standard deviationOrdered By: Kamille Albarran on 03-03-2025 Erythrocyte distribution width (RBC) [Ratio] 42.6 fl 35.1-43.9 [facility] Glomerular filtration rate ( GFR) estimation/1.73 sq m using serum, plasma, or whole bOrdered By: Kamille Albarran on 03-03-2025 GFR/1.73 sq M.predicted among non-blacks MDRD (S/P/Bld) [Vol rate/Area] 123 mL/min/{1.73_m2} >60 [facility] Comment on above: mL/min/1.73m2 CKD-EP I Creatinine Equation (2020) Hematocrit Auto (Bld) [Volum e fraction]Ordered By: Kamille Albarran on 03-03-2025 Hematocrit (Bld) [Volume fraction] 36.3 % Low 37-47 [facility] Hemoglobin measurementOrdere d By: Kamille Albarran on 03-03-2025 Hemoglobin (Bld) [Mass/Vol] 12.1 g/dL 12.0-15.0 [facility] Immature granulocytes/100 WB C Auto (Bld)Ordered By: Kamille Albarran on 03-03-2025 Immature granulocytes/100 WBC (Bld) 2.300 % High 0.0-0.9 [facility] Comment on above: IG% - Immature Granu locytes (promyelocytes, myelocytes and metamyelocytes) > 1% indicates that a LEFT SHIFT is Present. Laboratory - Chemistry and C hemistry - challengeOrdered By: Kamille Albarran on 03-03-2025 AST [Catalytic activity/Vol] 23 U/L <32 [facility] Glucose Ql (U) Negative [facility] - UrinalysisOrder ed By: Kamille Albarran on 03-03-2025 Protein Ql (U) Negative [facility] MCV (mean corpuscular volume ) determinationOrdered By: Kamille Albarran on 03-03-2025 MCV (RBC) [Entitic vol] 90.1 fL 81-99 [facility] Mean corpuscular hemoglobin (MCH) determinationOrdered By: Kamille Albarran on 03-03-2025 MCH (RBC) [Entitic mass] 30.0 pg 27.0-32.0 [facility] Mean corpuscular hemoglobin concentration (MCHC) determinationOrdered By: Kamille Albarran on 03-03-2025 MCHC (RBC) [Mass/Vol] 33.3 g/dL 32-36 [facility] Mean platelet volume determi nationOrdered By: Kamille Albarran on 03-03-2025 Platelet mean volume (Bld) [Entitic vol] 10.1 fL 6.2-12.0 [facility] Monocyte percentageOrdered B y: Kamille Albarran on 03-03-2025 Monocytes/100 WBC (Bld) 3.7 % 0-10 [facility] Neutrophil percentageOrdered By: Kamille Albarran on 03-03-2025 Neutrophils/100 WBC (Bld) 66.2 % 47-70 [facility] Nucleated red blood cell per centageOrdered By: Kamille Albarran on 03-03-2025 Nucleated RBC/100 WBC (Bld) [Ratio] 0 % 0-5 [facility] [employer] Office Visit Reporton 03-03-2025 [employer] Office Visit Report [facility] [address], [address] [place] [address] OFFICE VISIT Date of Service: 03/03/25 MR#: [id number] Acct: [id number] Name: SERA SANTIAGO Rep #: [id number] : 1995 Provider: Dr. Kamille gamez MD Age/Sex: 29/F [place] [facility] [place]: Signed Intake Vital Signs 01/02/25 10:41 02/19/25 08:28 03/03/25 08:57 03/03/25 09:15 Height 5 ft 5 in 5 ft 5 in 5 ft 5 in Weight: 168 lb BMI 27.9 BP 122/61 H Intake Visit Reasons: 30 wk ob 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 Is patient in pain?: No [...] 0 current occupational status: employed current occupation: [employer] in [place] current occupational exposures/hazards: No pets and animals: [...] 3-4 times per week duration: 45-60 minutes/day dana/presybeterian: Temple seatbelt use: always do you feel safe [...] ??-???-???- Ne (more content not included)... Normal [facility] Platelet countOrdered By: Radha Albarran on 03-03-2025 Platelets (Bld) [#/Vol] 239 10*3/uL 150-450 [facility] Potassium measurement (mass/ volume)Ordered By: Kaimlle Albarran on 03-03-2025 Potassium (Unsp spec) [Mass/Vol] 3.8 mmol/L 3.3-5.1 [facility] RBC Auto (Bld) [#/Vol]Ordere d By: Kamille Albarran on 03-03-2025 RBC (Bld) [#/Vol] 4.03 10*6/uL Low 4.2-5.4 [facility] Serum creatinine measurement (mass/volume)Ordered By: Kamille Albarran on 03-03-2025 Creatinine [Mass/Vol] 0.64 mg/dL Low 0.70-1.20 [facility] Serum globulin measurementOr dered By: Kamille Albarran on 03-03-2025 Globulin (S) [Mass/Vol] 2.8 g/dL 2.2-4.2 [facility] Serum glucose measurement (m ass/volume)Ordered By: Kamille Albarran on 03-03-2025 Glucose [Mass/Vol] 95 mg/dL 70-99 [facility] Serum or plasma alanine tanner otransferase (ALT) measurementOrdered By: Kamille Albarran on 03-03-2025 ALT [Catalytic activity/Vol] 28 U/L <35 [facility] Serum or plasma albumin skyla urement (mass/volume)Ordered By: Kamille Albarran on 03-03-2025 Albumin [Mass/Vol] 3.7 g/dL 3.5-5.0 [facility] Serum or plasma albumin/glob ulin mass ratioOrdered By: Kamille Albarran on 03-03-2025 Albumin/Globulin [Mass ratio] 1.3 {ratio} 0.9-2.4 [facility] Serum or plasma alkaline francis sphatase measurementOrdered By: Kamille Albarran on 03-03-2025 ALP [Catalytic activity/Vol] 80 U/L 35-104 [facility] Serum or plasma calcium skyla urement (mass/volume)Ordered By: Kamille Albarran on 03-03-2025 Calcium [Mass/Vol] 9.3 mg/dL 7.6-11.0 [facility] Serum or plasma urea nitroge n measurement (mass/volume)Ordered By: Kamille Albarran on 03-03-2025 Urea nitrogen [Mass/Vol] 6 mg/dL 4-19 [facility] Sodium levelOrdered By: Jay Albarran on 03-03-2025 Sodium [Moles/Vol] 137 mmol/L 133-145 [facility] Total proteinOrdered By: Kush Albarran on 03-03-2025 Protein [Mass/Vol] 6.5 g/dL 5.9-8.4 [facility] White blood cell (WBC) count Ordered By: Kamille Albarran on 03-03-2025 WBC (Bld) [#/Vol] 8.9 10*3/uL 4.4-11.0 [facility] Absolute lymphocyte countOrd ered By: Becky Caballero on 02-19-2025 Lymphocytes Auto (Unsp spec) [#/Vol] 2.31 10*3/uL 0.83-4.51 [facility] Absolute neutrophil countOrd ered By: Becky Caballero on 02-19-2025 Neutrophils (Bld) [#/Vol] 5.8 10*3/uL 2.0-7.7 [facility] Automated lymphocyte count a s percentage of total leukocytesOrdered By: Becky Caballero on 02-19-2025 Lymphocytes/100 WBC Auto (Unsp spec) 26.2 % 19-41 [facility] Basophil percentageOrdered B y: Becky Caballero on 02-19-2025 Basophils/100 WBC (Bld) 0.5 % 0-1 [facility] CBC W/Diff, Automatedon 01-25 Absolute Lymph 2.31 X10 3/uL Normal 0.83-4.51 [facility] Comment on above: Performed By: #### L 501.0250, L100.0100, L3890.6006, L509.8002 #### [facility] [address] [place], [address] Absolute Neut 5.8 X10 3/uL Normal 2.0-7.7 [facility] Comment on above: Performed By: #### L 501.0250, L100.0100, L3890.6006, L509.8002 #### [facility] [address] [place], [address] Basophils/100 WBC (Bld) 0.5 % Normal 0-1 [facility] Comment on above: Performed By: #### L 501.0250, L100.0100, L3890.6006, L509.8002 #### [facility] [address] [place], [address] Eosinophils/100 WBC (Bld) 1.5 % Normal 0-5 [facility] Comment on above: Performed By: #### L 501.0250, L100.0100, L3890.6006, L509.8002 #### [facility] [address] [place], [address] Erythrocyte distribution width (RBC) [Ratio] 13.2 % Normal 11.6-14.6 [facility] Comment on above: Performed By: #### L 501.0250, L100.0100, L3890.6006, L509.8002 #### [facility] [address] [place], [address] Hematocrit (Bld) [Volume fraction] 38.4 % Normal 37-47 [facility] Comment on above: Performed By: #### L 501.0250, L100.0100, L3890.6006, L509.8002 #### [facility] [address] [place], [address] Hemoglobin (Bld) [Mass/Vol] 12.8 g/dL Normal 12.0-15.0 [facility] Comment on above: Performed By: #### L 501.0250, L100.0100, L3890.6006, L509.8002 #### [facility] [address] [place], [address] IG% 1.600 High 0.0-0.9 [facility] Comment on above: Result Comment: IG% - Immature Granulocytes (promyelocytes, myelocytes and metamyelocytes) > 1% indicates that a LEFT SHIFT is Present. Performed By: #### L 501.0250, L100.0100, L3890.6006, L509.8002 #### [facility] [address] [place], [address] Lymphocytes/100 WBC (Bld) 26.2 % Normal 19-41 [facility] Comment on above: Performed By: #### L 501.0250, L100.0100, L3890.6006, L509.8002 #### [facility] [address] [place], [address] MCH (RBC) [Entitic mass] 30.5 pg Normal 27.0-32.0 [facility] Comment on above: Performed By: #### L 501.0250, L100.0100, L3890.6006, L509.8002 #### [facility] [address] [place], [address] MCHC (RBC) [Mass/Vol] 33.3 g/dL Normal 32-36 [facility] Comment on above: Performed By: #### L 501.0250, L100.0100, L3890.6006, L509.8002 #### [facility] [address] [place], [address] MCV (RBC) [Entitic vol] 91.6 fL Normal 81-99 [facility] Comment on above: Performed By: #### L 501.0250, L100.0100, L3890.6006, L509.8002 #### [facility] [address] [place], [address] Monocytes/100 WBC (Bld) 4.8 % Normal 0-10 [facility] Comment on above: Performed By: #### L 501.0250, L100.0100, L3890.6006, L509.8002 #### [facility] [address] [place], [address] Neutrophils/100 WBC (Bld) 65.4 % Normal 47-70 [facility] Comment on above: Performed By: #### L 501.0250, L100.0100, L3890.6006, L509.8002 #### [facility] [address] [place], [address] Nucleated RBC (Bld) [#/Vol] 0 10*3/uL Normal 0-5 [facility] Comment on above: Performed By: #### L 501.0250, L100.0100, L3890.6006, L509.8002 #### [facility] [address] [place], [address] Platelet mean volume (Bld) [Entitic vol] 10.3 fL Normal 6.2-12.0 [facility] Comment on above: Performed By: #### L 501.0250, L100.0100, L3890.6006, L509.8002 #### [facility] [address] [place], [address] Platelets (Bld) [#/Vol] 245 10*3/uL Normal 150-450 [facility] Comment on above: Performed By: #### L 501.0250, L100.0100, L3890.6006, L509.8002 #### [facility] [address] [place], [address] RBC (Bld) [#/Vol] 4.19 10*6/uL Low 4.2-5.4 [facility] Comment on above: Performed By: #### L 501.0250, L100.0100, L3890.6006, L509.8002 #### [facility] [address] [place], [address] RDW SD 43.8 fl Normal 35.1-43.9 [facility] Comment on above: Performed By: #### L 501.0250, L100.0100, L3890.6006, L509.8002 #### [facility] [address] [place], [address] WBC (Bld) [#/Vol] 8.8 10*3/uL Normal 4.4-11.0 [facility] Comment on above: Performed By: #### L 501.0250, L100.0100, L3890.6006, L509.8002 #### [facility] [address] [place], [address] Eosinophil percentageOrdered By: Becky Caballero on 02-19-2025 Eosinophils/100 WBC (Bld) 1.5 % 0-5 [facility] Erythrocyte distribution wid th ratioOrdered By: Becky Caballero on 02-19-2025 Erythrocyte distribution width (RBC) [Ratio] 13.2 % 11.6-14.6 [facility] Erythrocyte distribution wid th standard deviationOrdered By: Becky Caballero on 02-19-2025 Erythrocyte distribution width (RBC) [Ratio] 43.8 fl 35.1-43.9 [facility] Glucose Challenge Gest 1H 50 coty 02-19-2025 GLU GEST 50g 1H 96 mg/dL Normal 70-140 [facility] Comment on above: Performed By: #### L 501.0250, L100.0100, L3890.6006, L509.8002 #### [facility] [address] [place], [place], [address] Glucose measurement at 2 vane rs post-dose gestational glucose tolerance testOrdered By: Becky Caballero on 02-19-2025 Glucose [Mass/Vol] 96 mg/dL 70-140 [facility] HIVon 02-19-2025 HIV Non-Reactive Normal Nonreactive [facility] Comment on above: Result Comment: Non- Reactive Reactive Repeatedly reactive samples must be confirmed according to CDC recommended confirmatory algorithms. The subresults for either HIVAG or AHIV can be used as an aid in the selection of the confirmation algorithm for reactive samples. Send out specimens with Reactive results to [facility] for confirmation. Order the HIV antibody detection and differentiation: lc#[id number] Performed By: #### L 501.0250, L100.0100, L3890.6006, L509.8002 #### [facility] [address] [place], [place], [address] Hematocrit Auto (Bld) [Volum e fraction]Ordered By: Becky Caballero on 02-19-2025 Hematocrit (Bld) [Volume fraction] 38.4 % 37-47 [facility] Hemoglobin measurementOrdere d By: Becky Caballero on 02-19-2025 Hemoglobin (Bld) [Mass/Vol] 12.8 g/dL 12.0-15.0 [facility] Immature granulocytes/100 WB C Auto (Bld)Ordered By: Becky Caballero on 02-19-2025 Immature granulocytes/100 WBC (Bld) 1.600 % High 0.0-0.9 [facility] Comment on above: IG% - Immature Granu locytes (promyelocytes, myelocytes and metamyelocytes) > 1% indicates that a LEFT SHIFT is Present. Laboratory - Chemistry and C hemistry - challengeOrdered By: Tess Lynch on 02-19-2025 Glucose Ql (U) Negative [facility] - UrinalysisOrder ed By: Tess Lynch on 02-19-2025 Protein Ql (U) Negative [facility] MCV (mean corpuscular volume ) determinationOrdered By: Becky Caballero on 02-19-2025 MCV (RBC) [Entitic vol] 91.6 fL 81-99 [facility] Mean corpuscular hemoglobin (MCH) determinationOrdered By: Becky Caballero on 02-19-2025 MCH (RBC) [Entitic mass] 30.5 pg 27.0-32.0 [facility] Mean corpuscular hemoglobin concentration (MCHC) determinationOrdered By: Becky Caballero on 02-19-2025 MCHC (RBC) [Mass/Vol] 33.3 g/dL 32-36 [facility] Mean platelet volume determi nationOrdered By: Becky Caballero on 02-19-2025 Platelet mean volume (Bld) [Entitic vol] 10.3 fL 6.2-12.0 [facility] Monocyte percentageOrdered B y: Becky Caballero on 02-19-2025 Monocytes/100 WBC (Bld) 4.8 % 0-10 [facility] Neutrophil percentageOrdered By: Becky Caballero on 02-19-2025 Neutrophils/100 WBC (Bld) 65.4 % 47-70 [facility] No Panel InformationOrdered By: Becky Caballero on 02-19-2025 HIV (1&2) Antibody Non-Reactive Nonreactive [facility] Comment on above: Non-ReactiveReactive Repeatedly reactive samples must be confirmed according to CDC recommended confirmatory algorithms. The subresults for either HIVAG or AHIV can be used as an aid in the selection of the confirmation algorithm for reactive samples.Send out specimens with Reactive results to [facility] for confirmation.Order the HIV antibody detection and differentiation: #[id number] Nucleated red blood cell per centageOrdered By: Becky Caballero on 02-19-2025 Nucleated RBC/100 WBC (Bld) [Ratio] 0 % 0-5 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'[address], [address] [place] [address] OFFICE VISIT Date of Service: 02/19/25 MR#: [id number] Acct: [id number] Name: JACKRAMAKRISHNAAlicia Michael BYNUMGERMAN Rep #: [id number] : 1995 Provider: MOOSE moreno Age/Sex: 29/F [place] [facility] [place]: Signed Intake Vital Signs 12/02/24 12:59 01/29/25 10:24 02/19/25 08:28 Height 5 ft 5 in 5 ft 5 in 5 ft 5 in Weight: 162 lb 168 lb BMI 26.9 27.9 BP 110/67 130/72 H Intake Visit Reasons: 28wk ob/glucose Chief Complaint: 28 Week OB/Glucose 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 Is patient in pain?: No [...] 0 current occupational status: employed current occupation: [employer] in [place] current occupational exposures/hazards: No pets and animals: [...] 3-4 times per week duration: 45-60 minutes/day dana/presybeterian: Temple seatbelt use: always do you feel safe [...] ??-???-???- MH-No (more content not included)... Normal [facility] Platelet countOrdered By: Jamey Caballero on 02-19-2025 Platelets (Bld) [#/Vol] 245 10*3/uL 150-450 [facility] RBC Auto (Bld) [#/Vol]Ordere d By: Becky Caballero on 02-19-2025 RBC (Bld) [#/Vol] 4.19 10*6/uL Low 4.2-5.4 [facility] Syphilis Antibodieson 2024 Syphilis Abs Non-Reactive Normal Nonreactive [facility] Comment on above: Performed By: #### L 501.0250, L100.0100, L3890.6006, L509.8002 #### [facility] [address] [place], [place], [address] White blood cell (WBC) count Ordered By: Becky Caballero on 02-19-2025 WBC (Bld) [#/Vol] 8.8 10*3/uL 4.4-11.0 [facility] - Chemistry and C hemistry - challengeOrdered By: Becky Caballero on 01-29-2025 Glucose Ql (U) Negative [facility] - UrinalysisOrder ed By: Becky Caballero on 01-29-2025 Protein Ql (U) Negative 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 [facility]'[address], [address] [place] [address] OFFICE VISIT Date of Service: 01/29/25 MR#: [id number] Acct: [id number] Name: SERA SANTIAGO Rep #: [id number] : 1995 Provider: FABIO Anderson [facility] Age/Sex: 29/F [place] [facility] [place]: Signed Intake Vital Signs 12/02/24 12:59 01/02/25 10:41 01/29/25 10:24 Height 5 ft 5 in 5 ft 5 in 5 ft 5 in Weight: 162 lb BMI 26.9 BP 110/67 Intake Visit Reasons: 25wk ob 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 Is patient in pain?: No [...] 0 current occupational status: employed current occupation: [employer] in [place] current occupational exposures/hazards: No pets and animals: [...] 3-4 times per week duration: 45-60 minutes/day dana/presybeterian: Temple seatbelt use: always do you feel safe at home: Yes additional social history: Melvin- Husband. [employer] History 2 Elective abortions Hx Para 0 [...] ??-???-???- 21 (more content not included)... Normal [facility] - UrinalysisOrder ed By: Rhea Pak on 01-02-2025 Protein Ql (U) Negative 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 Rhea Tiwari DO Age/Sex: 29/F [place] [facility] [place]: Signed Intake Vital Signs 11/08/24 10:53 12/02/24 12:59 01/02/25 10:41 Height 5 ft 5 in 5 ft 5 in 5 ft 5 in Weight: 158 lb 2 oz BMI 26.3 BP 135/70 H Intake Visit Reasons: 21 wk ob 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 Is patient in pain?: No [...] 0 current occupational status: employed current occupation: [employer] in [place] current occupational exposures/hazards: No pets and animals: [...] 3-4 times per week duration: 45-60 minutes/day dana/presybeterian: Temple seatbelt use: always do you feel safe [...] me heart (more content not included)... Normal [facility] - Chemistry and C hemistry - challengeOrdered By: Tess Lynch on 12-02-2024 Glucose Ql (U) Negative [facility] - UrinalysisOrder ed By: Tess Lynch on 12-02-2024 Protein Ql (U) Negative 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 [facility]'[address], [address] [place] [address] OFFICE VISIT Date of Service: 12/02/24 MR#: [id number] Acct: [id number] Name: JACKSERA GERMAN Rep #: [id number] : 1995 Provider: MOOSE moreno Age/Sex: 29/F [place] [facility] [place]: Signed Intake Vital Signs 10/11/24 10:31 11/08/24 10:53 12/02/24 12:59 Height 5 ft 5 in 5 ft 5 in 5 ft 5 in Weight: 155 lb BMI 25.7 BP 119/71 Intake Visit Reasons: 17 wk ob Chief Complaint: 17 Week OB 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 Is patient in pain?: No [...] 0 current occupational status: employed current occupation: [employer] in [place] current occupational exposures/hazards: No pets and animals: [...] 3-4 times per week duration: 45-60 minutes/day dana/presybeterian: Temple seatbelt use: always do you feel safe [...] First Mery (more content not included)... Normal [facility] - Chemistry and C hemistry - challengeOrdered By: Kamille Albarran on 11-08-2024 Glucose Ql (U) Negative [facility] - UrinalysisOrder ed By: Kamille Albarran on 11-08-2024 Protein Ql (U) Negative 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 Kamille gamez MD Age/Sex: 28/F [place] [facility] [place]: Signed Intake Vital Signs 08/23/24 14:33 10/11/24 10:31 11/08/24 10:50 11/08/24 10:53 Height 5 ft 5 in 5 ft 5 in 5 ft 5 in 5 ft 5 in Weight: 151 lb 6 oz BMI 25.2 BP 125/73 H Intake Visit Reasons: 13wk OB 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 Is patient in pain?: No [...] 0 current occupational status: employed current occupation: [employer] in [place] current occupational exposures/hazards: No pets and animals: [...] 3-4 times per week duration: 45-60 minutes/day dana/presybeterian: Temple seatbelt use: always do you feel safe [...] of Prenat (more content not included)... Normal [facility] Absolute lymphocyte countOrd ered By: Kamille Albarran on 10-17-2024 Lymphocytes Auto (Unsp spec) [#/Vol] 2.41 10*3/uL 0.83-4.51 [facility] Absolute neutrophil countOrd ered By: Kamille Albarran on 10-17-2024 Neutrophils (Bld) [#/Vol] 5.3 10*3/uL 2.0-7.7 [facility] Automated lymphocyte count a s percentage of total leukocytesOrdered By: Kamille Albarran on 10-17-2024 Lymphocytes/100 WBC Auto (Unsp spec) 29.3 % 19-41 [facility] Basophil percentageOrdered B y: Kamille Albarran on 10-17-2024 Basophils/100 WBC (Bld) 0.5 % 0-1 [facility] CBC W/Diff, Automatedon 09-255 Absolute Lymph 2.41 X10 3/uL Normal 0.83-4.51 [facility] Comment on above: Performed By: #### L 509.8002, L3890.6006, L900.0098, BTS, L100.0100, L3890.6102, L509.4006, L3890.6301 ####[facility] [address] [place], [address] Absolute Neut 5.3 X10 3/uL Normal 2.0-7.7 [facility] Comment on above: Performed By: #### L 509.8002, L3890.6006, L900.0098, BTS, L100.0100, L3890.6102, L509.4006, L3890.6301 ####[facility] [address] [place], [address] Basophils/100 WBC (Bld) 0.5 % Normal 0-1 [facility] Comment on above: Performed By: #### L 509.8002, L3890.6006, L900.0098, BTS, L100.0100, L3890.6102, L509.4006, L3890.6301 ####[facility] [address] [place], [address] Eosinophils/100 WBC (Bld) 2.1 % Normal 0-5 [facility] Comment on above: Performed By: #### L 509.8002, L3890.6006, L900.0098, BTS, L100.0100, L3890.6102, L509.4006, L3890.6301 ####[facility] [address] [place], [address] Erythrocyte distribution width (RBC) [Ratio] 12.2 % Normal 11.6-14.6 [facility] Comment on above: Performed By: #### L 509.8002, L3890.6006, L900.0098, BTS, L100.0100, L3890.6102, L509.4006, L3890.6301 ####[facility] [address] [place], [address] Hematocrit (Bld) [Volume fraction] 39.1 % Normal 37-47 [facility] Comment on above: Performed By: #### L 509.8002, L3890.6006, L900.0098, BTS, L100.0100, L3890.6102, L509.4006, L3890.6301 ####[facility] [address] [place], [address] Hemoglobin (Bld) [Mass/Vol] 13.3 g/dL Normal 12.0-15.0 [facility] Comment on above: Performed By: #### L 509.8002, L3890.6006, L900.0098, BTS, L100.0100, L3890.6102, L509.4006, L3890.6301 ####[facility] [address] [place], [address] IG% 0.600 Normal 0.0-0.9 [facility] Comment on above: Result Comment: IG% - Immature Granulocytes (promyelocytes, myelocytes and metamyelocytes) > 1% indicates that a LEFT SHIFT is Present. Performed By: #### L 509.8002, L3890.6006, L900.0098, BTS, L100.0100, L3890.6102, L509.4006, L3890.6301 ####[facility] [address] [place], [address] Lymphocytes/100 WBC (Bld) 29.3 % Normal 19-41 [facility] Comment on above: Performed By: #### L 509.8002, L3890.6006, L900.0098, BTS, L100.0100, L3890.6102, L509.4006, L3890.6301 ####[facility] [address] [place], [address] MCH (RBC) [Entitic mass] 30.6 pg Normal 27.0-32.0 [facility] Comment on above: Performed By: #### L 509.8002, L3890.6006, L900.0098, BTS, L100.0100, L3890.6102, L509.4006, L3890.6301 ####[facility] [address] [place], [address] MCHC (RBC) [Mass/Vol] 34.0 g/dL Normal 32-36 [facility] Comment on above: Performed By: #### L 509.8002, L3890.6006, L900.0098, BTS, L100.0100, L3890.6102, L509.4006, L3890.6301 ####[facility] [address] [place], [address] MCV (RBC) [Entitic vol] 89.9 fL Normal 81-99 [facility] Comment on above: Performed By: #### L 509.8002, L3890.6006, L900.0098, BTS, L100.0100, L3890.6102, L509.4006, L3890.6301 ####[facility] [address] [place], [address] Monocytes/100 WBC (Bld) 3.5 % Normal 0-10 [facility] Comment on above: Performed By: #### L 509.8002, L3890.6006, L900.0098, BTS, L100.0100, L3890.6102, L509.4006, L3890.6301 ####[facility] [address] [place], [address] Neutrophils/100 WBC (Bld) 64.0 % Normal 47-70 [facility] Comment on above: Performed By: #### L 509.8002, L3890.6006, L900.0098, BTS, L100.0100, L3890.6102, L509.4006, L3890.6301 ####[facility] [address] [place], [address] Nucleated RBC (Bld) [#/Vol] 0 10*3/uL Normal 0-5 [facility] Comment on above: Performed By: #### L 509.8002, L3890.6006, L900.0098, BTS, L100.0100, L3890.6102, L509.4006, L3890.6301 ####[facility] [address] [place], [address] Platelet mean volume (Bld) [Entitic vol] 10.0 fL Normal 6.2-12.0 [facility] Comment on above: Performed By: #### L 509.8002, L3890.6006, L900.0098, BTS, L100.0100, L3890.6102, L509.4006, L3890.6301 ####[facility] [address] [place], [address] Platelets (Bld) [#/Vol] 254 10*3/uL Normal 150-450 [facility] Comment on above: Performed By: #### L 509.8002, L3890.6006, L900.0098, BTS, L100.0100, L3890.6102, L509.4006, L3890.6301 ####[facility] [address] [place], [address] RBC (Bld) [#/Vol] 4.35 10*6/uL Normal 4.2-5.4 [facility] Comment on above: Performed By: #### L 509.8002, L3890.6006, L900.0098, BTS, L100.0100, L3890.6102, L509.4006, L3890.6301 ####[facility] [address] [place], [address] RDW SD 40.0 fl Normal 35.1-43.9 [facility] Comment on above: Performed By: #### L 509.8002, L3890.6006, L900.0098, BTS, L100.0100, L3890.6102, L509.4006, L3890.6301 ####[facility] [address] [place], [address] WBC (Bld) [#/Vol] 8.2 10*3/uL Normal 4.4-11.0 [facility] Comment on above: Performed By: #### L 509.8002, L3890.6006, L900.0098, BTS, L100.0100, L3890.6102, L509.4006, L3890.6301 ####[facility] [address] [place], [place], [address] Eosinophil percentageOrdered By: Kamille Albarran on 10-17-2024 Eosinophils/100 WBC (Bld) 2.1 % 0-5 [facility] Erythrocyte distribution wid th (RBC) [Ratio]Ordered By: Kamille Albarran on 10-17-2024 Erythrocyte distribution width (RBC) [Entitic vol] 40.0 fL 35.1-43.9 [facility] Erythrocyte distribution wid th ratioOrdered By: Kamille Albarran on 10-17-2024 Erythrocyte distribution width (RBC) [Ratio] 12.2 % 11.6-14.6 [facility] Erythrocyte distribution wid th standard deviationOrdered By: Kamille Albarran on 10-17-2024 Erythrocyte distribution width (RBC) [Ratio] 40.0 fl 35.1-43.9 [facility] HBV surface Ag Ql (S)Ordered By: Kamille Albarran on 10-17-2024 Hepatitis B Surface Antigen Non-Reactive Nonreactive [facility] Comment on above: Reactive: Presumptiv e evidence of HBV. Repeatedly reactive samples must be confirmed using a neutralization test ([employer]ys HBsAg Confirmatory Test)Non-Reactive: HBsAg not detected; does not exclude the possibility of exposure to HBV HIVon 10-17-2024 HIV Non-Reactive Normal Nonreactive [facility] Comment on above: Result Comment: Non- Reactive Reactive Repeatedly reactive samples must be confirmed according to CDC recommended confirmatory algorithms. The subresults for either HIVAG or AHIV can be used as an aid in the selection of the confirmation algorithm for reactive samples. Send out specimens with Reactive results to [facility] for confirmation. Order the HIV antibody detection and differentiation: [id number] Performed By: #### L 509.8002, L3890.6006, L900.0098, BTS, L100.0100, L3890.6102, L509.4006, L3890.6301 ####[facility] [address] [place], [place], [address] Hematocrit Auto (Bld) [Volum e fraction]Ordered By: Kamille Albarran on 10-17-2024 Hematocrit (Bld) [Volume fraction] 39.1 % 37-47 [facility] Hemoglobin measurementOrdere d By: Kamille Albarran on 10-17-2024 Hemoglobin (Bld) [Mass/Vol] 13.3 g/dL 12.0-15.0 [facility] Hepatitis C Antibodyon 10-17 Hepatitis C Ab Non-Reactive Normal Nonreactive [facility] Comment on above: Result Comment: Reac tive: Presumptive evidence of antibodies to HCV. Follow CDC recommendations for supplemental testing. Non-Reactive: Antibodies to HCV were not detected; does not exclude the possibility of exposure to HCV Reactive Results are presumptive evidence of antibodies to HCV. Follow CDC recommendations for supplemental testing. Order confirmation testing: HCV Quant by PCR testing - HCVPCR #[id number] Non Reactive: < 0.8 Equivocal: >/= 0.8 to < 1.0 Reactive: >/= 1.0 The CDC requires that a reactive/equivocal HCV antibody result be sent out for confirmation. HCV Quant by PCR testing. Performed By: #### M 100.3400 #### [facility] [address] [place], [place], [address] Hepatitis C antibodyOrdered By: Kamille Albarran on 10-17-2024 Hepatitis C Antibody Non-Reactive Nonreactive [facility] Comment on above: Reactive: Presumptiv e evidence of antibodies to HCV. Follow CDC recommendations for supplemental testing.Non-Reactive: Antibodies to HCV were not detected; does not exclude the possibility of exposure to HCVReactive Results are presumptive evidence of antibodies to HCV. Follow CDC recommendations for supplemental testing.Order confirmation testing: HCV Quant by PCR testing - HCVPCR #[id number] Non Reactive: < 0.8 Equivocal: >/= 0.8 to < 1.0 Reactive: >/= 1.0The CDC requires that a reactive/equivocal HCV antibody result be sent out for confirmation. HCV Quant by PCR testing. Immature granulocytes/100 WB C Auto (Bld)Ordered By: Kamille Albarran on 10-17-2024 Immature granulocytes/100 WBC (Bld) 0.600 % 0.0-0.9 [facility] Comment on above: IG% - Immature Granu locytes (promyelocytes, myelocytes and metamyelocytes) > 1% indicates that a LEFT SHIFT is Present. L3890.6102on 10-17-2024 HEP B Surf Ag Non-Reactive Normal Nonreactive [facility] Comment on above: Result Comment: Reac tive: Presumptive evidence of HBV. Repeatedly reactive samples must be confirmed using a neutralization test (Ele[employer]ys HBsAg Confirmatory Test) Non-Reactive: HBsAg not detected; does not exclude the possibility of exposure to HBV Performed By: #### M 100.3400 #### [facility] [address] [facility] [place], [place], [address] L509.4006on 10-17-2024 Rubella IgG REAC Normal Nonreactive [facility] Comment on above: Result Comment: Anti body Result: Interpretation Non-Reactive: Non-Immune Reactive: Immune The following results were obtained with the Elecsys Rubella IgG assay. Results from assays of other manufacturers cannot be used interchangeably. Performed By: #### L 509.8002, L3890.6006, L900.0098, BTS, L100.0100, L3890.6102, L509.4006, L3890.6301 ####[facility] [address] [place], [address] Laboratory - Microbiology an d Antimicrobial susceptibilityOrdered By: Kamille Albarran on 10-17-2024 HBV surface Ag Ql (S) Non-Reactive Nonreactive [facility] Comment on above: Reactive: Presumptiv e evidence of HBV. Repeatedly reactive samples must be confirmed using a neutralization test (ElecO4ITs HBsAg Confirmatory Test)Non-Reactive: HBsAg not detected; does not exclude the possibility of exposure to HBV Lymphocytes Auto (Unsp spec) [#/Vol]Ordered By: Kamille Albarran on 10-17-2024 Lymphocytes (Bld) [#/Vol] 2.41 10*3/uL 0.83-4.5 1 [facility] Lymphocytes/100 WBC Auto (Un sp spec)Ordered By: Kamille Albarran on 10-17-2024 Lymphocytes/100 WBC (Bld) 29.3 % 19-41 [facility] MCV (mean corpuscular volume ) determinationOrdered By: Kamille Albarran on 10-17-2024 MCV (RBC) [Entitic vol] 89.9 fL 81-99 [facility] Mean corpuscular hemoglobin (MCH) determinationOrdered By: Kamille Albarran on 10-17-2024 MCH (RBC) [Entitic mass] 30.6 pg 27.0-32.0 [facility] Mean corpuscular hemoglobin concentration (MCHC) determinationOrdered By: Kamille Albarran on 10-17-2024 MCHC (RBC) [Mass/Vol] 34.0 g/dL 32-36 [facility] Mean platelet volume determi nationOrdered By: Kamille Albarran on 10-17-2024 Platelet mean volume (Bld) [Entitic vol] 10.0 fL 6.2-12.0 [facility] Miscellaneous procedureOrder ed By: Kamille Albarran on 10-17-2024 Miscellaneous Test Comment SEE SCANNED REPORT [facility] Monocyte percentageOrdered B y: Kamille Albarran on 10-17-2024 Monocytes/100 WBC (Bld) 3.5 % 0-10 [facility] NATERAon 0424-2025 NATURA SEE SCANNED REPORT Normal [facility] Comment on above: Order Comment: Comme nts: NIPT/horizon Performed By: #### L 509.8002, L3890.6006, L900.0098, BTS, L100.0100, L3890.6102, L509.4006, L3890.6301 ####[facility] [address] [place], [address] Neutrophil percentageOrdered By: Kamille Albarran on 10-17-2024 Neutrophils/100 WBC (Bld) 64.0 % 47-70 [facility] No Panel InformationOrdered By: Kamille Albarran on 10-17-2024 HIV (1&2) Antibody Non-Reactive Nonreactive [facility] Comment on above: Non-ReactiveReactive Repeatedly reactive samples must be confirmed according to CDC recommended confirmatory algorithms. The subresults for either HIVAG or AHIV can be used as an aid in the selection of the confirmation algorithm for reactive samples.Send out specimens with Reactive results to [facility] for confirmation.Order the HIV antibody detection and differentiation: #[id number] Nucleated red blood cell per centageOrdered By: Kamille Albarran on 10-17-2024 Nucleated RBC/100 WBC (Bld) [Ratio] 0 % 0-5 [facility] Platelet countOrdered By: Radha Albarran on 10-17-2024 Platelets (Bld) [#/Vol] 254 10*3/uL 150-450 [facility] RBC Auto (Bld) [#/Vol]Ordere d By: Kamille Albarran on 10-17-2024 RBC (Bld) [#/Vol] 4.35 10*6/uL 4.2-5.4 [facility] Rubella immune status determ ination by IgG antibody assayOrdered By: Kamille Albarran on 10-17-2024 Rubella IgG Antibody REAC Nonreactive [facility] Comment on above: Antibody Result: Int erpretationNon-Reactive: Non-ImmuneReactive: ImmuneThe following results were obtained with the Elecsys Rubella IgG assay. Results from assays of other manufacturers cannot be used interchangeably. Syphilis Antibodieson 2024 Syphilis Abs Non-Reactive Normal Nonreactive [facility] Comment on above: Performed By: #### L 509.8002, L3890.6006, L900.0098, BTS, L100.0100, L3890.6102, L509.4006, L3890.6301 ####[facility] [address] [place], [address] T. pallidum abOrdered By: Radha Albarran on 10-17-2024 Syphilis Total Antibody Non-Reactive Nonreactiv e [facility] Type AND Screenon 10-17-2024 Ab SCREEN GEL Negative Normal [facility] Comment on above: Order Comment: PN Performed By: #### L 509.8002, L3890.6006, L900.0098, BTS, L100.0100, L3890.6102, L509.4006, L3890.6301 ####[facility] [address] [place], [address] White blood cell (WBC) count Ordered By: Kamille Albarran on 10-17-2024 WBC (Bld) [#/Vol] 8.2 10*3/uL 4.4-11.0 [facility] Chlamydia/GC PAULO aptimaon CHLAMY,NUC ACID Negative Normal Negative [facility] Comment on above: Performed By: #### M 100.3400 #### [facility] [address] [place], [address] GC BY NUC ACID Negative Normal Negative [facility] Comment on above: Result Comment: Perf ormed at: =G - [facility] [id number] Nba Player: Vidya Norwood MD, Phone: [phone] Performed By: #### M 100.3400 #### [facility] [address] [place], [address] Urine Cultureon 10-12-2024 URC Culture exhibits no growth. Normal [facility] Comment on above: Performed By: #### M 100.8023 #### [facility] [address] [place], [place], [address] C. trachomatis rRNA PAULO+prob e Ql (Unsp spec)Ordered By: Kamille Albarran on 10-11-2024 Chlamydia DNA (PAULO) Negative Negative [facility] Chlamydia trachomatis rRNA d etection by probe and target amplification methodOrdered By: Kamille Albarran on 10-11-2024 C. trachomatis rRNA PAULO+probe Ql (Unsp spec) Negative Negative [facility] Neisseria gonorrhoeae nuclei c acid detection by amplified probe techniqueOrdered By: Kamille Albarran on 10-11-2024 N. gonorrhoeae DNA PAULO+probe Ql (Unsp spec) Negative Negative 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 Kamille gamez MD Age/Sex: 28/F [place] [facility] [place]: Signed Intake Vital Signs 08/23/24 14:33 09/24/24 12:20 10/11/24 10:26 10/11/24 10:31 Height 5 ft 5 in 5 ft 5 in 5 ft 5 in 5 ft 5 in Weight: 153 lb 8 oz BMI 25.5 BP 135/68 H Intake Visit Reasons: NOB LMP 08/08 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 Is patient in pain?: No [...] 0 current occupational status: employed current occupation: [employer] in [place] current occupational exposures/hazards: No pets and animals: [...] 3-4 times per week duration: 45-60 minutes/day adna/presybeterian: Temple seatbelt use: always do you feel safe at home: Yes additional social history: [employer] History 2 Elective abortions Hx Para 0 [...] Recurrent [place] (more content not included)... Normal [facility] Urine cultureOrdered By: Kush Albarran on 10-11-2024 Bacteria identified Cx Nom (U) Culture exhibits no growth. [facility] - Chemistry and C hemistry - challengeOrdered By: Tess Lynch on 09-24-2024 HCG ( test) Ql (U) Positive [facility] Office Visit Reporton 2024 Office Visit Report [facility] [address] [place] [address] OFFICE VISIT Date of Service: 09/24/24 MR#: [id number] Acct: [id number] Patient: SERA SANTIAGO Rep #: [id number] : 1995 Provider: MOOSE moreno Age/Sex: 28/F [place] [facility] [place]: Signed Intake Vital Signs 08/23/24 14:33 09/24/24 12:20 Height 5 ft 5 in 5 ft 5 in Weight: 155 lb 157 lb 2 oz BMI 25.7 26.1 BP 115/74 110/56 L Blood Pressure Location Lt brachial Position Sitting Intake Visit Reasons: Nurse Visit, HCG, Vitals, Confirmation Chief Complaint: amenorrhea 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 Is patient in pain?: No [...] unspecified 09/24/24 1229 Date Tess Lynch NP [employer] Cosigner Signature: Date (if applicable) CC: Normal [facility] HCG ( test) QlOrder ed By: Kamille Albarran on 09-08-2024 Human Chorionic Gonadotropin, Quant 375 mIU/mL High <9 [facility] Comment on above: Gestational Age0.2-1 Week: 5-50 mIU/mL1-2 Weeks: 50-500 mIU/mL2-3 Weeks: 100-5000 mIU/mL3-4 Weeks: 500-10,000 mIU/mL4-5 Weeks:1000-50,000 mIU/mL5-6 Weeks: 10,000-100,000 mIU/mL6-8 Weeks: 15,000-200,000 mIU/mL2-3 Months:10,000-100,000 mIU/mL Serum human chorionic gonado tropin detection for pregnancyOrdered By: Kamille Albarran on 09-08-2024 HCG ( test) Ql 375 mIU/mL High <9 [facility] Comment on above: Gestational Age0.2-1 Week: 5-50 mIU/mL1-2 Weeks: 50-500 mIU/mL2-3 Weeks: 100-5000 mIU/mL3-4 Weeks: 500-10,000 mIU/mL4-5 Weeks:1000-50,000 mIU/mL5-6 Weeks: 10,000-100,000 mIU/mL6-8 Weeks: 15,000-200,000 mIU/mL2-3 Months:10,000-100,000 mIU/mL hCG Titer Quant., Serumon HCG QUANT. 375 mIU/mL High <9 non-preg [facility] Comment on above: Result Comment: Gest ational Age 0.2-1 Week: 5-50 mIU/mL 1-2 Weeks: 50-500 mIU/mL 2-3 Weeks: 100-5000 mIU/mL 3-4 Weeks: 500-10,000 mIU/mL 4-5 Weeks:1000-50,000 mIU/mL 5-6 Weeks: 10,000-100,000 mIU/mL 6-8 Weeks: 15,000-200,000 mIU/mL 2-3 Months:10,000-100,000 mIU/mL Performed By: #### L 700.8000 #### [facility] [address] [place] [address], [address] HCG ( test) QlOrder ed By: Kamille Albarran on 09-06-2024 Human Chorionic Gonadotropin, Quant 148 mIU/mL High <9 [facility] Comment on above: Gestational Age0.2-1 Week: 5-50 mIU/mL1-2 Weeks: 50-500 mIU/mL2-3 Weeks: 100-5000 mIU/mL3-4 Weeks: 500-10,000 mIU/mL4-5 Weeks:1000-50,000 mIU/mL5-6 Weeks: 10,000-100,000 mIU/mL6-8 Weeks: 15,000-200,000 mIU/mL2-3 Months:10,000-100,000 mIU/mL Serum human chorionic gonado tropin detection for pregnancyOrdered By: Kamille Albarran on 09-06-2024 HCG ( test) Ql 148 mIU/mL High <9 [facility] Comment on above: Gestational Age0.2-1 Week: 5-50 mIU/mL1-2 Weeks: 50-500 mIU/mL2-3 Weeks: 100-5000 mIU/mL3-4 Weeks: 500-10,000 mIU/mL4-5 Weeks:1000-50,000 mIU/mL5-6 Weeks: 10,000-100,000 mIU/mL6-8 Weeks: 15,000-200,000 mIU/mL2-3 Months:10,000-100,000 mIU/mL hCG Titer Quant., Serumon HCG QUANT. 148 mIU/mL High <9 non-preg [facility] Comment on above: Result Comment: Gest ational Age 0.2-1 Week: 5-50 mIU/mL 1-2 Weeks: 50-500 mIU/mL 2-3 Weeks: 100-5000 mIU/mL 3-4 Weeks: 500-10,000 mIU/mL 4-5 Weeks:1000-50,000 mIU/mL 5-6 Weeks: 10,000-100,000 mIU/mL 6-8 Weeks: 15,000-200,000 mIU/mL 2-3 Months:10,000-100,000 mIU/mL Performed By: #### L 700.8000 ####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 Office Visit Report [facility] [address], [address] [place] [address] OFFICE VISIT Date of Service: 08/23/24 MR#: [id number] Acct: [id number] Name: SERA SANTIAGO Rep #: [id number] : 1995 Provider: FABIO orozco Age/Sex: 28/F [place] [facility] [place]: Signed Intake Vital Signs 05/09/13 12:55 08/23/24 14:33 Height 5 ft 5 in 5 ft 5 in Weight: 155 lb BMI 25.7 BP 115/74 Intake Visit Reasons: Miscarriage follow up Is patient in pain?: No Allergies No Known Allergies Allergy (Verified 08/23/24 14:34) Medications ???Medication ???Instructions ???Recorded ???Confirmed ???Type NK 08/23/24 08/23/24 History Control Method: none [facility] Social History (Updated 08/23/24 @ 14:37 by Rina Aj) number of children: 0 current occupational status: employed current occupation: [employer] in [place] sexually active: Yes Smoking Status: Never smoker alcohol intake: current alcohol intake frequency: holidays/special occasions only substance use type: does not use what type of physical activity do you participate in: aerobics frequency: 5-6 times per week dana/presybeterian: Temple seatbelt use: always do you feel safe at home: Yes additional social history: Melvin- . [employer] [facility] Miscarriage follow up Details: ALBINO SANTIAGO is [...] Cosigner Signature: Date (if applicable) CC: Normal [facility] Absolute lymphocyte countOrd ered By: Rhea Pak on 08-09-2024 Lymphocytes Auto (Unsp spec) [#/Vol] 2.65 10*3/uL 0.83-4.51 [facility] Absolute neutrophil countOrd ered By: Rhea Pak on 08-09-2024 Neutrophils (Bld) [#/Vol] 4.0 10*3/uL 2.0-7.7 [facility] Automated lymphocyte count a s percentage of total leukocytesOrdered By: Rhea Pak on 08-09-2024 Lymphocytes/100 WBC Auto (Unsp spec) 35.8 % 19-41 [facility] [id number] 08-09-2024 ABO and Rh group Nom (Bld) Blood group A Rh(D) positive Normal [facility] Comment on above: Performed By: #### B 882-1, L700.8000, L100.0100 ####[facility] [address] [place], [address] Basophil percentageOrdered B y: Rhea Pak on 08-09-2024 Basophils/100 WBC (Bld) 0.8 % 0-1 [facility] CBC W/Diff, Automatedon 07-27 Absolute Lymph 2.65 X10 3/uL Normal 0.83-4.51 [facility] Comment on above: Performed By: #### B 882-1, L700.8000, L100.0100 ####[facility] [address] [place], [address] Absolute Neut 4.0 X10 3/uL Normal 2.0-7.7 [facility] Comment on above: Performed By: #### Hima 882-1, L700.8000, L100.0100 ####[facility] [address] [place], [address] Basophils/100 WBC (Bld) 0.8 % Normal 0-1 [facility] Comment on above: Performed By: #### Hima 882-1, L700.8000, L100.0100 ####[facility] [address] [place], [address] Eosinophils/100 WBC (Bld) 2.4 % Normal 0-5 [facility] Comment on above: Performed By: #### Hima 882-1, L700.8000, L100.0100 ####[facility] [address] [place], [address] Erythrocyte distribution width (RBC) [Ratio] 13.4 % Normal 11.6-14.6 [facility] Comment on above: Performed By: #### Hima 882-1, L700.8000, L100.0100 ####[facility] [address] [place], [address] Hematocrit (Bld) [Volume fraction] 43.4 % Normal 37-47 [facility] Comment on above: Performed By: #### Hima 882-1, L700.8000, L100.0100 ####[facility] [address] [place], [address] Hemoglobin (Bld) [Mass/Vol] 13.9 g/dL Normal 12.0-15.0 [facility] Comment on above: Performed By: #### Hima 882-1, L700.8000, L100.0100 ####[facility] [address] [place], [address] IG% 0.500 Normal 0.0-0.9 [facility] Comment on above: Result Comment: IG% - Immature Granulocytes (promyelocytes, myelocytes and metamyelocytes) > 1% indicates that a LEFT SHIFT is Present. Performed By: #### Hima 882-1, L700.8000, L100.0100 ####[facility] [address] [place], [address] Lymphocytes/100 WBC (Bld) 35.8 % Normal 19-41 [facility] Comment on above: Performed By: #### Hima 882-1, L700.8000, L100.0100 ####[facility] [address] [place], [address] MCH (RBC) [Entitic mass] 29.4 pg Normal 27.0-32.0 [facility] Comment on above: Performed By: ###Maurizio Rabago 882-1, L700.8000, L100.0100 ####[facility] [address] [place], [address] MCHC (RBC) [Mass/Vol] 32.0 g/dL Normal 32-36 [facility] Comment on above: Performed By: #### Hima 882-1, L700.8000, L100.0100 ####[facility] [address] [place], [address] MCV (RBC) [Entitic vol] 91.9 fL Normal 81-99 [facility] Comment on above: Performed By: #### Hima 882-1, L700.8000, L100.0100 ####[facility] [address] [place], [address] Monocytes/100 WBC (Bld) 6.3 % Normal 0-10 [facility] Comment on above: Performed By: #### Hima 882-1, L700.8000, L100.0100 ####[facility] [address] [place], [address] Neutrophils/100 WBC (Bld) 54.2 % Normal 47-70 [facility] Comment on above: Performed By: #### Hima 882-1, L700.8000, L100.0100 ####[facility] [address] [place], [address] Nucleated RBC (Bld) [#/Vol] 0 10*3/uL Normal 0-5 [facility] Comment on above: Performed By: #### Hima 882-1, L700.8000, L100.0100 ####[facility] [address] [place], [address] Platelet mean volume (Bld) [Entitic vol] 9.9 fL Normal 6.2-12.0 [facility] Comment on above: Performed By: ###Maurizio Rabago 882-1, L700.8000, L100.0100 ####[facility] [address] [place], [address] Platelets (Bld) [#/Vol] 259 10*3/uL Normal 150-450 [facility] Comment on above: Performed By: #### Hima 882-1, L700.8000, L100.0100 ####[facility] [address] [place], [address] RBC (Bld) [#/Vol] 4.72 10*6/uL Normal 4.2-5.4 [facility] Comment on above: Performed By: #### Hima 882-1, L700.8000, L100.0100 ####[facility] [address] [place], [address] RDW SD 45.4 fl High 35.1-43.9 [facility] Comment on above: Performed By: #### Hima 882-1, L700.8000, L100.0100 ####[facility] [address] [place], [place], [address] WBC (Bld) [#/Vol] 7.4 10*3/uL Normal 4.4-11.0 [facility] Comment on above: Performed By: #### B 882-1, L700.8000, L100.0100 ####[facility] [address] [place], [address] Eosinophil percentageOrdered By: Rhea Pak on 08-09-2024 Eosinophils/100 WBC (Bld) 2.4 % 0-5 [facility] Erythrocyte distribution wid th ratioOrdered By: Rhea Pak on 08-09-2024 Erythrocyte distribution width (RBC) [Ratio] 13.4 % 11.6-14.6 [facility] Erythrocyte distribution wid th standard deviationOrdered By: Rhea Pak on 08-09-2024 Erythrocyte distribution width (RBC) [Entitic vol] 45.4 fL High 35.1-43.9 [facility] Erythrocyte distribution width (RBC) [Ratio] 45.4 fl High 35.1-43.9 [facility] HCG ( test) QlOrder ed By: Rhea Pak on 08-09-2024 Human Chorionic Gonadotropin, Quant 4 mIU/mL <4 [facility] Comment on above: hCG levels with Gest ational AgeGestational Age hCG mIU/mL (IU/L)0.2 - 1 week 5 - 501-2 weeks 50 - 5002-3 weeks 100 - 00714-7 weeks 500 - 391287-5 weeks 1000 - 217651-0 weeks 83179 - 100,0006-8 weeks 53657 - 200,0002-3 months 79735 - 100,000 Hematocrit Auto (Bld) [Volum e fraction]Ordered By: Rhea Pak on 08-09-2024 Hematocrit (Bld) [Volume fraction] 43.4 % 37-47 [facility] Hemoglobin measurementOrdere d By: Rhea Pak on 08-09-2024 Hemoglobin (Bld) [Mass/Vol] 13.9 g/dL 12.0-15.0 [facility] Immature granulocytes/100 WB C Auto (Bld)Ordered By: Rhea Pak on 08-09-2024 Immature granulocytes/100 WBC (Bld) 0.500 % 0.0-0.9 [facility] Comment on above: IG% - Immature Granu locytes (promyelocytes, myelocytes and metamyelocytes) > 1% indicates that a LEFT SHIFT is Present. Lymphocytes Auto (Unsp spec) [#/Vol]Ordered By: Rhea Pak on 08-09-2024 Lymphocytes (Bld) [#/Vol] 2.65 10*3/uL 0.83-4.5 1 [facility] Lymphocytes/100 WBC Auto (Un sp spec)Ordered By: Rhea Pak on 08-09-2024 Lymphocytes/100 WBC (Bld) 35.8 % 19-41 [facility] MCV (mean corpuscular volume ) determinationOrdered By: Rhea Pak on 08-09-2024 MCV (RBC) [Entitic vol] 91.9 fL 81-99 [facility] Mean corpuscular hemoglobin (MCH) determinationOrdered By: Rhea Pak on 08-09-2024 MCH (RBC) [Entitic mass] 29.4 pg 27.0-32.0 [facility] Mean corpuscular hemoglobin concentration (MCHC) determinationOrdered By: Rhea Pak on 08-09-2024 MCHC (RBC) [Mass/Vol] 32.0 g/dL 32-36 [facility] Mean platelet volume determi nationOrdered By: Rhea Pak on 08-09-2024 Platelet mean volume (Bld) [Entitic vol] 9.9 fL 6.2-12.0 [facility] Monocyte percentageOrdered B y: Rhea Pak on 08-09-2024 Monocytes/100 WBC (Bld) 6.3 % 0-10 [facility] Neutrophil percentageOrdered By: Rhea Pak on 08-09-2024 Neutrophils/100 WBC (Bld) 54.2 % 47-70 [facility] Nucleated red blood cell per centageOrdered By: Rhea Pak on 08-09-2024 Nucleated RBC/100 WBC (Bld) [Ratio] 0 % 0-5 [facility] Platelet countOrdered By: Andres Pak on 08-09-2024 Platelets (Bld) [#/Vol] 259 10*3/uL 150-450 [facility] RBC Auto (Bld) [#/Vol]Ordere d By: Rhea Mellisa on 08-09-2024 RBC (Bld) [#/Vol] 4.72 10*6/uL 4.2-5.4 [facility] Serum human chorionic gonado tropin detection for pregnancyOrdered By: Rhea Pak on 08-09-2024 HCG ( test) Ql 4 mIU/mL <4 [facility] Comment on above: hCG levels with Gest ational AgeGestational Age hCG mIU/mL (IU/L)0.2 - 1 week 5 - 501-2 weeks 50 - 5002-3 weeks 100 - 42493-8 weeks 500 - 121371-1 weeks 1000 - 518203-3 weeks 65575 - 100,0006-8 weeks 16094 - 200,0002-3 months 31612 - 100,000 White blood cell (WBC) count Ordered By: Rhea Pak on 08-09-2024 WBC (Bld) [#/Vol] 7.4 10*3/uL 4.4-11.0 [facility] hCG Titer Quant., Serumon HCG QUANT. 4 mIU/mL Normal 1-3 [facility] Comment on above: Result Comment: hCG levels with Gestational Age Gestational Age hCG mIU/mL (IU/L) 0.2 - 1 week 5 - 50 1-2 weeks 50 - 500 2-3 weeks 100 - 5000 3-4 weeks 500 - 78311 4-5 weeks 1000 - 58648 5-6 weeks 94110 - 100,000 6-8 weeks 00586 - 200,000 2-3 months 05542 - 100,000 Performed By: #### B 882-1, L700.8000, L100.0100 ####[facility] [address] [place], [place], [id number] BACTERIAL VAGINOSIS NAATon 1 08-12-2023 Lactobacillus crispatus+gasseri+jenseni i + Gardnerella vaginalis + Atopobium vaginae rRNA PAULO+probe Ql (Vag fld) Not detected Normal Not detected [facility] Comment on above: Order Comment: Speci men Type: SWAB Ordering Facility: [facility] Address: [address] [place] [address] Performed By: #### B VAMP, CVTV #### [facility] CLIA [id number] [address] [place] [address] [place] MARCIE/TRICHOMONAS NAATon 1 08-12-2023 C. glabrata RNA PAULO+probe Ql (Vag fld) Not detected Normal Not detected [facility] Comment on above: Order Comment: Speci men Type: SWAB Ordering Facility: [facility] Address: [address] [place] [address] Performed By: #### B VAMP, CVTV #### [facility] CLIA [id number] [address] [place] [address] [place] Marcie sp DNA PAULO+probe Ql (Vag fld) Not detected Normal Not detected [facility] Comment on above: Order Comment: Speci men Type: SWAB Ordering Facility: [facility] Address: [address] [place] [address] Result Comment: The Marcie species group target includes C. albicans, C. tropicalis, C. parapsilosis, and C. dubliniensis. Performed By: #### B VAMP, CVTV #### [facility] CLIA [id number] [address] [place] [address] [place] T. vaginalis DNA PAULO+probe Ql (Unsp spec) Not detected Normal Not detected [facility] Comment on above: Order Comment: Speci men Type: SWAB Ordering Facility: [facility] Address: [address] [place] [address] Performed By: #### B VAMP, CVTV #### [facility] CLIA [id number] [address] [place] [address] [place] CNOVon 06-11-2024 CNOV Office Visit (OBGYWM) ---- SERA SANTIAGO ([id number]) 1995 F Date Time Provider Department 06/11/24 [...] L0 SAB0 IAB0 Ectopic0 Multiple0 Live Births0 Application Release Manager History LMP: 05/19/2024 (Exact Date), Having periods Age at Menarche: Age at First : Age at Menopause: Application Release Manager History Comments: Sexual Activity: Yes; No partner [...] discussed with the Patient or Patient's Authorized Disability Program Navigator. As applicable, any other physician, advance practice provider, medical student, or other health professional student that will be observing or involved in the sensitive examination for educational or training purposes was discussed with the Patient or Authorized Disability Program Navigator. The Patient or Authorized Disability Program Navigator has agreed to proceed with the sensitive [...] external genitalia normal, normal Bartholin's glands, urethra, Schaller's glands, no vulvar lesions, no cervical lesions, [...] information provid (more content not included)... Normal [facility] PAP TESTon 06-11-2024 ADEQUACY Satisfactory for interpretation. Normal [facility] Comment on above: Order Comment: Speci men Type: FLUID SPECIMEN Ordering Facility: [facility] Address: [address] [place] [address] Performed By: #### L [id number] #### [facility] CLIA [id number] [address] [place] [address] [place] CASE REPORT Normal [facility] Comment on above: Order Comment: Speci men Type: FLUID SPECIMEN Ordering Facility: [facility] Address: [address] [place] [address] Result Comment: Gyne cologic Cytology Report Case: [id number] Authorizing Provider: Becky Blake APRN.CNM Collected: 06/11/2024 10:41 AM Ordering Location: OB/Gynecology Received: 06/11/2024 12:36 PM First Screen: Becky Black, OMAR, ASCP Specimen: Pap Test, ThinPrep, Cervix Performed By: #### L [id number] #### [facility] CLIA [id number] [address] [place] [address] [place] CLINICAL HISTORY, CYTOLOGY, HEAD OF MARKETING ANALYTICS Routine Exam Normal [facility] Comment on above: Order Comment: Speci men Type: FLUID SPECIMEN Ordering Facility: [facility] Address: [address] [place] [address] Performed By: #### L [id number] #### [facility] CLIA [id number] [address] [place] [address] [place] FINAL PERFORMING LAB Normal [facility] Comment on above: Order Comment: Speci men Type: FLUID SPECIMEN Ordering Facility: [facility] Address: [address] [place] [address] Result Comment: Tech nical component, alterations expert screening performed at [facility], [address] [place] [id number] CLIA# [id number] Diagnostic interpretation performed at [facility], [address] [place] [address] CLIA# [id number] Digital Printer Operator: Nikolai Osullivan M.D. Performed By: #### L [id number] #### [facility] CLIA [id number] [address] [place] [address] [place] INTERPRETATION, CYTOLOGY, HEAD OF MARKETING ANALYTICS Normal [facility] Comment on above: Order Comment: Speci men Type: FLUID SPECIMEN Ordering Facility: [facility] Address: [address] [place] [address] Result Comment: Nega tive for intraepithelial lesion or malignancy. Performed By: #### L [id number] #### [facility] CLIA [id number] [address] [place] [address] [place] LMP 05/19/2024 Normal [facility] Comment on above: Order Comment: Speci men Type: FLUID SPECIMEN Ordering Facility: [facility] Address: [address] [place] [address] Performed By: #### L [id number] #### [facility] CLIA [id number] [address] [place] [address] [place] PAP DISCLAIMER COMMENT The Pap Smear is a screening test for cervical cancer. False negative results occur with all screening tests, emphasizing the need for rescreening at recommended intervals, and clinical correlation. Normal [facility] Comment on above: Order Comment: Speci men Type: FLUID SPECIMEN Ordering Facility: [facility] Address: [address] [place] [address] Performed By: #### L [id number] #### [facility] CLIA [id number] [address] [place] [address] [place] PAP TEACHER OF GIFTED STUDENTS COMMENT This specimen has been analyzed by the ThinPrep Imaging System, an automated imaging and review system, which assists the laboratory in evaluating cells on ThinPrep Pap tests. Following automated imaging, selected combs from every slide are reviewed by a alterations expert. Normal [facility] Comment on above: Order Comment: Speci men Type: FLUID SPECIMEN Ordering Facility: [facility] Address: [address] [place] [address] Performed By: #### L [id number] #### [facility] CLIA [id number] [address] [place] [address] [place] Vital Signs Date Time Vital Sign Value Performing Clinician Az barker 05-01-2025 09:41-0500 Body height 165.1 cm Norm Geigerder [employer] Work Phone: 2(515)452-680824 [place] [address] 05-01-2025 09:41-0500 Body mass index (BMI) [Ratio] 28.6 kg/m2 Norm Aiken [employer] Work Phone: 3(525)417-871624 [place] [address] 05-01-2025 09:41-0500 Body weight 78.18 kg Norm Aiken [employer] Work Phone: 9(209)817-607524 [place] [address] 05-01-2025 09:41-0500 Diastolic blood pressure 80 mm[Hg] Norm Aiken [employer] Work Phone: [facility] 05-01-2025 09:41-0500 Systolic blood pressure 132 mm[Hg] Norm Aiken [employer] Work Phone: [facility] 04-24-2025 10:18-0400 Body mass index (BMI) [Ratio] 28.8 kg/m2 Norm Aiken [employer] Work Phone: [facility] 04-24-2025 10:18-0400 Body weight 78.47 kg Norm Aiken [employer] Work Phone: 8(700)415-618492 [place] [address] 04-24-2025 10:18-0400 Diastolic blood pressure 77 mm[Hg] Norm Aiken [employer] Work Phone: 8(497)977-736392 [place] [address] 04-24-2025 10:18-0400 Systolic blood pressure 133 mm[Hg] Norm Aiken [employer] Work Phone: 9(772)849-969992 [place] [address] 04-16-2025 08:51-0400 Body height 165.1 cm Norm Aiken [employer] Work Phone: 0(068)954-813892 [place] [address] 04-16-2025 08:51-0400 Body mass index (BMI) [Ratio] 28.5 kg/m2 Norm Aiken [employer] Work Phone: 7(754)175-433392 [place] [address] 04-16-2025 08:51-0400 Body weight 77.67 kg Norm Aiken [employer] Work Phone: 0(736)072-400792 [place] [address] 04-16-2025 08:51-0400 Diastolic blood pressure 74 mm[Hg] Norm Aiken [employer] Work Phone: 5(538)143-352692 [place] [address] 04-16-2025 08:51-0400 Systolic blood pressure 110 mm[Hg] Norm Aiken [employer] Work Phone: 6(128)188-180392 [place] [address] 04-03-2025 15:16-0400 Body mass index (BMI) [Ratio] 28 kg/m2 Norm Aiken [employer] Work Phone: 0(339)578-870992 [place] [address] 04-03-2025 15:16-0400 Body weight 76.45 kg Norm Aiken [employer] Work Phone: 5(881)500-014292 [place] [address] 04-03-2025 15:16-0400 Diastolic blood pressure 69 mm[Hg] Norm Aiken [employer] Work Phone: 8(213)717-017492 [place] [address] 04-03-2025 15:16-0400 Systolic blood pressure 116 mm[Hg] Norm Aiken [employer] Work Phone: 1(434)272-016392 [place] [address] 03-21-2025 09:17-0400 Body height 165.1 cm Norm Aiken [employer] Work Phone: 4(137)015-498592 [place] [address] 03-21-2025 09:17-0400 Body mass index (BMI) [Ratio] 27.8 kg/m2 Norm Aiken [employer] Work Phone: 1(207)893-255792 [place] [address] 03-21-2025 09:17-0400 Body weight 75.97 kg Norm Aiken [employer] Work Phone: 2(106)752-882892 [place] [address] 03-21-2025 09:17-0400 Diastolic blood pressure 73 mm[Hg] Norm Aiken [employer] Work Phone: 5(283)728-519292 [place] [address] 03-21-2025 09:17-0400 Systolic blood pressure 121 mm[Hg] Norm Aiken [employer] Work Phone: 2(678)103-340392 [place] [address] 03-03-2025 09:15-0400 Diastolic blood pressure 61 mm[Hg] Norm Aiken [employer] Work Phone: 1(652)157-882092 [place] [address] 03-03-2025 09:15-0400 Systolic blood pressure 122 mm[Hg] Norm Aiken [employer] Work Phone: 9(917)089-936992 [place] [address] 03-03-2025 08:57-0400 Body height 165.1 cm Norm Aiken [employer] Work Phone: 2(079)459-339992 [place] [address] 03-03-2025 08:57-0400 Body mass index (BMI) [Ratio] 27.9 kg/m2 Norm Aiken [employer] Work Phone: 2(854)832-070592 [place] [address] 03-03-2025 08:57-0400 Body weight 76.2 kg Norm Aiken [employer] Work Phone: 5(462)586-880792 [place] [address] 02-19-2025 08:28-0400 Body height 165.1 cm Norm Aiken [employer] Work Phone: 2(173)084-705392 [place] [address] 02-19-2025 08:28-0400 Body mass index (BMI) [Ratio] 27.9 kg/m2 Norm Aiken [employer] Work Phone: 4(305)324-763492 [place] [address] 02-19-2025 08:28-0400 Body weight 76.2 kg Norm Aiken [employer] Work Phone: 1(041)462-753392 [place] [address] 02-19-2025 08:28-0400 Diastolic blood pressure 72 mm[Hg] Norm Aiken [employer] Work Phone: 1(413)199-943524 [place] [address] 02-19-2025 08:28-0400 Systolic blood pressure 130 mm[Hg] Norm Aiken [employer] Work Phone: 6(864)284-601392 [place] [address] 01-29-2025 10:24-0400 Body height 165.1 cm Norm Aiken [employer] Work Phone: 3(985)077-853092 [place] [address] 01-29-2025 10:24-0400 Body mass index (BMI) [Ratio] 26.9 kg/m2 Norm Aiken [employer] Work Phone: 5(123)501-357292 [place] [address] 01-29-2025 10:24-0400 Body weight 73.48 kg Norm Aiken [employer] Work Phone: 8(232)740-042992 [place] [address] 01-29-2025 10:24-0400 Diastolic blood pressure 67 mm[Hg] Norm Aiken [employer] Work Phone: 8(554)926-197592 [place] [address] 01-29-2025 10:24-0400 Systolic blood pressure 110 mm[Hg] Norm Aiken [employer] Work Phone: 4(549)714-135592 [place] [address] 01-02-2025 10:41-0400 Body height 165.1 cm Norm Aiken [employer] Work Phone: 0(836)963-399892 [place] [address] 01-02-2025 10:41-0400 Body mass index (BMI) [Ratio] 26.3 kg/m2 Norm Aiken [employer] Work Phone: 2(417)649-388892 [place] [address] 01-02-2025 10:41-0400 Body weight 71.72 kg Norm Aiken [employer] Work Phone: 4(325)719-583692 [place] [address] 01-02-2025 10:41-0400 Diastolic blood pressure 70 mm[Hg] Norm Aiken [employer] Work Phone: 1(268)237-787892 [place] [address] 01-02-2025 10:41-0400 Systolic blood pressure 135 mm[Hg] Norm Aiken [employer] Work Phone: 6(153)815-859792 [place] [address] 12-02-2024 12:59-0400 Body height 165.1 cm Norm Aiken [employer] Work Phone: 7(899)892-129692 [place] [address] 12-02-2024 12:59-0400 Body mass index (BMI) [Ratio] 25.7 kg/m2 Norm Aiken [employer] Work Phone: 5(770)835-938492 [place] [address] 12-02-2024 12:59-0400 Body weight 70.3 kg Norm Aiken [employer] Work Phone: 0(950)446-932592 [place] [address] 12-02-2024 12:59-0400 Diastolic blood pressure 71 mm[Hg] Norm Aiken [employer] Work Phone: 8(226)649-840292 [place] [address] 12-02-2024 12:59-0400 Systolic blood pressure 119 mm[Hg] Norm Aiken [employer] Work Phone: 4(756)047-861592 [address] [place] [address] 11-08-2024 10:53-0400 Body height 165.1 cm Norm Aiken [employer] Work Phone: 3(957)[phone] [place] [address] 11-08-2024 10:50-0400 Body mass index (BMI) [Ratio] 25.2 kg/m2 Norm Aiken [employer] Work Phone: 1(581)583-549192 [place] [address] 11-08-2024 10:50-0400 Body weight 68.66 kg Norm Aiken [employer] Work Phone: 8(051)810-980892 [place] [address] 11-08-2024 10:50-0400 Diastolic blood pressure 73 mm[Hg] Norm Aiken [employer] Work Phone: 4(783)548-759192 [place] [address] 11-08-2024 10:50-0400 Systolic blood pressure 125 mm[Hg] Norm Aiken [employer] Work Phone: 8(208)541-919592 [place] [address] 10-11-2024 10:31-0400 Body height 165.1 cm Norm Aiken [employer] Work Phone: 4(328)663-089092 [place] [address] 10-11-2024 10:26-0400 Body mass index (BMI) [Ratio] 25.5 kg/m2 Norm Aiken [employer] Work Phone: 9(121)948-580892 [place] [address] 10-11-2024 10:26-0400 Body weight 69.62 kg Norm Aiken [employer] Work Phone: 2(099)611-431724 [place] [address] 10-11-2024 10:26-0400 Diastolic blood pressure 68 mm[Hg] Norm Aiken [employer] Work Phone: 4(295)379-179324 [place] [address] 10-11-2024 10:26-0400 Systolic blood pressure 135 mm[Hg] Norm Aiken [employer] Work Phone: 6(986)732-073592 [place] [address] 09-24-2024 12:20-0400 Body mass index (BMI) [Ratio] 26.1 kg/m2 Norm Aiken [employer] Work Phone: 7(420)009-850924 [place] [address] 09-24-2024 12:20-0400 Body weight 71.27 kg Norm Aiken [employer] Work Phone: 3(112)011-412792 [place] [address] 09-24-2024 12:20-0400 Diastolic blood pressure 56 mm[Hg] Norm Aiken [employer] Work Phone: 3(860)628-617792 [place] [address] 09-24-2024 12:20-0400 Systolic blood pressure 110 mm[Hg] Norm Aiken [employer] Work Phone: 8(068)671-420424 [place] [address] 08-23-2024 14:33-0500 Body height 165.1 cm Norm Aiken [employer] Work Phone: 9(217)853-632892 [place] [address] 08-23-2024 14:33-0500 Body mass index (BMI) [Ratio] 25.7 kg/m2 Norm Aiken [employer] Work Phone: 8(832)616-471024 [place] [address] 08-23-2024 14:33-0500 Body weight 70.3 kg Norm Aiken [employer] Work Phone: 6(332)130-799224 [place] [address] 08-23-2024 14:33-0500 Diastolic blood pressure 74 mm[Hg] Norm Aiken [employer] Work Phone: 8(906)544-304074 [address] 08-23-2024 14:33-0500 Systolic blood pressure 115 mm[Hg] Norm Aiken [employer] Work Phone: 8(455)680-468474 [address] 06-11-2024 09:41-0500 Body height 165.1 cm Becky Blake APRN.CNM Work Phone: [facility] 06-11-2024 09:41-0500 Body mass index (BMI) [Ratio] 25.79 kg/m2 Becky Blake APRN.CNM Work Phone: [facility] 06-11-2024 09:41-0500 Body weight 70.31 kg Becky Blake APRN.CNDavid Work Phone: [facility] 06-11-2024 09:41-0500 Diastolic blood pressure 72 mm[Hg] Becky Blake APRN.CNM Work Phone: [facility] 06-11-2024 09:41-0500 Systolic blood pressure 114 mm[Hg] Becky Blake APRN.FABIO Work Phone: [facility] Encounters Encounter Date Encounter Type Care Provider Facility Start: 05-09-2025 ambulatory Norm Aiken Facility:[facility] Start: 05-01-2025 End: 05-01-2025 ambulatory Norm Aiken Facility[place] Start: 04-24-2025 End: 04-24-2025 ambulatory Norm Aiken Facility:[facility] Start: 04-24-2025 End: 04-24-2025 ambulatory Norm Aiken Facility:[facility] Start: 04-16-2025 End: 04-16-2025 Patient encounter procedure Tess Lynch [employer] -[facility][1] Work Phone: Start: 04-16-2025 End: 04-16-2025 ambulatory Norm Aiken [employer] Work Phone: -[facility][1] Start: 04-16-2025 End: 04-16-2025 ambulatory Norm Aiken Facility:[facility] Start: 04-03-2025 End: 04-03-[address] Rhea Ayon DO -[facility][1] Work Phone: Start: 04-03-2025 End: 04-03-2025 ambulatory Norm Aiken [employer] Work Phone: -[facility][1] Start: 03-21-2025 End: 03-21-2025 Patient encounter procedure Becky Caballero CNM -[facility][1] Work Phone: Start: 03-21-2025 End: 03-21-2025 ambulatory Norm Aiken [employer] Work Phone: [facility] Start: 03-03-2025 End: 03-03-[address] Kamille Albarran MD -[facility][1] Work Phone: Start: 03-03-2025 End: 03-03-2025 ambulatory Norm Aiken [employer] Work Phone: [facility] Start: 03-03-2025 End: 03-03-2025 ambulatory Norm Aiken Facility:[facility] Start: 02-19-2025 End: 02-19-2025 Patient encounter procedure Tess Lynch NP-C -[facility][1] Work Phone: Start: 02-19-2025 End: 02-19-2025 ambulatory Norm Aiken [employer] Work Phone: [facility] Start: 02-19-2025 End: 02-19-2025 ambulatory Norm Aiken Facility:[facility] Start: 01-29-2025 End: 01-29-2025 Patient encounter procedure Becky GILLIS -[facility][1] Work Phone: Start: 01-29-2025 End: 01-29-2025 ambulatory Norm Aiken [employer] Work Phone: [facility] Start: 01-02-2025 End: 01-02-[address] Rhea Ayon DO -[facility][1] Work Phone: Start: 01-02-2025 End: 01-02-2025 ambulatory Norm Aiken [employer] Work Phone: [facility] Start: 12-19-2024 End: 12-19-2024 ambulatory FARA L GOOD [facility] Start: 12-02-2024 End: 12-02-2024 Patient encounter procedure Tess Lynch [employer] -[facility][1] Work Phone: Start: 12-02-2024 End: 12-02-2024 ambulatory Norm Aiken [employer] Work Phone: [facility] Work Phone: Start: 11-08-2024 End: 11-08-[address] Kamille Albarran MD -[facility][1] Work Phone: Start: 11-08-2024 End: 11-08-2024 ambulatory Norm Aiken [employer] Work Phone: [facility] Work Phone: Start: 10-17-2024 End: 10-17-2024 ambulatory Norm Aiken [employer] Work Phone: [facility] Work Phone: Start: 10-17-2024 End: 10-17-[address] Kamille Albarran MD -Lab, [facility][1] Start: 10-17-2024 End: 10-17-2024 ambulatory Norm Aiken Facility:[facility] Start: 10-11-2024 End: 10-11-[address] Kamille Albarran MD -Laboratory, Specimen Work Phone: Start: 10-11-2024 End: 10-11-[address] Kamille Albarran MD -[facility][1] Work Phone: Start: 10-11-2024 End: 10-11-2024 ambulatory Norm Aiken Facility:[facility] Start: 10-11-2024 End: 10-11-2024 ambulatory Norm Aiken Facility:[facility] Start: 09-24-2024 End: 09-24-2024 Patient encounter procedure Tess PALAFOXC -[facility][1] Work Phone: Start: 09-24-2024 End: 09-24-2024 ambulatory Norm Aiken Facility:[facility] Start: 09-08-2024 End: 09-08-2024 ambulatory Norm Aiken [employer] Work Phone: [facility] Work Phone: Start: 09-08-2024 End: 09-08-[address] Kamille Albarran MD -Laboratory Work Phone: Start: 09-08-2024 End: 09-08-2024 ambulatory Norm Aiken Facility:[facility] Start: 09-06-2024 End: 09-06-2024 ambulatory Norm Aiken [employer] Work Phone: [facility] Work Phone: Start: 09-06-2024 End: 09-06-[address] Rhea Ayon DO -Lab, [facility][1] Start: 09-06-2024 End: 09-06-2024 ambulatory Rhea Ayon Facility:[facility] Start: 08-23-2024 End: 08-23-2024 Patient encounter procedure Echo Matias CNM -[facility][1] Work Phone: Start: 08-23-2024 End: 08-23-2024 ambulatory Echo Matias Facility:[facility] Start: 08-09-2024 End: 08-09-[address] Rhea Ayon DO -Laboratory Work Phone: Start: 08-09-2024 End: 08-09-2024 ambulatory Norm Aiken Facility:[facility] Start: 06-11-2024 End: 06-11-2024 ambulatory BECKY BLAKE Facility:[facility] Start: 06-11-2024 End: 06-11-2024 Patient encounter procedure Becky Blake APRN.CNM Work Phone: OB/Gynecology Comment on above: Encounter for gyneco logical examination (general) (routine) with abnormal findings (Primary Dx); Screening for cervical cancer; Encounter for screening for human papillomavirus (HPV); Encounter for preconception consultation; Vaginal odor Start: 06-11-2024 End: 06-11-2024 Patient encounter status Becky Blake APRN.CNM Work Phone: [facility] Procedures Date Procedure Procedure Detail Performing Clinician Start: 04-24-2025 Procedure Norm Aiken [employer] Work Phone: Comment on above: Test Ordered: [id number] Bile Acids, Fractio nated LCMSUrsodeoxycholic Acids <0.10 umol/L ES Reference Range: .Reference Range:All Ages: <1.9Cholic Acids 0.20 umol/L ES Reference Range: .Reference Range:All Ages: <2.2Chenodeoxycholic Acids 0.60 umol/L ES Reference Range: .Reference Range:All Ages: <5.8Deoxycholic Acids 0.10 umol/L ES Reference Range: .Reference Range:All Ages: <3.3Total Bile Acids 0.90 umol/L ES Reference Range: .This test was developed and its performance characteristicsdetermined by [employer]. It has not been cleared or approvedby the Food and Drug Administration.Reference Range:All Ages: <9.2Performed at: [facility] - [facility] [id number] [place] [address] [id number] Director: Rebecca Snider MD, Phone: [phone] at: - [facility] [address] [id number] Director: Andrew Kline PhD, Phone: [phone] Start: 04-16-2025 Procedure Norm Aiken NP-C Work Phone: Comment on above: Test Ordered: [id number] Bile Acids, Fractio nated LCMSUrsodeoxycholic Acids 0.10 umol/L ES Reference Range: .Reference Range:All Ages: <1.9Cholic Acids 1.1 umol/L ES Reference Range: .Reference Range:All Ages: <2.2Chenodeoxycholic Acids 1.9 umol/L ES Reference Range: .Reference Range:All Ages: <5.8Deoxycholic Acids <0.10 umol/L ES Reference Range: .Reference Range:All Ages: <3.3Total Bile Acids 3.1 umol/L ES Reference Range: .This test was developed and its performance characteristicsdetermined by [employer]. It has not been cleared or approvedby the Food and Drug Administration.Reference Range:All Ages: <9.2Performed at: [facility] - [facility] [id number] [place], [place] [id number] Director: Rebecca Snider MD, Phone: [phone] at: [facility] [address] [place], [place] [id number] Director: Andrew Kline PhD, Phone: [phone] Start: 02-19-2025 Serologic test for syphilis Norm Ibarra P-C Work Phone: Start: 10-17-2024 Hepatitis C antibody measurement Norm garcia [employer] Work Phone: Comment on above: Reactive: Presumptive evidence of antibo dies to HCV. Follow CDC recommendations for supplemental testing.Non-Reactive: Antibodies to HCV were not detected; does not exclude the possibility of exposure to HCVReactive Results are presumptive evidence of antibodies to HCV. Follow CDC recommendations for supplemental testing.Order confirmation testing: HCV Quant by PCR testing - HCVPCR #[id number] Non Reactive: < 0.8 Equivocal: >/= 0.8 to < 1.0 Reactive: >/= 1.0The CDC requires that a reactive/equivocal HCV antibody result be sent out for confirmation. HCV Quant by PCR testing. Start: 10-17-2024 Procedure Norm Aiken [employer] Work Phone: Start: 10-17-2024 Rubella IgG measurement Norm Aiken [employer] Work Phone: Comment on above: Antibody Result: InterpretationNon-React sundar: Non-ImmuneReactive: ImmuneThe following results were obtained with the [employer] Rubella IgG assay. Results from assays of other manufacturers cannot be used interchangeably. Start: 10-17-2024 Serologic test for syphilis Norm Ibarra P-C Work Phone: Start: 10-11-2024 Urine culture Norm Aiken [employer] Work Phone: Plan of Treatment Date Care Activity Detail Author Start: 06-16-2025 End: 06-16-2025 Patient encounter procedure 06/16/2025 11:30 AM EST Office Visit OB/Gynecology [address] [place] [address] Becky Blake APRN.CN [address] [place] [address] Annual OB/Gynecology Comment on above: Annual Start: 05-01-2025 End: 05-01-2025 Patient encounter procedure Hx of one miscarriage -[facility][1] Work Phone: Start: 04-24-2025 Beta-hemolytic Streptococcus culture Group B Streptococcus Culture [facility] Start: 04-24-2025 [facility] Start: 04-24-2025 End: 04-24-2025 Patient encounter procedure Hx of one miscarriage -[facility][1] Work Phone: Start: 04-24-2025 Ultrasonography for biophysical profile without non-stress testing OB Biophysical Prof W/O NST [facility] Start: 04-24-2025 End: 04-24-2025 Patient encounter procedure Departed Clinical [facility] Work Phone: Start: 04-16-2025 End: 04-16-2025 Patient encounter procedure -[facility][1] Work Phone: Start: 03-03-2025 Comprehensive metabo lic 2000 panel - Serum or Plasma [facility] Start: 02-19-2025 CBC W Auto Different ial panel - Blood [facility] Start: 02-19-2025 Measurement of gluco se 2 hours after glucose challenge for glucose tolerance test [facility] Start: 02-19-2025 Serologic test for syphilis [facility] Start: 02-19-2025 [facility] Start: 02-25-2024 Covid-19 Vaccine ( season) Covid-19 Vaccine ( season) [facility] Start: 02-25-2024 Influenza vaccination Influenza Vacc ine (#1) [facility] Start: 11-12-2016 Screening for malign ant neoplasm of cervix Cervical Cancer Screening [facility] Start: 11-12-2014 Hepatitis B Vaccine (1 of 3 - 19+ 3-dose series) Hepatitis B Vaccine (1 of 3 - 19+ 3-dose series) [facility] Start: 11-12-2014 Urine microalbumin profile DTa P,Tdap,Td Vaccine (1 - Tdap) [facility] Start: 11-12-2013 Anxiety Screening Anxiety Screening [facility] Start: 11-12-2013 Depression Screening Depression Scre rivera [facility] Start: 11-12-2013 Hepatitis C screening Hepatitis C Sc birgit [facility] Start: 11-12-2013 HIV screening HIV Screening [facility] Alanine aminotransfe rase [Enzymatic activity/volume] in Serum or Plasma [facility] Albumin [Mass/volume ] in Serum or Plasma [facility] Alkaline phosphatase [Enzymatic activity/volume] in Serum or Plasma [facility] Anion gap in Serum o r Plasma [facility] BACTERIAL VAGINOSIS NAAT BACTERI AL VAGINOSIS NAAT Lab Routine Encounter for gynecological examination (general) (routine) with abnormal findings 06/11/2024 10:41 AM [facility] Bilirubin, total measurement [facility] BUN/Creatinine ratio [facility] Calcium [Mass/volume ] in Serum or Plasma [facility] MARCIE/TRICHOMONAS NAAT MARCIE /TRICHOMONAS NAAT Lab Routine Encounter for gynecological examination (general) (routine) with abnormal findings 06/11/2024 10:41 AM [facility] Carbon dioxide, tota l [Moles/volume] in Central venous blood [facility] CBC W Auto Different ial panel - Blood [facility] Creatinine [Mass/vol ume] in Serum or Plasma [facility] Erythrocyte mean corpuscular volume determination [facility] Biophysical pr ofile panel US [facility] Glucose [Mass/volume ] in Serum or Plasma [facility] Hematocrit [Volume Fraction] of Blood [facility] Hemoglobin [Mass/vol ume] in Blood [facility] Leukocytes [#/volume ] in Blood [facility] Mean corpuscular hemoglobin concentration determination [facility] Mean corpuscular hemoglobin determination [facility] Measurement of gluco se 2 hours after glucose challenge for glucose tolerance test [facility] Measurement of renal function [facility] Neutrophil count [facility] Neutrophil percent differential count [facility] PAP TEST PAP TEST Lab Rou lucy Encounter for gynecological examination (general) (routine) with abnormal findings Screening for cervical cancer Encounter for screening for human papillomavirus (HPV) 06/11/2024 10:41 AM EST [facility] Work Phone: Platelets [#/volume] in Blood [facility] Potassium measurement [facility] Red blood cell count [facility] Red cell distributio n width determination [facility] Serologic test for syphilis [facility] Serum chloride measurement [facility] Sodium measurement [facility] Total protein measurement [facility] Urea nitrogen [Mass/volume] in Serum or Plasma [facility] [place] Date Payer Category Payer Self-pay 2024 Unknown [employer] PPO [id number] 2024-Present [phone] [address] [place] [address] PPO [id number] 2024 Unknown [id number] 1995 Unknown [id number] Unknown [id number] Unknown [id number] 2.16.840.1.036627.3.579.2.462 Unknown [id number] 2.16.840.1.418736.3.579.2.462 Unknown [id number] 2.16.840.1.872052.3.579.2.462 Unknown [id number] 2.16.840.1.799966.3.579.2.462 Unknown [id number] 2.16.840.1.418488.3.579.2.462 Unknown [id number] 2.16.840.1.943986.3.579.2.462 Unknown [id number] 2.16.840.1.717729.3.579.2.462 Unknown [id number] 2.16.840.1.368033.3.579.2.462 Unknown [id number] 2.16.840.1.002530.3.579.2.462 Unknown [id number] 2.16.840.1.733944.3.579.2.462 Unknown [id number] 2.16.840.1.048004.3.579.2.462 Unknown [id number] 2.16.840.1.794671.3.579.2.462 Unknown [id number] 2.16.840.1.199310.3.579.2.462 Unknown [id number] 2.16.840.1.102131.3.579.2.462 Unknown [id number] 2.16.840.1.620332.3.579.2.462 Unknown [id number] 2.16.840.1.042759.3.579.2.462 Unknown [id number] 2.16.840.1.638974.3.579.2.462 Unknown [id number] 2.16.840.1.809248.3.579.2.462 Unknown [id number] 2.16.840.1.450372.3.579.2.462 Unknown [id number] 2.16.840.1.722328.3.579.2.462 Unknown [id number] 2.16.840.1.572385.3.579.2.462 Unknown [id number] 2.16.840.1.130093.3.579.2.462 Unknown [id number] 2.16840.1.812904.3.579.2.462 Unknown [id number] 2.16.840.1.356964.3.579.2.462 Social History Date Type Detail Facility Start: 06-11-2024 End: 09-24-2024 Tobacco smoking status MIIS Never smoked tobacco [facility] Start: 06-11-2024 Tobacco use and exposure Smokeless tobacco non-user [facility] Start: 06-11-2024 Alcoholic beverage intake Ex-drinker (finding) [facility] Start: 06-11-2024 History of Social function [facility] Start: 06-11-2024 Tobacco use panel [facility] National Score (1-10 0), lower number is lower risk 61 [facility] Start: 06-11-2024 Alcohol Comment occasionally [facility] Start: 1995 Sex assigned at Female [facility] Start: 06-04-2024 Sexual orientation Heterosexual (fin ding) [facility] Start: 09-14-2024 End: 10-22-2024 Sex Female (finding) [facility] Clinical Notes 06-11-2024 to 04-16-2025 Note Date & Type Note Facility 04-16-2025 Progress note [facility] 04-03-2025 Progress note [facility] 04-03-2025 Progress note Note Date/Time April 03, 2025 3:37pm [facility] [address], [address] [place] [address] OFFICE VISIT Date of Service: 04/03/25 MR#: [id number] Acct: [id number] Name: ALBINO SANTIAGO Reina p #: [id number] : 1995 Provider: Dr. Carie Ayon DO Age/Sex: 29/F [place] [facility] Status: Signed Intake Vital Signs 02/19/25 08:28 03/21/25 09:17 04/03/25 15:16 04/03/25 15:18 Height 5 ft 5 in 5 ft 5 in 5 ft 5 in 5 ft 5 in Weight: 168 lb 9 oz BMI 28.0 BP 116/69 Intake Visit Reasons: 34wk ob 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 Is patient in pain?: No [...] 0 current occupational status: employed current occupation: [employer] in [place] current occupational exposures/hazards: No pets and animals: [...] 3-4 times per week duration: 45-60 minutes/day dana/presybeterian: Temple seatbelt use: always do you feel safe [...] increase fluids. 28 wk labs pending. [facility] 03/03/25 -?-?-?-?-?-?-?-?-?-?-?-?- 29w 4d 168 [...] Cosign Signature: Date (if applicable) CC: ~ [facility] Work Phone: 1(679) 604-461109-26-2025 [facility] [address] [place] [address], [address] [place] [address] OFFICE VISIT Date of Service: 03/21/25 MR#: [id number] Acct: [id number] Name: ALBINO SANTIAGO [place] Huang p #: [id number] : 1995 Provider: FABIO Caballero Age/Sex: 29/F [place] [facility] [place]: Signed Intake Vital Signs 02/19/25 08:28 03/03/25 08:57 03/21/25 09:17 Height 5 ft 5 in 5 ft 5 in 5 ft 5 in Weight: 167 lb 8 oz BMI 27.8 BP 121/73 H Intake Visit Reasons: 32wk ob 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 Is patient in pain?: No [...] 0 current occupational status: employed current occupation: [employer] in [place] current occupational exposures/hazards: No pets and animals: [...] 3-4 times per week duration: 45-60 minutes/day dana/presybeterian: Temple seatbelt use: always do you feel safe [...] increase fluids. 28 wk labs pending. [facility] 03/03/25 -?-?-?-?-?-?-?--?-?-?-?-?- 29w 4d 168 [...] Cosigner Signature: Date (if applicable) CC: ~ [facility] [id number] [facility] [address], [address] [place] [address] OFFICE VISIT Date of Service: 03/03/25 MR#: [id number] Acct: [id number] Name: ALBINO SANTIAGO Reina p #: [id number] : 1995 Provider: Dr. 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 28 wk labs pending. [facility] 03/03/25 -?-?-?-?-?-?-?-?-?-?-?-?- 29w 4d 168 [...] idania BE> Date _ [facility] Signature: Date (if applicable) CC: ~ [facility]08-06-2025 [facility] [address] [place] [address], [address] [place] [address] OFFICE VISIT Date of Service: 01/29/25 MR#: [id number] Acct: [id number] Name: ALBINO SANTIAGO p #: [id number] : 1995 Provider: FABIO Caballero Age/Sex: 29/F Location[place] [facility] Status: Signed Intake Vital Signs 12/02/24 12:59 01/02/25 10:41 01/29/25 10:24 Height 5 ft 5 in 5 ft 5 in 5 ft 5 in Weight: 162 lb BMI 26.9 BP 110/67 Intake Visit Reasons: 25wk ob 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 Is patient in pain?: No [...] 0 current occupational status: employed current occupation: [employer] [place] current occupational exposures/hazards: No pets and animals: [...] 3-4 times per week duration: 45-60 minutes/day dana/presybeterian: Temple seatbelt use: always do you feel safe [...] Cosigner Signature: Date (if applicable) CC: ~ [facility]07-10-2025 Evaluation note* Diagnosis Onset Date Resolution [...] Supervision of high-risk acute April 16 8:42am [facility] Work Phone: 1(288) 157-598107-10-2025 Evaluation note* Diagnosis Onset Date Resolution Status [...] Supervision of high-risk acute May 01 9:38am [facility] Work Phone: 1(179) 271-590207-10-2025 [facility] [address] [place] [address], [address] [place] [address] OFFICE VISIT Date of Service: 01/02/25 MR#: [id number] Acct: [id number] Name: ALBINO SANTIAGO Reina p #: [id number] : 1995 Provider: Dr. 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 Date Name GA/Weeks Outcome Route Bth Weight [facility] 08/08/24 4 spontaneous [...] Cosigner Signature: Date (if applicable) CC: ~ [facility]06-09-2025 Evaluation note* Diagnosis Onset Date Resolution [...] of high-risk acute March 03 025 8:53am [facility] Work Phone: [phone] Evaluation note* Diagnosis Onset Date Resolution Status [...] of high-risk acute March 21, 2025 9:09am [facility] Work Phone: [phone] Evaluation note* Diagnosis Onset Date Resolution Status [...] Supervision of high-risk acute February 19 8:25am [facility] Work Phone: 1([phone]) 882-883405-16-2025 Evaluation note* Diagnosis Onset Date Resolution Status [...] of high-risk acute March 03 025 8:53am [facility] Work Phone: 1([phone]) 535-221805-16-2025 [facility] [address] [place] [address], [address] [place] [address] OFFICE VISIT Date of Service: 11/08/24 MR#: [id number] Acct: [id number] Name: ALBINO SANTIAGO Reina p #: [id number] : 1995 Provider: Dr. Jay Albarran MD Age/Sex: 28/F [place] [facility] [place]: Signed Intake Vital Signs 08/23/24 14:33 10/11/24 10:31 11/08/24 10:50 11/08/24 10:53 Height 5 ft 5 in 5 ft 5 in 5 ft 5 in 5 ft 5 in Weight: 151 lb 6 oz BMI 25.2 BP 125/73 H Intake Visit Reasons: 13wk OB 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 Is patient in pain?: No [...] 0 current occupational status: employed current occupation: [employer] in [place] current occupational exposures/hazards: No pets and animals: [...] 3-4 times per week duration: 45-60 minutes/day dana/presybeterian: Temple seatbelt use: always do you feel safe [...] Cosigner Signature: Date (if applicable) CC: ~ [facility]04-18-2025 Evaluation note* Diagnosis Onset Date Resolution [...] of high-risk acute January 29, 2025 10:18am [facility] Work Phone: 1([phone]) 653-414204-01-2025 Evaluation note* Diagnosis Onset Date Resolution Status [...] of high-risk acute January 02, 2025 10:39am [facility] Work Phone: 1(138) 135-546102-28-2025 Evaluation note* Diagnosis Onset Date Resolution Status Admit Date Complete miscarriage acute Febr uary 2024 2:30pm [facility] Work Phone: [phone]) 914-571402-28-2025 Evaluation note* Diagnosis Onset Date Resolution Status Admit Date Complete miscarriage inactive Febr uary 2024 2:30pm Hx of one miscarriage acute Apr 2024 11:06am acute September 24 11:06am Supervision of high-risk acute September 24, 2024 11:06am Hx of one miscarriage acute Apr 2024 10:19am acute October 11 10:19am Supervision of high-risk acute October 11, 2024 10:19am [facility] Work Phone: 1(813) 161-418402-28-2025 Evaluation note* Diagnosis Onset Date Resolution Status [...] high-risk acute November 08, 2024 1 0:47am [facility] Work Phone: 1([phone]) 125-178302-28-2025 Evaluation note* Diagnosis Onset Date Resolution Status [...] high-risk acute December 02, 2024 1 2:54pm [facility] Work Phone: [phone]) 403-678412-17-2024 Instructions* Patient Instructions* Becky Blake APRN.CNM - 06/11/2024 10:15 AM EST [employer] [place] [facility] Sensorlys or Mama Bear documented [facility]-2024 NoteHNO ID: [id number] Author: BECKY BLAKE APRN.CNM Service: ? Author Type: Edge Drummer Type: Progress Notes Filed: 06/11/2024 10:42 Note [...] L0 SAB0 IAB0 Ectopic0 Multiple0 Live Births0 Application Release Manager History LMP: 05/19/2024 (Exact Date), Having periods Age at Menarche: Age at First : Age at Menopause: Application Release Manager History Comments: Sexual Activity: Yes; No partner [...] discussed with the Patient or Patient's Authorized Disability Program Navigator. As applicable, any other physician, advance practice provider, medical student, or other health professional student that will be observing or involved in the sensitive examination for educational or training purposes was discussed with the Patient or Authorized Disability Program Navigator. The Patient or Authorized Disability Program Navigator has agreed to proceed with the sensitive [...] external genitalia normal, normal Bartholin's glands, urethra, Schaller's glands, no vulvar lesions, no cervical lesions, [...] or sooner as n (more content not included)...[facility]12-17-2024 History of Present illness Narrative* Becky Blake [...] L0 SAB0 IAB0 Ectopic0 Multiple0 Live Births0 Application Release Manager History LMP: 05/19/2024 (Exact Date), Having periods Age at Menarche: Age at First : Age at Menopause: Application Release Manager History Comments: Sexual Activity: Yes; No partner [...] discussed with the Patient or Patient's Authorized Disability Program Navigator. As applicable, any other physician, advance practice provider, medical student, or other health professional student that will be observing or involved in the sensitive examination for educational or training purposes was discussed with the Patient or Authorized Disability Program Navigator. The Patient or Authorized Disability Program Navigator has agreed to proceed with the sensitive [...] external genitalia normal, normal Bartholin's glands, urethra, Schaller's glands, no vulvar lesions, no cervical lesions, [...] needed Becky Blake APRN.CNM documented in [facility]Tr[facility]* Diagnosis Encounter for gynecological examination (general) (routine) with abnormal findings- Primary Screening for cervical cancer Screening for malignant neoplasm of the cervix Encounter for screening for human papillomavirus (HPV) Special screening examination for human papillomavirus (HPV) Encounter for preconception consultation Other procreative management counseling and advice Vaginal odor Unspecified symptom associated with female genital organs documented in this encounter [facility] note Author Kamille Albarran [facility] Note Date/Time November 08, 2024 11:12 am [facility] [address], [address] [place] [address] OFFICE VISIT Date of Service: 11/08/24 MR#: [id number] Acct: [id number] Name: ALBINO SANTIAGO p #: [id number] : 1995 Provider: Dr. Jay Albarran MD Age/Sex: 28/F [place] [facility] [place]: Signed Intake Vital Signs 08/23/24 14:33 10/11/24 10:31 11/08/24 10:50 11/08/24 10:53 Height 5 ft 5 in 5 ft 5 in 5 ft 5 in 5 ft 5 in Weight: 151 lb 6 oz BMI 25.2 BP 125/73 H Intake Visit Reasons: 13wk OB 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 Is patient in pain?: No [...] 0 current occupational status: employed current occupation: [employer] in [place] current occupational exposures/hazards: No pets and animals: [...] 3-4 times per week duration: 45-60 minutes/day dana/presybeterian: Temple seatbelt use: always do you feel safe [...] Cosigner Signature: Date (if applicable) CC: ~ [facility] Work Phone: Progress note Author Rhea Pak [facility] Note Date/Time January 02, 2025 11:0 8am [facility] [address], [address] [place] [address] OFFICE VISIT Date of Service: 01/02/25 MR#: [id number] Acct: [id number] Name: JACKALBINO p #: [id number] : 1995 Provider: Dr. 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 [address] [place] [address], [address] [place] [address] OFFICE VISIT Date of Service: 03/03/25 MR#: [id number] Acct: [id number] Name: ALBINO SANTIAGO p #: [id number] : 1995 Provider: Dr. 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 28 wk labs pending. [facility] 03/03/25 -?-?-?-?-?-?-?-?-?-?-?-?- 29w 4d 168 [...] Cosigner Signature: Date (if applicable) CC: ~ [facility] Work Phone: Progress note Author Becky Caballero [facility] Note Date/Time March 21, 2025 9:42am [facility] [address], [address] [place] [address] OFFICE VISIT Date of Service: 03/21/25 MR#: [id number] Acct: [id number] Name: ALBINO SANTIAGO p #: [id number] : 1995 Provider: FABIO Caballero Age/Sex: 29/F [place] [facility] [place]: Signed Intake Vital Signs 02/19/25 08:28 03/03/25 08:57 03/21/25 09:17 Height 5 ft 5 in 5 ft 5 in 5 ft 5 in Weight: 167 lb 8 oz BMI 27.8 BP 121/73 H Intake Visit Reasons: 32wk ob 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 Is patient in pain?: No [...] 0 current occupational status: employed current occupation: [employer] in [place] current occupational exposures/hazards: No pets and animals: [...] 3-4 times per week duration: 45-60 minutes/day dana/presybeterian: Temple seatbelt use: always do you feel safe [...] Protein Negative Last Edit by Maria L iMguel on 03/21/25 09:32 Coding Level of Care [...] Cosigner Signature: Date (if applicable) CC: ~ [facility] Work Phone: Progress note Author Tess Lynch [facility] Note Date/Time April 16, 2025 1 0:29am [facility] [address] [place] [address], [address] [place] [address] OFFICE VISIT Date of Service: 04/16/25 MR#: [id number] Acct: [id number] Name: ALBINO SANTIAGOJOSE Huang p #: [id number] : 1995 Provider: MOOSE Lynch Age/Sex: 29/F [place] [facility] [place]: Signed Intake Vital Signs 02/19/25 08:28 04/03/25 15:18 04/16/25 08:51 Height 5 ft 5 in 5 ft 5 in 5 ft 5 in Weight: 171 lb 4 oz BMI 28.5 BP 110/74 Intake Visit Reasons: 35w 6d ob 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 Is patient in pain?: No [...] 0 current occupational status: employed current occupation: [employer] in [place] current occupational exposures/hazards: No pets and animals: [...] 3-4 times per week duration: 45-60 minutes/day dana/presybeterian: Temple seatbelt use: always do you feel safe [...] [id number] <Electronically signed by Tess quevedo NP VENEER STOCK GRADER-C> Date _ Tess PALAFOXC Cosigner Signature: Date (if applicable) CC: ~ [facility] Work Phone: Reason for referral (narrative)No reason for referral information availableWMagruder [facility] Work Phone: Summary Purpose Family History [...] 03, 2025 8:53am Supervision of high-risk Bridget [facility] 2024 8:53am Chief Complaint Admit Date 17 [...] 03, 2025 8:53am Supervision of high-risk Septe [facility] 2024 8:53am Hx of one miscarriage March 21 9:09am March 21, 2025 9:09am Right upper quadrant pain February 9:09am Supervision of high-risk Bridget [facility] 2024 9:09am Chief Complaint Admit Date 21 [...] 03, 2025 8:53am Supervision of high-risk Rosee [facility] 2024 8:53am Hx of one miscarriage March 21 9:09am March 21, 2025 9:09am Right upper quadrant pain February 9:09am Supervision of high-risk Bridget [facility] 2024 9:09am Hx of one miscarriage April [...] or prosecute any alcohol or drug abuse patient.[facility] Reason for Visit (unrecogniz ed section and content) Reason Comments [facility] INFORMATION SOURCE (unrecogn ized section and content) DATE CREATED AUTHOR 06/19/2024 [facility] DATE CREATED AUTHOR AUTHOR'S ORGANIZ ATION 12/20/2024 [facility] DATE CREATED AUTHOR AUTHOR'S ORGANIZ ATION 05/05/2025 [facility] Care Teams (unrecognized sec tion and content) Team Status: Active Member Role Status Dates Norm JONES, VENEER STOCK GRADER-C Primary Care Provider Active Team Status: Inactive Member Role Status Dates Norm JONES, VENEER STOCK GRADER-C Primary Care Provider Active Start: August 09, [...] End: August 23, 2024 Norm Aiken VSC, VENEER STOCK GRADER-C Primary Care Provider Active Start: August 23, 2024 End: August 23, 2024 Team Status: Active Member Role Status Dates Norm Aiken VSC, VENEER STOCK GRADER-C Primary Care Provider Active Start: September 06, 2024 Dr. Rhea Ayon DO Attending Provider Activ e Start: September 06, 2024 Dr. Rhea Ayon DO Referring Provider Activ e Start: September 06, 2024 Team Status: Inactive Member Role Status Dates Norm Aiken VSC, VENEER STOCK GRADER-C Primary Care Provider Active Start: September 08, 2024 End: September 08, 2024 Dr. Kamille Albarran MD Attending Provider Active Start: September 08, 2024 End: September 08, 2024 Dr. Kamille Albarran MD Referring Provider Active Start: September 08, 2024 End: September 08, 2024 Team Status: Inactive Member Role Status Dates Norm Aiken VSC, VENEER STOCK [employer]ADER-C Primary Care Provider Active Start: September 06, 2024 End: September 06, 2024 Dr. Rhea Ayon DO Attending Provider Activ e Start: September 06, 2024 End: September 06, 2024 Dr. Rhea Ayon DO Referring Provider Activ e Start: September 06, 2024 End: September 06, 2024 Team Status: Inactive Member Role Status Dates Norm Aiken VSC, VENEER STOCK GRADER-C Primary Care Provider Active Start: September 24, 2024 End: September 24, 2024 Norm Aiken VSC, VENEER STOCK GRADER-C Referring Provider Active S tart: September 24, 2024 End: September 24, 2024 Tess Lynch NP, V[employer]ER STOCK GRADER-C Attending Provider Active Start: September 24, 2024 End: September 24, 2024 Team Status: Inactive Member Role Status Dates Norm Aiken VSC, VENEER STOCK GRADER-C Primary Care Provider Active Start: October 11, 2024 End: October 11, 2024 Norm Aiken VSC, VENEER STOCK GRADER-C Referring Provider Active S tart: October 11, 2024 End: October 11, 2024 Dr. Kamille Albarran MD Attending Provider Active Start: October 11, 2024 End: October 11, 2024 Team Status: Inactive Member Role Status Dates Norm NICOLEC, VENEER STOCK GRADER-C Primary Care Provider Active Start: October 11, 2024 End: October 11, 2024 Dr. Kamille Albarran MD Attending Provider Active Start: October 11, 2024 End: October 11, 2024 Dr. Kamille Albarran MD Referring Provider Active Start: October 11, 2024 End: October 11, 2024 Team Status: Inactive Member Role Status Dates Norm NICOLEC, VENEER STOCK GRADER-C Primary Care Provider Active Start: October 17, 2024 End: October 17, 2024 Dr. Kamille Albarran MD Attending Provider Active Start: October 17, 2024 End: October 17, 2024 Dr. Kamille Albarran MD Referring Provider Active Start: October 17, 2024 End: October 17, 2024 Team Status: Inactive Member Role Status Dates Norm Aiken VSC, VENEER STOCK GRADER-C Primary Care Provider Active Start: November 08, 2024 End: November 08, 2024 Norm Aiken VSC, VENEER STOCK GRADER-C Referring Provider Active S tart: November 08, 2024 End: November 08, 2024 Dr. Kamille Albarran MD Attending Provider Active Start: November 08, 2024 End: November 08, 2024 Team Status: Inactive Member Role Status Dates Norm Aiken VSC, VENEER STOCK GRADER-C Primary Care Provider Active Start: December 02, 2024 End: December 02, 2024 Norm Aiken VSC, VENEER STOCK GRADER-C Referring Provider Active S tart: December 02, 2024 End: December 02, 2024 Tess Lynch NP, VENEER STOCK GRADER-C Attending Provider Active Start: December 02, 2024 End: December 02, 2024 Team Status: Active Member Role/Relationship Status Dates Norm Aiken VSC, VENEER STOCK GRADER-C Primary Care Provider Active Team Status: Inactive Member Role/Relationship Status Dates Norm Aiken VSC, VENEER STOCK GRADER-C Primary Care Provider Active Start: September 06, 2024 End: September 06, 2024 Dr. Rhea Ayon DO Attending Provider Activ e Start: September 06, 2024 End: September 06, 2024 Dr. Rhea Ayon DO Referring Provider Activ e Start: September 06, 2024 End: September 06, 2024 Team Status: Inactive Member Role/Relationship Status Dates Norm Attila VSC, [employer]ER STOCK GRADER-C Primary Care Provider Active Start: September 08, 2024 End: September 08, 2024 Dr. Kamille Albarran MD Attending Provider Active Start: September 08, 2024 End: September 08, 2024 Dr. Kamille Albarran MD Referring Provider Active Start: September 08, 2024 End: September 08, 2024 Team Status: Inactive Member Role/Relationship Status Dates Norm Attila VSC, VENEER STOCK GRADER-C Primary Care Provider Active Start: September 24, 2024 End: September 24, 2024 Norm Aiken VSC, VENEER STOCK GRADER-C Referring Provider Active S tart: September 24, 2024 End: September 24, 2024 Tess Lynch VENEER STOCK GRADER, VENEER STOCK GRADER-C Attending Provider Active Start: September 24, 2024 End: September 24, 2024 Team Status: Inactive Member Role/Relationship Status Dates Norm Attila VSC, VENEER STOCK GRADER-C Primary Care Provider Active Start: October 11, 2024 End: October 11, 2024 Norm Attila VSC, VENEER STOCK GRADER-C Referring Provider Active S tart: October 11, 2024 End: October 11, 2024 Dr. Kamille Albarran MD Attending Provider Active Start: October 11, 2024 End: October 11, 2024 Team Status: Inactive Member Role/Relationship Status Dates Norm Attila VSC, VENEER STOCK GRADER-C Primary Care Provider Active Start: October 11, 2024 End: October 11, 2024 Dr. Kamille Albarran MD Attending Provider Active Start: October 11, 2024 End: October 11, 2024 Dr. Kamille Albarran MD Referring Provider Active Start: October 11, 2024 End: October 11, 2024 Team Status: Inactive Member Role/Relationship Status Dates Norm Aiken VSC, VENEER STOCK GRADER-C Primary Care Provider Active Start: October 17, 2024 End: October 17, 2024 Dr. Kamille Albarran MD Attending Provider Active Start: October 17, 2024 End: October 17, 2024 Dr. Kamille Albarran MD Referring Provider Active Start: October 17, 2024 End: October 17, 2024 Team Status: Inactive Member Role/Relationship Status Dates Norm Geigerder VSC, VENEER STOCK GRADER-C Primary Care Provider Active Start: November 08, 2024 End: November 08, 2024 Norm Attila VSC, VENEER STOCK GRADER-C Referring Provider Active S tart: November 08, 2024 End: November 08, 2024 Dr. Kamille Albarran MD Attending Provider Active Start: November 08, 2024 End: November 08, 2024 Team Status: Inactive Member Role/Relationship Status Dates Norm Aiken VSC, VENEER STOCK GRADER-C Primary Care Provider Active Start: December 02, 2024 End: December 02, 2024 Norm Aiken VSC, [employer]ER STOCK GRADER-C Referring Provider Active S tart: December 02, 2024 End: December 02, 2024 Tess Lynch NP, VENEER STOCK GRADER-C Attending Provider Active Start: December 02, 2024 End: December 02, 2024 Team Status: Inactive Member Role/Relationship Status Dates Norm Aiken VSC, [employer]ER ST[employer] GRADER-C Primary Care Provider Active Start: January 02, 2025 End: January 02, 2025 Norm Aiken VSC, V[employer]ER ST[employer] GRADER-C Referring Provider Active S tart: January 02, 2025 End: January 02, 2025 Dr. Rhea Ayon DO Attending Provider Activ e Start: January 02, 2025 End: January 02, 2025 Team Status: Inactive Member Role/Relationship Status Dates Norm Aiken VSC, VENEER STOCK GRADER-C Primary Care Provider Active Start: October 11, 2024 End: October 11, 2024 Norm Geigerder VSC, VENEER STOCK GRADER-C Referring Provider Active S tart: October 11, 2024 End: October 11, 2024 Dr. Kamille Albarran MD Attending Provider Active Start: October 11, 2024 End: October 11, 2024 Team Status: Inactive Member Role/Relationship Status Dates Norm Aiken VSC, VENEER STOCK GRADER-C Primary Care Provider Active Start: October 11, 2024 End: October 11, 2024 Dr. Kamille Albarran MD Attending Provider Active Start: October 11, 2024 End: October 11, 2024 Dr. Kamille Albarran MD Referring Provider Active Start: October 11, 2024 End: October 11, 2024 Team Status: Inactive Member Role/Relationship Status Dates Norm Aiken VSC, VENEER STOCK GRADER-C Primary Care Provider Active Start: October 17, 2024 End: October 17, 2024 Dr. Kamille Albarran MD Attending Provider Active Start: October 17, 2024 End: October 17, 2024 Dr. Kamille Albarran MD Referring Provider Active Start: October 17, 2024 End: October 17, 2024 Team Status: Inactive Member Role/Relationship Status Dates Norm Aiken VSC, [employer] Primary Care Provider Active Start: November 08, 2024 End: November 08, 2024 Norm Geigerder VSC, [employer] Referring Provider Active S tart: November 08, 2024 End: November 08, 2024 Dr. Kamille Albarran MD Attending Provider Active Start: November 08, 2024 End: November 08, 2024 Team Status: Inactive Member Role/Relationship Status Dates Norm Aiken VSC, [employer] Primary Care Provider Active Start: December 02, 2024 End: December 02, 2024 Norm Aiken VSC, [employer] Referring Provider Active S tart: December 02, 2024 End: December 02, 2024 Tess Lynch NP, [employer] Attending Provider Active Start: December 02, 2024 End: December 02, 2024 Team Status: Inactive Member Role/Relationship Status Dates Norm Aiken VSC, [employer] Primary Care Provider Active Start: January 02, 2025 End: January 02, 2025 Norm Aiken VSC, [employer] Referring Provider Active S tart: January 02, 2025 End: January 02, 2025 Dr. Rhea Ayon DO Attending Provider Activ e Start: January 02, 2025 End: January 02, 2025 Team Status: Inactive Member Role/Relationship Status Dates Norm Aiken VSC, [employer] Primary Care Provider Active Start: January 29, 2025 End: January 29, 2025 Norm Aiken VSC, [employer] Referring Provider Active S tart: January 29, 2025 End: January 29, 2025 Becky Caballero CNM Attending Provider Active S tart: January 29, 2025 End: January 29, 2025 Team Status: Inactive Member Role/Relationship Status Dates Norm Geigerder VSC, [employer] Primary Care Provider Active Start: November 08, 2024 End: November 08, 2024 Norm Geigerder VSC, [employer] Referring Provider Active S tart: November 08, 2024 End: November 08, 2024 Dr. Kamille Albarran MD Attending Provider Active Start: November 08, 2024 End: November 08, 2024 Team Status: Inactive Member Role/Relationship Status Dates Norm Geigerder VSC, [employer] Primary Care Provider Active Start: December 02, 2024 End: December 02, 2024 Norm Aiken VSC, [employer] Referring Provider Active S tart: December 02, 2024 End: December 02, 2024 Tess Lynch [employer], [employer] Attending Provider Active Start: December 02, 2024 End: December 02, 2024 Team Status: Inactive Member Role/Relationship Status Dates Norm Aiken VSC, [employer] Primary Care Provider Active Start: January 02, 2025 End: January 02, 2025 Norm Geigerder VSC, [employer] Referring Provider Active S tart: January 02, 2025 End: January 02, 2025 Dr. Rhea Ayon DO Attending Provider Activ e Start: January 02, 2025 End: January 02, 2025 Team Status: Inactive Member Role/Relationship Status Dates Norm Aiken VSC, [employer] Primary Care Provider Active Start: January 29, 2025 End: January 29, 2025 Norm Aiken VSC, [employer] Referring Provider Active S tart: January 29, 2025 End: January 29, 2025 Becky Caballero CNM Attending Provider Active S tart: January 29, 2025 End: January 29, 2025 Team Status: Inactive Member Role/Relationship Status Dates Norm Aiken VSC, [employer] Primary Care Provider Active Start: February 19, 2025 End: February 19, 2025 Norm Aiken VSC, [employer] Referring Provider Active S tart: February 19, 2025 End: February 19, 2025 Tess Lynch NP, [employer] Attending Provider Active Start: February 19, 2025 End: February 19, 2025 Team Status: Active Member Role/Relationship Status Dates Norm Aiken VSC, [employer] Primary Care Provider Active Start: February 19, 2025 Dr. Kamille Albarran MD Attending Provider Active Start: February 19, 2025 Team Status: Inactive Member Role/Relationship Status Dates Norm Geigerder VSC, [employer] Primary Care Provider Active Start: March 03, 2025 End: March 03, 2025 Norm Geigerder VSC, [employer] Referring Provider Active S tart: March 03, 2025 End: March 03, 2025 Dr. Kamille Albarran MD Attending Provider Active Start: March 03, 2025 End: March 03, 2025 Team Status: Inactive Member Role/Relationship Status Dates Norm Aiken VSC, [employer] Primary Care Provider Active Start: February 19, 2025 End: February 19, 2025 Dr. Kamille Albarran MD Attending Provider Active Start: February 19, 2025 End: February 19, 2025 Team Status: Active Member Role/Relationship Status Dates Norm Aiken VSC, [employer] Primary Care Provider Active Start: March 03, 2025 Dr. Kamille Albarran MD Attending Provider Active Start: March 03, 2025 Dr. Kamille Albarran MD Referring Provider Active Start: March 03, 2025 Team Status: Inactive Member Role/Relationship Status Dates Norm Geigerder VSC, [employer] Primary Care Provider Active Start: December 02, 2024 End: December 02, 2024 Norm Geigerder VSC, [employer] Referring Provider Active S tart: December 02, 2024 End: December 02, 2024 Tess Lynch NP, [employer] Attending Provider Active Start: December 02, 2024 End: December 02, 2024 Team Status: Inactive Member Role/Relationship Status Dates Norm Geigerder VSC, [employer] Primary Care Provider Active Start: January 02, 2025 End: January 02, 2025 Norm Aiken VSC, [employer] Referring Provider Active S tart: January 02, 2025 End: January 02, 2025 Dr. Rhea Ayon DO Attending Provider Activ e Start: January 02, 2025 End: January 02, 2025 Team Status: Inactive Member Role/Relationship Status Dates Norm Aiken VSC, [employer] Primary Care Provider Active Start: January 29, 2025 End: January 29, 2025 Norm Aiken VSC, [employer] Referring Provider Active S tart: January 29, 2025 End: January 29, 2025 Becky Caballero CNM Attending Provider Active S tart: January 29, 2025 End: January 29, 2025 Team Status: Inactive Member Role/Relationship Status Dates Norm Geigerder VSC, [employer] Primary Care Provider Active Start: February 19, 2025 End: February 19, 2025 Norm Geigerder VSC, [employer] Referring Provider Active S tart: February 19, 2025 End: February 19, 2025 Tess Lynch [employer], [employer] Attending Provider Active Start: February 19, 2025 End: February 19, 2025 Team Status: Inactive Member Role/Relationship Status Dates Norm Aiken VSC, [employer] Primary Care Provider Active Start: February 19, 2025 End: February 19, 2025 Dr. Kamille Albarran MD Attending Provider Active Start: February 19, 2025 End: February 19, 2025 Team Status: Inactive Member Role/Relationship Status Dates Norm Aiken VSC, [employer] Primary Care Provider Active Start: March 03, 2025 End: March 03, 2025 Norm Aiken VSC, [employer] Referring Provider Active S tart: March 03, 2025 End: March 03, 2025 Dr. Kamille Albarran MD Attending Provider Active Start: March 03, 2025 End: March 03, 2025 Team Status: Inactive Member Role/Relationship Status Dates Norm Geigerder VSC, [employer] Primary Care Provider Active Start: March 03, 2025 End: March 03, 2025 Dr. Kamille Albarran MD Attending Provider Active Start: March 03, 2025 End: March 03, 2025 Dr. Kamille Albarran MD Referring Provider Active Start: March 03, 2025 End: March 03, 2025 Team Status: Active Member Role/Relationship Status Dates Norm Aiken VSC, [employer] Primary care physician Active Team Status: Inactive Member Role/Relationship Status Dates Norm Aiken VSC, [employer] Primary care physician Active Start: December 02, 2024 End: December 02, 2024 Norm Attila VSC, [employer] Referring Provider Active S tart: December 02, 2024 End: December 02, 2024 Tess Lynch [employer], [employer] Attending physician Active Start: December 02, 2024 End: December 02, 2024 Team Status: Inactive Member Role/Relationship Status Dates Norm Aiken VSC, [employer] Primary care physician Active Start: January 02, 2025 End: January 02, 2025 Norm Aiken VSC, [employer] Referring Provider Active S tart: January 02, 2025 End: January 02, 2025 Dr. Rhea Ayon DO Attending physician Acti ve Start: January 02, 2025 End: January 02, 2025 Team Status: Inactive Member Role/Relationship Status Dates Norm Geigerder VSC, [employer] Primary care physician Active Start: January 29, 2025 End: January 29, 2025 Norm Aiken VSC, [employer] Referring Provider Active S tart: January 29, 2025 End: January 29, 2025 Becky Caballero CNM Attending physician Active Start: January 29, 2025 End: January 29, 2025 Team Status: Inactive Member Role/Relationship Status Dates Norm Aiken VSC, [employer] Primary care physician Active Start: February 19, 2025 End: February 19, 2025 Norm Aiken VSC, [employer] Referring Provider Active S tart: February 19, 2025 End: February 19, 2025 Tess Lynch NP, [employer] Attending physician Active Start: February 19, 2025 End: February 19, 2025 Team Status: Inactive Member Role/Relationship Status Dates Norm Geigerder VSC, [employer] Primary care physician Active Start: February 19, 2025 End: February 19, 2025 Dr. Kamille Albarran MD Attending physician Active Start: February 19, 2025 End: February 19, 2025 Team Status: Inactive Member Role/Relationship Status Dates Norm Geigerder VSC, [employer] Primary care physician Active Start: March 03, 2025 End: March 03, 2025 Norm Aiken VSC, [employer] Referring Provider Active S tart: March 03, 2025 End: March 03, 2025 Dr. Kamille Albarran MD Attending physician Active Start: March 03, 2025 End: March 03, 2025 Team Status: Inactive Member Role/Relationship Status Dates Norm Aiken VSC, [employer] Primary care physician Active Start: March 03, 2025 End: March 03, 2025 Dr. Kamille Albarran MD Attending physician Active Start: March 03, 2025 End: March 03, 2025 Dr. Kamille Albarran MD Referring Provider Active Start: March 03, 2025 End: March 03, 2025 Team Status: Inactive Member Role/Relationship Status Dates Norm Aiken VSC, [employer] Primary care physician Active Start: March 21, 2025 End: March 21, 2025 Norm JONES, [employer] Referring Provider Active S tart: March 21, 2025 End: March 21, 2025 Becky Caballero CNM Attending physician Active Start: March 21, 2025 End: March 21, 2025 Team Status: Inactive Member Role/Relationship Status Dates Norm Aiken VSC, [employer] Primary care physician Active Start: January 02, 2025 End: January 02, 2025 Norm Aiken VSC, [employer] Referring Provider Active S tart: January 02, 2025 End: January 02, 2025 Dr. Reha Ayon DO Attending physician Acti ve Start: January 02, 2025 End: January 02, 2025 Team Status: Inactive Member Role/Relationship Status Dates Norm Aiken VSC, [employer] Primary care physician Active Start: January 29, 2025 End: January 29, 2025 Norm Aiken VSC, [employer] Referring Provider Active S tart: January 29, 2025 End: January 29, 2025 Becky Caballero CNM Attending physician Active Start: January 29, 2025 End: January 29, 2025 Team Status: Inactive Member Role/Relationship Status Dates Norm Aiken VSC, [employer] Primary care physician Active Start: February 19, 2025 End: February 19, 2025 Norm Aiken VSC, [employer] Referring Provider Active S tart: February 19, 2025 End: February 19, 2025 Tess Lynch NP, [employer] Attending physician Active Start: February 19, 2025 End: February 19, 2025 Team Status: Inactive Member Role/Relationship Status Dates Norm Aiken VSC, [employer] Primary care physician Active Start: February 19, 2025 End: February 19, 2025 Dr. Kamille Albarran MD Attending physician Active Start: February 19, 2025 End: February 19, 2025 Team Status: Inactive Member Role/Relationship Status Dates Norm Aiken VSC, [employer] Primary care physician Active Start: March 03, 2025 End: March 03, 2025 Norm Aiken VSC, [employer] Referring Provider Active S tart: March 03, 2025 End: March 03, 2025 Dr. Kamille Albarran MD Attending physician Active Start: March 03, 2025 End: March 03, 2025 Team Status: Inactive Member Role/Relationship Status Dates Norm NICOLEC, [employer] Primary care physician Active Start: March 03, 2025 End: March 03, 2025 Dr. Kamille Albarran MD Attending physician Active Start: March 03, 2025 End: March 03, 2025 Dr. Kamille Albarran MD Referring Provider Active Start: March 03, 2025 End: March 03, 2025 Team Status: Inactive Member Role/Relationship Status Dates Norm NICOLEC, [employer] Primary care physician Active Start: March 21, 2025 End: March 21, 2025 Norm Aiken VSC, [employer] Referring Provider Active S tart: March 21, 2025 End: March 21, 2025 Becky Caballero CNM Attending physician Active Start: March 21, 2025 End: March 21, 2025 Team Status: Inactive Member Role/Relationship Status Dates Norm Aiken VSC, [employer] Primary care physician Active Start: April 03, 2025 End: April 03, 2025 Norm Aiken VSC, [employer] Referring Provider Active S tart: April 03, 2025 End: April 03, 2025 Dr. Rhea Ayon DO Attending physician Acti ve Start: April 03, 2025 End: April 03, 2025 Team Status: Inactive Member Role/Relationship Status Dates Norm Aiken VSC, [employer] Primary care physician Active Start: April 16, 2025 End: April 16, 2025 Norm Aiken VSC, [employer] Referring Provider Active S tart: April 16, 2025 End: April 16, 2025 Tess Lynch NP, [employer] Attending physician Active Start: April 16, 2025 End: April 16, 2025 Team Status: Active Member Role/Relationship Status Dates Norm Aiken VSC, [employer] Primary care physician Active Start: April 16, 2025 Tess Lynch NP, [employer] Attending physician Active Start: April 16, 2025 Team Status: Inactive Member Role/Relationship Status Dates Norm JONES, [employer] Primary care physician Active Start: April 16, 2025 End: April 16, 2025 Tess Lynch [employer], [employer] Attending physician Active Start: April 16, 2025 End: April 16, 2025 Team Status: Inactive Member Role/Relationship Status Dates Norm JONES, [employer] Primary care physician Active Start: April 24, 2025 End: April 24, 2025 Tess Lynch [employer], [employer] Attending physician Active Start: April 24, 2025 End: April 24, 2025 Tess Lynch [employer], [employer] Referring Provider Active Start: April 24, 2025 End: April 24, 2025 Team Status: Inactive Member Role/Relationship Status Dates Norm JONES, [employer] Primary care physician Active Start: April 24, 2025 End: April 24, 2025 Norm JONES, [employer] Referring Provider Active S tart: April 24, 2025 End: April 24, 2025 Dr. Kamille Albarran MD Attending physician Active Start: April 24, 2025 End: April 24, 2025 Team Status: Inactive Member Role/Relationship Status Dates Norm JONES, [employer] Primary care physician Active Start: May 01, 2025 End: May 01, 2025 Norm JONES, [employer] Referring Provider Active S tart: May 01, [...] BE BASED ON THE PRIMARY CLINICAL RECORDS. [facility]. provides no warranty or guarantee of the accuracy or completeness of information in this document.
[2025-05-07 07:09] LABS: Hematocrit 38.2 % (37-47); Hemoglobin 12.8 g/dL (12.0-15.0); Immature Granulocytes Count 0.170 X10^3/uL (0.0-0.0); Mean Corp Hgb Conc 33.5 g/dL (32-36); Mean Corpuscular Volume 87.4 fL (81-99); Mean Platelet Vol. 10.8 fl (6.2-12.0); NRBC Flagged by Analyzer 0 % (0-5); Platelet Count 211 K/mm3 (150-450); RBC Distribution Width CV 13.9 % (11.6-14.6); RBC Distribution Width SD 43.8 fl (35.1-43.9); Red Blood Count 4.37 M/mm3 (4.2-5.4); White Blood Count 10.6 K/mm3 (4.4-11.0)
--- NOTE | 2025-05-07 07:36 | HP.PCM.OB_ITS ---
HPI - General General Date of Admission: 05/07/25 HPI Narrative ALBINO SANTIAGO, is a 29 F who presents with clear SROM since 330 irregular ctx but increasing now no vb admits good fm Maternal Data Information SREEDHAR Calculator Estimated Delivery Date Method Current WG Current Estimate 05/15/25 LMP (Certain) 38w 6d Other Estimates 05/16/25 Ultrasound #1 38w 5d PFSH PFSH Medical History Complete miscarriage Home Medications ?Medication ?Instructions ?Recorded ?Last Taken ?Type L.acidophilus-B.animalis-B.bifidum cap PO 09/24/24 Unk nown History 25 billion cell-FOS 100 mg capsule (Probiotic Complex) multivitamin no.47-iron fum 27 1 cap PO DAILY 09/24/24 05/05/25 20:00 History mg-folate no.1 1 mg-dha 300 mg 1 cap capsule (PNV-DHA) Allergy/AdvReac Type Severity Reaction Status Date / Time No Known Allergies Allergy Verified 05/07/25 05:54 Family History Mother Hypertension, Onset Age: 45 Grandfather No problems noted. Father MTHFR gene mutation Sister MTHFR gene mutation Social History adopted: No household members: spouse housing: house number of children: 0 current occupational status: employed current occupation: [employer] in [place] current occupational exposures/hazards: No pets and animals: Yes pets and animals: dog(s) history of recent travel: [place] ([place]) out of state: Yes out of country: No sexually active: Yes Smoking Status: Never smoker alcohol intake: current alcohol intake frequency: holidays/special occasions only details: Not while substance use type: does not use well-balanced diet: daily or most days caffeine: No eating out: 4 or more times/week during the past year weight has: remained stable what type of physical activity do you participate in: aerobics frequency: 3-4 times per week duration: 45-60 minutes/day dana/congregation: [employer] seatbelt use: always do you feel safe at home: Yes 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 Date Name GA/Weeks Outcome Route Bth Weight Infant Gen Labor Lgth Anesthesia Del Ed Provider FOB 08/08/24 4 spontaneous Visit Details Expected Delivery Route/Plan Labor Preferences- CB/BF classes: yes labor support person: Melvin labor intervention preferences: [] pain management options preferred: epidural cut cord/dad catch: yes : yes PP control planned: discussed discussed possible routes of delivery and associated risks: [] special requests: [] Plans Covid status: [] Flu vaccine:declined Tdap vaccine: dec Rhogam: NA LARC form signed: yes movement and labor precautions reviewed. Problem list reviewed and updated with the most current plan of care details and appropriate orders placed. Relevant counseling for the gestational age provided. Continue routine care and follow up unless otherwise noted in visit notes/problem list details OB Flowsheet Initial Weight: Not Recorded Date -?-?-?-?-?-?-?-?-?-?-?-?- EGA Weight BP Urine Prot -?-?-?-?-?-?-?-?-?-?-?-?- Glucose FHR FuHt Pres Dilation -?-?-?-?-?-?-?-?-?-?-?-?- Effaced St Visit Note 10/11/24 -?-?-?-?-?-?-?--?-?-?-?-?- 9w 1d 153 lb 8 oz 135/68 -?-?-?-?-?-?-?-?-?-?-?-?- 180 -?-?-?-?-?-?-?-?-?-?-?-?- SM- CRL 2.24cm c ons with lMP 11/08/24 -?-?-?-?-?-?-?-?-?-?-?-?- 13w 1d 151 lb 6 oz 125/73 Nega tive -?-?-?-?-?-?-?-?-?-?-?-?- Negative 160 -?-?-?-?-?-?-?-?-?-?-?-?- SM- no vb crampi ng 12/02/24 -?-?-?-?-?-?-?-?-?-?-?-?- 16w 4d 155 lb 119/71 Negative -?-?-?-?-?-?-?-?-?-?-?-?- Negative 158 -?-?-?-?-?-?-?-?-?-?-?-?- MH-No VB. Some h [place]-meds reviewed. 01/02/25 -?-?-?-?-?-?-?-?-?-?-?-?- 21w 0d 158 lb 2 oz 135/70 Nega tive -?-?-?-?-?-?-?-?-?-?-?-?- 147 -?-?-?-?-?-?-?-?-?-?-?-?- JV- having a gir l! normal anatomy. no complaints today. 01/29/25 -?-?-?-?-?-?-?-?-?-?-?-?- 24w 6d 162 lb 110/67 Negative -?-?-?-?-?-?-?-?-?-?-?-?- Negative 145 25 -?-?-?-?-?-?-?-?-?-?-?-?- KW- no vb/lof/ct x. good fm. having occasional burning in LUQ. Noticed after doing planks when working out. no blurred vision/headache. suspect muscle strain. 02/19/25 -?-?-?-?-?-?-?-?-?-?-?-?- 27w 6d 168 lb 130/72 Negative -?-?-?-?-?--?-?-?-?-?-?-?- Negative 143 28 -?-?-?-?-?-?-?-?-?-?-?-?- MH-No VB, lof. S ome dizziness/discussed freq meals, no quick position changes, increase fluids. 28 wk labs pending. Larc 03/03/25 -?-?-?-?-?-?-?-?-?-?-?-?- 29w 4d 168 lb 122/61 Negative -?-?-?-?-?-?-?-?-?-?-?-?- Negative 140 30 -?-?-?-?-?-?--?-?-?-?-?-?- Sm- no vb lof go od fm no reuglar ctx co rib pain and right sided pain 03/21/25 -?-?-?-?-?-?-?-?-?-?-?-?- 32w 1d 167 lb 8 oz 121/73 Nega tive -?-?-?-?-?-?-?-?-?-?-?-?- Negative 130 32 -?-?-?-?-?-?-?-?-?-?-?-?- KW- no vb/lof/ct x. good fm. KW- no vb/lof/ctx. good fm. Flu shot . LARC done 04/03/25 -?-?-?-?-?-?-?-?-?-?-?-?- 34w 0d 168 lb 9 oz 116/69 Nega tive -?-?-?-?-?-?-?-?-?-?-?-?- Negative 130 33.5 -?-?-?-?-?-?-?-?-?-?-?-?- JV- no lof, vagi nal bleeding, or dec fm. no complaints. 04/16/25 -?-?-?-?-?-?-?-?-?-?-?-?- 35w 6d 171 lb 4 oz 110/74 Nega tive -?-?-?-?-?-?-?-?-?-?-?-?- Negative 143 35 -?-?-?-?-?-?-?-?-?-?-?-?- MH-No VB, LOF. G ood FM. Noting X 1 week itching of hands/feet. No rash. Denies MICHAEL, vision changes. Labs and BPP ordered. 04/24/25 -?-?-?-?-?-?-?-?-?-?-?-?- 37w 0d 173 lb 133/77 -?-?-?-?-?-?-?-?-?-?-?-?- 140 35 Cephalic 0 -?-?-?-?-?-?-?-?-?-?-?-?- SM- co some itch ig on feet during the day and hands and feet at night no vb lof good fm no reuglar ctx 05/01/25 -?-?-?-?-?-?-?-?-?-?-?-?- 38w 0d 172 lb 6 oz 132/80 Nega tive -?-?-?-?-?-?-?-?-?-?-?-?- Negative 139 37 Cephalic 0 -?-?-?-?-?-?-?-?-?-?-?-?- JV- itching gone , bile acids negative. jayesh 18 last week. NST FHR Rate Baby A Baseline: 130 Variability:: Moderate Accelerations:: 15 x 15 Decelerations:: None NST Reactive:: Yes FHR Category:: Category I Uterine Activity:: irregular ROS Constitutional Constitutional: Reports systems reviewed and no addt'l complaints, except as documented Eyes Eyes: Denies change in vision ENT HEENT: Reports systems reviewed and no addt'l complaints, except as documented; Denies headache(s) Cardiovascular Cardiovascular: Reports systems reviewed and no addt'l complaints, except as documented; Denies chest pain or dyspnea Respiratory/Chest Respiratory/Chest: Reports systems reviewed and no addt'l complaints, except as documented Gastrointestinal Gastrointestinal: Reports systems reviewed and no addt'l complaints, except as documented; Denies abdominal pain Genitourinary Genitourinary: Reports systems reviewed and no addt'l complaints, except as documented, contractions Details: present (irregular) and movement Details: present; Denies dysuria or genital lesions Musculoskeletal Musculoskeletal: Reports systems reviewed and no addt'l complaints, except as documented Neurologic Neurologic: Reports systems reviewed and no addt'l complaints, except as documented Endocrine Endocrinology: Reports systems reviewed and no addt'l complaints, except as documented Vital Signs Vital Signs Vital Signs: 05/07/25 05:52 05/07/25 05:52 05/07/25 05:52 Temperature 97.8 F Temperature Source Temporal Pulse Rate Respiratory Rate 16 Blood Pressure BP Systolic BP Diastolic Pulse Ox 05/07/25 05:53 05/07/25 05:53 05/07/25 05:53 Temperature Temperature Source Pulse Rate 82 Respiratory Rate Blood Pressure 123/73 H BP Systolic 123 BP Diastolic 73 Pulse Ox 97 05/07/25 07:34 05/07/25 07:34 Temperature Temperature Source Pulse Rate 82 Respiratory Rate Blood Pressure 118/67 BP Systolic 118 BP Diastolic 67 Pulse Ox Weight Weight: 171 lb 15.369 oz Body Mass Index (BMI) 28.6 Physical Exam Const alert, oriented x3, no apparent distress and healthy appearing HEENT normocephalic and moist oral mucous membranes Head and Scalp: atraumatic Neck full ROM, no lymphadenopathy, supple and thyroid normal General: trachea midline Lymph Lymphatic: no lymphadenopathy noted Chest inspection of chest normal Resp normal respiratory effort Cardio regular rate GI soft to palpation and non-tender GI Narrative: gravid Inspection: gravid external exam normal Manual OB Exam: estimated gestational size appropriate, presentation cephalic, dilated, effaced and station Extremity normal to inspection General Extremity: Negative for edema Skin no rashes or lesions noted Neuro no focal motor deficits and deep tendon reflexes 2+ bilaterally Motor Exam: strength 5/5 throughout and clonus absent Psych mental status grossly normal Labs Labs Labs: Blood Type A POSITIVE Antibody Screen NEGATIVE Hct, (37-47) 38.2 % Hgb, (12.0-15.0) 12.8 g/dL Syphilis Total Ab, (Nonreactive) Nonreactive Rubella IgG Antibody, (Nonreactive) REAC Hep Bs Antigen, (Nonreactive) Nonreactive Hepatitis C Antibody, (Nonreactive) Nonreactive Chlamydia DNA (PAULO), (Negative) Negative N.gonorrhoeae DNA (PAULO), (Negative) Negative HIV 1&2 Antibody, (Nonreactive) Nonreactive Glucose 1 Hr 50 gm, (70-140) 96 mg/dL Miscellaneous Test, (.) COMMENT Assessment & Plan (1) SROM (spontaneous rupture of membranes): (2) Supervision of high-risk : QUALIFIERS: Trimester: second trimester Qualified Code(s): O09.92 - Supervision of high risk , unspecified, second trimester COMMENT: PRR G2PO, SREEDHAR 05/15/25, girl Renee Melvin (3) : QUALIFIERS: Weeks of gestation: 38 weeks Qualified Code(s): Z3A.38 - 38 weeks gestation of COMMENT: GBS neg, low risk, gender female declined carrier and AFP, nml anatomy (4) Hx of one miscarriage: PLAN: Plan Patient presents IAL, plan expectant management for , pitocin if needed. Pain management: plans epidural. GBS neg. Management of any complications: none I have reviewed the [facility] and made any clinically relevant updates.
[2025-05-07 07:55] LABS: Syphilis Antibodies Nonreactive (Nonreactive)
[2025-05-07] MEDS: 0.9% Saline Lock 10 ML Syringe IV (11:12)
[2025-05-07] MEDS: Lactated Ringers 1,000 ML 50 ML IV (11:15)
[2025-05-07] MEDS: Oxytocin 15 Units/NS 250ml 15 UNITS/250 ML IV.SOLN 2 UNITS IV (11:16)
[2025-05-07] MEDS: Lactated Ringers 1,000 ML 999 ML IV (12:41)
[2025-05-07] MEDS: fentaNYL-bupivacaine (epidural) 100 ML BAG EPIDURAL ×3 (13:39→22:45)
[2025-05-07] MEDS: Lactated Ringers 1,000 ML 200 ML IV ×3 (18:58→23:57)
[2025-05-08] VITALS (34 sets, daily range): BP systolic 91–148; BP diastolic 48–93; PULSE 53–93; RESP 12–20; TEMP 36.1–37.2; O2SAT 94–100
[2025-05-08] MEDS: fentaNYL-bupivacaine (epidural) 100 ML BAG EPIDURAL ×2 (03:17→08:13)
[2025-05-08] MEDS: Lactated Ringers 1,000 ML 200 ML IV ×2 (04:49→07:26)
--- NOTE | 2025-05-08 05:26 | PCM.PN.BLA ---
Progress Note late entry- 5 pm arom of forebag, cat I tracing. overall reassuring, slow progress, 4 cm. iupc placed and inadequate ctx continue pit per protocol. comfortable with epidural
--- NOTE | 2025-05-08 05:27 | PCM.PN.BLA ---
Progress Note patient evaluated, slow progress overnight, pit washout done and restarted, now at 5 mU but difficult dysfunctional pattern at times. titrate pitocin as needed. now 6 cm. discussed expectations about labor progress.
--- NOTE | 2025-05-08 08:27 | PCM.PN.BLA ---
Progress Note patient is laying on right side, no complaints current tracing: FHT: Moderate variability reactive no decelerations category I tracing [place]: q 1-2 min Contractions cx: 5/80/0, possible swelling of the cervix happening as the prior exam report was that she was 90% effaced and 6 cm. A/P: cat 1 strip. recommend more position changes unable to increase pitocin more due to borderline tachysystole .
--- NOTE | 2025-05-08 12:23 | PCM.PN.BLA ---
Progress Note patient is sitting up in bed. She was checked again by her labor nurse and still has not made any change since 5 am. She is now requesting a section current tracing: FHT: 140's Moderate variability reactive no decelerations category I tracing [place]: q1-2 min Contractions A/P: failure to progress- She has been ruptured x 33 hours and has been on pitocin for over 24 hours. She did get a pit wash last night also. After discussing the patient's diagnosis and treatment plan options, patient wishes to proceed with section. I have discussed with the patient the risks, benefits, and alternatives of the procedure which include but are not limited to risks of anesthesia, bleeding, infection, possible damage to bowel, bladder, or surrounding vasculature which could lead to additional surgery to evaluate any complications. Patient agrees to procedure and wishes to proceed.
--- NOTE | 2025-05-08 12:25 | DCINST_ITS ---
Discharge Instructions DC O2, CPAP, BIPAP needs Home O2 Discharge instructions: No Dressing / Incision Discharge Activity: May Not Drive (for 2 weeks or while taking narcotic pain medications.), May Shower and May Take a Tub Bath (in 7 days.) May resume sexual activity in: 4-6 weeks Weight Bearing Status: Full weight bearing Lifting Restrictions: 20 pounds Dressing / Incision Call your doctor if your incision/area has: Continuous Slow Oozing, Sudden Increased Bleeding, Increased Pain/ Swelling, Increased Redness and Foul Smelling Discharge Call your doctor if you observe: Fever of 101 or Higher and Using more than 1 pad per hour Suture Line Care: Avoid Pulling/Pushing and Avoid Pinching/Bending Cleanse incision/area with: Soap & Water and Keep Dressing Clean & Dry Follow Up Care Please Follow Up With: Rhea Ayon DO When: Call [phone] to make an appointment for an incision check in 1-2 weeks. Test Results: Test results from this visit will be discussed in further detail at your follow- up appointment, if applicable. Discharge Plan Admission Admit Date/Time: 05/07/25 06:32 Primary Reason for Your Visit: section Attending Provider: Becky Caballero Primary Care Provider: Norm Aiken Discharge Orders/Prescriptions Prescriptions: New ibuprofen 800 mg tablet 800 mg PO Q8H PRN (Reason: pain) Qty: 30 0RF oxycodone-acetaminophen [Percocet] 5-325 mg tablet 1 tab PO Q4H PRN (Reason: pain) 7 Days Qty: 20 0RF No Action Probiotic Complex 25 billion cell -100 mg capsule PO PNV-DHA 27 mg iron-1 mg -300 mg capsule 1 cap PO DAILY Referrals / Follow Up: Norm Aiken, TRACER BULLET SECTION SUPERVISOR-C [Primary Care Provider, Family Practice] Disposition Disposition (needs filled in before D/C Order can be placed): Home, Self Care
[2025-05-08] MEDS: Lactated Ringers 1,000 ML 1000 ML IV (12:35)
[2025-05-08] MEDS: Cefazolin 1 GM/5 ML Vial 2 GM IV (12:35)
[2025-05-08] MEDS: fentaNYL 100 MCG/2 ML Ampul IV (12:44)
[2025-05-08] MEDS: Lidocaine 2% (5ml sdv) 5 ML VIAL.MPF 20 ML EPIDURAL (12:52)
[2025-05-08] MEDS: morphine PF (epidural) 5 MG/10 ML Vial 3 MG EPIDURAL (13:15)
--- NOTE | 2025-05-08 13:27 | EX.PCM.OBRPT ---
Assessment & Plan (1) SROM (spontaneous rupture of membranes): (2) Failure to progress in first stage of labor: Maternal Data Information SREEDHAR Calculator Estimated Delivery Date Method Current WG Current Estimate 05/15/25 LMP (Certain) 39w 0d Other Estimates 05/16/25 Ultrasound #1 38w 6d Final SREEDHAR: 05/15/25 Gestational age: 39 weeks 0 days Operative Report (OB) Procedure Details Date of Procedure: 05/08/25 Procedure Start Time: 12:53 Procedure Stop Time: 13:27 Time of Delivery: 12:58 Pre-Operative Diagnosis: Failure to Progress and Arrrest of Descent Post-Operative Diagnosis: Same as Pre-operative diagnosis Classification: STEFAN Type of Anesthesia: Epidural Antibiotic Given: Ancef 2 grams IV x1 and Zithromax 500 mg/5 mL X1 Drain: Abad to straight drain Estimated Blood Loss: 1100 cc Findings Description of surgery: The patient is a 29 y/o @ 39 weeks 0 days who presented for induction of labor for SROM on 05/07/24 at 3:30 am. She was started on pitocin and progressed to 5 cm but did not make change for 7 hours. Uterine tachysystole was present with just a low dose of pitocin. The patient was given a pitocin wash but this still did not assist in any further dilation. She requested a at noon on 05/08/25. Epidural anesthesia was found to be adequate. Abad catheter was noted to be in placed. The patient was placed in the dorsal supine position with leftward tilt. Patient was prepped and draped in the normal sterile fashion. Pfannenstiel skin incision was made with the scalpel and carried through to the underlying layer of fascia with the scalpel. Fascia was nicked in the midline and the incision extended laterally. The rectus bellies were dissected off superiorly and inferiorly with out complication both sharply and bluntly. The peritoneum was entered digitally. The incision was stretched and a low transverse uterine incision was made with the scalpel. The 's head was delivered atraumatically followed by the anterior and posterior shoulders without complication the rest of the infant delivered. There was noted to be a moderately tight pelvis during this delivery. The cord was clamped and cut and the infant was handed off to awaiting nurse. The placenta was delivered spontaneously immediately following and was noted to be intact and have a three-vessel cord. The uterus was exteriorized cleared of all clots and debris, and the incision was closed in a double layer closure using #1 Vicryl and #1 Monocryl. The ovaries and fallopian tubes were noted to be within normal limits. The uterus was returned to the maternal abdomen and gutters were cleared of all clots and debris. Despite Pitocin the uterus remained atonic and Methergine and Hemabate were both given. This eventually resolved the atony. The peritoneum was closed with 3-0 Monocryl in a running fashion. Fascia was closed with 0 PDS in a running fashion. Subcutaneous tissue was copiously irrigated and the skin was closed with 3-0 Monocryl in a subcuticular fashion. Mepilex dressing was applied without complication. Patient was taken to recovery in stable condition. Surgical findings: Viable female Renee Presentation: Vertex Amniotic Membrane Rupture Type: Spontaneous Amniotic Fluid Description: Clear Placenta Disposition: [facility] Specimen collected: No Cord Vessel Description: 3 Vessels Cord Entanglement: Around neck x 1, loose Nuchal Cord Compression: Without compression A gender: Female (1 minute): 8 (5 minute): 9 Delayed Cord Clamping: Yes Assistant Floor Covering Printer doctor of podiatric medicine: Yes Marketing Production Manager: Jeanette Nelson Tasks completed by facilities maintenance assistant: Closing and Retracting Additional cardiology physician assistant?: No Complications Complications: No Multi Select Codes Urinary/Genital Urinary/Genital CPT Codes: 53175 Delivery [facility]
[2025-05-08] MEDS: Ketorolac 30 MG/ML Syringe IV ×2 (14:10→19:51)
[2025-05-08] MEDS: Oxytocin 15 Units/NS 250ml 15 UNITS/250 ML IV.SOLN 83 UNITS IV (14:33)
[2025-05-08] MEDS: Lactated Ringers 1,000 ML 100 ML IV (14:55)
[2025-05-09] MEDS: Ketorolac 30 MG/ML Syringe IV ×2 (02:07→08:22)
[2025-05-09 04:26] VITALS: BP 123/61; PULSE 57; RESP 16; TEMP 36.2; O2SAT 99
[2025-05-09 06:51] LABS: Hematocrit 28.9 % (37-47); Hemoglobin 9.5 g/dL (12.0-15.0); Mean Corp Hgb Conc 32.9 g/dL (32-36); Mean Corpuscular Volume 88.7 fL (81-99); Mean Platelet Vol. 10.4 fl (6.2-12.0); Platelet Count 164 K/mm3 (150-450); RBC Distribution Width CV 14.0 % (11.6-14.6); RBC Distribution Width SD 45.2 fl (35.1-43.9); Red Blood Count 3.26 M/mm3 (4.2-5.4); White Blood Count 17.8 K/mm3 (4.4-11.0)
--- NOTE | 2025-05-09 07:26 | PN.OBGYN_ITS ---
Subjective Subjective Patient doing well without complaints. Tolerating PO. Ambulating and voiding without difficulty. Feeding well. Denies chest pain, shortness of breath, calf pain/swelling, fevers, chills, lightheadedness. Objective Data Objective Data Vital Signs: Vital Signs Temp Pulse Resp BP Pulse Ox O2 Del Method 97.1 F L 57 L 16 123/61 H 99 Room Air 05/09/25 04:26 05/09/25 04:26 05/09/25 04:26 05/09/25 04:26 05/09/25 04:26 05/09/25 04:26 Oxygen Delivery Method Room Air Weight: 171 lb 15.369 oz Body Mass Index (BMI) 28.6 Intake & Output: Intake and Output for Last 24 Hours 05/07/25 05/08/25 05/09/25 23:59 23:59 23:59 Intake Total 3432.65 / 3432.65 3911.00 / 3911.00 Output Total 2400 / 2400 5600 / 5600 Balance 1032.65 / 1032.65 -1689.00 / -1689.00 Lab / Micro Data 05/09/25 06:40 Labs: Laboratory Results - last 24 hr 05/09/25 06:40: WBC 17.8 H, RBC 3.26 L, Hgb 9.5 L, Hct 28.9 L, MCV 88.7, MCH 29.1, MCHC 32.9, RDW Std Deviation 45.2 H, RDW Coeff of [place] 14.0, Plt Count 164, MPV 10.4 ROS Constitutional Constitutional: Reports systems reviewed and no addt'l complaints, except as documented; Denies anorexia or headache(s) Cardiovascular Cardiovascular: Reports systems reviewed and no addt'l complaints, except as documented; Denies dizziness, dyspnea, nausea or tachypnea Respiratory/Chest Respiratory/Chest: Reports systems reviewed and no addt'l complaints, except as documented; Denies cough, dyspnea, shortness of breath at rest or tachypnea Gastrointestinal Gastrointestinal: Reports systems reviewed and no addt'l complaints, except as documented; Denies abdominal pain, constipation or nausea Genitourinary Genitourinary: Reports systems reviewed and no addt'l complaints, except as documented; Denies burning urination, difficulty urinating, dysuria, urinary frequency or urinary incontinence Musculoskeletal Musculoskeletal: Reports systems reviewed and no addt'l complaints, except as documented Integumentary Integumentary: Reports systems reviewed and no addt'l complaints, except as documented Neurologic Neurologic: Reports systems reviewed and no addt'l complaints, except as documented; Denies abnormal speech, dizziness or headache(s) Psychiatric Psychiatric: Reports systems reviewed and no addt'l complaints, except as documented Endocrine Endocrinology: Reports systems reviewed and no addt'l complaints, except as documented Hematologic/Lymphatic Hematologic/Lymphatic: Reports systems reviewed and no addt'l complaints, except as documented Physical Exam Const alert, oriented x3 and no apparent distress Neck full ROM Resp normal respiratory effort, normal air movement and no retractions Effort and Inspection: able to speak in complete sentences and symmetric chest movement GI soft to palpation Inspection: incision intact Bladder / Kidney Exam: bladder normal to palpation Uterus Palpation: uterus fundus firm Extremity normal to inspection and full ROM Psych mental status grossly normal, thought process normal and cooperative Assessment & Plan (1) Status post section: PLAN: s/p LTCS PPD # 1 1. routine post care 2. breast feeding- support given 3. rh positive 4. rubella immune (2) SROM (spontaneous rupture of membranes): (3) Supervision of high-risk : QUALIFIERS: Trimester: second trimester Qualified Code(s): O09.92 - Supervision of high risk , unspecified, second trimester COMMENT: PRR G2PO, SREEDHAR 05/15/25, girl Renee Melvin (4) : QUALIFIERS: Weeks of gestation: 38 weeks Qualified Code(s): Z 3A.38 - 38 weeks gestation of COMMENT: GBS neg, low risk, gender female declined carrier and AFP, nml anatomy (5) Hx of one miscarriage: (6) Failure to progress in first stage of labor: Charges/Coding Multi Select Codes Urinary/Genital Urinary/Genital CPT Codes: No Charge
[2025-05-09] MEDS: 0.9% Saline Lock 10 ML Syringe IV (08:22)
[2025-05-09 08:30] VITALS: BP 99/46; PULSE 63; RESP 16; TEMP 36.4; O2SAT 100
[2025-05-09] MEDS: Senna/Docusate Sodium 1 Tablet PO (10:29)
[2025-05-09 13:20] VITALS: BP 108/53; PULSE 64; RESP 16; TEMP 36.6; O2SAT 100
[2025-05-09 20:08] VITALS: BP 104/53; PULSE 67; RESP 16; TEMP 36.2; O2SAT 99
[2025-05-10 03:30] VITALS: BP 113/59; PULSE 80; RESP 14; TEMP 36.2; O2SAT 99
[2025-05-10 08:09] VITALS: BP 115/67; PULSE 68; RESP 16; O2SAT 98
--- NOTE | 2025-05-10 09:27 | DS.PCM_ITS ---
Providers Date of Admission: 05/07/25 Date of Discharge: 05/10/25 Primary Care Physician: MOOSE Ridley Reason For Visit: PRIMARY C SECTION Diagnosis Discharge Diagnosis (1) Failure to progress in first stage of labor: Status: Acute Code(s): O63.0 - Prolonged first stage (of labor) (2) Status post section: Status: Acute Code(s): Z98.891 - History of uterine scar from previous surgery Plan: s/p LTCS PPD # 2 1. routine post care 2. breast feeding- support given 3. rh positive 4. rubella immune 5. Discharge home (3) SROM (spontaneous rupture of membranes): Status: Acute (4) Supervision of high-risk : Status: Acute Code(s): O09.90 - Supervision of high risk , unspecified, unspecified trimester Qualifiers: Trimester: second trimester Qualified Code(s): O09.92 - Supervision of high risk , unspecified, second trimester (5) : Status: Acute Code(s): Z34.90 - Encounter for supervision of normal , unspecified, unspecified trimester Qualifiers: Weeks of gestation: 38 weeks Qualified Code(s): Z3A.38 - 38 weeks gestation of (6) Hx of one miscarriage: Status: Acute Code(s): Z87.59 - Personal history of other complications of , childbirth and the puerperium Medications at Discharge Home Medications L.acidophilus-B.animalis-B.bifidum 25 billion cell-FOS 100 mg capsule (Probiotic Complex) cap PO 09/24/24 multivitamin no.47-iron fum 27 mg-folate no.1 1 mg-dha 300 mg capsule (PNV-DHA) 1 cap PO DAILY 09/24/24 ibuprofen 800 mg tablet 800 mg PO Q8H PRN pain #30 tabs 05/08/25 oxycodone-acetaminophen 5 mg-325 mg tablet (Percocet) 1 tab PO Q4H PRN pain 7 days #20 tabs 05/08/25 Hospital Course Operations section Procedures None Summary of Care Provided Minutes Spent on Discharge: 30 Physical Exam Const alert, oriented x3 and no apparent distress Neck full ROM Resp normal respiratory effort, normal air movement and no retractions Effort and Inspection: able to speak in complete sentences and symmetric chest movement GI soft to palpation Inspection: incision intact Bladder / Kidney Exam: bladder normal to palpation Uterus Palpation: uterus fundus Extremity normal to inspection and full ROM Psych mental status grossly normal, thought process normal and cooperative Weight / BMI Weight Weight: 171 lb 15.369 oz Body Mass Index (BMI) 28.6 ABG / Lab / Microbiology Data 05/09/25 06:40 D/C Instructions May shower in (days): 0 May resume sexual activity in: 4-6 weeks Weight Bearing Status: Full weight bearing Call your doctor if your incision/area has: Continuous Slow Oozing, Sudden Increased Bleeding, Increased Pain/ Swelling, Increased Redness and Foul Smelling Discharge Call your doctor if you observe: Fever of 101 or Higher and Using more than 1 pad per hour Suture Line Care: Avoid Pulling/Pushing and Avoid Pinching/Bending Cleanse incision/area with: Soap & Water and Keep Dressing Clean & Dry DC O2, CPAP, BIPAP Needs Home O2 Discharge instructions: No Please Follow Up With: Rhea Ayon, When: Call [phone] to make an appointment for an incision check in 1-2 weeks. Meaningful Use Info Meaningful Use Meaningful Use Diagnoses (Choose all that apply): None applicable Discharge Plan Admission Admit Date/Time: 05/07/25 06:32 Primary Reason for Your Visit: section Attending Provider: Rhea Ayon Primary Care Provider: Norm Aiken Discharge Orders/Prescriptions Prescriptions: New ibuprofen 800 mg tablet 800 mg PO Q8H PRN (Reason: pain) Qty: 30 0RF oxycodone-acetaminophen [Percocet] 5-325 mg tablet 1 tab PO Q4H PRN (Reason: pain) 7 Days Qty: 20 0RF No Action Probiotic Complex 25 billion cell -100 mg capsule PO PNV-DHA 27 mg iron-1 mg -300 mg capsule 1 cap PO DAILY Referrals / Follow Up: Norm Aiken, PASSENGER SERVICE MANAGER-C [Primary Care Provider, Family Practice] Disposition Disposition (needs filled in before D/C Order can be placed): Home, Self Care Charges/Coding Multi Select Codes Urinary/Genital Urinary/Genital CPT Codes: No Charge
--- NOTE | 2025-05-10 09:27 | PN.OBGYN_ITS ---
Subjective Subjective Patient doing well without complaints. Tolerating PO. Ambulating and voiding without difficulty. Feeding well. Denies chest pain, shortness of breath, calf pain/swelling, fevers, chills, lightheadedness. Objective Data Objective Data Vital Signs: Vital Signs Temp Pulse Resp BP Pulse Ox O2 Del Method 97.2 F L 68 16 115/67 98 Room Air 05/10/25 03:30 05/10/25 08:09 05/10/25 08:09 05/10/25 08:09 05/10/25 08:09 05/10/25 08:09 Oxygen Delivery Method Room Air Weight: 171 lb 15.369 oz Body Mass Index (BMI) 28.6 Intake & Output: Intake and Output for Last 24 Hours 05/08/25 05/09/25 05/10/25 23:59 23:59 23:59 Intake Total 3911.00 / 3911.00 0 / 0 Output Total 5600 / 5600 600 / 600 Balance -1689.00 / -1689.00 -600 / -600 Lab / Micro Data 05/09/25 06:40 ROS Constitutional Constitutional: Reports systems reviewed and no addt'l complaints, except as documented; Denies anorexia or headache(s) Cardiovascular Cardiovascular: Reports systems reviewed and no addt'l complaints, except as documented; Denies dizziness, dyspnea, nausea or tachypnea Respiratory/Chest Respiratory/Chest: Reports systems reviewed and no addt'l complaints, except as documented; Denies cough, dyspnea, shortness of breath at rest or tachypnea Gastrointestinal Gastrointestinal: Reports systems reviewed and no addt'l complaints, except as documented; Denies abdominal pain, constipation or nausea Genitourinary Genitourinary: Reports systems reviewed and no addt'l complaints, except as documented; Denies burning urination, difficulty urinating, dysuria, urinary frequency or urinary incontinence Musculoskeletal Musculoskeletal: Reports systems reviewed and no addt'l complaints, except as documented Integumentary Integumentary: Reports systems reviewed and no addt'l complaints, except as documented Neurologic Neurologic: Reports systems reviewed and no addt'l complaints, except as documented; Denies abnormal speech, dizziness or headache(s) Psychiatric Psychiatric: Reports systems reviewed and no addt'l complaints, except as documented Endocrine Endocrinology: Reports systems reviewed and no addt'l complaints, except as documented Hematologic/Lymphatic Hematologic/Lymphatic: Reports systems reviewed and no addt'l complaints, except as documented Physical Exam Const alert, oriented x3 and no apparent distress Neck full ROM Resp normal respiratory effort, normal air movement and no retractions Effort and Inspection: able to speak in complete sentences and symmetric chest movement GI soft to palpation Inspection: incision intact Bladder / Kidney Exam: bladder normal to palpation Uterus Palpation: uterus fundus firm Extremity normal to inspection and full ROM Psych mental status grossly normal, thought process normal and cooperative Assessment & Plan (1) Failure to progress in first stage of labor: (2) Status post section: PLAN: s/p LTCS PPD # 2 1. routine post care 2. breast feeding- support given 3. rh positive 4. rubella immune 5. Discharge home (3) SROM (spontaneous rupture of membranes): (4) Supervision of high-risk : QUALIFIERS: Trimester: second trimester Qualified Code(s): O09.92 - Supervision of high risk , unspecified, second trimester COMMENT: PRR G2PO, SREEDHAR 05/15/25, girl Renee Melvin (5) : QUALIFIERS: Weeks of gestation: 38 weeks Qualified Code(s): Z 3A.38 - 38 weeks gestation of COMMENT: GBS neg, low risk, gender female declined carrier and AFP, nml anatomy (6) Hx of one miscarriage: Charges/Coding Multi Select Codes Urinary/Genital Urinary/Genital CPT Codes: No Charge
[2025-05-10] MEDS: Senna/Docusate Sodium 1 Tablet PO (10:07)
--- NOTE | 2025-05-10 10:40 | CASEMGMT ---
Social Work Assessment Labor and Delivery Unit Patient Address: [address] [place] [address] [place] [address] Phone number: [phone] Date of Referral:05/08/25 Time of Referral: 19:41 Referred By: Rhea Ayon Date of Intervention: 05/10/25 Time of Intervention: 10:40 Reason for Referral: Morris Chapel?s Maternal Grandmother (MGM) has a history of alcohol abuse. History obtained from: Mother of baby (MOB), father of baby (NAHEED/ Melvin, age 30) and review of medical records. ?? Household composition: MOB, FOB and their daughter, Renee, born on 05/08/25. Patient's parent/guardian status: ???MOB and FOB have been together for 12 years and have been for 8 of those years. ?MOB denied any previous or current issues of domestic violence and described a positive relationship with the FOB. Medical History: :2, Para, now 1. NINFA has 1 SAB. MOB received care through [facility] beginning at 9weeks and 1 day. Apgars: 8 and 9. ?Weight: 7lbs., 0oz. [employer]: Not yet identified but will be through [facility]. Educational Status: MOB and FOB denied any issues with reading, writing or learning comprehension. MOB and FOB both earned a bachelor?s degree. Financial Status: MOB and FOB reported that their income is sufficient to meet the needs of their family at this time. 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 Supplies: MOB and FOB reported they have the supplies they need for baby at this time including but not limited to: Car seat, bassinet, crib, pack-n-play, diapers, bottles, breast pump and clothing. Childcare/Caregiver(s): NINFA reported that she is taking 8 weeks of maternity leave and after that will return to work 1 day a week and progress back into her 2 day a week job. The FOB gets 2 weeks of paternity leave. Once the MOB returns to work, ?s paternal grandmother (PGM) and paternal aunt will each care for one day a week. ?MOB and FOB denied any barriers/needs related to childcare/caregiving. Transportation: Both MOB and FOB are licensed drivers and have a reliable vehicle to get baby to and from all medical appointments. MOB and FOB denied any issues/barriers to transportation at this time. Programs/Agencies Involved: MOB and FOB denied any program/agency involvement. NINFA used to be involved with Counseling during a time when she resided in [place] for anxiety but does not have any current agency involvement. Children Services/Legal Issues: MOB and FOB denied any previous or current Children Services and/or legal involvement. Behavioral Health Issues: None reported/denied. ? Mental Health History: ?NINFA used to be in treatment for anxiety however no longer has a need. NINFA is not currently on any medication and described her symptoms as being managed at this time. FOB denied any MH history. Substance Use History:?? MOB and FOB denied any history or current drug and/or alcohol abuse. ? Family History: NINFA reported that her mother is an alcoholic. MOB and FOB denied any other family history on either side involving drug and/or alcohol abuse as well as mental health. Drug Screens: None obtained for the MOB or baby during this admission. Family/Social Stressors:?? Denied. Support Systems: NINFA identified her biggest support as the FOB, family as well as ?s PGM. Depression/Shaken Baby/Safe Sleeping: [employer] provided verbal and written education on PPD, increased risk factors for PPD, Safe Sleeping and Shaken Baby.? MOB and FOB both verbalized an understanding.??? ASSESSMENT: MOB and FOB provided consent to social work visit. Upon arrival, the MOB was in the hospital bed and the FOB had just come out of the bathroom. MOB and FOB were both verbally engaged, and cooperative. Ground Layer observed positive interaction between the MOB and FOB as well with the MOB and FOB towards . ?During the time the MOB was holding , she was observed to be very gentle, and attentive. The FOB was observed to be hands-on and assisted the MOB in getting comfortable in the bed as well as helping get adjusted ?in a good position for . At one point, began to cry and the FOB offered to take the baby and get baby re-swaddled and held/comforted baby. At the end of the assessment, where addiction social worker requested to speak with the MOB alone, which MOB and FOB were both agreeable to. MOB reported feeling safe in her home and denied any previous or current domestic violence, unmanaged mental health issues either with herself or with the FOB, and also denied any concerns with any drug or alcohol abuse either with herself or with the FOB. Safe Plan of Care for related to substance use: N/A PLAN: For MOB and baby to be discharged when medically ready. No other services requested or indicated. Rhea Kovacs, RAILROAD YARD WORKER, MISSILE AND MISSILE CHECKOUT TECHNICIAN
== END 2025-05-10 12:00 | disposition home or self-care (01) | DRG 788 ==
LOC: WPOUT 06:40 → WP 06:40
PROVIDERS: Advanced Practice Midwife; Admitting Provider Obstetrics & Gynecology; PCP Nurse Practitioner Family; Referring Provider Obstetrics & Gynecology; Visit Provider Obstetrics & Gynecology
DX: O42.02 Full-term premature rupture of membranes, onset of labor within 24 hours of rupture (principal); O32.4XX0 Maternal care for high head at term, not applicable or unspecified; O63.0 Prolonged first stage (of labor); O76 Abnormality in fetal heart rate and rhythm complicating labor and delivery; O69.81X0 Labor and delivery complicated by cord around neck, without compression, not applicable or unspecified; O62.2 Other uterine inertia; Z37.0 Single live birth; Z3A.39 39 weeks gestation of pregnancy; Z87.59 Personal history of other complications of pregnancy, childbirth and the puerperium
CPT/HCPCS: 59025; 59050; 84112; 85025; 85027; 86780; 86850; 86900; 86901; 99221; A4216; G0378; J0675; J2405